=== PATIENT | male | born 1950 | race Caucasian/White ===

== ENCOUNTER 2016-04-24 09:08 | Inpatient (IN) | payer OTHER, MEDICARE ==
[~2016-04-24] VITALS: Ht 185.4 cm; Wt 133.0 kg
[2016-04-24] VITALS (11 sets, daily range): BP systolic 143–215; BP diastolic 67–111; PULSE 63–79; RESP 18–24; TEMP 97.2–98.2; O2SAT 92–96
[~2016-04-24 09:08] MED LIST: CARV12.5 PO; HYDR25TA5 PO; HYDR50TA15 PO; LISI-515 PO; MULTTAB67 PO; NOVO7030P2 SQ
[2016-04-24] MEDS ORDERED: SODIUM CHLORIDE 0.9% FLUSH 5 ML FLUSH IVF PRN (09:30)
[2016-04-24] MEDS ORDERED: methylPREDNISolone SOD SUCC 125 MG/2 ML VIAL IVP ONE (09:30)
--- NOTE | 2016-04-24 09:31 | PD ---
HPI Chief Complaint: Respiratory Distress Time Seen by Provider: 09:22 Travel History International Travel<30 days: No Contact w/Intl Traveler<30days: No Traveled to known affect area: No History of Present Illness HPI This is a 66-year-old male who is been told he has COPD in the past who presents to the emergency department with increasing shortness of breath that started fairly abruptly this morning when he went to use the bathroom. He describes the shortness of breath as difficulty catching his breath associated with some mild chest discomfort. He denies any fevers or chills. He has not been ill preceding this. He denies any sputum production. He had a normal stress test earlier this year. He does report that he's had some left calf pain over the past week. PFSH Past Medical History Arthritis: No Asthma: No Autoimmune Disease: No Blood Disorders: No Anxiety: No Depression: No Heart Rhythm Problems: No Cancer: No Cardiac Catheterization: No Cardiovascular Problems: Yes (chf ) High Cholesterol: Yes Chemotherapy: No Chest Pain: Yes Congestive Heart Failure: Yes COPD: Yes Cerebrovascular Accident: No Coronary Artery Disease: No Diabetes: Yes Patient Takes Glucophage: No Diminished Hearing: No Endocrine: No Gastrointestinal Disorders: Yes (PYLIDINOL CYST X2) GERD: No Glaucoma: No Genitourinary: No Headaches: Yes Hepatitis: No Heparin Induced Thrombocytopen: No Hypertension: Yes Immune Disorder: No Implanted Vascular Access Dvce: No Kidney Stones: No Musculoskeletal: No Neurologic: No Psychiatric: No Reproductive: No Respiratory: Yes Immunizations Current: Yes Migraines: No Myocardial Infarction: No Radiation Therapy: No Renal Failure: No Seizures: No Sickle Cell Disease: No Sleep Apnea: Yes (Not using CPAP, but is supposed to be) Thyroid Disease: No ?: Not Past Surgical History Abdominal Surgery: Yes (APPENDECTOMY) AICD: No Appendectomy: Yes Arteriovenous Shunt: No Cardiac Surgery: No Cholecystectomy: No Coronary Artery Bypass Graft: No Ear Surgery: No Endocrine Surgery: No Eye Surgery: No Genitourinary Surgery: No Gynecologic Surgery: No Insulin Pump: No Joint Replacement: No Neurologic Surgery: No Oral Surgery: No Pacemaker: No Thoracic Surgery: No Other Surgery: Yes (appendectomy) Family History Family Myocardial Infarction: No Social History Alcohol Use: Yes (SOCIAL) Tobacco Use: No (quit 30 years ago) Substance Use: No Allergies-Medications (Allergen,Severity, Reaction): Coded Allergies: *MDRO Multi-Drug Resistant Organism (Verified Adverse Reaction, Unknown, 02/22/16) MRSA (back wound/chest abscess) - 04/24/2015 MRSA PCR Screens NEGATIVE - 01/22/16 & 01/25/16 CLEARED PER INFECTION CONTROL Medrol (Verified Adverse Reaction, Unknown, 02/22/16) severe bowel pain Reported Meds & Prescriptions Reported Meds & Active Scripts Active Lisinopril 20 Mg Tab 40 Mg PO DAILY 30 Days Novolin 70-30 Inj (Insulin Human Isoph/Insulin Regular) 1,000 Unit/10 Ml Vial 25 Units SQ BID@,17 30 Days Hydralazine (Hydralazine HCl) 50 Mg Tab 100 Mg PO Q8H 30 Days Coreg (Carvedilol) 12.5 Mg Tab 50 Mg PO Q12HR 30 Days Reported Multiple Vitamin 1 Tab 1 Tab PO DAILY Hydrochlorothiazide 25 Mg Tab 25 Mg PO DAILY Review of Systems Except as stated in HPI: all other systems reviewed are Neg Physical Exam Narrative GENERAL:Well appearing, no acute distress SKIN: Warm and dry. HEAD: Atraumatic. Normocephalic. EYES: Pupils equal and round. No injection or drainage. ENT: Moist mucous membranes NECK: Trachea midline. CARDIOVASCULAR: Regular rate and rhythm. No murmur appreciated. RESPIRATORY poor air movement, mild expiratory wheeze, tachypnea GASTROINTESTINAL: Abdomen soft, non-tender, nondistended. MUSCULOSKELETAL: No obvious deformities. NEUROLOGICAL: Awake and alert. No obvious cranial nerve deficits. Moving all extremities. PSYCHIATRIC: Appropriate mood and affect; insight and judgment normal. Data Data Last Documented VS Vital Signs Date Time Temp Pulse Resp B/P Pulse Ox O2 Delivery O2 Flow Rate FiO2 04/24/16 11:20 63 18 166/77 95 Nasal Cannula 2 04/24/16 09:23 98.2 Orders Complete Blood Count With Diff (04/24/16 09:26) Comprehensive Metabolic Panel (04/24/16 09:26) B-Type Natriuretic Peptide (04/24/16 09:26) D-Dimer (04/24/16 09:26) Act Partial Throm Time (Ptt) (04/24/16 09:26) Prothrombin Time / Inr (Pt) (04/24/16 09:26) Troponin I (04/24/16 09:26) Iv Access Insert/Monitor (04/24/16 09:26) Ecg Monitoring (04/24/16 09:26) Oximetry (04/24/16 09:26) Oxygen Administration (04/24/16 09:26) Chest, Single Ap (04/24/16 09:26) Sodium Chloride 0.9% Flush (Ns Flush) (04/24/16 09:30) Methylprednisolone So Succ Inj (Solumedr (04/24/16 09:30) Albuterol-Ipratropium Neb (Duoneb Neb) (04/24/16 09:30) Nitroglycerin Sl (Nitrostat Sl) (04/24/16 10:45) Ct Pulmonary Angiogram (04/24/16 ) Azithromycin (Zithromax) (04/24/16 11:45) Labs Laboratory Tests Test 04/24/16 09:58 White Blood Count 10.8 TH/MM3 Red Blood Count 5.42 MIL/MM3 Hemoglobin 14.5 GM/DL Hematocrit 43.8 % Mean Corpuscular Volume 80.8 FL Mean Corpuscular Hemoglobin 26.8 PG Mean Corpuscular Hemoglobin 33.2 % Concent Red Cell Distribution Width 15.3 % Platelet Count 234 TH/MM3 Mean Platelet Volume 9.4 FL Neutrophils (%) (Auto) 63.2 % Lymphocytes (%) (Auto) 23.2 % Monocytes (%) (Auto) 7.3 % Eosinophils (%) (Auto) 5.1 % Basophils (%) (Auto) 1.2 % Neutrophils # (Auto) 6.8 TH/MM3 Lymphocytes # (Auto) 2.5 TH/MM3 Monocytes # (Auto) 0.8 TH/MM3 Eosinophils # (Auto) 0.6 TH/MM3 Basophils # (Auto) 0.1 TH/MM3 CBC Comment DIFF FINAL Differential Comment Prothrombin Time 10.9 SEC Prothromb Time International 1.0 RATIO Ratio Activated Partial 23.3 SEC Thromboplast Time D-Dimer Quantitative (PE/DVT) 1.03 MG/L FEU Sodium Level 137 MEQ/L Potassium Level 4.2 MEQ/L Chloride Level 102 MEQ/L Carbon Dioxide Level 24.8 MEQ/L Anion Gap 10 MEQ/L Blood Urea Nitrogen 15 MG/DL Creatinine 1.23 MG/DL Estimat Glomerular Filtration 59 ML/MIN Rate Random Glucose 200 MG/DL Calcium Level 8.4 MG/DL Total Bilirubin 0.4 MG/DL Aspartate Amino Transf 32 U/L (AST/SGOT) Alanine Aminotransferase 42 U/L (ALT/SGPT) Alkaline Phosphatase 78 U/L Troponin I LESS THAN 0.02 NG/ML B-Type Natriuretic Peptide 280 PG/ML Total Protein 7.1 GM/DL Albumin 3.3 GM/DL MDM Medical Decision Making Medical Screen Exam Complete: Yes Emergency Medical Condition: Yes Interpretation(s) Hypoxic to 88% on room air, marked hypertension No leukocytosis Hyperglycemia BNP is indeterminate Troponin is less than 0.02 Last 24 hours Impressions Chest X-Ray 04/24/16 0961 Signed Impressions: Service Date/Time: Sunday, April 24, 2016 09:44 - CONCLUSION: Interstitial opacities bilaterally are subtle but appear new since the prior study. This could represent interstitial pulmonary edema in the appropriate clinical setting. Neeraj Alcantara MD Differential Diagnosis Pneumonia, COPD exacerbation, pulmonary embolism, congestive heart failure Narrative Course This is a 66-year-old male who presents to the emergency department with increasing shortness of breath that started fairly abruptly this morning. He is hypoxic on room air. He was placed on a monitor and an IV was established. He has some coarse lung sounds in the bases but very little wheezing. Nonetheless given he has a history of COPD a trial of bronchodilators and steroids was performed but patient's lung sounds did not change my touch. Labs are obtained which were unremarkable with indeterminate BMP. Chest x-ray demonstrates interstitial opacities, possible pulmonary edema. I think the patient requires CT imaging of the lungs to exclude pulmonary embolism and to further evaluate the lung parenchyma. Patient requires admission for continued pulmonary care as his oxygen still falls to 88% on room air. He may have undiagnosed interstitial lung disease. He was covered for possible pneumonia with ceftriaxone and azithromycin, although I think this is unlikely given he is afebrile and has no leukocytosis. Diagnosis Primary Impression: Hypoxia Admitting Information Admitting Physician Requests: Admit Corrie Randolph MD Apr 24, 2016 09:31
[2016-04-24] MEDS: RESP: ALBUTEROL 2.5 MG/IPRATROPIUM 0.5 MG NEB (SCH) INH ×3 (09:51→21:50)
--- NOTE | 2016-04-24 10:04 | RADRPT ---
EXAM DATE/TIME: 04/24/2016 09:44 [facility] COMPARISON: CHEST SINGLE AP, February 22, 2016, 23:11. INDICATIONS : Shortness of breath and chest pain. MEDICAL HISTORY : Diabetes mellitus type II. Hypertension. SURGICAL HISTORY : None. ENCOUNTER: Initial ACUITY: 1 day PAIN SCORE: 1/10 LOCATION: Bilateral chest FINDINGS: Portable AP view of the chest demonstrates a normal-sized cardiac silhouette. There are subtle inters titial opacities bilaterally that appear new since the prior examination. No effusion, consolidation, or pneumothorax is seen. Bones demonstrate no acute finding. CONCLUSION: Interstitial opacities bilaterally are subtle but appear new since the prior study. This could repres ent interstitial pulmonary edema in the appropriate clinical setting. Neeraj Alcantara MD on April 24, 2016 at 10:01 Board Certified Radiologist. This report was verified electronically.
[2016-04-24 10:24] LABS: AUTOMATED NEUTROPHIL # 6.8 TH/MM3 (1.8-7.7); BASOPHIL # 0.1 TH/MM3 (0-0.2); BASOPHIL % 1.2 % (0.0-2.0); EOSINOPHIL # 0.6 TH/MM3 (0-0.4); EOSINOPHIL % 5.1 % (0.0-4.0); HEMATOCRIT 43.8 % (39.0-51.0); HEMO FLAGS DIFF FINAL; LYMPH % 23.2 % (9.0-44.0); LYMPHOCYTE # 2.5 TH/MM3 (1.0-4.8); MEAN CELL VOLUME 80.8 FL (80.0-100.0); MEAN CORPUSCULAR HEMOGLOBIN 26.8 PG (27.0-34.0); MEAN CORPUSCULAR HGB CONC 33.2 % (32.0-36.0); MONO % 7.3 % (0.0-8.0); NEUT % 63.2 % (16.0-70.0); PLATELET COUNT 234 TH/MM3 (150-450); RED BLOOD COUNT 5.42 MIL/MM3 (4.50-5.90); RED CELL DISTRIBUTION WIDTH 15.3 % (11.6-17.2); WHITE BLOOD COUNT 10.8 TH/MM3 (4.0-11.0)
[2016-04-24 10:38] LABS: APTT (PATIENT) 23.3 SEC (24.3-30.1); PROTHROMBIN TIME - PATIENT 10.9 SEC (9.8-11.6)
[2016-04-24] MEDS ORDERED: NITROGLYCERIN 0.4 MG SL 25 TABS/BTL SL PRN (10:45)
[2016-04-24 10:50] LABS: ALT (GPT) 42 U/L (12-78); ANION GAP 10 MEQ/L (5-15); AST (GOT) 32 U/L (15-37); BICARBONATE 24.8 MEQ/L (21.0-32.0); BLOOD UREA NITROGEN 15 MG/DL (7-18); CHLORIDE 102 MEQ/L (98-107); GLOMERULAR FILTRATION RATE 59 ML/MIN (>89); SODIUM (NA) 137 MEQ/L (136-145)
[2016-04-24 10:51] LABS: POTASSIUM 4.2 MEQ/L (3.5-5.1)
[2016-04-24 11:00] LABS: ALKALINE PHOSPHATASE 78 U/L (45-117); TOTAL BILIRUBIN ADULT 0.4 MG/DL (0.2-1.0)
[2016-04-24] MEDS ORDERED: AZITHROMYCIN 250 MG TAB PO ONE (11:45)
[2016-04-24] MEDS ORDERED: cefTRIAXone INJ 1,000 MG in SODIUM CHLORIDE 0.9% INJ 100 ML IV ONE (12:00)
[2016-04-24] MEDS ORDERED: FUROSEMIDE 40 MG/4 ML VIAL IV PUSH ONE (12:30)
[2016-04-24] MEDS ORDERED: CLON0.2T PO (13:28)
[2016-04-24] MEDS ORDERED: METO25TA3 PO (13:28)
[2016-04-24] MEDS ORDERED: ASPI325T PO (13:28)
[2016-04-24] MEDS ORDERED: cloNIDine HCL 0.1 MG TAB PO PRN (14:45)
[2016-04-24] MEDS ORDERED: ENALAPRILAT 1.25 MG/ML VIAL IV PRN (14:45)
[2016-04-24] MEDS ORDERED: CALCIUM CARBONATE 500 MG CHEWABLE TAB CHEW PRN (14:45)
[2016-04-24] MEDS ORDERED: hydrALAZINE HCL 20 MG/ML VIAL IV PRN (14:45)
[2016-04-24] MEDS ORDERED: GLUCAGON 1 MG/ML VIAL OTHER PRN (14:45)
[2016-04-24] MEDS ORDERED: RESP: ALBUTEROL 2.5 MG/3 ML NEB (PRN) INH (14:45)
[2016-04-24] MEDS ORDERED: DEXTROSE 50% IN WATER 50 ML VIAL(D50) IV PUSH PRN (14:45)
[2016-04-24] MEDS ORDERED: DOCUSATE SODIUM 50 MG/SENNA 8.6 MG TAB PO PRN (14:45)
[2016-04-24] MEDS ORDERED: MAGNESIUM HYDROXIDE SUSP 30 ML CUP PO PRN (14:45)
[2016-04-24] MEDS ORDERED: DOCUSATE SODIUM 100 MG CAP PO PRN (14:45)
[2016-04-24] MEDS: LISINOPRIL 10 MG TAB PO SCH (14:45)
[2016-04-24] MEDS ORDERED: ALUMINUM/MAGNESIUM/SIMETH 30 ML CUP PO PRN (14:45)
[2016-04-24] MEDS ORDERED: ONDANSETRON HCL 4 MG/2 ML VIAL IV PRN (14:45)
--- NOTE | 2016-04-24 14:46 | HHI.HP ---
Dr. Engle [facility] Physician Supa Engle MD Admission Diagnosis hypoxia Diagnoses: Chief Complaint: Shortness of breath Travel History International Travel<30 Days: No Contact w/Intl Traveler <30 Da: No Traveled to Known Affected Are: No History of Present Illness 66-year-old male with a past history of HTN, DM, COPD, CHF, CHARITY, HLD who presented with acute onset of shortness of breath this morning. The patient states he woke up today and was feeling quite short of breath. He states it was worse when he tried to ambulate to the restroom. He states he felt he was wheezing. He states he tried to lie down and rest, but he is having some discomfort in his chest when he lie flat. He describes the chest discomfort as dull, lasting at most 5 minutes. He states the chest discomfort was relieved whenever he sat up. He has not tried lying flat since then. He is not on any diuretics at home. He denies any recent weight gain, has been trying to exercise. He does feel like his lower extremities have been swelling recently, worse when he stands on his feet too long. He denies any fevers or chills. He has an occasional dry cough, chronic. He states he tries to monitor his salt intake. Review of Systems Other 10 point review of systems performed and was negative except as stated in the history of present illness Past Family Social History Past Medical History Hypertension Diabetes mellitus COPD, not on home oxygen Systolic CHF Hyperlipidemia Sleep apnea, not on CPAP Past Surgical History Appendectomy Pilonidal cyst Reported Medications Novolin 70-30 Inj (Insulin Human Isoph/Insulin Regular) 1,000 Unit/10 Ml Vial 25 Units SQ BID@08,17 30 Days Aspirin 325 Mg Tab 325 Mg PO DAILY Clonidine (Clonidine HCl) 0.2 Mg Tab 0.2 Mg PO QID Metoprolol Tartrate 25 Mg Tab 25 Mg PO BID Multiple Vitamin 1 Tab 1 Tab PO DAILY Allergies: Coded Allergies: *MDRO Multi-Drug Resistant Organism (Verified Adverse Reaction, Unknown, 02/22/16) MRSA (back wound/chest abscess) - 04/24/2015 MRSA PCR Screens NEGATIVE - 01/22/16 & 01/25/16 CLEARED PER INFECTION CONTROL Medrol (Verified Adverse Reaction, Unknown, 02/22/16) severe bowel pain Active Ordered Medications Current Medications Medications (Trade) Dose Ordered Sig/Ly Route Start Time Stop Time Status Last Admin (NS Flush) 2 ml UNSCH PRN IVF 04/24/16 09:30 (Nitrostat Sl) 0.4 mg Q5M PRN SL 04/24/16 10:45 Family History Sr. of breast cancer Father of lung cancer and leukemia Social History Former tobacco use, quit in 1989 Denies any alcohol use Physical Exam Vital Signs Vital Signs Date Time Temp Pulse Resp B/P Pulse Ox O2 Delivery O2 Flow Rate FiO2 04/24/16 12:47 66 18 180/88 93 Nasal Cannula 3 04/24/16 11:20 63 18 166/77 95 Nasal Cannula 2 04/24/16 09:50 92 Nasal Cannula 2.00 04/24/16 09:43 94 Nasal Cannula 3 04/24/16 09:43 18 95 3 04/24/16 09:23 98.2 65 18 215/111 93 Nasal Cannula 3 04/24/16 09:23 65 24 92 Nasal Cannula 3 04/24/16 09:16 98.2 68 24 215/111 93 Physical Exam GENERAL: Well-developed well-nourished. In no acute distress. SKIN: Warm and dry. No lesions noted. HEENT: Normocephalic. Pupils equal and round. Mucous membranes pink and moist. JVD appreciated. CARDIOVASCULAR: Regular rate and rhythm. No murmur appreciated. RESPIRATORY: No accessory muscle use. Clear to auscultation. Decreased breath sounds in the bases. GASTROINTESTINAL: Abdomen soft, non-tender, nondistended. Bowel sounds x4. MUSCULOSKELETAL: No obvious deformities. No clubbing or cyanosis. 1+ bilateral lower extremity pitting edema. NEUROLOGICAL: Awake and alert. No focal neurological deficits. Moves upper and lower extremities spontaneously. Normal speech. PSYCHIATRIC: Appropriate mood and affect; insight and judgment normal. Laboratory Laboratory Tests Test 04/24/16 09:58 White Blood Count 10.8 Red Blood Count 5.42 Hemoglobin 14.5 Hematocrit 43.8 Mean Corpuscular Volume 80.8 Mean Corpuscular Hemoglobin 26.8 Mean Corpuscular Hemoglobin 33.2 Concent Red Cell Distribution Width 15.3 Platelet Count 234 Mean Platelet Volume 9.4 Neutrophils (%) (Auto) 63.2 Lymphocytes (%) (Auto) 23.2 Monocytes (%) (Auto) 7.3 Eosinophils (%) (Auto) 5.1 Basophils (%) (Auto) 1.2 Neutrophils # (Auto) 6.8 Lymphocytes # (Auto) 2.5 Monocytes # (Auto) 0.8 Eosinophils # (Auto) 0.6 Basophils # (Auto) 0.1 CBC Comment DIFF FINAL Differential Comment Prothrombin Time 10.9 Prothromb Time International 1.0 Ratio Activated Partial 23.3 Thromboplast Time D-Dimer Quantitative (PE/DVT) 1.03 Sodium Level 137 Potassium Level 4.2 Chloride Level 102 Carbon Dioxide Level 24.8 Anion Gap 10 Blood Urea Nitrogen 15 Creatinine 1.23 Estimat Glomerular Filtration 59 Rate Random Glucose 200 Calcium Level 8.4 Total Bilirubin 0.4 Aspartate Amino Transf 32 (AST/SGOT) Alanine Aminotransferase 42 (ALT/SGPT) Alkaline Phosphatase 78 Troponin I LESS THAN 0.02 B-Type Natriuretic Peptide 280 Total Protein 7.1 Albumin 3.3 Result Diagram: 04/24/1658 04/24/16957 Imaging Last Impressions Chest X-Ray 04/24/16925 Signed Impressions: Service Date/Time: Sunday, April 24, 2016 09:44 - CONCLUSION: Interstitial opacities bilaterally are subtle but appear new since the prior study. This could represent interstitial pulmonary edema in the appropriate clinical setting. Neeraj Alcantara MD Assessment and Plan Problem List: (1) Systolic CHF, acute on chronic ICD Code: I50.23 Status: Acute (2) DM (diabetes mellitus) ICD Code: E11.9 Status: Chronic (3) HTN (hypertension) ICD Code: I10 Status: Acute (4) COPD (chronic obstructive pulmonary disease) ICD Code: J44.9 Status: Chronic Assessment and Plan 66-year-old male with a past history of HTN, DM, COPD, CHF, CHARITY, HLD who presented with acute onset of shortness of breath Acute respiratory failure: O2 saturation decreased to 88% in the ED. Suspect secondary to CHF exacerbation as below, see treatment. He received IV Solu- Medrol in the ED, no further wheezing. Scheduled as needed nebs. O2 as needed. Acute exacerbation of chronic systolic CHF: Echocardiogram 02/05/16 showed a moderate reduction in systolic function with EF 3540 %, mild LVH and moderate left HM dilation. Chest x-ray with interstitial pulmonary edema. BNP elevated at 280. Continue IV diuresis. Fluid and salt restrictions. Monitor intake and output. Continue metoprolol. Add lisinopril. COPD: No signs of exacerbation currently, although the patient received steroids in the ED. Treatment as above. Could resume steroids if patient starts wheezing. Diabetes mellitus: Continue home Novolin 70/30. Additional coverage with SSI with Accu-Cheks. Hypertension: Accelerated. Continue metoprolol and clonidine. Add lisinopril. Continue IV diuresis. Clonidine, IV enalapril, and IV hydralazine as needed. Atypical chest pain: Related to positional changes, suspect secondary to CHF as above. Patient had nonischemic stress test 01/16. Troponin within normal limits. EKG personally reviewed, first-degree AV block, no significant changes from previous. Continue aspirin. DVT prophylaxis: SCDs Written by Reginaldo Castaneda, acting as scribe for Dr. Willis on 04/24/16 at 14:45. The documentation accurately reflects the work performed [id number] by me on at 1445 Discussed Condition With Patient, ED RN Problem Qualifiers (1) DM (diabetes mellitus): (2) HTN (hypertension): Qualified Code: I10 - Essential hypertension (3) COPD (chronic obstructive pulmonary disease): Qualified Code: J44.9 - Chronic obstructive pulmonary disease, unspecified COPD type Reginaldo Castaneda Apr 24, 2016 14:46 Catarino Willis MD Apr 24, 2016 15:43
[2016-04-24] MEDS: HEPARIN SODIUM - SQ 10,000 UNITS/ML VIAL SQ SCH (16:00)
[2016-04-24] MEDS: INSULIN ASPART SUPPLEMENTAL SCALE SQ SCH ×2 (16:00→21:00)
[2016-04-24] MEDS: INSULIN HUMAN NPH/R 70/30 1,000 UNITS/10 ML VIAL SQ SCH (17:00)
[2016-04-24] MEDS: cloNIDine HCL 0.2 MG TAB PO SCH ×2 (17:30→21:01)
[2016-04-24] MEDS: FUROSEMIDE 40 MG/4 ML VIAL IV PUSH SCH (17:31)
[2016-04-24] MEDS: POTASSIUM CHLORIDE 10 MEQ CAP PO SCH (21:01)
[2016-04-24] MEDS: METOPROLOL TARTRATE 25 MG TAB PO SCH (21:01)
--- NOTE | 2016-04-24 23:09 | EKG ---
Date Performed: 04/24/2016 Time Performed: 09:38:04 PTAGE: 66 years EKG: Sinus rhythm WITH FIRST DEGREE AV BLOCK BORDERLINE LEFT AXIS DEVIATION MODERATE INTRAVENTRICULAR CONDUCTION DELAY ABNORMAL ECG PREVIOUS TRACING : 02/22/2016 21.22 Compared to prior tracing no significant change DOCTOR: Dennis Soria Interpretating Date/Time 04/24/2016 23:08:35
[2016-04-25] VITALS (9 sets, daily range): BP systolic 131–168; BP diastolic 59–85; PULSE 62–78; RESP 18–19; TEMP 97.2–97.9; O2SAT 92–98
[2016-04-25] MEDS: ACETAMINOPHEN 325 MG TAB PO PRN (00:21)
[2016-04-25] MEDS: HEPARIN SODIUM - SQ 10,000 UNITS/ML VIAL SQ SCH ×2 (04:40→16:25)
[2016-04-25] MEDS: RESP: ALBUTEROL 2.5 MG/IPRATROPIUM 0.5 MG NEB (SCH) INH ×3 (05:04→22:16)
[2016-04-25] MEDS: INSULIN ASPART SUPPLEMENTAL SCALE SQ SCH ×4 (06:02→21:31)
[2016-04-25] MEDS ORDERED: INFLUENZA VIRUS VACCINE (QUADRIVALENT) 0.5 ML SYR IM ONE (10:00)
[2016-04-25] MEDS: POTASSIUM CHLORIDE 10 MEQ CAP PO SCH ×2 (10:11→21:30)
[2016-04-25] MEDS: cloNIDine HCL 0.2 MG TAB PO SCH ×4 (10:11→21:30)
[2016-04-25] MEDS: METOPROLOL TARTRATE 25 MG TAB PO SCH ×2 (10:11→21:30)
[2016-04-25] MEDS: INSULIN HUMAN NPH/R 70/30 1,000 UNITS/10 ML VIAL SQ SCH (10:12)
[2016-04-25] MEDS: ASPIRIN 325 MG TAB PO SCH (10:12)
[2016-04-25] MEDS: FUROSEMIDE 40 MG/4 ML VIAL IV PUSH SCH (10:12)
[2016-04-25] MEDS: LISINOPRIL 10 MG TAB PO SCH (10:13)
[2016-04-25] MEDS: MULTIVITAMIN TAB PO SCH (10:13)
[2016-04-25 11:19] LABS: POTASSIUM 4.3 MEQ/L (3.5-5.1)
--- NOTE | 2016-04-25 13:30 | HHI.PR ---
Subjective Remarks Follow-up heart failure. Slightly better but still dyspneic even with slight exertion. No voiding issues. Seen with sister. Discussed with RN. Patient states glucose less than 200 home. He missed his morning dose of 70/30 yesterday morning. Objective Vitals Vital Signs Date Time Temp Pulse Resp B/P Pulse Ox O2 Delivery O2 Flow Rate FiO2 04/25/16 11:15 96 Nasal Cannula 2.00 04/25/16 05:07 94 Nasal Cannula 2.00 04/25/16 04:00 97.4 77 19 131/59 92 04/24/16 23:37 98.0 76 19 154/72 96 04/24/16 23:15 79 04/24/16 20:30 68 04/24/16 20:00 97.7 70 19 143/67 94 04/24/16 16:00 97.2 77 20 206/102 96 I/O 04/24/16 04/24/16 04/24/16 04/25/16 04/25/16 04/25/16 07:00 15:00 23:00 07:00 15:00 23:00 Intake Total 320 ml 120 ml Balance 320 ml 120 ml Intake Oral 320 ml 120 ml # Voids 3 2 # Bowel Movements 1 Result Diagram: 04/24/1658 04/25/16 0949 Imaging Last Impressions Chest X-Ray 04/24/16 09 Signed Impressions: Service Date/Time: Sunday, April 24, 2016 09:44 - CONCLUSION: Interstitial opacities bilaterally are subtle but appear new since the prior study. This could represent interstitial pulmonary edema in the appropriate clinical setting. Neeraj Alcantara MD Objective Remarks GENERAL: Well-developed well-nourished. In no acute distress. SKIN: Warm and dry. No lesions noted. HEENT: Normocephalic. Pupils equal and round. Mucous membranes pink and moist. JVD appreciated. CARDIOVASCULAR: Regular rate and rhythm. No murmur appreciated. RESPIRATORY: No accessory muscle use. Clear to auscultation. Decreased breath sounds in the bases. GASTROINTESTINAL: Abdomen soft, non-tender, nondistended. Bowel sounds x4. MUSCULOSKELETAL: No obvious deformities. No clubbing or cyanosis. 1+ bilateral lower extremity pitting edema. NEUROLOGICAL: Awake and alert. No focal neurological deficits. Moves upper and lower extremities spontaneously. Normal speech. PSYCHIATRIC: Appropriate mood and affect; insight and judgment normal. Procedures none A/P Problem List: (1) Systolic CHF, acute on chronic ICD Code: I50.23 Status: Acute (2) DM (diabetes mellitus) ICD Code: E11.9 Status: Chronic (3) HTN (hypertension) ICD Code: I10 Status: Acute (4) COPD (chronic obstructive pulmonary disease) ICD Code: J44.9 Status: Chronic Assessment and Plan 66-year-old male with a past history of HTN, DM, COPD, CHF, CHARITY, HLD who presented with acute onset of shortness of breath Acute respiratory failure: O2 saturation decreased to 88% in the ED. Suspect secondary to CHF exacerbation as below, see treatment. He received IV Solu- Medrol in the ED, no further wheezing. Scheduled as needed nebs. O2 as needed. Acute exacerbation of chronic systolic CHF: Echocardiogram 02/05/16 showed a moderate reduction in systolic function with EF 3540 %, mild LVH and moderate left HM dilation. Chest x-ray with interstitial pulmonary edema. BNP elevated at 280. Continue IV diuresis. Fluid and salt restrictions. Monitor intake and output. Continue metoprolol. Improving COPD: No signs of exacerbation currently, although the patient received steroids in the ED. Treatment as above. Could resume steroids if patient starts wheezing. Diabetes mellitus: Uncontrolled secondary to patient missing dose. Patient states his glucose less than 200 at home. Continue home Novolin 70/30 for now A1c 11.6 in February 2016. Additional coverage with SSI with Accu-Cheks. Hypertension: Accelerated. Improving Continue metoprolol and clonidine. Continue IV diuresis. Clonidine, IV enalapril, and IV hydralazine as needed. Continue to monitor Atypical chest pain: Related to positional changes, suspect secondary to CHF as above. Patient had nonischemic stress test 01/16. Troponin within normal limits. EKG personally reviewed, first-degree AV block, no significant changes from previous. Continue aspirin. Acute on chronic kidney disease stage III. Nonoliguric. We'll decrease IV Lasix and discontinue lisinopril. Avoid nephrotoxins. Repeat BMP in the morning DVT prophylaxis: SCDs and subcutaneous heparin Problem Qualifiers (1) DM (diabetes mellitus): (2) HTN (hypertension): Qualified Code: I10 - Essential hypertension (3) COPD (chronic obstructive pulmonary disease): Qualified Code: J44.9 - Chronic obstructive pulmonary disease, unspecified COPD type Catarino Willis MD Apr 25, 2016 13:30
[2016-04-25] MEDS ORDERED: INSULIN HUMAN NPH/R 70/30 1,000 UNITS/10 ML VIAL SQ SCH ×2 (16:00)
[2016-04-26] VITALS (11 sets, daily range): BP systolic 136–178; BP diastolic 63–91; PULSE 59–74; RESP 16–20; TEMP 97.3–98.2; O2SAT 92–96
[2016-04-26] MEDS: HEPARIN SODIUM - SQ 10,000 UNITS/ML VIAL SQ SCH ×2 (03:16→16:38)
[2016-04-26] MEDS: RESP: ALBUTEROL 2.5 MG/IPRATROPIUM 0.5 MG NEB (SCH) INH ×4 (03:51→20:16)
[2016-04-26] MEDS: INSULIN ASPART SUPPLEMENTAL SCALE SQ SCH ×4 (06:04→21:00)
[2016-04-26] MEDS ORDERED: INSULIN HUMAN NPH/R 70/30 1,000 UNITS/10 ML VIAL SQ SCH ×2 (07:00→17:00)
[2016-04-26 08:04] LABS: BICARBONATE 28.4 MEQ/L (21.0-32.0); POTASSIUM 3.9 MEQ/L (3.5-5.1)
[2016-04-26] MEDS: METOPROLOL TARTRATE 25 MG TAB PO SCH ×2 (08:54→21:51)
[2016-04-26] MEDS: POTASSIUM CHLORIDE 10 MEQ CAP PO SCH ×2 (08:54→21:50)
[2016-04-26] MEDS: MULTIVITAMIN TAB PO SCH (08:54)
[2016-04-26] MEDS: cloNIDine HCL 0.2 MG TAB PO SCH ×4 (08:54→21:52)
[2016-04-26] MEDS: ASPIRIN 325 MG TAB PO SCH (08:54)
[2016-04-26] MEDS ORDERED: FUROSEMIDE 40 MG/4 ML VIAL IV PUSH SCH (09:00)
[2016-04-26] MEDS: ACETAMINOPHEN 325 MG TAB PO PRN ×3 (09:54→22:22)
[2016-04-26 10:11] LABS: BLOOD, URINE NEG (NEG); COMMENT (UR) CULT NOT INDICATED; CULTURE IF INDICATED CULT NOT INDICATED; GLUCOSE,URINE NEG (NEG); KETONE, URINE NEG (NEG); NITRITE,URINE NEG (NEG); PH, URINE 5.5 (5.0-8.5); URINE COLOR LIGHT-YELLOW (YELLW/STRAW)
--- NOTE | 2016-04-26 10:32 | HHI.PR ---
Subjective Remarks Follow-up heart failure. Improving shortness of breath and exercise tolerance. He is voiding. Discussed with RN Objective Vitals Vital Signs Date Time Temp Pulse Resp B/P Pulse Ox O2 Delivery O2 Flow Rate FiO2 04/26/16 10:13 65 04/26/16 09:04 96 21 04/26/16 08:00 97.7 65 16 178/91 93 04/26/16 04:00 97.8 59 18 160/85 92 04/26/16 00:00 97.3 59 18 139/76 92 04/25/16 22:16 98 Nasal Cannula 04/25/16 22:03 64 04/25/16 20:25 2.00 04/25/16 20:00 97.9 62 18 162/72 96 04/25/16 16:00 97.7 78 18 157/85 95 04/25/16 12:00 97.2 64 18 168/80 94 04/25/16 11:15 96 Nasal Cannula 2.00 I/O 04/25/16 04/25/16 04/25/16 04/26/16 04/26/16 04/26/16 07:00 15:00 23:00 07:00 15:00 23:00 Intake Total 120 ml 0 ml 362 ml 480 ml Balance 120 ml 0 ml 362 ml 480 ml Intake Oral 120 ml 360 ml 480 ml IV Total 0 ml 2 ml # Voids 2 1 1 Result Diagram: 04/24/16 0958 04/26/16 0658 Objective Remarks GENERAL: Well-developed well-nourished. In no acute distress. SKIN: Warm and dry. No lesions noted. HEENT: Normocephalic. Pupils equal and round. Mucous membranes pink and moist. JVD appreciated. CARDIOVASCULAR: Regular rate and rhythm. No murmur appreciated. RESPIRATORY: No accessory muscle use. Crackles left base. Decreased breath sounds in the bases. GASTROINTESTINAL: Abdomen soft, non-tender, nondistended. Bowel sounds x4. MUSCULOSKELETAL: No obvious deformities. No clubbing or cyanosis. 1+ bilateral lower extremity pitting edema. NEUROLOGICAL: Awake and alert. No focal neurological deficits. Moves upper and lower extremities spontaneously. Normal speech. PSYCHIATRIC: Appropriate mood and affect; insight and judgment normal. Procedures none A/P Problem List: (1) Systolic CHF, acute on chronic ICD Code: I50.23 Status: Acute (2) DM (diabetes mellitus) ICD Code: E11.9 Status: Chronic (3) HTN (hypertension) ICD Code: I10 Status: Acute (4) COPD (chronic obstructive pulmonary disease) ICD Code: J44.9 Status: Chronic Assessment and Plan 66-year-old male with a past history of HTN, DM, COPD, CHF, CHARITY, HLD who presented with acute onset of shortness of breath Acute respiratory failure: O2 saturation decreased to 88% in the ED. Suspect secondary to CHF exacerbation as below, see treatment. He received IV Solu- Medrol in the ED, no further wheezing. Scheduled as needed nebs. O2 as needed. Acute exacerbation of chronic systolic CHF: Echocardiogram 02/05/16 showed a moderate reduction in systolic function with EF 3540 %, mild LVH and moderate left HM dilation. Chest x-ray with interstitial pulmonary edema. BNP elevated at 280. Improving but still with dyspnea and crackles ct diuresis . Fluid and salt restrictions. Monitor intake and output. Continue metoprolol. COPD: No signs of exacerbation currently, although the patient received steroids in the ED. Treatment as above. Could resume steroids if patient starts wheezing. Diabetes mellitus: Uncontrolled secondary to patient missing dose. Patient states his glucose less than 200 at home. Increase Novolin 70/30 to 28 units am A1c 11.6 in February 2016. Additional coverage with SSI with [employer]. Hypertension: Accelerated. Improving Continue metoprolol and clonidine. Clonidine, IV enalapril, and IV hydralazine as needed. Continue to monitor Atypical chest pain: Related to positional changes, suspect secondary to CHF as above. Patient had nonischemic stress test 01/16. Troponin within normal limits. EKG personally reviewed, first-degree AV block, no significant changes from previous. Continue aspirin. Acute on chronic kidney disease stage III. Nonoliguric. Improving switch to po Lasix and discontinue lisinopril. Avoid nephrotoxins. Repeat BMP in the morning DVT prophylaxis: SCDs and subcutaneous heparin Discharge Planning Possible dc in am not ready today Problem Qualifiers (1) DM (diabetes mellitus): (2) HTN (hypertension): Qualified Code: I10 - Essential hypertension (3) COPD (chronic obstructive pulmonary disease): Qualified Code: J44.9 - Chronic obstructive pulmonary disease, unspecified COPD type Catarino Willis MD Apr 26, 2016 10:32
[2016-04-27 04:24] VITALS: BP 131/77; PULSE 76; RESP 16; TEMP 97.9; O2SAT 91
[2016-04-27] MEDS: RESP: ALBUTEROL 2.5 MG/IPRATROPIUM 0.5 MG NEB (SCH) INH ×2 (04:24→10:01)
[2016-04-27 04:27] VITALS: O2SAT 97
[2016-04-27] MEDS: INSULIN ASPART SUPPLEMENTAL SCALE SQ SCH ×2 (05:39→11:58)
[2016-04-27] MEDS: HEPARIN SODIUM - SQ 10,000 UNITS/ML VIAL SQ SCH (05:39)
[2016-04-27 08:00] VITALS: BP 185/110; PULSE 72; PULSE 76; RESP 20; TEMP 97.3; O2SAT 98
[2016-04-27] MEDS ORDERED: INSULIN HUMAN NPH/R 70/30 1,000 UNITS/10 ML VIAL SQ SCH ×2 (08:00)
[2016-04-27] MEDS: METOPROLOL TARTRATE 25 MG TAB PO SCH (08:41)
[2016-04-27] MEDS: POTASSIUM CHLORIDE 10 MEQ CAP PO SCH (08:41)
[2016-04-27] MEDS: ASPIRIN 325 MG TAB PO SCH (08:42)
[2016-04-27] MEDS: MULTIVITAMIN TAB PO SCH (08:42)
[2016-04-27] MEDS: cloNIDine HCL 0.2 MG TAB PO SCH ×2 (08:43→11:50)
[2016-04-27] MEDS: ACETAMINOPHEN 325 MG TAB PO PRN (08:43)
[2016-04-27] MEDS ORDERED: FUROSEMIDE 40 MG TAB PO SCH (09:00)
[2016-04-27] MEDS ORDERED: NOVO7030P2 SQ ×2 (10:59)
[2016-04-27] MEDS ORDERED: FURO1TAB60 PO ×2 (10:59→15:26)
[2016-04-27] MEDS ORDERED: POTA10CA PO (10:59)
--- NOTE | 2016-04-27 11:00 | HHI.DCPOC ---
Discharge Care Plan Diagnosis: (1) Systolic CHF, acute on chronic Your Health Problems Are: Difficulty with ADL Exercise Tolerance Shortness of Breath Goals to Promote Your Health * To prevent worsening of your condition and complications * To maintain your health at the optimal level Directions to Meet Your Goals Take your medications as prescribed Follow your dietary instruction Follow activity as directed Keep your appointments as scheduled Take your immunizations and boosters as scheduled If your symptoms worsen call your PCP, if no PCP go to Urgent Care Center or Emergency Room Smoking is Dangerous to Your Health. Avoid second hand smoke Call the 24-hour hour crisis hotline for domestic abuse at Catarino Willis MD Apr 27, 2016 11:00
--- NOTE | 2016-04-27 11:01 | HHI.DS ---
Discharge Summary Admission Date Apr 24, 2016 at 12:13 Discharge Date: Apr 27, 2016 Admitting Diagnosis hypoxia (1) Systolic CHF, acute on chronic ICD Code: I50.23 Diagnosis: Principal (2) DM (diabetes mellitus) ICD Code: E11.9 Diagnosis: Principal (3) HTN (hypertension) ICD Code: I10 Diagnosis: Secondary (4) COPD (chronic obstructive pulmonary disease) ICD Code: J44.9 Diagnosis: Principal Procedures none Brief History - From Admission 66-year-old male with a past history of HTN, DM, COPD, CHF, CHARITY, HLD who presented with acute onset of shortness of breath this morning. The patient states he woke up today and was feeling quite short of breath. He states it was worse when he tried to ambulate to the restroom. He states he felt he was wheezing. He states he tried to lie down and rest, but he is having some discomfort in his chest when he lie flat. He describes the chest discomfort as dull, lasting at most 5 minutes. He states the chest discomfort was relieved whenever he sat up. He has not tried lying flat since then. He is not on any diuretics at home. He denies any recent weight gain, has been trying to exercise. He does feel like his lower extremities have been swelling recently, worse when he stands on his feet too long. He denies any fevers or chills. He has an occasional dry cough, chronic. He states he tries to monitor his salt intake. CBC/BMP: 04/24/16 0958 04/26/16 0658 Significant Findings Laboratory Tests Test 04/25/16 04/26/16 09:49 06:58 Sodium Level 132 MEQ/L 135 MEQ/L (136-145) (136-145) Chloride Level 96 MEQ/L (98-107) Blood Urea Nitrogen 26 MG/DL (7-18) 29 MG/DL (7-18) Creatinine 1.85 MG/DL 1.35 MG/DL (0.60-1.30) (0.60-1.30) Estimat Glomerular Filtration 37 ML/MIN (>89) 53 ML/MIN (>89) Rate Random Glucose 312 MG/DL 186 MG/DL (74-106) (74-106) Imaging Last Impressions Chest X-Ray 04/24/16 0979 Signed Impressions: Service Date/Time: Sunday, April 24, 2016 09:44 - CONCLUSION: Interstitial opacities bilaterally are subtle but appear new since the prior study. This could represent interstitial pulmonary edema in the appropriate clinical setting. Neeraj Alcantara MD PE at Discharge GENERAL: Well-developed well-nourished. In no acute distress. SKIN: Warm and dry. No lesions noted. HEENT: Normocephalic. Pupils equal and round. Mucous membranes pink and moist. JVD appreciated. CARDIOVASCULAR: Regular rate and rhythm. No murmur appreciated. RESPIRATORY: No accessory muscle use. Crackles left base. Decreased breath sounds in the bases. GASTROINTESTINAL: Abdomen soft, non-tender, nondistended. Bowel sounds x4. MUSCULOSKELETAL: No obvious deformities. No clubbing or cyanosis. 1+ bilateral lower extremity pitting edema. NEUROLOGICAL: Awake and alert. No focal neurological deficits. Moves upper and lower extremities spontaneously. Normal speech. PSYCHIATRIC: Appropriate mood and affect; insight and judgment normal. Hospital Course 66-year-old male with a past history of HTN, DM, COPD, CHF, CHARITY, HLD who presented with acute onset of shortness of breath Acute respiratory failure: O2 saturation decreased to 88% in the ED. Suspect secondary to CHF exacerbation as below, see treatment. He received IV Solu- Medrol in the ED, no further wheezing. Scheduled as needed nebs. O2 as needed. Acute exacerbation of chronic systolic CHF: Echocardiogram 02/05/16 showed a moderate reduction in systolic function with EF 3540 %, mild LVH and moderate left HM dilation. Chest x-ray with interstitial pulmonary edema. BNP elevated at 280. Improved . Fluid and salt restrictions. Monitor intake and output. Continue metoprolol. COPD: No signs of exacerbation currently, although the patient received steroids in the ED. Treatment as above. Could resume steroids if patient starts wheezing. Diabetes mellitus: Uncontrolled secondary to patient missing dose. Patient states his glucose less than 200 at home. Increase Novolin 70/30 to 28 units am and 35 units pm. A1c 11.6 in February 2016. Additional coverage with SSI with [employer]. Improving Hypertension: Accelerated. Improving Continue metoprolol and clonidine. Clonidine, IV enalapril, and IV hydralazine as needed. Continue to monitor Atypical chest pain: Related to positional changes, suspect secondary to CHF as above. Patient had nonischemic stress test 01/16. Troponin within normal limits. EKG personally reviewed, first-degree AV block, no significant changes from previous. Continue aspirin. Acute on chronic kidney disease stage III. Nonoliguric. Improving switch to po Lasix and discontinue lisinopril. Avoid nephrotoxins. Repeat BMP today pending. Outpatient follow-up DVT prophylaxis: SCDs and subcutaneous heparin Stable for discharge Pt Condition on Discharge: Stable Discharge Disposition: Discharge Home Discharge Time: <= 30 minutes Discharge Instructions DIET: Follow Instructions for: Heart Healthy Diet, Diabetic Diet Activities you can perform: Regular-No Restrictions Activities to Avoid: Driving Follow up Referrals: PCP Follow-up - 2-3 Days New Orders: BASIC METABOLIC PROF - 05/02/16 New Medications: Furosemide (Lasix) 40 Mg Tab 40 MG PO DAILY Prevent Heart Failure #30 TAB Insulin Human Isophane-Regular 70-30 Inj (Novolin 70-30 Inj) 1,000 Unit/10 Ml Vial 28 UNITS SQ DAILY@17 Blood Sugar Management #30 INJECTION Insulin Human Isophane-Regular 70-30 Inj (Novolin 70-30 Inj) 1,000 Unit/10 Ml Vial 35 UNITS SQ DAILYAC Blood Sugar Management #30 INJECTION Potassium Chloride ER (Potassium Chloride ER) 10 Meq Cap 10 MEQ PO BID Electrolyte Replacement #60 CAP Continued Medications: Aspirin (Aspirin) 325 Mg Tab 325 MG PO DAILY #30 Ref 0 TAB Clonidine (Clonidine) 0.2 Mg Tab 0.2 MG PO QID Blood Pressure Management #60 Ref 0 TAB Metoprolol Tartrate (Metoprolol Tartrate) 25 Mg Tab 25 MG PO BID #60 Ref 0 TAB Multiple Vitamin (Multiple Vitamin) 1 Tab 1 TAB PO DAILY Nutritional Supplement Ref 0 TAB Catarino Willis MD Apr 27, 2016 11:01
[2016-04-27 12:00] VITALS: BP 165/102; PULSE 72; RESP 12; TEMP 97.2; O2SAT 95
[2016-04-27 12:20] LABS: BICARBONATE 26.4 MEQ/L (21.0-32.0)
== END 2016-04-27 14:04 | disposition home or self-care (01) | DRG 291 ==
LOC: NEPE 09:08 → NEDA 12:13 → N04B 15:23
PROVIDERS: ADMIT Internal Medicine; ATTEND Internal Medicine
DX: I50.23 Acute on chronic systolic (congestive) heart failure (principal); J96.01 Acute respiratory failure with hypoxia; I13.0 Hypertensive heart and chronic kidney disease with heart failure and stage 1 through stage 4 chronic kidney disease, or unspecified chronic kidney disease; J44.9 Chronic obstructive pulmonary disease, unspecified; G47.33 Obstructive sleep apnea (adult) (pediatric); E78.5 Hyperlipidemia, unspecified; E11.65 Type 2 diabetes mellitus with hyperglycemia; R07.89 Other chest pain; E11.22 Type 2 diabetes mellitus with diabetic chronic kidney disease; N18.3 Chronic kidney disease, stage 3 (moderate); N28.9 Disorder of kidney and ureter, unspecified; Z87.891 Personal history of nicotine dependence; Z79.4 Long term (current) use of insulin
CPT/HCPCS: 71010; 80048; 80053; 81001; 82948; 83735; 83880; 84484; 85025; 85379; 85610; 85730; 93005; 94150; 94620; 94640; 94664; 96374; J0696; J1644; J1815; J1940; J2930

== ENCOUNTER 2016-05-17 00:11 | Emergency (ER) | payer OTHER ==
[~2016-05-17] VITALS: Ht 185.4 cm; Wt 132.0 kg
[~2016-05-17 00:11] MED LIST changes: +ASPI325T PO; -CARV12.5 PO; +CLON0.2T PO; +FURO1TAB60 PO; -HYDR25TA5 PO; -HYDR50TA15 PO; -LISI-515 PO; +METO25TA3 PO; +POTA10CA PO
[2016-05-17 00:13] VITALS: BP 214/107; PULSE 69; RESP 16; TEMP 98.1
[2016-05-17 02:40] VITALS: RESP 18; O2SAT 98
--- NOTE | 2016-05-17 02:50 | PD ---
HPI Chief Complaint: Hypertension Time Seen by Provider: 02:43 Travel History International Travel<30 days: No Contact w/Intl Traveler<30days: No Traveled to known affect area: No History of Present Illness HPI The patient is a 66 year old male who presents to the [facility] emergency department with a history of prior to going to bed checking his blood pressure which is a nightly occurrence for him and at that point noting that his blood pressure was elevated. The patient reports that he then began to have shortness of breath and was also experiencing a cough. The patient then decided to come to the emergency department for evaluation and treatment. His only recent medication change was being started on Lasix and potassium during his hospitalization in April 2016. Upon arrival back to the room, the patient had an episode where he seemed to be confused that lasted for a few minutes and then he asked where he was and had a return back to his baseline of mentation. The patient's reports that he never had anything like that happen in the past. This was witnessed by me. He had no tongue biting, no loss of bowel or bladder control, no shaking associated with this. He has no prior history of seizures. The patient had no postictal state. The patient denies any recent fevers, congestion, neck pain, chest pain, abdominal pain, vomiting, diarrhea, urinary symptoms, or neurologic symptoms. [facility] Past Medical History Narrative Medical The patient's past medical history is significant for hypertension, diabetes mellitus, COPD, congestive heart failure, obstructive sleep apnea, hyperlipidemia. Arthritis: No Asthma: No Autoimmune Disease: No Blood Disorders: No Anxiety: No Depression: No Heart Rhythm Problems: No Cancer: No Cardiac Catheterization: No Cardiovascular Problems: Yes (chf ) High Cholesterol: Yes Chemotherapy: No Chest Pain: Yes Congestive Heart Failure: Yes COPD: Yes Cerebrovascular Accident: No Coronary Artery Disease: No Diabetes: Yes Patient Takes Glucophage: Yes Diminished Hearing: No Endocrine: No Gastrointestinal Disorders: Yes (PYLIDINOL CYST X2) GERD: No Glaucoma: No Genitourinary: No Headaches: Yes Hepatitis: No Heparin Induced Thrombocytopen: No Hypertension: Yes Immune Disorder: No Implanted Vascular Access Dvce: No Kidney Stones: No Musculoskeletal: No Neurologic: No Psychiatric: No Reproductive: No Respiratory: Yes Immunizations Current: Yes Migraines: No Myocardial Infarction: No Radiation Therapy: No Renal Failure: No Seizures: No Sickle Cell Disease: No Sleep Apnea: Yes (Not using CPAP, but is supposed to be) Thyroid Disease: No Tetanus Vaccination: < 5 Years Influenza Vaccination: Yes Past Surgical History Narrative Surgical The patient's past surgical history is significant for an appendectomy, pilonidal cyst resection. Abdominal Surgery: Yes (APPENDECTOMY) AICD: No Appendectomy: Yes Arteriovenous Shunt: No Cardiac Surgery: No Cholecystectomy: No Coronary Artery Bypass Graft: No Ear Surgery: No Endocrine Surgery: No Eye Surgery: No Genitourinary Surgery: No Gynecologic Surgery: No Insulin Pump: No Joint Replacement: No Neurologic Surgery: No Oral Surgery: No Pacemaker: No Thoracic Surgery: No Other Surgery: Yes (appendectomy) Social History Alcohol Use: Yes (SOCIAL) Tobacco Use: No (quit 30 years ago) Substance Use: No Allergies-Medications (Allergen,Severity, Reaction): Coded Allergies: *MDRO Multi-Drug Resistant Organism (Verified Adverse Reaction, Unknown, 02/22/16) MRSA (back wound/chest abscess) - 04/24/2015 MRSA PCR Screens NEGATIVE - 01/22/16 & 01/25/16 CLEARED PER INFECTION CONTROL Medrol (Verified Adverse Reaction, Unknown, 02/22/16) severe bowel pain Reported Meds & Prescriptions Reported Meds & Active Scripts Active Metoprolol Tartrate 25 Mg Tab 2 Tab PO BID Lasix (Furosemide) 40 Mg Tab 20 Mg PO DAILY Potassium Chloride ER (Potassium Chloride) 10 Meq Cap 10 Meq PO BID Novolin 70-30 Inj (Insulin Human Isoph/Insulin Regular) 1,000 Unit/10 Ml Vial 35 Units SQ DAILYAC Novolin 70-30 Inj (Insulin Human Isoph/Insulin Regular) 1,000 Unit/10 Ml Vial 28 Units SQ DAILY@17 Novolin 70-30 Inj (Insulin Human Isoph/Insulin Regular) 1,000 Unit/10 Ml Vial 25 Units SQ BID@08,17 30 Days Reported Aspirin 325 Mg Tab 325 Mg PO DAILY Clonidine (Clonidine HCl) 0.2 Mg Tab 0.2 Mg PO QID Multiple Vitamin 1 Tab 1 Tab PO DAILY Review of Systems Except as stated in HPI: all other systems reviewed are Neg General / Constitutional: No: Fever Eyes: No: Visual changes HENT: No: Headaches Cardiovascular: Positive: Dyspnea on exertion, No: Chest Pain or Discomfort Respiratory: Positive: Cough, Shortness of Breath Gastrointestinal: No: Nausea, Vomiting, Abdominal Pain Genitourinary: No: Dysuria Musculoskeletal: No: Pain Skin: No Rash Neurologic: Positive: Change in Mentation (for a few minutes that spontaneously resolved), No: Weakness, Focal Abnormalities, Slurred Speech, Sensory Disturbance Psychiatric: No: Depression Endocrine: No: Polydipsia Hematologic/Lymphatic: No: Easy Bruising Physical Exam Narrative General: The patient is a well-developed well-nourished male in no acute distress. Head and Neck exam: Head is normocephalic atraumatic. Eyes: The patient has sunglasses on. He reports a lifelong history of light sensitivity. With the lights dimmed, the patient was able to have his eyes examined. EOMI, pupils are equal round and reactive to light. Nose: Midline septum with pink mucous membranes Mouth: Dentition unremarkable. Moist mucus membranes. Posterior oropharynx is not erythematous. No tonsillar hypertrophy. Uvula midline. Airway patent. Neck: No palpable lymphadenopathy. No nuchal rigidity. No thyromegaly. Cardiovascular: Regular rate and rhythm without murmurs, gallops, or rubs. No pulse deficit to the extremities. Lungs: Clear to auscultation bilaterally. No wheezes, rhonchi, or rales. Abdomen: Soft, without tenderness to palpation in all 4 quadrants of the abdomen. No guarding, rebound, or rigidity. Normal bowel sounds are audible. Extremities: No clubbing, cyanosis, or edema. 2+ pulses in all 4 extremities. No calf tenderness on palpation. Back: No spinous process tenderness to palpation. No costovertebral angle tenderness to palpation. Neurologic Exam: Cranial nerves 2-12 were intact on exam. Strength is 5/5 in all 4 extremities. No sensory deficits noted. Skin Exam: No rash noted. Intact skin that is warm and dry. Data Data Last Documented VS Vital Signs Date Time Temp Pulse Resp B/P Pulse Ox O2 Delivery O2 Flow Rate FiO2 05/17/16 02:40 18 98 Room Air 05/17/16 00:13 98.1 69 214/107 Orders Electrocardiogram (05/17/16 02:48) Complete Blood Count With Diff (05/17/16 02:48) Basic Metabolic Panel (Bmp) (05/17/16 02:48) Creatine Kinase (Cpk) (05/17/16 02:48) Ckmb (Isoenzyme) Profile (05/17/16 02:48) Troponin I (05/17/16 02:48) B-Type Natriuretic Peptide (05/17/16 02:48) Urinalysis - C+S If Indicated (05/17/16 02:48) Magnesium (Mg) (05/17/16 02:48) Chest, Single Ap (05/17/16 02:48) Ct Brain W/O Iv Contrast(Rout) (05/17/16 02:48) Iv Access Insert/Monitor (05/17/16 02:48) Ecg Monitoring (05/17/16 02:48) Oximetry (05/17/16 02:48) CKMB (05/17/16 03:00) CKMB% (05/17/16 03:00) Labs Laboratory Tests Test 05/17/16 05/17/16 03:00 04:30 White Blood Count 10.4 TH/MM3 Red Blood Count 5.54 MIL/MM3 Hemoglobin 15.2 GM/DL Hematocrit 44.3 % Mean Corpuscular Volume 79.9 FL Mean Corpuscular Hemoglobin 27.5 PG Mean Corpuscular Hemoglobin 34.4 % Concent Red Cell Distribution Width 14.7 % Platelet Count 237 TH/MM3 Mean Platelet Volume 9.4 FL Neutrophils (%) (Auto) 61.5 % Lymphocytes (%) (Auto) 26.0 % Monocytes (%) (Auto) 6.9 % Eosinophils (%) (Auto) 4.5 % Basophils (%) (Auto) 1.1 % Neutrophils # (Auto) 6.4 TH/MM3 Lymphocytes # (Auto) 2.7 TH/MM3 Monocytes # (Auto) 0.7 TH/MM3 Eosinophils # (Auto) 0.5 TH/MM3 Basophils # (Auto) 0.1 TH/MM3 CBC Comment DIFF FINAL Differential Comment Sodium Level 133 MEQ/L Potassium Level 4.5 MEQ/L Chloride Level 100 MEQ/L Carbon Dioxide Level 24.5 MEQ/L Anion Gap 9 MEQ/L Blood Urea Nitrogen 21 MG/DL Creatinine 1.35 MG/DL Estimat Glomerular Filtration 53 ML/MIN Rate Random Glucose 240 MG/DL Calcium Level 8.7 MG/DL Magnesium Level 1.9 MG/DL Total Creatine Kinase 192 U/L Creatine Kinase MB 3.9 NG/ML Troponin I LESS THAN 0.02 NG/ML B-Type Natriuretic Peptide 163 PG/ML Urine Color YELLOW Urine Turbidity CLEAR Urine pH 6.0 Urine Specific M[place]ool 1.014 Urine Protein NEG mg/dL Urine Glucose (UA) NEG mg/dL Urine Ketones NEG mg/dL Urine Occult Blood NEG Urine Nitrite NEG Urine Bilirubin NEG Urine Urobilinogen LESS THAN 2.0 MG/DL Urine Leukocyte Esterase NEG Urine Hyaline Casts 1 /lpf Microscopic Urinalysis Comment CULT NOT INDICATED MDM Medical Decision Making Medical Screen Exam Complete: Yes Emergency Medical Condition: Yes Medical Record Reviewed: Yes Interpretation(s) Laboratory Tests Test 05/17/16 03:00 Mean Corpuscular Volume 79.9 FL (80.0-100.0) Eosinophils (%) (Auto) 4.5 % (0.0-4.0) Eosinophils # (Auto) 0.5 TH/MM3 (0-0.4) Sodium Level 133 MEQ/L (136-145) Blood Urea Nitrogen 21 MG/DL (7-18) Creatinine 1.35 MG/DL (0.60-1.30) Estimat Glomerular Filtration 53 ML/MIN (>89) Rate Random Glucose 240 MG/DL (74-106) Creatine Kinase MB 3.9 NG/ML (0.5-3.6) Troponin I LESS THAN 0.02 NG/ML (0.02-0.05) B-Type Natriuretic Peptide 163 PG/ML (0-100) Last Impressions Head CT 05/17/16247 Signed Impressions: Service Date/Time: Tuesday, May 17, 2016 02:58 - CONCLUSION: 1. No evidence of acute intracranial pathology. No masses are identified. 2. Stable right middle cranial fossa arachnoid cyst Nick Jansen MD Chest X-Ray 05/17/16247 Signed Impressions: Service Date/Time: Tuesday, May 17, 2016 03:05 - CONCLUSION: Cardiomegaly. No acute cardiopulmonary disease. Nick Jansen MD Differential Diagnosis Congestive heart failure exacerbation, versus COPD exacerbation, versus hypertensive urgency, versus hypertensive emergency, versus hypertensive encephalopathy, versus intracranial abnormality, versus seizure activity, versus syncope Narrative Course During the course of the patients emergency department visit, the patients history, examination, and differential diagnosis were reviewed with the patient. The patient had IV access obtained and blood work sent for analysis. The patient was placed on a log cutter with oximetry and blood pressure monitoring. An EKG was done on arrival. The patient's EKG shows a sinus rhythm with first-degree AV block, marked left axis deviation, moderate intraventricular conduction delay with a QRS duration of [address] segment elevation is noted. T waves are inverted in aVL. The patient's blood pressure on arrival is 215/115. The patient on arrival was noted to have a blood pressure 215/115. The patient will rest in the bed over the next 10-15 minutes and have his blood pressure rechecked. A chest x-ray, CT scan of the brain was ordered. The patient's blood pressure improved on repeat evaluation down to 170/90. The patients laboratory studies were reviewed and remarkable for a white count of 10.4, hemoglobin 15.2, platelets 237 with an eosinophil predominance at 4.5, CMP is remarkable for sodium of 133, BUN 21, creatinine 1.35, glucose 240, CPK 192, troponin I less than 0.02, BNP is 163, urinalysis is unremarkable. Radiology studies were reviewed and remarkable for a chest x-ray that shows cardiomegaly without any evidence of acute cardiopulmonary disease, CT scan of the brain shows no acute intracranial pathology, no masses are identified, stable right middle cranial fossa arachnoid cyst noted. On final evaluation, the patient's blood pressure was down to 150/90. I suspect that the patient's symptoms of shortness of breath were related to his poorly controlled blood pressure as he has not had any recurrence of symptoms since his blood pressure has started to improve on its own. The patient reports that his blood pressure has been above 140/90 consistently in the mornings in the evenings. The patient and I discussed increasing his metoprolol to 2 tablets in the morning, 2 tablets in the evening. We discussed starting this as 2 tablets in the morning and one tablet in the evening for 1 week and then if tolerating well 2 tablets twice a day. The patient is resting comfortably and feels better, is alert and in no distress. The patients results and examination findings were discussed with the patient. The repeat examination is unremarkable and benign. The history, exam, diagnostic testing, and current condition do not suggest any significant pathology to warrant further testing, continued ED treatment, admission, or surgical evaluation at this point. The vital signs have been stable. The patient does not have uncontrollable pain, intractable vomiting, or other significant symptoms. The patient's condition is stable and appropriate for discharge. The patient will pursue further outpatient evaluation with a primary care physician or other designated or consulting physician as indicated in the discharge instructions. The patient expressed understanding and was agreeable with this plan. Diagnosis Primary Impression: Poorly-controlled hypertension Referrals: Primary Care Physician Patient Instructions: General Instructions, Hypertension (DC) Med/Other Pt SpecificInfo: Prescription(s) given Scripts Metoprolol Tartrate 25 Mg Tab2 Tab PO BID #60 TAB Ref 0 Prov:Rosy Nunez MD 05/17/16 Disposition: 01 DISCHARGE HOME Condition: Stable Rosy Nunez MD May 17, 2016 02:50
[2016-05-17 03:13] LABS: AUTOMATED NEUTROPHIL # 6.4 TH/MM3 (1.8-7.7); BASOPHIL # 0.1 TH/MM3 (0-0.2); BASOPHIL % 1.1 % (0.0-2.0); EOSINOPHIL # 0.5 TH/MM3 (0-0.4); EOSINOPHIL % 4.5 % (0.0-4.0); HEMATOCRIT 44.3 % (39.0-51.0); HEMO FLAGS DIFF FINAL; LYMPHOCYTE # 2.7 TH/MM3 (1.0-4.8); MEAN CELL VOLUME 79.9 FL (80.0-100.0); MEAN CORPUSCULAR HEMOGLOBIN 27.5 PG (27.0-34.0); MEAN CORPUSCULAR HGB CONC 34.4 % (32.0-36.0); MONO % 6.9 % (0.0-8.0); NEUT % 61.5 % (16.0-70.0); PLATELET COUNT 237 TH/MM3 (150-450); RED BLOOD COUNT 5.54 MIL/MM3 (4.50-5.90); RED CELL DISTRIBUTION WIDTH 14.7 % (11.6-17.2); WHITE BLOOD COUNT 10.4 TH/MM3 (4.0-11.0)
--- NOTE | 2016-05-17 03:17 | RADRPT ---
EXAM DATE/TIME: 05/17/2016 02:58 [facility] COMPARISON: CT BRAIN W/O CONTRAST, May 17, 2015, 21:15. INDICATIONS : Elevated blood pressure, near syncopal episode. RADIATION DOSE: 44.51 CTDIvol (mGy) MEDICAL HISTORY : Hypertension. Congestive heart failure. Diabetes mellitus type 2. SURGICAL HISTORY : None. ENCOUNTER: Initial ACUITY: 1 day PAIN SCALE: 4/10 LOCATION: Bilateral cranial TECHNIQUE: Multiple contiguous axial images were obtained of the head. Using automated exposure control and adj ustment of the mA and/or kV according to patient size, radiation dose was kept as low as reasonably a chievable to obtain optimal diagnostic quality images. FINDINGS: There is no evidence of acute cortical infarction, acute hemorrhage, mass effect or midline shift. Th ere is a stable arachnoid cyst in the middle cranial fossa measuring 3 CM by [address] ructures are unremarkable. Bone windows are unremarkable. CONCLUSION: 1. No evidence of acute intracranial pathology. No masses are identified. 2. Stable right middle cranial fossa arachnoid cyst Nick Jansen MD on May 17, 2016 at 3:14 Board Certified Radiologist. This report was verified electronically.
--- NOTE | 2016-05-17 03:20 | RADRPT ---
EXAM DATE/TIME: 05/17/2016 03:05 [facility] COMPARISON: CHEST SINGLE AP, April 24, 2016, 9:44. INDICATIONS : Short of breath. MEDICAL HISTORY : Hypertension. Chronic obstructive pulmonary disease. SURGICAL HISTORY : None. ENCOUNTER: Initial ACUITY: 3 days PAIN SCORE: 0/10 LOCATION: Bilateral chest FINDINGS: The cardiac silhouette is enlarged in transverse diameter. The lungs are free of acute parenchymal op acity. No effusions are identified. Osseous structures are intact. CONCLUSION: Cardiomegaly. No acute cardiopulmonary disease. Nick Jansen MD on May 17, 2016 at 3:18 Board Certified Radiologist. This report was verified electronically.
[2016-05-17 03:31] LABS: ANION GAP 9 MEQ/L (5-15); BICARBONATE 24.5 MEQ/L (21.0-32.0); BLOOD UREA NITROGEN 21 MG/DL (7-18); CHLORIDE 100 MEQ/L (98-107); GLOMERULAR FILTRATION RATE 53 ML/MIN (>89); MAGNESIUM 1.9 MG/DL (1.5-2.5); POTASSIUM 4.5 MEQ/L (3.5-5.1); SODIUM (NA) 133 MEQ/L (136-145)
[2016-05-17 03:33] LABS: CREATINE KINASE 192 U/L (39-308)
[2016-05-17 03:45] LABS: CKMB 3.9 NG/ML (0.5-3.6)
[2016-05-17] MEDS ORDERED: METO25TA3 PO (04:22)
[2016-05-17 05:00] VITALS: BP 165/88; PULSE 65; RESP 16
[2016-05-17 05:03] LABS: BLOOD, URINE NEG (NEG); GLUCOSE,URINE NEG (NEG); HYALINE CAST, URINE 1 /lpf (RARE); KETONE, URINE NEG (NEG); NITRITE,URINE NEG (NEG); URINE COLOR YELLOW (YELLW/STRAW)
[2016-05-17 05:04] LABS: COMMENT (UR) CULT NOT INDICATED; CULTURE IF INDICATED CULT NOT INDICATED
--- NOTE | 2016-05-17 09:25 | EKG ---
Date Performed: 05/17/2016 Time Performed: 02:38:55 PTAGE: 66 years EKG: Sinus rhythm WITH FIRST DEGREE AV BLOCK MARKED LEFT AXIS DEVIATION MODERATE INTRAVENTRICULAR CONDUCTION DELAY ABN ORMAL ECG INTERPRETATION BASED ON A DEFAULT AGE OF 40 YEARS PREVIOUS TRACING : 04/24/2016 09.38 Compared to prior tracing no significant change DOCTOR: Jason Nunez Interpretating Date/Time 05/17/2016 09:23:46
== END 2016-05-17 06:14 | disposition home or self-care (01) ==
LOC: NEPC 00:11
DX: I10 Essential (primary) hypertension (principal); I50.9 Heart failure, unspecified; J44.9 Chronic obstructive pulmonary disease, unspecified; E11.9 Type 2 diabetes mellitus without complications; R94.31 Abnormal electrocardiogram [ECG] [EKG]; Z79.4 Long term (current) use of insulin; Z87.891 Personal history of nicotine dependence
CPT/HCPCS: 70450; 71010; 80048; 81001; 82550; 82552; 83735; 83880; 84484; 85025; 93005

== ENCOUNTER 2016-06-15 10:52 | Emergency (ER) | payer OTHER ==
[~2016-06-15] VITALS: Ht 185.4 cm; Wt 140.0 kg
[2016-06-15 10:54] VITALS: BP 199/106; PULSE 80; RESP 16; TEMP 98; O2SAT 95
[2016-06-15] MEDS ORDERED: FUROSEMIDE 40 MG/4 ML VIAL IV PUSH ONE (12:15)
[2016-06-15] MEDS ORDERED: CEPHALEXIN MONOHYDRATE 500 MG CAP PO ONE (12:15)
[2016-06-15 12:45] LABS: BICARBONATE 22.4 MEQ/L (21.0-32.0)
[2016-06-15] MEDS ORDERED: POTA10CA PO (12:50)
[2016-06-15] MEDS ORDERED: CEPH-460 PO (12:50)
[2016-06-15] MEDS ORDERED: FURO1TAB60 PO (12:50)
--- NOTE | 2016-06-15 12:50 | PD ---
HPI Chief Complaint: Respiratory Symptoms Time Seen by Provider: 11:50 Travel History International Travel<30 days: No Contact w/Intl Traveler<30days: No Traveled to known affect area: No History of Present Illness HPI Is a 66-year-old man who presents to the emergency department with shortness of breath and a left leg wound. Says his legs a bit more swollen since he ran out of his Lasix couple days ago. He is a history of CHF. He's had more trouble breathing or not time as well. He is a wound that been her for several days but is been worse for the past couple days. He otherwise had been feeling generally well. No other complaints. History Past Medical History Narrative Medical Hyperlipidemia CHARITY Hypertension diabetes CHF COPD Influenza Vaccination: Yes Social History Alcohol Use: Yes (SOCIAL) Tobacco Use: No (quit 30 years ago) Allergies-Medications (Allergen,Severity, Reaction): Coded Allergies: *MDRO Multi-Drug Resistant Organism (Verified Adverse Reaction, Unknown, ) MRSA (back wound/chest abscess) - 04/24/2015 MRSA PCR Screens NEGATIVE - 01/22/16 & 01/25/16 CLEARED PER INFECTION CONTROL Medrol (Verified Adverse Reaction, Unknown, 06/15/16) severe bowel pain Reported Meds & Prescriptions Reported Meds & Active Scripts Active Keflex (Cephalexin) 500 Mg Cap 500 Mg PO Q8H 7 Days Lasix (Furosemide) 40 Mg Tab 20 Mg PO DAILY Potassium Chloride ER (Potassium Chloride) 10 Meq Cap 10 Meq PO BID Metoprolol Tartrate 25 Mg Tab 2 Tab PO BID Novolin 70-30 Inj (Insulin Human Isoph/Insulin Regular) 1,000 Unit/10 Ml Vial 35 Units SQ DAILYAC Novolin 70-30 Inj (Insulin Human Isoph/Insulin Regular) 1,000 Unit/10 Ml Vial 28 Units SQ DAILY@17 Novolin 70-30 Inj (Insulin Human Isoph/Insulin Regular) 1,000 Unit/10 Ml Vial 25 Units SQ BID@ 30 Days Reported Aspirin 325 Mg Tab 325 Mg PO DAILY Clonidine (Clonidine HCl) 0.2 Mg Tab 0.2 Mg PO QID Multiple Vitamin 1 Tab 1 Tab PO DAILY Review of Systems Except as stated in HPI: all other systems reviewed are Neg Physical Exam Narrative GENERAL: Well-appearing 66-year-old man, no acute distress. SKIN: Warm and dry. HEAD: Atraumatic. Normocephalic. EYES: Pupils equal and round. No scleral icterus. No injection or drainage. ENT: No nasal bleeding or discharge. Mucous membranes pink and moist. NECK: Trachea midline. No JVD. CARDIOVASCULAR: Regular rate and rhythm. No murmur appreciated. RESPIRATORY: No respiratory distress. Rales in both bases. GASTROINTESTINAL: Abdomen soft, non-tender, nondistended. Hepatic and splenic margins not palpable. MUSCULOSKELETAL: No obvious deformities. Pitting edema both legs. There is a small scrape on the left leg chronically healing with some tenderness around it. Good pulses both legs. NEUROLOGICAL: Awake and alert. No obvious cranial nerve deficits. Motor grossly within normal limits. Normal speech. PSYCHIATRIC: Appropriate mood and affect; insight and judgment normal. Data Data Last Documented VS Vital Signs Date Time Temp Pulse Resp B/P Pulse Ox O2 Delivery O2 Flow Rate FiO2 06/15/16 10:54 98.0 80 16 199/106 95 Room Air Orders Furosemide Inj (Lasix Inj) (06/15/16 12:15) Cephalexin (Keflex) (06/15/16 12:15) Basic Metabolic Panel (Bmp) (06/15/16 12:09) Labs Laboratory Tests Test 06/15/16 12:12 Sodium Level 134 MEQ/L Potassium Level 4.7 MEQ/L Chloride Level 101 MEQ/L Carbon Dioxide Level 22.4 MEQ/L Anion Gap 11 MEQ/L Blood Urea Nitrogen 19 MG/DL Creatinine 1.32 MG/DL Estimat Glomerular Filtration 54 ML/MIN Rate Random Glucose 250 MG/DL Calcium Level 8.8 MG/DL [facility] Medical Decision Making Medical Screen Exam Complete: Yes Emergency Medical Condition: Yes Interpretation(s) CMP and remarkable for mildly elevated BUN and creatinine, glucose 250 Differential Diagnosis Volume overload, heart failure, other Narrative Course Medical decision making INITIAL: This 66-year-old who presents to the emergency department with leg swelling leg pain shortness of breath after running out of his Lasix. He has some Ralesof similar symptoms edema. This seems clearly to be related to increased volume. His a wound on his leg that is a little bit tender but not otherwise overtly infected. We'll cover with antibiotics, reinitiate diuretic, we'll check his potassium. Diagnosis Primary Impression: Acute diastolic (congestive) heart failure Med/Other Pt SpecificInfo: Prescription(s) given Scripts Cephalexin (Keflex)500 Mg [id number] Mg PO Q8H 7 Days Ref 0 Prov:Shakeel Marie MD 06/15/16 Furosemide (Lasix)40 Mg Tab20 Mg PO DAILY #30 TAB Prov:Shakeel Marie MD 06/15/16 Potassium Chloride ER 10 Meq Cap10 Meq PO BID #60 CAP Prov:Shakeel Marie MD 06/15/16 Disposition: 01 DISCHARGE HOME Condition: Stable Shakeel Marie MD Jun 15, 2016 12:50
[2016-06-15 12:52] LABS: POTASSIUM 4.7 MEQ/L (3.5-5.1)
== END 2016-06-15 13:52 | disposition home or self-care (01) ==
LOC: NEPB 10:52
DX: I50.31 Acute diastolic (congestive) heart failure (principal); E78.5 Hyperlipidemia, unspecified; G47.33 Obstructive sleep apnea (adult) (pediatric); I10 Essential (primary) hypertension; E11.9 Type 2 diabetes mellitus without complications; J44.9 Chronic obstructive pulmonary disease, unspecified; Z79.4 Long term (current) use of insulin
CPT/HCPCS: 80048; 99284; J1940

== ENCOUNTER 2016-06-18 01:21 | Emergency (ER) | payer OTHER ==
[~2016-06-18] VITALS: Ht 188 cm; Wt 135.0 kg
[~2016-06-18 01:21] MED LIST changes: +CEPH-460 PO
[2016-06-18 01:23] VITALS: BP 236/127; PULSE 85; RESP 18; TEMP 97.6; O2SAT 97
--- NOTE | 2016-06-18 01:51 | PD ---
HPI Chief Complaint: Respiratory Symptoms Time Seen by Provider: 01:50 Travel History International Travel<30 days: No Contact w/Intl Traveler<30days: No Traveled to known affect area: No History of Present Illness HPI 66-year-old male came to the emergency room with history of hypertension and shortness of breath. He says that at home his blood pressure was more than 200. He was getting short of breath and could hear gurgling in his chest. He has had these symptoms in the past. In fact he was here about a week ago for the same complaint. Patient has been in the hospital multiple times in the past one year with history of hypertension. He has been admitted couple times for malignant hypertension. He does have a primary care physician and he says he does not think he addressed this issue with his primary care. Patient has been on his antihypertensive medications for many years without any change in the dose. Denies any chest pain history. Currently he feels comfortable laying there and talking without any obvious respiratory distress. His blood pressure when I was in the room was 220/118. PFSH Past Medical History Narrative Medical List of his past medical, surgical, social and family history was reviewed from the nursing note. Arthritis: No Asthma: No Autoimmune Disease: No Blood Disorders: No Anxiety: No Depression: No Heart Rhythm Problems: No Cancer: No Cardiac Catheterization: No Cardiovascular Problems: Yes (CHF/HTN) High Cholesterol: Yes Chemotherapy: No Chest Pain: Yes Congestive Heart Failure: Yes COPD: Yes Cerebrovascular Accident: No Coronary Artery Disease: No Diabetes: Yes (INSULIN DEPEDNENT) Patient Takes Glucophage: No Diminished Hearing: No Endocrine: No Gastrointestinal Disorders: Yes (PYLIDINOL CYST X2) GERD: No Glaucoma: No Genitourinary: No Headaches: Yes Hepatitis: No Heparin Induced Thrombocytopen: No Hypertension: Yes Immune Disorder: No Implanted Vascular Access Dvce: No Kidney Stones: No Musculoskeletal: No Neurologic: No Psychiatric: No Reproductive: No Respiratory: Yes Immunizations Current: Yes Migraines: No Myocardial Infarction: No Radiation Therapy: No Renal Failure: No Seizures: No Sickle Cell Disease: No Sleep Apnea: Yes (Not using CPAP, but is supposed to be) Thyroid Disease: No Tetanus Vaccination: < 5 Years Influenza Vaccination: Yes Past Surgical History Abdominal Surgery: Yes (APPENDECTOMY) AICD: No Appendectomy: Yes Arteriovenous Shunt: No Cardiac Surgery: No Cholecystectomy: No Coronary Artery Bypass Graft: No Ear Surgery: No Endocrine Surgery: No Eye Surgery: No Genitourinary Surgery: No Gynecologic Surgery: No Insulin Pump: No Joint Replacement: No Neurologic Surgery: No Oral Surgery: No Pacemaker: No Thoracic Surgery: No Other Surgery: Yes (appendectomy) Social History Alcohol Use: Yes (SOCIAL) Tobacco Use: No (quit 30 years ago) Substance Use: No Allergies-Medications (Allergen,Severity, Reaction): Coded Allergies: *MDRO Multi-Drug Resistant Organism (Verified Adverse Reaction, Unknown, ) MRSA (back wound/chest abscess) - 04/24/2015 MRSA PCR Screens NEGATIVE - 01/22/16 & 01/25/16 CLEARED PER INFECTION CONTROL Medrol (Verified Adverse Reaction, Unknown, 06/22/16) severe bowel pain Comments List of his allergies reviewed from the nursing note. Reported Meds & Prescriptions Reported Meds & Active Scripts Active Amlodipine (Amlodipine Besylate) 10 Mg Tab 10 Mg PO DAILY Hydrochlorothiazide 12.5 Mg Cap 12.5 Mg PO DAILY Lisinopril 20 Mg Tab 20 Mg PO DAILY Lisinopril 10 Mg Tab 10 Mg PO DAILY Keflex (Cephalexin) 500 Mg Cap 500 Mg PO Q8H 7 Days Potassium Chloride ER (Potassium Chloride) 10 Meq Cap 10 Meq PO BID Novolin 70-30 Inj (Insulin Human Isoph/Insulin Regular) 1,000 Unit/10 Ml Vial 25 Units SQ BID@08,17 30 Days Reported Metoprolol Tartrate 100 Mg Tab 100 Mg PO BID Aspirin 325 Mg Tab 325 Mg PO DAILY Clonidine (Clonidine HCl) 0.2 Mg Tab 0.2 Mg PO QID Multiple Vitamin 1 Tab 1 Tab PO DAILY Narrative Medication List of his of his home medications reviewed from the nursing note. Review of Systems Except as stated in HPI: all other systems reviewed are Neg Physical Exam Narrative GENERAL: Awake, alert, obese, no obvious distress SKIN: Warm and dry. HEAD: Atraumatic. Normocephalic. EYES: Pupils equal and round. No scleral icterus. No injection or drainage. ENT: No nasal bleeding or discharge. Mucous membranes pink and moist. NECK: Trachea midline. No JVD. CARDIOVASCULAR: Regular rate and rhythm. No murmur appreciated. RESPIRATORY: No accessory muscle use. Clear to auscultation. Breath sounds equal bilaterally. GASTROINTESTINAL: Abdomen soft, non-tender, nondistended. Hepatic and splenic margins not palpable. MUSCULOSKELETAL: No obvious deformities. No clubbing. No cyanosis. 1+ pedal edema. NEUROLOGICAL: Awake and alert. No obvious cranial nerve deficits. Motor grossly within normal limits. Normal speech. PSYCHIATRIC: Appropriate mood and affect; insight and judgment normal. Data Data Last Documented VS Orders Electrocardiogram (06/18/16 01:58) Basic Metabolic Panel (Bmp) (06/18/16 01:58) B-Type Natriuretic Peptide (06/18/16 01:58) Ckmb (Isoenzyme) Profile (06/18/16 01:58) Complete Blood Count With Diff (06/18/16 01:58) Magnesium (Mg) (06/18/16 01:58) Prothrombin Time / Inr (Pt) (06/18/16 01:58) Act Partial Throm Time (Ptt) (06/18/16 01:58) Troponin I (06/18/16 01:58) Chest, Single Ap (06/18/16 01:58) Ecg Monitoring (06/18/16 01:58) Bilateral Bp Monitoring (06/18/16 01:58) Iv Access Insert/Monitor (06/18/16 01:58) Oximetry (06/18/16 01:58) Oxygen Administration (06/18/16 01:58) Sodium Chloride 0.9% Flush (Ns Flush) (06/18/16 02:00) Metoprolol Tartrate (Lopressor) (06/18/16 02:15) Lisinopril (Prinivil) (06/18/16 02:15) CKMB (06/18/16 02:15) CKMB% (06/18/16 02:15) Labs Laboratory Tests Test 06/18/16 02:15 White Blood Count 12.4 TH/MM3 Red Blood Count 5.77 MIL/MM3 Hemoglobin 15.3 GM/DL Hematocrit 46.5 % Mean Corpuscular Volume 80.6 FL Mean Corpuscular Hemoglobin 26.5 PG Mean Corpuscular Hemoglobin 32.9 % Concent Red Cell Distribution Width 14.8 % Platelet Count 233 TH/MM3 Mean Platelet Volume 9.7 FL Neutrophils (%) (Auto) 66.0 % Lymphocytes (%) (Auto) 22.0 % Monocytes (%) (Auto) 5.5 % Eosinophils (%) (Auto) 5.5 % Basophils (%) (Auto) 1.0 % Neutrophils # (Auto) 8.2 TH/MM3 Lymphocytes # (Auto) 2.7 TH/MM3 Monocytes # (Auto) 0.7 TH/MM3 Eosinophils # (Auto) 0.7 TH/MM3 Basophils # (Auto) 0.1 TH/MM3 CBC Comment DIFF FINAL Differential Comment Prothrombin Time 10.7 SEC Prothromb Time International 1.0 RATIO Ratio Activated Partial 24.3 SEC Thromboplast Time Sodium Level 136 MEQ/L Potassium Level 4.1 MEQ/L Chloride Level 101 MEQ/L Carbon Dioxide Level 23.6 MEQ/L Anion Gap 11 MEQ/L Blood Urea Nitrogen 16 MG/DL Creatinine 1.22 MG/DL Estimat Glomerular Filtration 60 ML/MIN Rate Random Glucose 250 MG/DL Calcium Level 8.7 MG/DL Magnesium Level 1.8 MG/DL Total Creatine Kinase 292 U/L Creatine Kinase MB 7.8 NG/ML Troponin I 0.03 NG/ML B-Type Natriuretic Peptide 208 PG/ML MDM Medical Decision Making Medical Screen Exam Complete: Yes Emergency Medical Condition: Yes Medical Record Reviewed: Yes Interpretation(s) Twelve-lead EKG was reviewed by me. Normal sinus rhythm, left axis deviation, old anterior and inferior MS, poor R-wave progression, nonspecific ST-T wave changes. Rate of 94 bpm. Differential Diagnosis CHF, malignant hypertension, uncontrolled essential hypertension Narrative Course 5:03 AM patient was given 50 mg of Lopressor and 10 mg of lisinopril orally. I was told his current blood pressure was 186 systolic. Blood test results of back and they are relatively within normal limits. I am comfortable discharging this patient. I'll start him on high dose of Lopressor and also lisinopril. Patient needs to be managed better by his primary care for his hypertension. I will reiterate this to the patient. I will discharge him home. 5:30 AM I was told by the nurse that patient takes 100 mg of Lopressor twice a day. The med reconciliation earlier done was erroneous. Hence I have removed the Lopressor prescription that had given him. He'll be going home on lisinopril only. Procedures EKG Prior to Arrival: No Diagnosis Primary Impression: Respiratory distress Additional Impression: Uncontrolled hypertension Referrals: Primary Care Physician 3 days Additional Instructions: Please take the medications as per the prescription direction. Please follow- up with your primary care so that a better management of her hypertension can be done. Return to the ER if the condition worsens or any other new concerns. You can stop taking the Lasix at this point. Med/Other Pt SpecificInfo: Prescription(s) given, Existing Med Changed ( stop taking the Lasix, stop taking the oral dose of metoprolol since it has been replaced by the new prescription) Scripts Lisinopril 10 Mg Tab10 Mg PO DAILY #30 TAB Ref 0 Prov:Vonnie John MD 06/18/16 Disposition: 01 DISCHARGE HOME Condition: Stable Vonnie John MD Jun 18, 2016 01:50 been replaced by the new prescription) Scripts Metoprolol Tartrate (Lopressor)50 Mg Tab50 Mg PO BID #60 TAB Ref 0 Prov:Vonnie John MD 06/18/16 Lisinopril 10 Mg Tab10 Mg PO DAILY #30 TAB Ref 0 Prov:Vonnie John MD 06/18/16 Disposition: 01 DISCHARGE HOME Condition: Vonnie James MD Jun 18, 2016 01:50
[2016-06-18] MEDS ORDERED: SODIUM CHLORIDE 0.9% FLUSH 5 ML FLUSH IVF PRN (02:00)
[2016-06-18] MEDS ORDERED: LISINOPRIL 10 MG TAB PO ONE (02:15)
[2016-06-18] MEDS ORDERED: METOPROLOL TARTRATE 50 MG TAB PO ONE (02:15)
[2016-06-18 02:27] VITALS: BP_SYST 191; BP_SYST 223; BP_DIAS 116; BP_DIAS 91; PULSE 80; RESP 18; O2SAT 96
[2016-06-18 02:35] LABS: AUTOMATED NEUTROPHIL # 8.2 TH/MM3 (1.8-7.7); BASOPHIL # 0.1 TH/MM3 (0-0.2); EOSINOPHIL # 0.7 TH/MM3 (0-0.4); EOSINOPHIL % 5.5 % (0.0-4.0); HEMATOCRIT 46.5 % (39.0-51.0); HEMO FLAGS DIFF FINAL; LYMPHOCYTE # 2.7 TH/MM3 (1.0-4.8); MEAN CELL VOLUME 80.6 FL (80.0-100.0); MEAN CORPUSCULAR HEMOGLOBIN 26.5 PG (27.0-34.0); MEAN CORPUSCULAR HGB CONC 32.9 % (32.0-36.0); MONO % 5.5 % (0.0-8.0); PLATELET COUNT 233 TH/MM3 (150-450); RED BLOOD COUNT 5.77 MIL/MM3 (4.50-5.90); RED CELL DISTRIBUTION WIDTH 14.8 % (11.6-17.2); WHITE BLOOD COUNT 12.4 TH/MM3 (4.0-11.0)
[2016-06-18 02:47] LABS: APTT (PATIENT) 24.3 SEC (24.3-30.1); PROTHROMBIN TIME - PATIENT 10.7 SEC (9.8-11.6)
[2016-06-18 03:01] LABS: ANION GAP 11 MEQ/L (5-15); BICARBONATE 23.6 MEQ/L (21.0-32.0); BLOOD UREA NITROGEN 16 MG/DL (7-18); CHLORIDE 101 MEQ/L (98-107); GLOMERULAR FILTRATION RATE 60 ML/MIN (>89); MAGNESIUM 1.8 MG/DL (1.5-2.5); POTASSIUM 4.1 MEQ/L (3.5-5.1); SODIUM (NA) 136 MEQ/L (136-145)
[2016-06-18 03:04] LABS: CREATINE KINASE 292 U/L (39-308)
[2016-06-18 03:16] LABS: CKMB 7.8 NG/ML (0.5-3.6)
--- NOTE | 2016-06-18 03:16 | RADRPT ---
EXAM DATE/TIME: 06/18/2016 02:26 [facility] COMPARISON: CHEST SINGLE AP, May 17, 2016, 3:05. INDICATIONS : Shortness of breath. MEDICAL HISTORY : Hypertension. Congestive heart failure. Diabetes mellitus type II. SURGICAL HISTORY : None. ENCOUNTER: Initial ACUITY: 1 day PAIN SCORE: 0/10 LOCATION: Bilateral chest FINDINGS: Mild cardiomegaly. Minimal basilar density probably atelectasis. No significant effusion. No pneumoth orax. CONCLUSION: 1. Minimal basilar atelectasis. No effusion or pneumothorax. Gilberto Coles MD on June 18, 2016 at 3:12 Board Certified Radiologist. This report was verified electronically.
[2016-06-18 04:00] VITALS: BP 181/85; PULSE 70; RESP 18; O2SAT 96
[2016-06-18 05:10] VITALS: BP 179/102; PULSE 82; RESP 18; O2SAT 96
[2016-06-18] MEDS ORDERED: LISI10TA3 PO (05:13)
[2016-06-18] MEDS ORDERED: METO-309 PO (05:13)
--- NOTE | 2016-06-18 09:26 | EKG ---
Date Performed: 06/18/2016 Time Performed: 01:51:49 PTAGE: 66 years EKG: Baseline artifact is present. Probable Sinus rhythm with borderline first-degree AV block. BORDERLINE LEFT AXIS DEVIATION MODERATE INTRAVENTRICULAR COND UCTION DELAY ST ELEVATION, PROBABLY EARLY REPOLARIZATION ABNORMAL RHYTHM ECG Within the constraints o f artifact, No significant change from prior electrocardiogram.. PREVIOUS TRACING : 05/17/2016 02.38 DOCTOR: Ulysses Alonzo Interpretating Date/Time 06/18/2016 09:25:43
== END 2016-06-18 05:52 | disposition home or self-care (01) ==
LOC: NEPE 01:21
DX: R06.02 Shortness of breath (principal); I10 Essential (primary) hypertension; I44.0 Atrioventricular block, first degree; E78.00 Pure hypercholesterolemia, unspecified; I50.9 Heart failure, unspecified; J44.9 Chronic obstructive pulmonary disease, unspecified; E11.9 Type 2 diabetes mellitus without complications; G47.30 Sleep apnea, unspecified; Z87.891 Personal history of nicotine dependence
CPT/HCPCS: 71010; 80048; 82550; 82552; 83735; 83880; 84484; 85025; 85610; 85730; 93005

== ENCOUNTER 2016-06-20 05:00 | Emergency (ER) | payer OTHER ==
[~2016-06-20] VITALS: Ht 185.4 cm; Wt 130.0 kg
[~2016-06-20 05:00] MED LIST changes: +LISI10TA3 PO; +METO-309 PO
[2016-06-20 05:03] VITALS: BP 201/99; PULSE 86; RESP 16; TEMP 98.4; O2SAT 94
[2016-06-20 05:12] VITALS: BP 197/105; PULSE 82; RESP 12; O2SAT 94
[2016-06-20] MEDS ORDERED: cloNIDine HCL 0.2 MG TAB PO ONE (05:15)
[2016-06-20] MEDS ORDERED: SODIUM CHLORIDE 0.9% FLUSH 5 ML FLUSH IVF PRN (05:15)
[2016-06-20 05:36] LABS: AUTOMATED NEUTROPHIL # 7.7 TH/MM3 (1.8-7.7); BASOPHIL % 0.3 % (0.0-2.0); EOSINOPHIL # 0.7 TH/MM3 (0-0.4); EOSINOPHIL % 5.4 % (0.0-4.0); HEMATOCRIT 46.3 % (39.0-51.0); HEMO FLAGS DIFF FINAL; LYMPH % 25.9 % (9.0-44.0); LYMPHOCYTE # 3.2 TH/MM3 (1.0-4.8); MEAN CELL VOLUME 79.8 FL (80.0-100.0); MEAN CORPUSCULAR HEMOGLOBIN 26.9 PG (27.0-34.0); MEAN CORPUSCULAR HGB CONC 33.6 % (32.0-36.0); MONO % 6.5 % (0.0-8.0); NEUT % 61.9 % (16.0-70.0); PLATELET COUNT 254 TH/MM3 (150-450); RED CELL DISTRIBUTION WIDTH 14.9 % (11.6-17.2); WHITE BLOOD COUNT 12.4 TH/MM3 (4.0-11.0)
--- NOTE | 2016-06-20 05:47 | RADRPT ---
EXAM DATE/TIME: 06/20/2016 05:21 [facility] COMPARISON: CHEST SINGLE AP, June 18, 2016, 2:26. INDICATIONS : Shortness of breath. MEDICAL HISTORY : Hypertension. SURGICAL HISTORY : None. ENCOUNTER: Initial ACUITY: 1 day PAIN SCORE: 0/10 LOCATION: Bilateral chest FINDINGS: Osseous structures are intact. Cardiomegaly. Clear lungs. CONCLUSION: No acute disease. Mio Busch MD on June 20, 2016 at 5:45 Board Certified Radiologist. This report was verified electronically.
--- NOTE | 2016-06-20 05:51 | PD ---
HPI Chief Complaint: Respiratory Symptoms Time Seen by Provider: 05:13 Travel History International Travel<30 days: No Contact w/Intl Traveler<30days: No Traveled to known affect area: No History of Present Illness HPI 56-year-old male presents to the emergency department by EMS transportation for complaint of shortness of breath. Patient has history of hypertension that is difficult to control as well as episodes of CHF. Patient also has history of renal insufficiency. Patient has recently had his Lasix discontinued because he was told by his primary that his renal function was worsening and he needed to be on his lisinopril. Patient states he was up out of bed for this morning to have breakfast and noted some shortness of breath after eating breakfast continued to feel short of breath so did not take his morning pressure medications but decided to contact EMS for transport to the emergency department. Patient states that he feels well at this time. Patient was placed on supplemental oxygen. Patient does not routinely use supplemental oxygen. Patient denies any chest pain. Patient is unable to identify other exacerbating or alleviating factors. Patient denies any recent febrile illness GI complaints or joint pain swelling or cutaneous complaints. Patient denies any injury or fall. Patient rates pain 0/10 in intensity. PFSH Past Medical History Narrative Medical Chest pain, dyslipidemia, CHF, COPD, hypertension, diabetes appendectomy no tobacco use nursing notes reviewed Hx Anticoagulant Therapy: Yes (ASA) Arthritis: No Asthma: No Autoimmune Disease: No Blood Disorders: No Anxiety: No Depression: No Heart Rhythm Problems: No Cancer: No Cardiac Catheterization: No Cardiovascular Problems: Yes (HTN) High Cholesterol: Yes Chemotherapy: No Chest Pain: Yes Congestive Heart Failure: Yes COPD: Yes Cerebrovascular Accident: No Coronary Artery Disease: No Diabetes: Yes Patient Takes Glucophage: No Diminished Hearing: No Endocrine: No Gastrointestinal Disorders: Yes (PYLIDINOL CYST X2) GERD: No Glaucoma: No Genitourinary: No Headaches: Yes Hepatitis: No Heparin Induced Thrombocytopen: No Hypertension: Yes Immune Disorder: No Implanted Vascular Access Dvce: No Kidney Stones: No Musculoskeletal: No Neurologic: No Psychiatric: No Reproductive: No Respiratory: Yes (COPD) Immunizations Current: Yes Migraines: No Myocardial Infarction: No Radiation Therapy: No Renal Failure: No Seizures: No Sickle Cell Disease: No Sleep Apnea: Yes (Not using CPAP, but is supposed to be) Thyroid Disease: No Past Surgical History Abdominal Surgery: Yes (APPENDECTOMY) AICD: No Appendectomy: Yes Arteriovenous Shunt: No Cardiac Surgery: No Cholecystectomy: No Coronary Artery Bypass Graft: No Ear Surgery: No Endocrine Surgery: No Eye Surgery: No Genitourinary Surgery: No Gynecologic Surgery: No Insulin Pump: No Joint Replacement: No Neurologic Surgery: No Oral Surgery: No Pacemaker: No Thoracic Surgery: No Other Surgery: Yes (appendectomy) Social History Alcohol Use: Yes (RARE) Tobacco Use: No (quit 30 years ago) Substance Use: No Allergies-Medications (Allergen,Severity, Reaction): Coded Allergies: *MDRO Multi-Drug Resistant Organism (Verified Adverse Reaction, Unknown, ) MRSA (back wound/chest abscess) - 04/24/2015 MRSA PCR Screens NEGATIVE - 01/22/16 & 01/25/16 CLEARED PER INFECTION CONTROL Medrol (Verified Adverse Reaction, Unknown, 06/20/16) severe bowel pain Reported Meds & Prescriptions Reported Meds & Active Scripts Active Lisinopril 10 Mg Tab 10 Mg PO DAILY Keflex (Cephalexin) 500 Mg Cap 500 Mg PO Q8H 7 Days Lasix (Furosemide) 40 Mg Tab 20 Mg PO DAILY Potassium Chloride ER (Potassium Chloride) 10 Meq Cap 10 Meq PO BID Metoprolol Tartrate 25 Mg Tab 2 Tab PO BID Novolin 70-30 Inj (Insulin Human Isoph/Insulin Regular) 1,000 Unit/10 Ml Vial 25 Units SQ BID@08,17 30 Days Reported Aspirin 325 Mg Tab 325 Mg PO DAILY Clonidine (Clonidine HCl) 0.2 Mg Tab 0.2 Mg PO QID Multiple Vitamin 1 Tab 1 Tab PO DAILY Review of Systems Except as stated in HPI: all other systems reviewed are Neg Physical Exam Narrative GENERAL: Well-developed well-nourished male in no acute distress no respiratory distress. SKIN: Warm and dry. HEAD: Normocephalic. EYES: No scleral icterus. No injection or drainage. NECK: Supple, trachea midline. No JVD or lymphadenopathy. CARDIOVASCULAR: Regular rate and rhythm without murmurs, gallops, or rubs. RESPIRATORY: Breath sounds equal bilaterally. No accessory muscle use. GASTROINTESTINAL: Abdomen soft, non-tender, nondistended. MUSCULOSKELETAL: No cyanosis, or edema. BACK: Nontender without obvious deformity. No CVA tenderness. Data Data Last Documented VS Vital Signs Date Time Temp Pulse Resp B/P Pulse Ox O2 Delivery O2 Flow Rate FiO2 06/20/16 05:18 94 1 06/20/16 05:12 82 12 197/105 Nasal Cannula 06/20/16 05:03 98.4 Orders Complete Blood Count With Diff (06/20/16 05:13) Basic Metabolic Panel (Bmp) (06/20/16 05:13) B-Type Natriuretic Peptide (06/20/16 05:13) Magnesium (Mg) (06/20/16 05:13) Troponin I (06/20/16 05:13) Iv Access Insert/Monitor (06/20/16 05:13) Electrocardiogram (06/20/16 05:13) Ecg Monitoring (06/20/16 05:13) Oximetry (06/20/16 05:13) Oxygen Administration (06/20/16 05:13) Chest, Single Ap (06/20/16 05:13) Sodium Chloride 0.9% Flush (Ns Flush) (06/20/16 05:15) Clonidine (Catapres) (06/20/16 05:15) Furosemide (Lasix) (06/20/16 06:30) Labs Laboratory Tests Test 06/20/16 05:28 White Blood Count 12.4 TH/MM3 Red Blood Count 5.80 MIL/MM3 Hemoglobin 15.6 GM/DL Hematocrit 46.3 % Mean Corpuscular Volume 79.8 FL Mean Corpuscular Hemoglobin 26.9 PG Mean Corpuscular Hemoglobin 33.6 % Concent Red Cell Distribution Width 14.9 % Platelet Count 254 TH/MM3 Mean Platelet Volume 9.5 FL Neutrophils (%) (Auto) 61.9 % Lymphocytes (%) (Auto) 25.9 % Monocytes (%) (Auto) 6.5 % Eosinophils (%) (Auto) 5.4 % Basophils (%) (Auto) 0.3 % Neutrophils # (Auto) 7.7 TH/MM3 Lymphocytes # (Auto) 3.2 TH/MM3 Monocytes # (Auto) 0.8 TH/MM3 Eosinophils # (Auto) 0.7 TH/MM3 Basophils # (Auto) 0.0 TH/MM3 CBC Comment DIFF FINAL Differential Comment Sodium Level 139 MEQ/L Potassium Level 4.4 MEQ/L Chloride Level 104 MEQ/L Carbon Dioxide Level 23.8 MEQ/L Anion Gap 11 MEQ/L Blood Urea Nitrogen 21 MG/DL Creatinine 1.35 MG/DL Estimat Glomerular Filtration 53 ML/MIN Rate Random Glucose 183 MG/DL Calcium Level 8.9 MG/DL Magnesium Level 2.1 MG/DL Troponin I 0.03 NG/ML B-Type Natriuretic Peptide 246 PG/ML MDM Medical Decision Making Medical Screen Exam Complete: Yes Emergency Medical Condition: Yes Medical Record Reviewed: Yes Interpretation(s) EKG: Normal sinus rhythm rate 80 intermittent ventricular conduction delay nonspecific T-wave abnormality no acute ST elevation or injury pattern change noted Differential Diagnosis Dyspnea, uncontrolled hypertension, ACS, CHF, renal insufficiency, electronic disturbance Narrative Course Patient noted to be hypertensive lung sounds clear to auscultation O2 saturation 94-96% on 2 L patient denying any shortness of breath at this time we 'll administer his morning clonidine dose of 0.2 mg of clonidine and then anticipate will need to administer either additional blood pressure medication or at least diuretic Lab values found to be is within normal range except for renal insufficiency which is slightly increased from last visit and continues to have mild elevated BNP blood pressure improved after clonidine patient administered oral dose of Lasix discussed with patient adjusting medication such that he does not miss any of his blood pressure medications at this time patient is stable for outpatient management and close follow up with his primary care physician. Diagnosis Primary Impression: HTN (hypertension) Qualified Code: I10 - Essential hypertension Additional Impression: Renal insufficiency Referrals: Primary Care Physician call for appointment Patient Instructions: General Instructions Additional Instructions: Take your blood pressure medications as prescribed Follow-up with your primary care physician call office in a.m. Return to the emergency department for any concerns or change in condition Disposition: 01 DISCHARGE HOME Condition: Stable Ariadna Martinez MD Jun 20, 2016 05:51
[2016-06-20 06:21] LABS: BICARBONATE 23.8 MEQ/L (21.0-32.0); MAGNESIUM 2.1 MG/DL (1.5-2.5); POTASSIUM 4.4 MEQ/L (3.5-5.1)
[2016-06-20] MEDS ORDERED: FUROSEMIDE 20 MG TAB PO ONE (06:30)
[2016-06-20 07:09] VITALS: BP 188/92; PULSE 72; RESP 12; O2SAT 96
--- NOTE | 2016-06-20 14:25 | EKG ---
Date Performed: 06/20/2016 Time Performed: 05:43:45 PTAGE: 66 years EKG: Sinus rhythm MODERATE INTRAVENTRICULAR CONDUCTION DELAY NONSPECIFIC T-WAVE ABNORMALITY BORDERLINE ECG PREVIOUS TRACING : 06/18/2016 01.51 Compared to prior tracing no significant change DOCTOR: Donavan Portillo Interpretating Date/Time 06/20/2016 14:24:56
== END 2016-06-20 07:20 | disposition home or self-care (01) ==
LOC: NEPC 05:00
DX: I10 Essential (primary) hypertension (principal); N28.9 Disorder of kidney and ureter, unspecified; E11.9 Type 2 diabetes mellitus without complications; J44.9 Chronic obstructive pulmonary disease, unspecified; E78.00 Pure hypercholesterolemia, unspecified; I50.9 Heart failure, unspecified; Z79.01 Long term (current) use of anticoagulants; R94.31 Abnormal electrocardiogram [ECG] [EKG]
CPT/HCPCS: 71010; 71275; 80048; 80053; 82550; 82552; 83735; 83880; 84484; 85025; 85610; 85730; 93005; 96374; 96375; J2270; J2405; Q9967

== ENCOUNTER 2016-06-20 23:08 | Emergency (ER) | payer OTHER ==
[~2016-06-20] VITALS: Ht 185.4 cm; Wt 134.0 kg
[2016-06-20 23:12] VITALS: BP_SYST 199; BP_SYST 202; BP_DIAS 102; BP_DIAS 108; PULSE 74; RESP 18; TEMP 98.2; O2SAT 98
[2016-06-21 01:51] VITALS: BP 178/93; PULSE 66; RESP 18; O2SAT 96
[2016-06-21 02:46] VITALS: BP 187/121; PULSE 71; RESP 18; O2SAT 96
[2016-06-21 03:09] VITALS: PULSE 68; RESP 18; O2SAT 98
[2016-06-21] MEDS ORDERED: SODIUM CHLORIDE 0.9% FLUSH 5 ML FLUSH IVF PRN (03:15)
--- NOTE | 2016-06-21 03:36 | RADRPT ---
EXAM DATE/TIME: 06/21/2016 03:19 [facility] COMPARISON: CHEST SINGLE AP, June 20, 2016, 5:21. INDICATIONS : Shortness of breath. MEDICAL HISTORY : Hypertension. Congestive heart failure. Diabetes mellitus type II. SURGICAL HISTORY : None. ENCOUNTER: Initial ACUITY: 1 day PAIN SCORE: 0/10 LOCATION: Bilateral chest FINDINGS: Cardiomegaly. Clear lungs. Osseous structures are intact. CONCLUSION: No acute disease. Mio Busch MD on June 21, 2016 at 3:35 Board Certified Radiologist. This report was verified electronically.
[2016-06-21 03:57] LABS: APTT (PATIENT) 24.2 SEC (24.3-30.1); PROTHROMBIN TIME - PATIENT 11.2 SEC (9.8-11.6)
[2016-06-21 04:02] LABS: ALT (GPT) 43 U/L (12-78); ANION GAP 7 MEQ/L (5-15); AST (GOT) 25 U/L (15-37); BICARBONATE 26.9 MEQ/L (21.0-32.0); BLOOD UREA NITROGEN 20 MG/DL (7-18); CHLORIDE 104 MEQ/L (98-107); GLOMERULAR FILTRATION RATE 60 ML/MIN (>89); MAGNESIUM 2.1 MG/DL (1.5-2.5); POTASSIUM 4.3 MEQ/L (3.5-5.1); SODIUM (NA) 138 MEQ/L (136-145)
[2016-06-21 04:06] LABS: ALKALINE PHOSPHATASE 81 U/L (45-117); CREATINE KINASE 164 U/L (39-308); TOTAL BILIRUBIN ADULT 0.6 MG/DL (0.2-1.0)
[2016-06-21] MEDS ORDERED: LABETALOL HCL 100 MG/20 ML VIAL IV PUSH ONE (04:15)
[2016-06-21] MEDS ORDERED: MORPHINE SULFATE 4 MG/ML INJ IV PUSH ONE (04:15)
[2016-06-21] MEDS ORDERED: ONDANSETRON HCL 4 MG/2 ML VIAL IV PUSH ONE (04:15)
[2016-06-21 04:19] LABS: CKMB 4.3 NG/ML (0.5-3.6)
[2016-06-21 04:22] LABS: AUTOMATED NEUTROPHIL # 7.4 TH/MM3 (1.8-7.7); BASOPHIL # 0.1 TH/MM3 (0-0.2); BASOPHIL % 1.1 % (0.0-2.0); EOSINOPHIL # 0.5 TH/MM3 (0-0.4); EOSINOPHIL % 4.5 % (0.0-4.0); HEMATOCRIT 43.2 % (39.0-51.0); HEMO FLAGS DIFF FINAL; LYMPH % 23.1 % (9.0-44.0); LYMPHOCYTE # 2.6 TH/MM3 (1.0-4.8); MEAN CORPUSCULAR HEMOGLOBIN 27.4 PG (27.0-34.0); MEAN CORPUSCULAR HGB CONC 34.2 % (32.0-36.0); MONO % 6.7 % (0.0-8.0); NEUT % 64.6 % (16.0-70.0); PLATELET COUNT 261 TH/MM3 (150-450); RED CELL DISTRIBUTION WIDTH 14.8 % (11.6-17.2); WHITE BLOOD COUNT 11.5 TH/MM3 (4.0-11.0)
[2016-06-21 04:54] VITALS: BP 174/99; PULSE 68; RESP 18; O2SAT 98
--- NOTE | 2016-06-21 05:04 | PD ---
HPI Chief Complaint: Hypertension Time Seen by Provider: 02:43 Travel History International Travel<30 days: No Contact w/Intl Traveler<30days: No Traveled to known affect area: No History of Present Illness HPI The patient is a 66 year old male who presents to the [facility] emergency department with a history of earlier in the evening after taking his blood pressure noting that his blood pressure was elevated. He reports that he also had shortness of breath with dyspnea on exertion. The patient was seen for this on June 20 in the emergency department- yesterday. The patient reports that his evaluation was unremarkable. He reports that he was told to follow-up with his primary care physician. He reports that he has an appointment with his primary care physician for today. The patient reports that today he is having a headache associated with this elevated blood pressure. He reports having associated chest pressure. He denies having any cough or congestion. He reports that he has lower extremity edema, however it is been no worse than usual. He reports that he was on a diuretic, however this was discontinued. The patient denies recent fevers, cough, congestion, neck pain, abdominal pain, vomiting, diarrhea, urinary symptoms, or neurologic symptoms. [facility] Past Medical History Narrative Medical The patient's past medical history is significant for hypertension, diabetes mellitus, COPD, congestive heart failure, obstructive sleep apnea, hyperlipidemia, history of a pilonidal cyst. Hx Anticoagulant Therapy: Yes (ASA) Arthritis: No Asthma: No Autoimmune Disease: No Blood Disorders: No Anxiety: No Depression: No Heart Rhythm Problems: No Cancer: No Cardiac Catheterization: No Cardiovascular Problems: Yes High Cholesterol: Yes Chemotherapy: No Chest Pain: Yes Congestive Heart Failure: Yes COPD: Yes Cerebrovascular Accident: No Coronary Artery Disease: No Diabetes: Yes Patient Takes Glucophage: No Diminished Hearing: No Endocrine: No Gastrointestinal Disorders: Yes (PYLIDINOL CYST X2) GERD: No Glaucoma: No Genitourinary: No Headaches: Yes Hepatitis: No Heparin Induced Thrombocytopen: No Hypertension: Yes Immune Disorder: No Implanted Vascular Access Dvce: No Kidney Stones: No Musculoskeletal: No Neurologic: No Psychiatric: No Reproductive: No Respiratory: Yes Immunizations Current: Yes Migraines: No Myocardial Infarction: No Radiation Therapy: No Renal Failure: No Seizures: No Sickle Cell Disease: No Sleep Apnea: Yes Thyroid Disease: No Past Surgical History Narrative Surgical The patient's past surgical history is significant for an appendectomy, pilonidal cyst resection. Abdominal Surgery: Yes (APPENDECTOMY) AICD: No Appendectomy: Yes Arteriovenous Shunt: No Cardiac Surgery: No Cholecystectomy: No Coronary Artery Bypass Graft: No Ear Surgery: No Endocrine Surgery: No Eye Surgery: No Genitourinary Surgery: No Gynecologic Surgery: No Insulin Pump: No Joint Replacement: No Neurologic Surgery: No Oral Surgery: No Pacemaker: No Thoracic Surgery: No Other Surgery: Yes (appendectomy) Social History Alcohol Use: Yes (RARE) Tobacco Use: No (quit 30 years ago) Substance Use: No Allergies-Medications (Allergen,Severity, Reaction): Coded Allergies: *MDRO Multi-Drug Resistant Organism (Verified Adverse Reaction, Unknown, ) MRSA (back wound/chest abscess) - 04/24/2015 MRSA PCR Screens NEGATIVE - 01/22/16 & 01/25/16 CLEARED PER INFECTION CONTROL Medrol (Verified Adverse Reaction, Unknown, 06/20/16) severe bowel pain Reported Meds & Prescriptions Reported Meds & Active Scripts Active Lisinopril 10 Mg Tab 10 Mg PO DAILY Keflex (Cephalexin) 500 Mg Cap 500 Mg PO Q8H 7 Days Potassium Chloride ER (Potassium Chloride) 10 Meq Cap 10 Meq PO BID Metoprolol Tartrate 25 Mg Tab 2 Tab PO BID Novolin 70-30 Inj (Insulin Human Isoph/Insulin Regular) 1,000 Unit/10 Ml Vial 25 Units SQ BID@08,17 30 Days Reported Aspirin 325 Mg Tab 325 Mg PO DAILY Clonidine (Clonidine HCl) 0.2 Mg Tab 0.2 Mg PO QID Multiple Vitamin 1 Tab 1 Tab PO DAILY Review of Systems General / Constitutional: No: Fever Eyes: No: Visual changes HENT: No: Headaches Cardiovascular: Positive: Chest Pain or Discomfort (chest tightness/pressure), Dyspnea on exertion Respiratory: Positive: Shortness of Breath Gastrointestinal: No: Nausea, Vomiting, Diarrhea, Abdominal Pain Genitourinary: No: Dysuria Musculoskeletal: No: Pain Skin: No Rash Neurologic: Positive: Headache, No: Weakness, Focal Abnormalities, Coordination Problem, Change in Mentation, Slurred Speech, Sensory Disturbance Psychiatric: No: Depression Endocrine: No: Polydipsia Hematologic/Lymphatic: No: Easy Bruising Physical Exam Narrative General: The patient is a well-developed well-nourished male in no acute distress.. Head and Neck exam: Head is normocephalic atraumatic. Eyes: The patient has sunglasses on. He reports having chronic sensitivity to light always wears his sunglasses. EOMI, pupils are equal round and reactive to light. Nose: Midline septum with pink mucous membranes Mouth: Dentition unremarkable. Moist mucus membranes. Posterior oropharynx is not erythematous. No tonsillar hypertrophy. Uvula midline. Airway patent. Neck: No palpable lymphadenopathy. No nuchal rigidity. No thyromegaly. Cardiovascular: Regular rate and rhythm without murmurs, gallops, or rubs. Lungs: Clear to auscultation bilaterally. No wheezes, rhonchi, or rales. Abdomen: Soft, without tenderness to palpation in all 4 quadrants of the abdomen. No guarding, rebound, or rigidity. Normal bowel sounds are audible. Extremities: No clubbing, cyanosis, or edema. 2+ pulses in all 4 extremities. No calf tenderness on palpation. Back: No spinous process tenderness to palpation. No costovertebral angle tenderness to palpation. Neurologic Exam: Cranial nerves 2-12 were intact on exam. Strength is 5/5 in all 4 extremities. No sensory deficits noted. Skin Exam: No rash noted. Intact skin that is warm and dry. Data Data Last Documented VS Vital Signs Date Time Temp Pulse Resp B/P Pulse Ox O2 Delivery O2 Flow Rate FiO2 06/21/16 06:53 74 18 149/87 98 06/20/16 23:12 98.2 Orders Complete Blood Count With Diff (06/21/16 03:03) Comprehensive Metabolic Panel (06/21/16 03:03) B-Type Natriuretic Peptide (06/21/16 03:03) Act Partial Throm Time (Ptt) (06/21/16 03:03) Prothrombin Time / Inr (Pt) (06/21/16 03:03) Magnesium (Mg) (06/21/16 03:03) Ckmb (Isoenzyme) Profile (06/21/16 03:03) Troponin I (06/21/16 03:03) Iv Access Insert/Monitor (06/21/16 03:03) Electrocardiogram (06/21/16 03:03) Ecg Monitoring (06/21/16 03:03) Oximetry (06/21/16 03:03) Oxygen Administration (06/21/16 03:03) Chest, Single Ap (06/21/16 03:03) Sodium Chloride 0.9% Flush (Ns Flush) (06/21/16 03:15) CKMB (06/21/16 03:20) CKMB% (06/21/16 03:20) Labetalol Inj (Trandate Inj) (06/21/16 04:15) Morphine Inj (Morphine Inj) (06/21/16 04:15) Ondansetron Inj (Zofran Inj) (06/21/16 04:15) Ct Pulmonary Angiogram (06/21/16 05:05) Creatine Kinase (Cpk) (06/21/16 06:16) Ckmb (Isoenzyme) Profile (06/21/16 06:16) Troponin I (06/21/16 06:16) Iohexol 350 Inj (Omnipaque 350 Inj) (06/21/16 06:37) CKMB (06/21/16 06:45) CKMB% (06/21/16 06:45) Labs Laboratory Tests Test 06/21/16 06/21/16 06/21/16 03:20 03:25 06:45 Prothrombin Time 11.2 SEC Prothromb Time International 1.0 RATIO Ratio Activated Partial 24.2 SEC Thromboplast Time Sodium Level 138 MEQ/L Potassium Level 4.3 MEQ/L Chloride Level 104 MEQ/L Carbon Dioxide Level 26.9 MEQ/L Anion Gap 7 MEQ/L Blood Urea Nitrogen 20 MG/DL Creatinine 1.22 MG/DL Estimat Glomerular Filtration 60 ML/MIN Rate Random Glucose 180 MG/DL Calcium Level 9.1 MG/DL Magnesium Level 2.1 MG/DL Total Bilirubin 0.6 MG/DL Aspartate Amino Transf 25 U/L (AST/SGOT) Alanine Aminotransferase 43 U/L (ALT/SGPT) Alkaline Phosphatase 81 U/L Total Creatine Kinase 164 U/L 146 U/L Creatine Kinase MB 4.3 NG/ML 3.8 NG/ML Troponin I 0.03 NG/ML 0.02 NG/ML B-Type Natriuretic Peptide 150 PG/ML Total Protein 7.6 GM/DL Albumin 3.6 GM/DL White Blood Count 11.5 TH/MM3 Red Blood Count 5.40 MIL/MM3 Hemoglobin 14.8 GM/DL Hematocrit 43.2 % Mean Corpuscular Volume 80.0 FL Mean Corpuscular Hemoglobin 27.4 PG Mean Corpuscular Hemoglobin 34.2 % Concent Red Cell Distribution Width 14.8 % Platelet Count 261 TH/MM3 Mean Platelet Volume 10.0 FL Neutrophils (%) (Auto) 64.6 % Lymphocytes (%) (Auto) 23.1 % Monocytes (%) (Auto) 6.7 % Eosinophils (%) (Auto) 4.5 % Basophils (%) (Auto) 1.1 % Neutrophils # (Auto) 7.4 TH/MM3 Lymphocytes # (Auto) 2.6 TH/MM3 Monocytes # (Auto) 0.8 TH/MM3 Eosinophils # (Auto) 0.5 TH/MM3 Basophils # (Auto) 0.1 TH/MM3 CBC Comment DIFF FINAL Differential Comment MDM Medical Decision Making Medical Screen Exam Complete: Yes Emergency Medical Condition: Yes Medical Record Reviewed: Yes Interpretation(s) Last Impressions Chest X-Ray 06/21/16 0303 Signed Impressions: Service Date/Time: Tuesday, June 21, 2016 03:19 - CONCLUSION: No acute disease. Mio Busch MD Differential Diagnosis Poorly controlled hypertension, versus congestive heart failure exacerbation, versus pneumonia, versus acute coronary syndrome Narrative Course During the course of the patients emergency department visit, the patients history, examination, and differential diagnosis were reviewed with the patient. The patient had IV access obtained and blood work sent for analysis. The patient was placed on a cafeteria monitor with oximetry and blood pressure monitoring. An EKG was done on arrival. The patient's EKG shows a sinus rhythm with a first-degree AV block, heart rate of 68, QRS duration is 116 ms. The patient has marked left axis deviation, no acute ST segment elevation. The patient's EKG is similar in appearance to his last EKG. The patient reports that he has taken his adult aspirin today. The patient was provided labetalol 10 mg IV times one. The patient was given morphine for pain, Zofran for nausea. The patients laboratory studies were reviewed and remarkable for a white count of 11.5, hemoglobin 14.8, platelets 261 with 4.5 eosinophils, CMP is remarkable for a BUN of 20, glucose 180, CPK 164, troponin I 0.03, BNP is 150 which is improved compared to previously. PT is 11.2, PTT 24.2. The patient's last stress test was done at this facility on January 17, 2016 and showed no area of ischemia, global hypokinesis with a diminished ejection fraction was noted. Radiology studies were reviewed and remarkable for a chest x-ray that shows no acute abnormality. CTA to rule out PE was negative for pulmonary embolism. No other acute abnormality noted on CT. Repeat set of cardiac enzymes are negative. The patient's blood pressure improved down to a systolic in the 140s. The patient will be discharged home to follow-up with his primary care physician for further management of his blood pressure. He has an appointment later today. The patient is resting comfortably and feels better, is alert and in no distress. The patients results and examination findings were discussed with the patient. The repeat examination is unremarkable and benign. The history, exam, diagnostic testing, and current condition do not suggest any significant pathology to warrant further testing, continued ED treatment, admission, or surgical evaluation at this point. The vital signs have been stable. The patient does not have uncontrollable pain, intractable vomiting, or other significant symptoms. The patient's condition is stable and appropriate for discharge. The patient will pursue further outpatient evaluation with a primary care physician or other designated or consulting physician as indicated in the discharge instructions. The patient expressed understanding and was agreeable with this plan. Diagnosis Primary Impression: Poorly-controlled hypertension Referrals: Primary Care Physician 1 day Follow-up today as previously scheduled. Patient Instructions: Chronic Hypertension (ED), General Instructions Med/Other Pt SpecificInfo: Prescription(s) given Disposition: 01 DISCHARGE HOME Condition: Stable Rosy Nunez MD Jun 21, 2016 05:04
[2016-06-21] MEDS ORDERED: IOHEXOL 350 MG/ML 10 ML VIAL (for RAD DIAG) IV ONE (06:37)
--- NOTE | 2016-06-21 06:43 | RADRPT ---
EXAM DATE/TIME: 06/21/2016 06:29 [facility] COMPARISON: CHEST SINGLE AP, June 21, 2016, 3:19. INDICATIONS : Shortness of breath and leg edema. IV CONTRAST: 74 cc Omnipaque 350 (iohexol) IV RADIATION DOSE: 23.49 CTDIvol (mGy) MEDICAL HISTORY : Chronic obstructive pulmonary disease. Congestive heart failure. Hypertension.Diabetes SURGICAL HISTORY : Appendectomy. ENCOUNTER: Initial ACUITY: 1 day PAIN SCALE: 1/10 LOCATION: Bilateral chest TECHNIQUE: Volumetric scanning of the chest was performed using a pulmonary embolism protocol MIP images were re constructed. Using automated exposure control and adjustment of the mA and/or kV according to patien t size, radiation dose was kept as low as reasonably achievable to obtain optimal diagnostic quality images. FINDINGS: PULMONARY ARTERIES: No filling defects are seen in the pulmonary arteries through the segmental level. LUNGS: There is no consolidation or pneumothorax . No concerning pulmonary nodule is visualized. PLEURAE: There is no pleural thickening or pleural effusion. MEDIASTINUM: There is good visualization of the great vessels of the middle mediastinum. No evidence of mediastin al or hilar adenopathy/mass. Atherosclerotic calcifications of the aorta are noted. Subcentimeter gaby rt axis bilateral hilar lymph nodes are seen. MUSCULOSKELETAL: Within normal limits for patient age. MISCELLANEOUS: Hepatic steatosis is noted. CONCLUSION: 1. No evidence for pulmonary embolism or pneumonia. 2. Fatty liver. 3. Atherosclerosis. Mio Busch MD on June 21, 2016 at 6:40 Board Certified Radiologist. This report was verified electronically.
[2016-06-21 06:53] VITALS: BP 149/87; PULSE 74; RESP 18; O2SAT 98
[2016-06-21 07:24] LABS: CREATINE KINASE 146 U/L (39-308)
[2016-06-21 07:37] LABS: CKMB 3.8 NG/ML (0.5-3.6)
--- NOTE | 2016-06-21 10:03 | EKG ---
Date Performed: 06/21/2016 Time Performed: 02:37:59 PTAGE: 66 years EKG: Sinus rhythm WITH FIRST DEGREE AV BLOCK MARKED LEFT AXIS DEVIATION MODERATE INTRAVENTRICULAR CONDUCTION DELAY MIN IMAL VOLTAGE CRITERIA FOR LVH, CONSIDER NORMAL VARIANT NONSPECIFIC T-WAVE ABNORMALITY ABNORMAL ECG PREVIOUS TRACING : 06/21/2016 02.36 DOCTOR: Cliff Gipson Interpretating Date/Time 06/21/2016 10:00:34
[2016-06-22] MEDS ORDERED: METO100T PO (07:47)
[2016-06-22] MEDS ORDERED: LISI-515 PO (09:00)
[2016-06-22] MEDS ORDERED: HYDR12.57 PO (09:00)
[2016-06-22] MEDS ORDERED: AMLO10TA2 PO (09:00)
== END 2016-06-21 09:22 | disposition home or self-care (01) ==
LOC: NEPC 23:08
DX: I10 Essential (primary) hypertension (principal); E11.9 Type 2 diabetes mellitus without complications; I50.9 Heart failure, unspecified; R60.0 Localized edema; J44.9 Chronic obstructive pulmonary disease, unspecified; R94.31 Abnormal electrocardiogram [ECG] [EKG]; Z79.01 Long term (current) use of anticoagulants
CPT/HCPCS: 71010; 71275; 80053; 82550; 82552; 83735; 83880; 84484; 85025; 85610; 85730; 93005; 96374; 96375; 99285; J2270; J2405; Q9967

== ENCOUNTER 2016-06-22 07:35 | Emergency (ER) | payer OTHER ==
[~2016-06-22] VITALS: Ht 185.4 cm; Wt 145.0 kg
[2016-06-22 07:37] VITALS: BP 199/117; PULSE 78; RESP 22; TEMP 97.9; O2SAT 95
[2016-06-22 07:42] VITALS: BP 185/98; PULSE 74; RESP 18
[2016-06-22] MEDS ORDERED: METO100T PO (07:47)
--- NOTE | 2016-06-22 07:47 | PD ---
HPI Chief Complaint: Hypertension Time Seen by Provider: 07:46 Travel History International Travel<30 days: No Contact w/Intl Traveler<30days: No Traveled to known affect area: No History of Present Illness HPI 66-year-old male came to the emergency room with history of hypertension and shortness of breath. Patient has been here in this emergency room with this exact same complain multiple times recently. In fact I saw him myself during one of those visits in less than one week ago. Patient is on antihypertensive including Lopressor 100 mg twice a day. I had started him on lisinopril 10 mg daily in addition. Patient says this morning he was getting shortness of breath and checked his blood pressure. It was 265 systolic. He took his blood pressure medications about an hour prior to coming to the emergency room. Soon after taking the medication he rechecked and it was still high when he decided to come in. When I went to see him in the room his blood pressure was 185/95. Oxygen saturation was 95% on room air. Patient did not seem to be in any respiratory distress. I reminded him about our conversation and instructions I had given him last time to follow up with his primary care. Patient says that he did 2 days ago and he was asked to follow up with his race steward Dr. Nunez. He has not made the phone call or appointment yet. Denies any chest pain, headache or blurred vision. PFSH Past Medical History Narrative Medical List of his past medical, surgical, social and family history is reviewed from the nursing note. Hx Anticoagulant Therapy: Yes (ASA) Arthritis: No Asthma: No Autoimmune Disease: No Blood Disorders: No Anxiety: No Depression: No Heart Rhythm Problems: No Cancer: No Cardiac Catheterization: No Cardiovascular Problems: Yes (htn) High Cholesterol: Yes Chemotherapy: No Chest Pain: Yes Congestive Heart Failure: Yes COPD: Yes Cerebrovascular Accident: No Coronary Artery Disease: No Diabetes: Yes Diminished Hearing: No Endocrine: No Gastrointestinal Disorders: Yes (PYLIDINOL CYST X2) GERD: No Glaucoma: No Genitourinary: No Headaches: Yes Hepatitis: No Heparin Induced Thrombocytopen: No Hypertension: Yes Immune Disorder: No Implanted Vascular Access Dvce: No Kidney Stones: No Musculoskeletal: No Neurologic: No Psychiatric: No Reproductive: No Respiratory: Yes Immunizations Current: Yes Migraines: No Myocardial Infarction: No Radiation Therapy: No Renal Failure: No Seizures: No Sickle Cell Disease: No Sleep Apnea: Yes Thyroid Disease: No Past Surgical History Abdominal Surgery: Yes (APPENDECTOMY) AICD: No Appendectomy: Yes Arteriovenous Shunt: No Cardiac Surgery: No Cholecystectomy: No Coronary Artery Bypass Graft: No Ear Surgery: No Endocrine Surgery: No Eye Surgery: No Genitourinary Surgery: No Gynecologic Surgery: No Insulin Pump: No Joint Replacement: No Neurologic Surgery: No Oral Surgery: No Pacemaker: No Thoracic Surgery: No Other Surgery: Yes (appendectomy) Social History Alcohol Use: Yes (RARE) Tobacco Use: No (quit 30 years ago) Substance Use: No Allergies-Medications (Allergen,Severity, Reaction): Coded Allergies: *MDRO Multi-Drug Resistant Organism (Verified Adverse Reaction, Unknown, ) MRSA (back wound/chest abscess) - 04/24/2015 MRSA PCR Screens NEGATIVE - 01/22/16 & 01/25/16 CLEARED PER INFECTION CONTROL Medrol (Verified Adverse Reaction, Unknown, 06/22/16) severe bowel pain Comments List of his allergies reviewed from the nursing note. Reported Meds & Prescriptions Reported Meds & Active Scripts Active Amlodipine (Amlodipine Besylate) 10 Mg Tab 10 Mg PO DAILY Hydrochlorothiazide 12.5 Mg Cap 12.5 Mg PO DAILY Lisinopril 20 Mg Tab 20 Mg PO DAILY Lisinopril 10 Mg Tab 10 Mg PO DAILY Keflex (Cephalexin) 500 Mg Cap 500 Mg PO Q8H 7 Days Potassium Chloride ER (Potassium Chloride) 10 Meq Cap 10 Meq PO BID Novolin 70-30 Inj (Insulin Human Isoph/Insulin Regular) 1,000 Unit/10 Ml Vial 25 Units SQ BID@ 30 Days Reported Metoprolol Tartrate 100 Mg Tab 100 Mg PO BID Aspirin 325 Mg Tab 325 Mg PO DAILY Clonidine (Clonidine HCl) 0.2 Mg Tab 0.2 Mg PO QID Multiple Vitamin 1 Tab 1 Tab PO DAILY Narrative Medication List of his home medications reviewed from the nursing note. Review of Systems Except as stated in HPI: all other systems reviewed are Neg Physical Exam Narrative GENERAL: Awake, alert, obese, no obvious distress SKIN: Warm and dry. HEAD: Atraumatic. Normocephalic. EYES: Pupils equal and round. No scleral icterus. No injection or drainage. ENT: No nasal bleeding or discharge. Mucous membranes pink and moist. NECK: Trachea midline. No JVD. CARDIOVASCULAR: Regular rate and rhythm. No murmur appreciated. RESPIRATORY: No accessory muscle use. Clear to auscultation. Breath sounds equal bilaterally. GASTROINTESTINAL: Abdomen soft, non-tender, nondistended. Hepatic and splenic margins not palpable. MUSCULOSKELETAL: No obvious deformities. No clubbing. No cyanosis. No edema. NEUROLOGICAL: Awake and alert. No obvious cranial nerve deficits. Motor grossly within normal limits. Normal speech. PSYCHIATRIC: Appropriate mood and affect; insight and judgment normal. Data Data Last Documented VS Orders Electrocardiogram (06/22/16 ) Chest, Single Ap (06/22/16 ) Amlodipine (Norvasc) (06/22/16 09:00) Lisinopril (Prinivil) (06/22/16 09:00) Hydrochlorothiazide (Microzide) (06/22/16 09:00) MDM Medical Decision Making Medical Screen Exam Complete: Yes Emergency Medical Condition: Yes Medical Record Reviewed: Yes Interpretation(s) Twelve-lead EKG was reviewed by me. Normal sinus rhythm, left axis deviation, questionable old anterior ID, poor R-wave progression, first-degree AV block, nonspecific ST-T wave changes. Heart rate of 74 bpm. Differential Diagnosis Essential hypertension Narrative Course 8:12 AM I have put a call out for Dr. Nunez and I was told that Dr. Coles is going to call back. I haven't heard back from either of them. I've asked the clinical unit educator to call their office and see if we can make an appointment for him with one of them. 8:56 AM I just spoke with Dr. Nunez. He was surprised that patient was not put on OLIVIER inhibitor and calcium channel carter up until I started him on one 4 -5 days ago. He has asked me to increase his lisinopril to 20 mg daily and add amlodipine 10 mg daily and hydrochlorothiazide 12.5 mg daily. I've given him a dose of each of those here in the emergency room. Patient was complaining of chest pain and shortness of breath while in the emergency room. I have done an EKG which looks no different than his previous EKG. Awaiting for the chest x- ray to be read. 9:45 AM chest x-rays is read as cardiomegaly and minimal congestion. Patient has received some hydrochlorothiazide. I am comfortable discharging him home at this point. Repeat blood pressure is 174/74. Procedures EKG Prior to Arrival: No Physician Communication Physician Communication Dr. Nunez Diagnosis Primary Impression: Essential hypertension Additional Impression: Uncontrolled hypertension Referrals: Jason Nunez MD 1 week Additional Instructions: Please call Dr. Nunez's office to make an appointment within one week. At the office know that he was seen in the emergency room and the ER physician spoke with him. He is expecting to see you within a week. Follow-up with your primary care as well. Take the medications that you have been prescribed in addition to your previous medications. Your lisinopril has been increased to 20 mg once a day. Take the new dose. Med/Other Pt SpecificInfo: Prescription(s) given, Existing Med Changed ( lisinopril increased to 20 mg once a day.) Scripts Amlodipine 10 Mg Tab10 Mg PO DAILY #30 TAB Ref 0 Prov:Vonnie John MD 06/22/16 Hydrochlorothiazide 12.5 Mg Cap12.5 Mg PO DAILY #30 CAP Ref 0 Prov:Vonnie Jonh MD 06/22/16 Lisinopril 20 Mg Tab20 Mg PO DAILY #30 TAB Ref 0 Prov:Vonnie John MD 06/22/16 Disposition: 01 DISCHARGE HOME Condition: Stable Vonnie John MD Jun 22, 2016 07:47 Prov:Vonnie John MD 06/22/16 Hydrochlorothiazide 12.5 Mg Cap12.5 Mg PO DAILY #30 CAP Ref 0 Prov:Vonnie John MD 06/22/16 Lisinopril 20 Mg Tab20 Mg PO DAILY #30 TAB Ref 0 Prov:Vonnie John MD 06/22/16 Disposition: 01 DISCHARGE HOME Condition: Stable Vonnie John MD Jun 22, 2016 07:47
[2016-06-22 08:05] VITALS: BP 180/94; PULSE 80; RESP 18; O2SAT 96
[2016-06-22 09:00] VITALS: BP 174/74; PULSE 63; RESP 19; O2SAT 95
[2016-06-22] MEDS ORDERED: LISI-515 PO (09:00)
[2016-06-22] MEDS ORDERED: HYDROCHLOROTHIAZIDE 12.5 MG CAP PO ONE (09:00)
[2016-06-22] MEDS ORDERED: HYDR12.57 PO (09:00)
[2016-06-22] MEDS ORDERED: AMLO10TA2 PO (09:00)
[2016-06-22] MEDS ORDERED: LISINOPRIL 10 MG TAB PO ONE (09:00)
--- NOTE | 2016-06-22 09:40 | RADRPT ---
EXAM DATE/TIME: 06/22/2016 08:42 [facility] COMPARISON: CT PULMONARY ANGIOGRAM, June 21, 2016, 6:29. CHEST SINGLE AP, June 21, 2016, 3:19. INDICATIONS: Patient states he has left chest pain and left leg pain that started this morning. MEDICAL HISTORY: Chronic obstructive pulmonary disease. Congestive heart failure. SURGICAL HISTORY: Appendectomy. ENCOUNTER: Initial ACUITY: 1 day PAIN SCORE: 1/10 LOCATION: Left chest FINDINGS: Cardiomegaly is noted. Minimal pulmonary vascular congestion is likely. There is no acute focal gayatri eolar consolidation. CONCLUSION: 1. Cardiomegaly. 2. Minimal pulmonary vascular congestion. Sina Perla MD on June 22, 2016 at 9:29 Board Certified Radiologist. This report was verified electronically.
[2016-06-22 11:12] VITALS: BP 157/74; PULSE 65; RESP 17; O2SAT 95
--- NOTE | 2016-06-22 11:25 | EKG ---
Date Performed: 06/22/2016 Time Performed: 08:32:34 PTAGE: 66 years EKG: Sinus rhythm WITH FIRST DEGREE AV BLOCK BORDERLINE LEFT AXIS DEVIATION MODERATE INTRAVENTRICULAR CONDUCTION DELAY ABNORMAL ECG PREVIOUS TRACING : 06/21/2016 02.37 DOCTOR: Shakeel Jaime Interpretating Date/Time 06/22/2016 11:22:54
== END 2016-06-22 11:14 | disposition home or self-care (01) ==
LOC: NEPE 07:35
DX: I10 Essential (primary) hypertension (principal); R06.02 Shortness of breath; I50.9 Heart failure, unspecified; R94.31 Abnormal electrocardiogram [ECG] [EKG]; Z79.01 Long term (current) use of anticoagulants
CPT/HCPCS: 71010; 93005

== ENCOUNTER 2016-07-15 00:51 | Observation (INO) | payer OTHER ==
[~2016-07-15] VITALS: Ht 185.4 cm; Wt 130.0 kg
[2016-07-15] VITALS (9 sets, daily range): BP systolic 170–189; BP diastolic 86–99; PULSE 71–92; RESP 16–18; TEMP 97.4–98.6; O2SAT 93–97
[~2016-07-15 00:51] MED LIST changes: +AMLO10TA2 PO; -FURO1TAB60 PO; +HYDR12.57 PO; +LISI-515 PO; -METO-309 PO; +METO100T PO; -METO25TA3 PO
[2016-07-15] MEDS ORDERED: SODIUM CHLORIDE 0.9% FLUSH 10 ML FLUSH IVF PRN (02:15)
[2016-07-15] MEDS ORDERED: ASPIRIN 81 MG CHEW TAB PO ONE (02:15)
[2016-07-15] MEDS: NITROGLYCERIN 0.4 MG SL 25 TABS/BTL SL SCH ×3 (02:20→02:42)
--- NOTE | 2016-07-15 02:27 | PD ---
HPI Chief Complaint: Chest Pain Time Seen by Provider: 02:01 Travel History International Travel<30 days: No Contact w/Intl Traveler<30days: No Traveled to known affect area: No History of Present Illness HPI 66-year-old male with history of COPD, hypertension, here for evaluation of elevated blood pressure, left-sided headache, and chest pain. Patient reports that the symptoms started at around 12:15 AM today while in the shower. Headache currently is 2 out of 10 and was gradual in onset, associated with photophobia. He tells me that he usually gets headaches when his blood pressure is elevated. He checked his blood pressure at home and it was 180 systolic. Patient is also complaining of a chest tightness which is centralized , nonradiating, no modifying factors. He denies history of cardiac disease. Chart review shows that the patient has been here several times in the past for elevated blood pressure as well as chest pain. He is having mild dyspnea. No paresthesias or motor deficits. PFSH Past Medical History Hx Anticoagulant Therapy: Yes (ASA) Arthritis: No Asthma: No Autoimmune Disease: No Blood Disorders: No Anxiety: No Depression: No Heart Rhythm Problems: No Cancer: No Cardiac Catheterization: No Cardiovascular Problems: Yes (HTN, CHF) High Cholesterol: Yes Chemotherapy: No Chest Pain: Yes Congestive Heart Failure: Yes COPD: Yes Cerebrovascular Accident: No Coronary Artery Disease: No Diabetes: Yes Patient Takes Glucophage: No Diminished Hearing: No Endocrine: No Gastrointestinal Disorders: Yes (PYLIDINOL CYST X2) GERD: No Glaucoma: No Genitourinary: No Headaches: Yes Hepatitis: No Heparin Induced Thrombocytopen: No Hypertension: Yes Immune Disorder: No Implanted Vascular Access Dvce: No Kidney Stones: No Musculoskeletal: No Neurologic: No Psychiatric: No Reproductive: No Respiratory: Yes (COPD, PNA) Immunizations Current: Yes Migraines: No Myocardial Infarction: No Radiation Therapy: No Renal Failure: No Seizures: No Sickle Cell Disease: No Sleep Apnea: Yes (DOES NOT WEAR A CPAP) Thyroid Disease: No Tetanus Vaccination: < 5 Years Influenza Vaccination: Yes Past Surgical History Abdominal Surgery: Yes (APPENDECTOMY) AICD: No Appendectomy: Yes Arteriovenous Shunt: No Cardiac Surgery: No Cholecystectomy: No Coronary Artery Bypass Graft: No Ear Surgery: No Endocrine Surgery: No Eye Surgery: No Genitourinary Surgery: No Gynecologic Surgery: No Insulin Pump: No Joint Replacement: No Neurologic Surgery: No Oral Surgery: No Pacemaker: No Thoracic Surgery: No Other Surgery: Yes (appendectomy) Family History Family Myocardial Infarction: No Social History Alcohol Use: Yes (RARE) Tobacco Use: No (quit 30 years ago) Substance Use: No Allergies-Medications (Allergen,Severity, Reaction): Coded Allergies: *MDRO Multi-Drug Resistant Organism (Verified Adverse Reaction, Unknown, ) MRSA (back wound/chest abscess) - 04/24/2015 MRSA PCR Screens NEGATIVE - 01/22/16 & 01/25/16 CLEARED PER INFECTION CONTROL Medrol (Verified Adverse Reaction, Unknown, 07/15/16) severe bowel pain Reported Meds & Prescriptions Reported Meds & Active Scripts Active Amlodipine (Amlodipine Besylate) 10 Mg Tab 10 Mg PO DAILY Hydrochlorothiazide 12.5 Mg Cap 12.5 Mg PO DAILY Lisinopril 20 Mg Tab 20 Mg PO DAILY Lisinopril 10 Mg Tab 10 Mg PO DAILY Keflex (Cephalexin) 500 Mg Cap 500 Mg PO Q8H 7 Days Potassium Chloride ER (Potassium Chloride) 10 Meq Cap 10 Meq PO BID Novolin 70-30 Inj (Insulin Human Isoph/Insulin Regular) 1,000 Unit/10 Ml Vial 25 Units SQ BID@,17 30 Days Reported Metoprolol Tartrate 100 Mg Tab 100 Mg PO BID Aspirin 325 Mg Tab 325 Mg PO DAILY Clonidine (Clonidine HCl) 0.2 Mg Tab 0.2 Mg PO QID Multiple Vitamin 1 Tab 1 Tab PO DAILY Review of Systems Except as stated in HPI: all other systems reviewed are Neg Physical Exam Narrative GENERAL: Well-developed, well-nourished, overweight, comfortable, no acute distress. SKIN: Focused skin assessment warm/dry. HEAD: Atraumatic. Normocephalic. EYES: Pupils equal, round, 3 mm, reactive to light. No scleral icterus. No injection or drainage. ENT: Mucous membranes pink and moist. NECK: Trachea midline. No JVD. CARDIOVASCULAR: Regular rate and rhythm. Distal pulses brisk and equal bilaterally. RESPIRATORY: No accessory muscle use. Clear to auscultation. Breath sounds equal bilaterally. GASTROINTESTINAL: Abdomen soft, non-tender, nondistended. MUSCULOSKELETAL: No obvious deformities. No clubbing. No cyanosis. No edema. NEUROLOGICAL: Awake and alert. No obvious cranial nerve deficits. Motor grossly within normal limits. Normal speech. PSYCHIATRIC: Appropriate mood and affect; insight and judgment normal. Data Data Last Documented VS Vital Signs Date Time Temp Pulse Resp B/P Pulse Ox O2 Delivery O2 Flow Rate FiO2 07/15/16 01:22 85 18 94 Room Air 2 07/15/16 01:22 172/97 07/15/16 00:54 98.6 Orders Basic Metabolic Panel (Bmp) (07/15/16 02:11) Ckmb (Isoenzyme) Profile (07/15/16 02:11) Complete Blood Count With Diff (07/15/16 02:11) Magnesium (Mg) (07/15/16 02:11) Prothrombin Time / Inr (Pt) (07/15/16 02:11) Act Partial Throm Time (Ptt) (07/15/16 02:11) Troponin I (07/15/16 02:11) Chest, Single Ap (07/15/16 02:11) Ecg Monitoring (07/15/16 02:11) Iv Access Insert/Monitor (07/15/16 02:11) Oximetry (07/15/16 02:11) Aspirin Chew (Aspirin Chew) (07/15/16 02:15) Sodium Chloride 0.9% Flush (Ns Flush) (07/15/16 02:15) Nitroglycerin Sl (Nitrostat Sl) (07/15/16 02:15) Lipase (07/15/16 02:19) Morphine Inj (Morphine Inj) (07/15/16 02:30) CKMB (07/15/16 01:30) CKMB% (07/15/16 01:30) Labs Laboratory Tests Test 07/15/16 01:30 White Blood Count 12.3 TH/MM3 Red Blood Count 5.73 MIL/MM3 Hemoglobin 15.7 GM/DL Hematocrit 45.1 % Mean Corpuscular Volume 78.7 FL Mean Corpuscular Hemoglobin 27.3 PG Mean Corpuscular Hemoglobin 34.7 % Concent Red Cell Distribution Width 14.4 % Platelet Count 261 TH/MM3 Mean Platelet Volume 9.6 FL Neutrophils (%) (Auto) 63.3 % Lymphocytes (%) (Auto) 24.1 % Monocytes (%) (Auto) 6.6 % Eosinophils (%) (Auto) 4.8 % Basophils (%) (Auto) 1.2 % Neutrophils # (Auto) 7.8 TH/MM3 Lymphocytes # (Auto) 3.0 TH/MM3 Monocytes # (Auto) 0.8 TH/MM3 Eosinophils # (Auto) 0.6 TH/MM3 Basophils # (Auto) 0.1 TH/MM3 CBC Comment DIFF FINAL Differential Comment Prothrombin Time 10.3 SEC Prothromb Time International 0.9 RATIO Ratio Activated Partial 25.5 SEC Thromboplast Time Sodium Level 136 MEQ/L Potassium Level 4.0 MEQ/L Chloride Level 102 MEQ/L Carbon Dioxide Level 23.4 MEQ/L Anion Gap 11 MEQ/L Blood Urea Nitrogen 20 MG/DL Creatinine 1.19 MG/DL Estimat Glomerular Filtration 61 ML/MIN Rate Random Glucose 191 MG/DL Calcium Level 8.8 MG/DL Magnesium Level 2.0 MG/DL Total Creatine Kinase 190 U/L Creatine Kinase MB 4.5 NG/ML Troponin I 0.03 NG/ML Lipase 412 U/L [facility] Medical Decision Making Medical Screen Exam Complete: Yes Emergency Medical Condition: Yes Differential Diagnosis Hypertensive crisis, ACS, pneumothorax, pericarditis, PE, pneumonia, intracranial abnormality, SAH unlikely, meningitis unlikely Narrative Course The patient had a myocardial perfusion scan in January 2016 which showed no areas of ischemia, global hypokinesis and significantly reduced ejection fraction, intermediate 1-3% manual mortality rate risk. Initial vital signs showed a blood pressure 172/96 which improved to 148/82 after sublingual nitroglycerin and pain control with morphine. CBC is essentially unremarkable. CMP is remarkable for random glucose 191, otherwise unremarkable. Lipase is 412. Troponin is 0.03. Chest x-ray: No acute disease. Patient was made aware of all findings. He is resting comfortably. He is feeling much better after his blood pressure has come down and he received morphine for his pain. He no longer has chest tightness or headache. Patient has significant risk factors for cardiac disease including hypertension, diabetes, obesity, and age. Because of this he will be admitted to the chest pain center for overnight observation for further cardiac evaluation. He is amenable to this plan. Diagnosis Primary Impression: Chest pain Qualified Code: R07.9 - Chest pain, unspecified type Additional Impression: Essential hypertension Admitting Information Admitting Physician Requests: Observation Ace Sanford MD Jul 15, 2016 02:27
[2016-07-15] MEDS ORDERED: MORPHINE SULFATE 4 MG/ML INJ IV PUSH ONE (02:30)
--- NOTE | 2016-07-15 02:41 | RADRPT ---
EXAM DATE/TIME: 07/15/2016 02:13 [facility] COMPARISON: CHEST SINGLE AP, June 22, 2016, 8:42. INDICATIONS : Chest pain. MEDICAL HISTORY : Hypertension. Chronic obstructive pulmonary disease. Congestive heart failure. SURGICAL HISTORY : None. ENCOUNTER: Initial ACUITY: 1 day PAIN SCORE: 0/10 LOCATION: Bilateral chest FINDINGS: A single view of the chest demonstrates the lungs to be symmetrically aerated without evidence of mas s, infiltrate or effusion. The heart size is large but stable. The bony structures are stable. CONCLUSION: No acute disease. David Hutton MD on July 15, 2016 at 2:39 Board Certified Radiologist. This report was verified electronically.
[2016-07-15 02:49] LABS: AUTOMATED NEUTROPHIL # 7.8 TH/MM3 (1.8-7.7); BASOPHIL # 0.1 TH/MM3 (0-0.2); BASOPHIL % 1.2 % (0.0-2.0); EOSINOPHIL # 0.6 TH/MM3 (0-0.4); EOSINOPHIL % 4.8 % (0.0-4.0); HEMATOCRIT 45.1 % (39.0-51.0); HEMO FLAGS DIFF FINAL; LYMPH % 24.1 % (9.0-44.0); MEAN CELL VOLUME 78.7 FL (80.0-100.0); MEAN CORPUSCULAR HEMOGLOBIN 27.3 PG (27.0-34.0); MEAN CORPUSCULAR HGB CONC 34.7 % (32.0-36.0); MONO % 6.6 % (0.0-8.0); NEUT % 63.3 % (16.0-70.0); PLATELET COUNT 261 TH/MM3 (150-450); RED BLOOD COUNT 5.73 MIL/MM3 (4.50-5.90); RED CELL DISTRIBUTION WIDTH 14.4 % (11.6-17.2); WHITE BLOOD COUNT 12.3 TH/MM3 (4.0-11.0)
[2016-07-15 02:56] LABS: ANION GAP 11 MEQ/L (5-15); BICARBONATE 23.4 MEQ/L (21.0-32.0); BLOOD UREA NITROGEN 20 MG/DL (7-18); CHLORIDE 102 MEQ/L (98-107); CREATINE KINASE 190 U/L (39-308); GLOMERULAR FILTRATION RATE 61 ML/MIN (>89); SODIUM (NA) 136 MEQ/L (136-145)
[2016-07-15 02:58] LABS: APTT (PATIENT) 25.5 SEC (24.3-30.1); INTERNATIONAL NORMALIZED RATIO 0.9 RATIO; PROTHROMBIN TIME - PATIENT 10.3 SEC (9.8-11.6)
[2016-07-15 03:09] LABS: CKMB 4.5 NG/ML (0.5-3.6)
[2016-07-15 05:42] LABS: CREATINE KINASE 166 U/L (39-308)
[2016-07-15 05:54] LABS: CKMB 3.7 NG/ML (0.5-3.6)
[2016-07-15] MEDS ORDERED: ONDANSETRON HCL 4 MG/2 ML VIAL IV PRN (07:30)
[2016-07-15] MEDS ORDERED: NITROGLYCERIN 0.4 MG SL 25 TABS/BTL SL PRN (07:30)
[2016-07-15] MEDS ORDERED: ACETAMINOPHEN 500 MG CPLT PO PRN (07:30)
[2016-07-15] MEDS ORDERED: GLUCAGON 1 MG/ML VIAL OTHER PRN (07:45)
[2016-07-15] MEDS ORDERED: DEXTROSE 50% IN WATER 50 ML VIAL(D50) IV PUSH PRN (07:45)
--- NOTE | 2016-07-15 08:50 | HHI.HP ---
HPI Primary Care Physician Supa Engle MD Chief Complaint Headache, elevated blood pressure, chest tightness History of Present Illness 66-year-old patient with poorly controlled hypertension presents to emergency room for further evaluation of chest tightness, headache, and elevated blood pressure. Endorses running out of his clonidine nearly a week ago. Last night while in the shower he developed a severe headache and substernal chest tightness. States whenever he feels like this he notes his blood pressure is elevated to the emergency room. Location substernal, characterized "tightness" , duration seconds, associated symptoms included headache, denies any nausea, vomiting, or diaphoresis. Precipitating factors he related to elevated blood pressure. No known relieving factors. Headache is resolved. Review of Systems General: No fatigue,weakness, fever, chills, or recent illness HEENT: Headache has improved. No vision changes, no nasal congestion or drainage, no dysphasia CV: As stated above. No current CP or pressure. No palpitations, intermittent leg pain, dizziness RESP: No SOB, cough, wheeze. Endorses COPD. GI: No nausea, vomiting, diarrhea, pain. No change in appetite, no unintentional weight gain or weight loss : No dysuria, urgency, frequency MS: No discomfort or change in ROM NEURO: No change in memory, dizziness, difficulty with balance, LOC, motor/ sensory deficits PSYCH: No anxiety, depression, suicidal ideation SKIN: No rashes, no concerning lesions Past Family Social History Allergies: Coded Allergies: *MDRO Multi-Drug Resistant Organism (Verified Adverse Reaction, Unknown, ) MRSA (back wound/chest abscess) - 04/24/2015 MRSA PCR Screens NEGATIVE - 01/22/16 & 01/25/16 CLEARED PER INFECTION CONTROL Medrol (Verified Adverse Reaction, Unknown, 07/15/16) severe bowel pain Past Medical History Hypertension, type 2 diabetes, hyperlipidemia, COPD, and cardiomyopathy Past Surgical History Appendectomy Reported Medications Reported Meds & Active Scripts Active Amlodipine (Amlodipine Besylate) 10 Mg Tab 10 Mg PO DAILY Hydrochlorothiazide 12.5 Mg Cap 12.5 Mg PO DAILY Lisinopril 20 Mg Tab 20 Mg PO DAILY Potassium Chloride ER (Potassium Chloride) 10 Meq Cap 10 Meq PO BID Novolin 70-30 Inj (Insulin Human Isoph/Insulin Regular) 1,000 Unit/10 Ml Vial 25 Units SQ BID@ 30 Days Metoprolol Tartrate 100 Mg Tab 100 Mg PO BID Aspirin 325 Mg Tab 325 Mg PO DAILY Multiple Vitamin 1 Tab 1 Tab PO DAILY Clonidine 0.2 mg 1 tablet by mouth 4 times a dayran out of medicine 1 week ago Active Ordered Medications Current Medications Medications (Trade) Dose Ordered Sig/Ly Route Start Time Stop Time Status Last Admin (Tylenol) 500 mg Q4H PRN PO 07/15/16 07:30 (Zofran Inj) 4 mg Q6H PRN IV 07/15/16 07:30 (Nitrostat Sl) 0.4 mg Q5M PRN SL 07/15/16 07:30 (Aspirin) 325 mg DAILY PO 07/15/16 09:00 07/15/16 07:57 (Norvasc) 10 mg DAILY PO 07/15/16 09:00 07/15/16 07:57 (Prinivil) 20 mg DAILY PO 07/15/16 09:00 07/15/16 07:58 (Theragran) 1 tab DAILY PO 07/15/16 09:00 07/15/16 07:58 (D50w (Vial) Inj) 25 ml UNSCH PRN IV PUSH 07/15/16 07:45 (Glucagon Inj) 1 mg UNSCH PRN OTHER 07/15/16 07:45 Family History Non-contributory for early onset cardiovascular disease. Social History Known hypertension, diabetes, and hyperlipidemia. Former smoker quit 26 years ago. Denies any alcohol or illegal drug use. Past cardiac testing 01/17/16 Lexiscan negative for ischemia, global hypokinesis, ejection fraction 25% Seen and evaluated by Dr. Jason Nunez February 05, 2016. Patient has not had follow-up appointment since initial consultation January 2016. Physical Exam Vital Signs Vital Signs Date Time Temp Pulse Resp B/P Pulse Ox O2 Delivery O2 Flow Rate FiO2 07/15/16 07:51 97.4 73 18 189/99 95 07/15/16 05:35 85 07/15/16 05:35 85 07/15/16 05:26 97.9 92 18 179/99 97 07/15/16 04:59 98.1 80 18 170/86 96 Nasal Cannula 2 07/15/16 04:49 18 95 Nasal Cannula 2 07/15/16 01:22 85 18 94 Room Air 2 07/15/16 01:22 79 18 172/97 93 Nasal Cannula 2 07/15/16 00:54 98.6 85 16 172/96 96 Room Air Physical Exam GENERAL: Alert WN, WD, NAD, pleasant, male HEAD: NC, AT EYES: Sclera clear, conjunctiva without injection, pupils equal and round NECK: Supple, no masses, trachea midline CV: RRR, without murmur, rub, gallop, no JVD, S1-S2 no S3-S4. RESP: Clear lungs throughout bilateral, no crackles, wheeze, rhonchi, symmetrical chest rise, nonlabored, able to speak in full sentences ABD: Soft, obese, NT, ND, no masses, positive bowel tones EXT: Pulses +24, no dependent edema MS: Normal tone 4 extremities, nontender, no obvious deformities, full range of motion NEURO: CN II through CN XII grossly intact, motor strength 5/5, gait WNL PSYCH: A+O 3, pleasant affect, appropriate speech, appropriate mood and affect , insight and judgment SKIN: Normal turgor, normal texture, no lesions, no rashes, brisk cap refill, even hair distribution Laboratory Laboratory Tests Test 07/15/16 07/15/16 01:30 05:00 White Blood Count 12.3 Red Blood Count 5.73 Hemoglobin 15.7 Hematocrit 45.1 Mean Corpuscular Volume 78.7 Mean Corpuscular Hemoglobin 27.3 Mean Corpuscular Hemoglobin 34.7 Concent Red Cell Distribution Width 14.4 Platelet Count 261 Mean Platelet Volume 9.6 Neutrophils (%) (Auto) 63.3 Lymphocytes (%) (Auto) 24.1 Monocytes (%) (Auto) 6.6 Eosinophils (%) (Auto) 4.8 Basophils (%) (Auto) 1.2 Neutrophils # (Auto) 7.8 Lymphocytes # (Auto) 3.0 Monocytes # (Auto) 0.8 Eosinophils # (Auto) 0.6 Basophils # (Auto) 0.1 CBC Comment DIFF FINAL Differential Comment Prothrombin Time 10.3 Prothromb Time International 0.9 Ratio Activated Partial 25.5 Thromboplast Time Sodium Level 136 Potassium Level 4.0 Chloride Level 102 Carbon Dioxide Level 23.4 Anion Gap 11 Blood Urea Nitrogen 20 Creatinine 1.19 Estimat Glomerular Filtration 61 Rate Random Glucose 191 Calcium Level 8.8 Magnesium Level 2.0 Total Creatine Kinase 190 166 Creatine Kinase MB 4.5 3.7 Troponin I 0.03 0.03 Lipase 412 Result Diagram: 07/15/16 0130 07/15/16 0130 Imaging Last Impressions Chest X-Ray 07/15/16 0211 Signed Impressions: Service Date/Time: Friday, July 15, 2016 02:13 - CONCLUSION: No acute disease. David Hutton MD Course EKGs 3 EKGs show normal sinus rhythm, left axis deviation, with no ST or T-segment changes Assessment and Plan Assessment and Plan #1 Chest pain-admitted to chest pain center. Ruled out with 3 sets of EKGs, cardiac enzymes, and monitored overnight. Was seen and evaluated by Dr. Stella Lewis. Chest discomfort likely related to poorly controlled hypertension and not acute coronary syndrome. Recent Lexiscan negative for ischemia January 2016. No further cardiac testing at this time. Follow with Dr. Nunez. Discharge later this morning. #2 Cardiomyopathy-instructed and educated patient on his risk of sudden and possible need for defibrillator in the future. Stressed the importance of follow-up with splunk architect and tight blood pressure control. Fluid restriction 2L daily. #3 Hypertensionincrease lisinopril 20 mg twice a day, increase hydrochlorothiazide to 25 mg daily, and add hydralazine 10 mg every 6 hours. Patient has been off clonidine for nearly a week. Instructed to replace Clonidine with hydralazine and not to obtain refill for clonidine. Keep a blood pressure log. Follow with PCP. Reshma Aparicio Jul 15, 2016 08:50
[2016-07-15 08:53] LABS: CREATINE KINASE 198 U/L (39-308)
[2016-07-15] MEDS ORDERED: HYDR10TA23 PO (08:53)
[2016-07-15] MEDS ORDERED: LISI-515 PO (08:53)
[2016-07-15] MEDS ORDERED: POTA10CA PO (08:53)
[2016-07-15] MEDS ORDERED: HYDR25TA5 PO (08:53)
--- NOTE | 2016-07-15 08:55 | HHI.DCPOC ---
Discharge Care Plan Diagnosis: (1) Atypical chest pain (2) Poorly-controlled hypertension (3) Cardiomyopathy Goals to Promote Your Health * To prevent worsening of your condition and complications * To maintain your health at the optimal level Directions to Meet Your Goals Take your medications as prescribed Follow your dietary instruction Follow activity as directed Keep your appointments as scheduled Take your immunizations and boosters as scheduled If your symptoms worsen call your PCP, if no PCP go to Urgent Care Center or Emergency Room Smoking is Dangerous to Your Health. Avoid second hand smoke Call the 24-hour hour crisis hotline for domestic abuse at Reshma Aparicio Jul 15, 2016 08:55
[2016-07-15] MEDS ORDERED: METOPROLOL TARTRATE 100 MG TAB PO SCH (09:00)
[2016-07-15] MEDS ORDERED: SODIUM CHLORIDE 0.9% FLUSH 10 ML FLUSH IV FLUSH SCH (09:00)
[2016-07-15] MEDS ORDERED: LISINOPRIL 20 MG TAB PO SCH (09:00)
[2016-07-15] MEDS ORDERED: MULTIVITAMIN TAB PO SCH (09:00)
[2016-07-15] MEDS ORDERED: HYDROCHLOROTHIAZIDE 25 MG TAB PO ONE (09:00)
[2016-07-15] MEDS ORDERED: ASPIRIN 325 MG TAB PO SCH (09:00)
[2016-07-15 09:04] LABS: CKMB 3.8 NG/ML (0.5-3.6)
[2016-07-15] MEDS ORDERED: INSULIN ASPART SUPPLEMENTAL SCALE SQ SCH (11:00)
--- NOTE | 2016-07-15 11:34 | EKG ---
Date Performed: 07/15/2016 Time Performed: 04:58:09 PTAGE: 66 years EKG: Sinus rhythm MARKED LEFT AXIS DEVIATION MODERATE INTRAVENTRICULAR CONDUCTION DELAY ABNORMAL ECG Since PREVIOUS TRACING , no significant change noted PREVIOUS TRACIN07/15/2016 01.27 DOCTOR: Stella Lewis Interpretating Date/Time 07/15/2016 11:33:25
--- NOTE | 2016-07-15 11:34 | EKG ---
Date Performed: 07/15/2016 Time Performed: 01:27:11 PTAGE: 66 years EKG: Sinus rhythm WITH FIRST DEGREE AV BLOCK MARKED LEFT AXIS DEVIATION MODERATE INTRAVENTRICULAR CONDUCTION DELAY MIN IMAL VOLTAGE CRITERIA FOR LVH, CONSIDER NORMAL VARIANT ABNORMAL ECG Since PREVIOUS TRACING , no significant change noted PREVIOUS TRACIN06/22/2016 08.32 DOCTOR: Stella Lewis Interpretating Date/Time 07/15/2016 11:33:42
--- NOTE | 2016-07-16 14:58 | EKG ---
Date Performed: 07/15/2016 Time Performed: 08:00:02 PTAGE: 66 years EKG: Sinus rhythm WITH FIRST DEGREE AV BLOCK MARKED LEFT AXIS DEVIATION MODERATE INTRAVENTRICULAR CONDUCTION DELAY ABN ORMAL ECG PREVIOUS TRACING : 07/15/2016 04.58 Since previous tracing, no significant change noted DOCTOR: Albert Contreras Interpretating Date/Time 07/16/2016 14:56:49
== END 2016-07-15 11:22 | disposition home or self-care (01) ==
LOC: NEPE 00:51 → NEDA 03:29 → NEPGCP 05:12
PROVIDERS: ADMIT Internal Medicine Interventional Cardiology; ATTEND Internal Medicine Interventional Cardiology
DX: R07.89 Other chest pain (principal); I42.9 Cardiomyopathy, unspecified; I11.0 Hypertensive heart disease with heart failure; I50.9 Heart failure, unspecified; E11.9 Type 2 diabetes mellitus without complications; E78.5 Hyperlipidemia, unspecified; J44.9 Chronic obstructive pulmonary disease, unspecified; Z88.8 Allergy status to other drugs, medicaments and biological substances; Z79.4 Long term (current) use of insulin; Z79.82 Long term (current) use of aspirin; Z87.891 Personal history of nicotine dependence
CPT/HCPCS: 71010; 80048; 82550; 82552; 83690; 83735; 84484; 85025; 85610; 85730; 93005; 96374; 99285; G0378; J2270

== ENCOUNTER 2016-07-19 14:30 | Emergency (ER) | payer OTHER ==
[~2016-07-19] VITALS: Ht 185.4 cm; Wt 130.0 kg
[~2016-07-19 14:30] MED LIST changes: -CEPH-460 PO; -CLON0.2T PO; +HYDR10TA23 PO; -HYDR12.57 PO; +HYDR25TA5 PO; -LISI10TA3 PO
[2016-07-19 14:41] VITALS: BP 157/84; PULSE 72; RESP 20; TEMP 98.4; O2SAT 96
--- NOTE | 2016-07-19 15:03 | PD ---
Physical Exam Time Seen by Provider: 15:00 Narrative 66 year old male presents to ED for evaluation of chest pain and elevated BP. Pt has been seen several times in the ED for chest pain and hypertension. He has not followed up. Pain is 2/10 and is consistent with previous exacerbations. No other symptoms to report. Data Data Last Documented VS Vital Signs Date Time Temp Pulse Resp B/P Pulse Ox O2 Delivery O2 Flow Rate FiO2 07/19/16 14:41 98.4 72 20 157/84 96 MDM Medical Record Reviewed: Yes Supervised Visit with ALAINA: No Narrative Course 66 year old presents to ED for evaluation of chest pain. Appears without distress. VSS Condition: Stable Marika Silva Jul 19, 2016 15:03
[2016-07-19 16:35] VITALS: O2SAT 100
--- NOTE | 2016-07-19 16:35 | RADRPT ---
EXAM DATE/TIME: 07/19/2016 16:22 [facility] COMPARISON: CHEST SINGLE AP, July 15, 2016, 2:13. INDICATIONS : Chest pain that started today. MEDICAL HISTORY : Hypertension. Chronic obstructive pulmonary disease. Diabetes mellitus type II. SURGICAL HISTORY : Appendectomy. ENCOUNTER: Initial ACUITY: 1 day PAIN SCORE: 10/10 LOCATION: Bilateral chest FINDINGS: A single view of the chest demonstrates the lungs to be symmetrically aerated without evidence of mas s, infiltrate or effusion. The cardiomediastinal contours are stable with cardiomegaly. Osseous str uctures are intact. CONCLUSION: No acute findings. Cardiomegaly without radiographic evidence of congestive failure. Ari Henry MD on July 19, 2016 at 16:33 Board Certified Radiologist. This report was verified electronically.
--- NOTE | 2016-07-19 16:53 | PD ---
HPI Chief Complaint: Chest Pain Time Seen by Provider: 16:52 Travel History International Travel<30 days: No Contact w/Intl Traveler<30days: No Traveled to known affect area: No History of Present Illness HPI 66-year-old male with a history of hypertension, hyperlipidemia, diabetes presents to the emergency department for evaluation of chest pain. The patient states that about 4 hours ago while he was at home he had midsternal sharp chest pain that was nonradiating. States that he took his blood pressure and noted that his blood pressure was systolic 190s. States that he then took his afternoon blood pressure medications and rechecked his blood pressure 30 minutes later and it come down to systolic 170s. States that the chest pain persisted for about 30 minutes and he had some mild shortness of breath. He denies any lightheadedness, dizziness, nausea, vomiting, diaphoresis, cough or cold symptoms. States that he is no longer having the chest pain at this time. He did take an aspirin 325 mg today. No other complaints. PFSH Past Medical History Hx Anticoagulant Therapy: Yes (ASA) Arthritis: No Asthma: No Autoimmune Disease: No Blood Disorders: No Anxiety: No Depression: No Heart Rhythm Problems: No Cancer: No Cardiac Catheterization: No Cardiovascular Problems: Yes (HTN) High Cholesterol: Yes Chemotherapy: No Chest Pain: Yes Congestive Heart Failure: Yes COPD: Yes Cerebrovascular Accident: No Coronary Artery Disease: No Diabetes: Yes Patient Takes Glucophage: No Diminished Hearing: No Endocrine: No Gastrointestinal Disorders: Yes (PYLIDINOL CYST X2) GERD: No Glaucoma: No Genitourinary: No Headaches: Yes Hepatitis: No Heparin Induced Thrombocytopen: No Hypertension: Yes Immune Disorder: No Implanted Vascular Access Dvce: No Kidney Stones: No Musculoskeletal: No Neurologic: No Psychiatric: No Reproductive: No Respiratory: Yes (COPD, PNA) Immunizations Current: Yes Migraines: No Myocardial Infarction: No Radiation Therapy: No Renal Failure: No Seizures: No Sickle Cell Disease: No Sleep Apnea: Yes (DOES NOT WEAR A CPAP) Thyroid Disease: No Past Surgical History Abdominal Surgery: Yes (APPENDECTOMY) AICD: No Appendectomy: Yes Arteriovenous Shunt: No Cardiac Surgery: No Cholecystectomy: No Coronary Artery Bypass Graft: No Ear Surgery: No Endocrine Surgery: No Eye Surgery: No Genitourinary Surgery: No Gynecologic Surgery: No Insulin Pump: No Joint Replacement: No Neurologic Surgery: No Oral Surgery: No Pacemaker: No Thoracic Surgery: No Other Surgery: Yes ( CYST REMOVAL) Social History Alcohol Use: Yes (RARE) Tobacco Use: No (quit 30 years ago) Substance Use: No Allergies-Medications (Allergen,Severity, Reaction): Coded Allergies: *MDRO Multi-Drug Resistant Organism (Verified Adverse Reaction, Unknown, ) MRSA (back wound/chest abscess) - 04/24/2015 MRSA PCR Screens NEGATIVE - 01/22/16 & 01/25/16 CLEARED PER INFECTION CONTROL Medrol (Verified Adverse Reaction, Unknown, 07/19/16) severe bowel pain Reported Meds & Prescriptions Reported Meds & Active Scripts Active Hydralazine (Hydralazine HCl) 10 Mg Tab 10 Mg PO QID 30 Days Take with a meal Hydrochlorothiazide 25 Mg Tab 25 Mg PO DAILY Lisinopril 20 Mg Tab 20 Mg PO BID Potassium Chloride ER (Potassium Chloride) 10 Meq Cap 10 Meq PO BID Amlodipine (Amlodipine Besylate) 10 Mg Tab 10 Mg PO DAILY Novolin 70-30 Inj (Insulin Human Isoph/Insulin Regular) 1,000 Unit/10 Ml Vial 25 Units SQ BID@ 30 Days Reported Metoprolol Tartrate 100 Mg Tab 100 Mg PO BID Aspirin 325 Mg Tab 325 Mg PO DAILY Multiple Vitamin 1 Tab 1 Tab PO DAILY Review of Systems Except as stated in HPI: all other systems reviewed are Neg Physical Exam Narrative GENERAL: Well-nourished and well-developed pleasant male patient in no acute distress who is nontoxic appearing. SKIN: Warm and dry. HEAD: Normocephalic and atraumatic. EYES: No injection, drainage, or hyphema noted. PERRLA. EOMI. ENT: No nasal drainage noted. Oropharynx is clear. NECK: Supple and the trachea is midline. CARDIOVASCULAR: Regular rate and rhythm. RESPIRATORY: Breath sounds are equal bilaterally with no accessory muscle use, wheezing, rhonchi, or crackles. GASTROINTESTINAL: Abdomen is soft, non-tender, and nondistended. MUSCULOSKELETAL: No obvious deformities, swelling, cyanosis, or ecchymosis is present throughout the upper and lower extremities. Patient has full range of motion without any signs of neurovascular compromise. NEUROLOGICAL: Awake, alert, and oriented. Normal speech and gait. Cranial nerves are grossly intact. Data Data Last Documented VS Vital Signs Date Time Temp Pulse Resp B/P Pulse Ox O2 Delivery O2 Flow Rate FiO2 07/19/16 18:34 80 18 180/86 96 07/19/16 16:35 Room Air 07/19/16 14:41 98.4 Orders Electrocardiogram (07/19/16 16:08) Complete Blood Count With Diff (07/19/16 16:08) Basic Metabolic Panel (Bmp) (07/19/16 16:08) Ckmb (Isoenzyme) Profile (07/19/16 16:08) Troponin I (07/19/16 16:08) Chest, Single Ap (07/19/16 16:08) Iv Access Insert/Monitor (07/19/16 16:08) Ecg Monitoring (07/19/16 16:08) Oxygen Administration (07/19/16 16:08) Oximetry (07/19/16 16:08) B-Type Natriuretic Peptide (07/19/16 16:44) CKMB (07/19/16 16:39) CKMB% (07/19/16 16:39) Labs Laboratory Tests Test 07/19/16 16:39 White Blood Count 12.5 TH/MM3 Red Blood Count 5.93 MIL/MM3 Hemoglobin 15.7 GM/DL Hematocrit 47.0 % Mean Corpuscular Volume 79.3 FL Mean Corpuscular Hemoglobin 26.4 PG Mean Corpuscular Hemoglobin 33.3 % Concent Red Cell Distribution Width 14.9 % Platelet Count 290 TH/MM3 Mean Platelet Volume 9.0 FL Neutrophils (%) (Auto) 68.2 % Lymphocytes (%) (Auto) 19.3 % Monocytes (%) (Auto) 5.9 % Eosinophils (%) (Auto) 5.4 % Basophils (%) (Auto) 1.2 % Neutrophils # (Auto) 8.5 TH/MM3 Lymphocytes # (Auto) 2.4 TH/MM3 Monocytes # (Auto) 0.7 TH/MM3 Eosinophils # (Auto) 0.7 TH/MM3 Basophils # (Auto) 0.2 TH/MM3 CBC Comment DIFF FINAL Differential Comment Sodium Level 134 MEQ/L Potassium Level 4.8 MEQ/L Chloride Level 98 MEQ/L Carbon Dioxide Level 24.9 MEQ/L Anion Gap 11 MEQ/L Blood Urea Nitrogen 18 MG/DL Creatinine 1.31 MG/DL Estimat Glomerular Filtration 55 ML/MIN Rate Random Glucose 282 MG/DL Calcium Level 9.3 MG/DL Total Creatine Kinase 172 U/L Creatine Kinase MB 3.8 NG/ML Troponin I 0.02 NG/ML B-Type Natriuretic Peptide 23 PG/ML MDM Medical Decision Making Medical Screen Exam Complete: Yes Emergency Medical Condition: Yes Differential Diagnosis Pleuritic chest pain versus ACS versus anxiety versus hypertension Narrative Course 66-year-old male presents to the emergency department for evaluation of chest pain. Patient is afebrile, vital signs are stable. Physical examination is unremarkable. EKG shows sinus rhythm with first-degree AV block, no acute ST elevations or depressions. No changes from prior EKG. IV access is obtained, labs were drawn and sent. Patient is placed on cardiac telemetry and pulse oximetry monitoring. I reviewed the EMR which shows that the patient was admitted to our hospital 4 days ago for same complaint and had been placed in the chest pain center with trended troponins. The patient had a nuclear medicine stress test in January 2016 which showed no ischemia but global hypokinesis and reduced ejection fraction of 25%. CBC shows a slightly elevated white blood cell count 12.5, otherwise unremarkable. BMP shows mild renal insufficiency with a creatinine of 1.31, GFR 55, consistent with previous lab values. Hyperglycemic with a blood sugar of 282. Troponin is 0.02. Coags are unremarkable. BNP is unremarkable. Chest x-ray is read by radiologist as showing cardiomegaly without radiographic evidence of congestive failure. Patient has remained stable and without complaint here in the emergency department. He is no longer experiencing any pain. He was just recently admitted and discharged from chest pain center 4 days ago. I don't think it would benefit the patient to have another set of cardiac enzymes trended. This is not consistent with ACS. I discussed all findings with the patient and will discharge him home to follow-up as an outpatient with his management consulting and PCP. Patient verbalizes understanding and agreement with treatment plan. I discussed the case with my attending physician Dr. Randolph who is aware of the patients history, physical examination findings, and treatment plan. Diagnosis Primary Impression: Chest pain Qualified Code: R07.9 - Chest pain, unspecified type Referrals: Primary Care Physician Patient Instructions: General Instructions Additional Instructions: Follow-up with your Primary Care Physician. Return to the ED for any acute worsening of symptoms. Med/Other Pt SpecificInfo: No Change to Meds Disposition: 01 DISCHARGE HOME Condition: Stable Gayle Greer Jul 19, 2016 16:53
[2016-07-19 16:57] LABS: AUTOMATED NEUTROPHIL # 8.5 TH/MM3 (1.8-7.7); BASOPHIL # 0.2 TH/MM3 (0-0.2); BASOPHIL % 1.2 % (0.0-2.0); EOSINOPHIL # 0.7 TH/MM3 (0-0.4); EOSINOPHIL % 5.4 % (0.0-4.0); HEMO FLAGS DIFF FINAL; LYMPH % 19.3 % (9.0-44.0); LYMPHOCYTE # 2.4 TH/MM3 (1.0-4.8); MEAN CELL VOLUME 79.3 FL (80.0-100.0); MEAN CORPUSCULAR HEMOGLOBIN 26.4 PG (27.0-34.0); MEAN CORPUSCULAR HGB CONC 33.3 % (32.0-36.0); MONO % 5.9 % (0.0-8.0); NEUT % 68.2 % (16.0-70.0); PLATELET COUNT 290 TH/MM3 (150-450); RED BLOOD COUNT 5.93 MIL/MM3 (4.50-5.90); RED CELL DISTRIBUTION WIDTH 14.9 % (11.6-17.2); WHITE BLOOD COUNT 12.5 TH/MM3 (4.0-11.0)
[2016-07-19 17:26] LABS: ANION GAP 11 MEQ/L (5-15); BICARBONATE 24.9 MEQ/L (21.0-32.0); BLOOD UREA NITROGEN 18 MG/DL (7-18); CHLORIDE 98 MEQ/L (98-107); CREATINE KINASE 172 U/L (39-308); GLOMERULAR FILTRATION RATE 55 ML/MIN (>89); POTASSIUM 4.8 MEQ/L (3.5-5.1); SODIUM (NA) 134 MEQ/L (136-145)
[2016-07-19 17:39] LABS: CKMB 3.8 NG/ML (0.5-3.6)
[2016-07-19 18:34] VITALS: BP 180/86; PULSE 80; RESP 18; O2SAT 96
--- NOTE | 2016-07-19 23:17 | EKG ---
Date Performed: 07/19/2016 Time Performed: 16:16:00 PTAGE: 66 years EKG: Sinus rhythm WITH FIRST DEGREE AV BLOCK MARKED LEFT AXIS DEVIATION MODERATE INTRAVENTRICULAR CONDUCTION DELAY ABN ORMAL ECG Compared to prior tracing no significant change DOCTOR: Dennis Soria Interpretating Date/Time 07/19/2016 23:15:56
== END 2016-07-19 20:27 | disposition home or self-care (01) ==
LOC: NEPD 14:30
DX: R07.9 Chest pain, unspecified (principal); R06.02 Shortness of breath; R94.31 Abnormal electrocardiogram [ECG] [EKG]; I10 Essential (primary) hypertension; E78.5 Hyperlipidemia, unspecified; E11.9 Type 2 diabetes mellitus without complications; G47.30 Sleep apnea, unspecified; Z79.82 Long term (current) use of aspirin; Z79.4 Long term (current) use of insulin; Z86.79 Personal history of other diseases of the circulatory system; Z87.09 Personal history of other diseases of the respiratory system; Z87.19 Personal history of other diseases of the digestive system
CPT/HCPCS: 71010; 80048; 82550; 82552; 83880; 84484; 85025; 93005

== ENCOUNTER 2016-09-07 23:56 | Inpatient (IN) | payer OTHER, MEDICARE ==
[~2016-09-07] VITALS: Ht 185.4 cm; Wt 131.4 kg
[2016-09-07 23:58] VITALS: BP 208/100; PULSE 72; RESP 18; TEMP 98.7; O2SAT 98
[2016-09-08] VITALS (12 sets, daily range): BP systolic 155–185; BP diastolic 74–102; PULSE 63–74; RESP 16–19; TEMP 98.1–99.3; O2SAT 93–99
[2016-09-08] MEDS ORDERED: SODIUM CHLORIDE 0.9% FLUSH 10 ML FLUSH IVF PRN (00:30)
[2016-09-08] MEDS ORDERED: hydrALAZINE HCL 20 MG/ML VIAL IV PUSH ONE (00:30)
[2016-09-08 00:43] LABS: AUTOMATED NEUTROPHIL # 6.8 TH/MM3 (1.8-7.7); BASOPHIL # 0.2 TH/MM3 (0-0.2); BASOPHIL % 1.4 % (0.0-2.0); EOSINOPHIL # 0.7 TH/MM3 (0-0.4); EOSINOPHIL % 6.2 % (0.0-4.0); HEMATOCRIT 44.5 % (39.0-51.0); HEMO FLAGS DIFF FINAL; LYMPH % 26.1 % (9.0-44.0); LYMPHOCYTE # 3.1 TH/MM3 (1.0-4.8); MEAN CELL VOLUME 79.5 FL (80.0-100.0); MEAN CORPUSCULAR HEMOGLOBIN 26.7 PG (27.0-34.0); MEAN CORPUSCULAR HGB CONC 33.6 % (32.0-36.0); NEUT % 57.3 % (16.0-70.0); PLATELET COUNT 238 TH/MM3 (150-450); RED BLOOD COUNT 5.59 MIL/MM3 (4.50-5.90); RED CELL DISTRIBUTION WIDTH 15.2 % (11.6-17.2); WHITE BLOOD COUNT 11.8 TH/MM3 (4.0-11.0)
--- NOTE | 2016-09-08 00:46 | RADRPT ---
EXAM DATE/TIME: 09/08/2016 00:31 [facility] COMPARISON: CHEST SINGLE AP, July 19, 2016, 16:22. INDICATIONS : Chest pain. MEDICAL HISTORY : Hypertension. Chronic obstructive pulmonary disease. Diabetes mellitus type II. SURGICAL HISTORY : Appendectomy. ENCOUNTER: Initial ACUITY: 1 day PAIN SCORE: 3/10 LOCATION: Bilateral chest FINDINGS: A single view of the chest demonstrates the lungs to be symmetrically aerated without evidence of mas s, infiltrate or effusion. The cardiomediastinal contours are unremarkable. Osseous structures are intact. CONCLUSION: Normal examination. Shakeel Cardoza MD on September 08, 2016 at 0:44 Board Certified Radiologist. This report was verified electronically.
--- NOTE | 2016-09-08 00:49 | PD ---
HPI Chief Complaint: Hypertension Time Seen by Provider: 00:11 Travel History International Travel<30 days: No Contact w/Intl Traveler<30days: No Traveled to known affect area: No History of Present Illness HPI This is a 66-year-old gentleman with a history of hypertension, who presents today with complaints of elevated blood pressure, headache, shortness of breath and cough. Patient also reports chest pressure. He reports his chest pressure has gotten better however when it started it was across his chest on both sides. He reports it as a 6-7 out of 10. The patient states he's been taking all of his blood pressure medication as prescribed. He states they recently took him off his clonidine and metoprolol. He denies any stiff neck. He states the headache is "all over". There is no nausea or diaphoresis. PFSH Past Medical History Hx Anticoagulant Therapy: Yes (ASA) Arthritis: No Asthma: No Autoimmune Disease: No Blood Disorders: No Anxiety: No Depression: No Heart Rhythm Problems: No Cancer: No Cardiac Catheterization: No Cardiovascular Problems: Yes (HTN) High Cholesterol: Yes Chemotherapy: No Chest Pain: Yes Congestive Heart Failure: Yes COPD: Yes Cerebrovascular Accident: No Coronary Artery Disease: No Diabetes: Yes Patient Takes Glucophage: No Diminished Hearing: No Endocrine: No Gastrointestinal Disorders: Yes (PYLIDINOL CYST X2) GERD: No Glaucoma: No Genitourinary: No Headaches: Yes Hepatitis: No Heparin Induced Thrombocytopen: No Hypertension: Yes Immune Disorder: No Implanted Vascular Access Dvce: No Kidney Stones: No Musculoskeletal: No Neurologic: No Psychiatric: No Reproductive: No Respiratory: Yes (COPD, PNA) Immunizations Current: Yes Migraines: No Myocardial Infarction: No Radiation Therapy: No Renal Failure: No Seizures: No Sickle Cell Disease: No Sleep Apnea: Yes (DOES NOT WEAR A CPAP) Thyroid Disease: No Past Surgical History Abdominal Surgery: Yes (APPENDECTOMY) AICD: No Appendectomy: Yes Arteriovenous Shunt: No Cardiac Surgery: No Cholecystectomy: No Coronary Artery Bypass Graft: No Ear Surgery: No Endocrine Surgery: No Eye Surgery: No Genitourinary Surgery: No Gynecologic Surgery: No Insulin Pump: No Joint Replacement: No Neurologic Surgery: No Oral Surgery: No Pacemaker: No Thoracic Surgery: No Other Surgery: Yes ( CYST REMOVAL) Social History Alcohol Use: Yes (RARE) Tobacco Use: No (quit 30 years ago) Substance Use: No Allergies-Medications (Allergen,Severity, Reaction): Coded Allergies: *MDRO Multi-Drug Resistant Organism (Verified Adverse Reaction, Unknown, ) MRSA (back wound/chest abscess) - 04/24/2015 MRSA PCR Screens NEGATIVE - 01/22/16 & 01/25/16 CLEARED PER INFECTION CONTROL Medrol (Verified Adverse Reaction, Unknown, 09/08/16) severe bowel pain Reported Meds & Prescriptions Reported Meds & Active Scripts Active Hydralazine (Hydralazine HCl) 10 Mg Tab 10 Mg PO QID 30 Days Take with a meal Hydrochlorothiazide 25 Mg Tab 25 Mg PO DAILY Lisinopril 20 Mg Tab 20 Mg PO BID Potassium Chloride ER (Potassium Chloride) 10 Meq Cap 10 Meq PO BID Amlodipine (Amlodipine Besylate) 10 Mg Tab 10 Mg PO DAILY Novolin 70-30 Inj (Insulin Human Isoph/Insulin Regular) 1,000 Unit/10 Ml Vial 25 Units SQ BID@ 30 Days Reported Metoprolol Tartrate 100 Mg Tab 100 Mg PO BID Aspirin 325 Mg Tab 325 Mg PO DAILY Multiple Vitamin 1 Tab 1 Tab PO DAILY Review of Systems Except as stated in HPI: all other systems reviewed are Neg General / Constitutional: No: Fever, Chills HENT: Positive: Headaches, No: Lightheadedness, Neck Pain Cardiovascular: Positive: Chest Pain or Discomfort, No: Palpitations, Irregular Rhythm Respiratory: Positive: Cough, Shortness of Breath Gastrointestinal: No: Nausea, Vomiting, Abdominal Pain Musculoskeletal: No: Weakness, Pain Neurologic: Positive: Headache, No: Weakness, Dizziness, Change in Mentation, Sensory Disturbance Physical Exam Narrative GENERAL: Well-developed well-nourished male in no acute respiratory distress. SKIN: Focused skin assessment warm/dry. HEAD: Atraumatic. Normocephalic. EYES: Extraocular muscles were intact No scleral icterus. No injection or drainage. ENT: No nasal bleeding or discharge. Mucous membranes pink and moist. NECK: Trachea midline. No JVD. Supple CARDIOVASCULAR: Regular rate and rhythm with frequent PVCs. No murmur appreciated. RESPIRATORY: No accessory muscle use. Clear to auscultation. Breath sounds equal bilaterally. GASTROINTESTINAL: Abdomen soft, non-tender, nondistended. MUSCULOSKELETAL: No obvious deformities. No clubbing. No cyanosis. No edema. NEUROLOGICAL: Awake and alert. No obvious cranial nerve deficits. Motor grossly within normal limits. Normal speech. PSYCHIATRIC: Appropriate mood and affect; insight and judgment normal. Data Data Last Documented VS Vital Signs Date Time Temp Pulse Resp B/P Pulse Ox O2 Delivery O2 Flow Rate FiO2 09/08/16 00:33 72 16 170/90 97 Room Air 09/08/16 00:23 2 09/07/16 23:58 98.7 Orders Electrocardiogram (09/08/16 00:17) Basic Metabolic Panel (Bmp) (09/08/16 00:17) B-Type Natriuretic Peptide (09/08/16 00:17) Ckmb (Isoenzyme) Profile (09/08/16:) Complete Blood Count With Diff (09/08/16:) Magnesium (Mg) (09/08/16:) Prothrombin Time / Inr (Pt) (09/08/16:) Act Partial Throm Time (Ptt) (09/08/16:) Troponin I (09/08/16:) Chest, Single Ap (09/08/16 00:17) Ecg Monitoring (09/08/16 00:17) Bilateral Bp Monitoring (09/08/16 00:) Iv Access Insert/Monitor (09/08/16:) Oximetry (09/08/16:) Oxygen Administration (09/08/16 00:17) Sodium Chloride 0.9% Flush (Ns Flush) (09/08/16 00:30) Hydralazine Inj (Apresoline Inj) (09/08/16 00:30) Ct Brain W/O Iv Contrast(Rout) (09/08/16 00:28) CKMB (09/08/16 00:31) CKMB% (09/08/16 00:31) Admit Order (Ed Use Only) (09/08/16 01:45) Labs Laboratory Tests Test 09/08/16 00:31 White Blood Count 11.8 TH/MM3 Red Blood Count 5.59 MIL/MM3 Hemoglobin 14.9 GM/DL Hematocrit 44.5 % Mean Corpuscular Volume 79.5 FL Mean Corpuscular Hemoglobin 26.7 PG Mean Corpuscular Hemoglobin 33.6 % Concent Red Cell Distribution Width 15.2 % Platelet Count 238 TH/MM3 Mean Platelet Volume 9.3 FL Neutrophils (%) (Auto) 57.3 % Lymphocytes (%) (Auto) 26.1 % Monocytes (%) (Auto) 9.0 % Eosinophils (%) (Auto) 6.2 % Basophils (%) (Auto) 1.4 % Neutrophils # (Auto) 6.8 TH/MM3 Lymphocytes # (Auto) 3.1 TH/MM3 Monocytes # (Auto) 1.1 TH/MM3 Eosinophils # (Auto) 0.7 TH/MM3 Basophils # (Auto) 0.2 TH/MM3 CBC Comment DIFF FINAL Differential Comment Prothrombin Time 10.4 SEC Prothromb Time International 0.9 RATIO Ratio Activated Partial 25.4 SEC Thromboplast Time Sodium Level 137 MEQ/L Potassium Level 4.1 MEQ/L Chloride Level 102 MEQ/L Carbon Dioxide Level 25.2 MEQ/L Anion Gap 10 MEQ/L Blood Urea Nitrogen 16 MG/DL Creatinine 1.29 MG/DL Estimat Glomerular Filtration 56 ML/MIN Rate Random Glucose 195 MG/DL Calcium Level 8.5 MG/DL Magnesium Level 2.0 MG/DL Total Creatine Kinase 214 U/L Creatine Kinase MB 4.6 NG/ML Troponin I LESS THAN 0.02 NG/ML B-Type Natriuretic Peptide 140 PG/ML MDM Medical Decision Making Medical Screen Exam Complete: Yes Emergency Medical Condition: Yes Differential Diagnosis Hypertensive urgency versus emergency versus ACS Narrative Course 66-year-old male with a history of hypertension, dyslipidemia, cardiomyopathy, panic kidney disease, who presents today with complaints of headache, elevated blood pressure, chest pain, and cough. The patient was noted to have a blood pressure of 200/120. The patient was also noted to have frequent PVCs on his rhythm strip. The patient was given hydralazine 10 mg I V times one. His blood pressure now has come down to 170/76. The patient was placed on oxygen which decreases frequency of his PVC however he is still having them. Head CT is negative for acute intracranial injury. The patient will be admitted for hypertensive urgency, chest pain, ventricular ectopy. Case was discussed with Dr. Silva, [facility] hospitalist, who agrees with the admission. Diagnosis Primary Impression: Chest pain Additional Impressions: Ventricular ectopy Hypertensive urgency Cardiomyopathy Cory Pond MD Sep 08, 2016 00:49
--- NOTE | 2016-09-08 00:52 | RADRPT ---
EXAM DATE/TIME: 09/08/2016 00:45 [facility] COMPARISON: CT BRAIN W/O CONTRAST, May 17, 2016, 2:58. INDICATIONS : Cephalgia. RADIATION DOSE: 51.12 CTDIvol (mGy) MEDICAL HISTORY : Hypertension. Congestive heart failure. Diabetes. SURGICAL HISTORY : None. ENCOUNTER: Initial ACUITY: 1 day PAIN SCALE: 7/10 LOCATION: cranial TECHNIQUE: Multiple contiguous axial images were obtained of the head. Using automated exposure control and adj ustment of the mA and/or kV according to patient size, radiation dose was kept as low as reasonably a chievable to obtain optimal diagnostic quality images. FINDINGS: CEREBRUM: The ventricles are normal for age. No evidence of midline shift, mass lesion, hemorrhage or acute in farction. No extra-axial fluid collections are seen. POSTERIOR FOSSA: The cerebellum and brainstem are intact. The 4th ventricle is midline. The cerebellopontine angle i s unremarkable. EXTRACRANIAL: The visualized portion of the orbits is intact. SKULL: The calvaria is intact. No evidence of skull fracture. CONCLUSION: Normal examination. Stable presumed arachnoid cyst right temporal lobe. Shakeel Cardoza MD on September 08, 2016 at 0:50 Board Certified Radiologist. This report was verified electronically.
[2016-09-08 00:59] LABS: APTT (PATIENT) 25.4 SEC (24.3-30.1); INTERNATIONAL NORMALIZED RATIO 0.9 RATIO; PROTHROMBIN TIME - PATIENT 10.4 SEC (9.8-11.6)
[2016-09-08 01:03] LABS: ANION GAP 10 MEQ/L (5-15); BICARBONATE 25.2 MEQ/L (21.0-32.0); BLOOD UREA NITROGEN 16 MG/DL (7-18); CHLORIDE 102 MEQ/L (98-107); GLOMERULAR FILTRATION RATE 56 ML/MIN (>89); POTASSIUM 4.1 MEQ/L (3.5-5.1); SODIUM (NA) 137 MEQ/L (136-145)
[2016-09-08 01:06] LABS: CREATINE KINASE 214 U/L (39-308)
[2016-09-08 01:18] LABS: CKMB 4.6 NG/ML (0.5-3.6)
[2016-09-08] MEDS ORDERED: ONDANSETRON HCL 4 MG/2 ML VIAL IVP PRN (03:00)
[2016-09-08] MEDS ORDERED: NALOXONE HCL 0.4 MG/ML AMP IV PRN (03:00)
[2016-09-08] MEDS ORDERED: SODIUM CHLORIDE 0.9% FLUSH 10 ML FLUSH IV FLUSH PRN (03:00)
[2016-09-08] MEDS ORDERED: DEXTROSE 50% IN WATER 50 ML VIAL(D50) IV PRN (03:00)
[2016-09-08] MEDS ORDERED: ACETAMINOPHEN 325 MG TAB PO PRN (03:00)
[2016-09-08] MEDS ORDERED: GLUCAGON 1 MG/ML VIAL OTHER PRN (03:00)
[2016-09-08] MEDS ORDERED: MAGNESIUM HYDROXIDE SUSP 30 ML CUP PO PRN (03:00)
[2016-09-08] MEDS ORDERED: BISACODYL 10 MG SUPP RECTAL PRN (03:00)
[2016-09-08] MEDS: hydrALAZINE HCL 20 MG/ML VIAL IV PUSH PRN ×2 (05:28→15:09)
[2016-09-08] MEDS: INSULIN ASPART SUPPLEMENTAL SCALE SQ SCH ×4 (06:14→21:12)
[2016-09-08] MEDS: INSULIN ASPAR PROT 70/30 1,000 UNITS/10 ML VIAL SQ SCH ×2 (08:45→16:51)
[2016-09-08] MEDS: ASPIRIN 325 MG TAB PO SCH (09:17)
[2016-09-08] MEDS: HYDROCHLOROTHIAZIDE 25 MG TAB PO SCH (09:17)
[2016-09-08] MEDS: POTASSIUM CHLORIDE 10 MEQ CAP PO SCH ×2 (09:17→21:06)
[2016-09-08] MEDS: SODIUM CHLORIDE 0.9% FLUSH 10 ML FLUSH IV FLUSH SCH ×2 (09:18→21:06)
[2016-09-08] MEDS: LISINOPRIL 20 MG TAB PO SCH ×2 (09:18→21:07)
[2016-09-08] MEDS: METOPROLOL TARTRATE 100 MG TAB PO SCH ×2 (09:18→21:06)
[2016-09-08] MEDS: hydrALAZINE HCL 10 MG TAB PO SCH ×4 (09:19→21:06)
--- NOTE | 2016-09-08 10:13 | HHI.HP ---
[facility] Primary Care Physician Catherine Mcgill MD Admission Diagnosis chest pain, hypertensive urgency, ventricular ectopy Diagnoses: (1) Hypertensive urgency, malignant (2) DM (diabetes mellitus) (3) COPD (chronic obstructive pulmonary disease) (4) Hyperlipidemia (5) Morbid obesity (6) Cardiomyopathy Chief Complaint: Headache with elevated blood BP Travel History International Travel<30 Days: No Contact w/Intl Traveler <30 Da: No Traveled to Known Affected Are: No History of Present Illness 66-year-old male with a history of chronic hypertension with multiple ED visits secondary to poorly controlled BP presented yesterday for evaluation of headaches and elevated blood pressure after patient had episode of dry cough around 10:30 PM. This led to worsening shortness of breath, elevated BP and severe headaches as well as chest pain. Patient denies any dizziness admission however was found to have blood pressure of 220/120 treated with hydralazine 10 mg IV 1. Head CT was unremarkable. Patient states he has an appointment with his park interpretive specialist today; he also reports that he was advised by his park interpretive specialist not to participate in physical activity. Otherwise patient denies any GI bleed or febrile episode. Past Family Social History Past Medical History Hypertension type 2 diabetes hyperlipidemia COPD cardiomyopathy Past Surgical History Appendectomy Reported Medications Hydralazine (Hydralazine HCl) 10 Mg Tab 10 Mg PO QID 30 Days Take with a meal Hydrochlorothiazide 25 Mg Tab 25 Mg PO DAILY Lisinopril 20 Mg Tab 20 Mg PO BID Potassium Chloride ER (Potassium Chloride) 10 Meq Cap 10 Meq PO BID Amlodipine (Amlodipine Besylate) 10 Mg Tab 10 Mg PO DAILY Novolin 70-30 Inj (Insulin Human Isoph/Insulin Regular) 1,000 Unit/10 Ml Vial 25 Units SQ BID@ 30 Days Metoprolol Tartrate 100 Mg Tab 100 Mg PO BID Aspirin 325 Mg Tab 325 Mg PO DAILY Multiple Vitamin 1 Tab 1 Tab PO DAILY Allergies: Coded Allergies: *MDRO Multi-Drug Resistant Organism (Verified Adverse Reaction, Unknown, ) MRSA (back wound/chest abscess) - 04/24/2015 MRSA PCR Screens NEGATIVE - 01/22/16 & 01/25/16 CLEARED PER INFECTION CONTROL Medrol (Verified Adverse Reaction, Unknown, 09/08/16) severe bowel pain Family History Mother with h/o hypertension, diabetes, and hyperlipidemia. Father from complication of leukemia, lung cancer Social History Former smoker quit 26 years ago. Denies any alcohol or illegal drug use. Physical Exam Vital Signs Vital Signs Date Time Temp Pulse Resp B/P Pulse Ox O2 Delivery O2 Flow Rate FiO2 09/08/16 06:11 72 160/80 09/08/16 04:36 64 09/08/16 04:00 Nasal Cannula 2.00 09/08/16 04:00 98.5 63 18 178/88 97 09/08/16 03:47 98.1 63 18 185/93 98 Room Air 09/08/16 00:33 72 16 170/90 97 Room Air 09/08/16 00:23 99 Nasal Cannula 2 09/08/16 00:23 99 Nasal Cannula 2 09/08/16 00:23 74 18 172/102 99 Nasal Cannula 2 09/07/16 23:58 98.7 72 18 208/100 98 Room Air Physical Exam GENERAL: This is a well-nourished, well-developed patient, in no apparent distress. SKIN: No rashes, ecchymoses or lesions. Cool and dry. HEAD: Atraumatic. Normocephalic. No temporal or scalp tenderness. EYES: Pupils equal round and reactive. Extraocular motions intact. No scleral icterus. No injection or drainage. ENT: Nose without bleeding, purulent drainage or septal hematoma. Throat without erythema, tonsillar hypertrophy or exudate. Uvula midline. Airway patent. NECK: Trachea midline. No JVD or lymphadenopathy. Supple, nontender, no meningeal signs. CARDIOVASCULAR: Regular rate and rhythm without murmurs, gallops, or rubs. RESPIRATORY: Clear to auscultation. Breath sounds equal bilaterally. No wheezes , rales, or rhonchi. GASTROINTESTINAL: Abdomen soft, non-tender, nondistended. No hepato-splenomegaly , or palpable masses. No guarding. MUSCULOSKELETAL: Extremities without clubbing, cyanosis, or edema. No joint tenderness, effusion, or edema noted. No calf tenderness. Negative Homans sign bilaterally. NEUROLOGICAL: Awake and alert. Cranial nerves II through XII intact. Motor and sensory grossly within normal limits. Five out of 5 muscle strength in all muscle groups. Normal speech. Laboratory Laboratory Tests Test 09/08/16 09/08/16 00:31 07:19 White Blood Count 11.8 Red Blood Count 5.59 Hemoglobin 14.9 Hematocrit 44.5 Mean Corpuscular Volume 79.5 Mean Corpuscular Hemoglobin 26.7 Mean Corpuscular Hemoglobin 33.6 Concent Red Cell Distribution Width 15.2 Platelet Count 238 Mean Platelet Volume 9.3 Neutrophils (%) (Auto) 57.3 Lymphocytes (%) (Auto) 26.1 Monocytes (%) (Auto) 9.0 Eosinophils (%) (Auto) 6.2 Basophils (%) (Auto) 1.4 Neutrophils # (Auto) 6.8 Lymphocytes # (Auto) 3.1 Monocytes # (Auto) 1.1 Eosinophils # (Auto) 0.7 Basophils # (Auto) 0.2 CBC Comment DIFF FINAL Differential Comment Prothrombin Time 10.4 Prothromb Time International 0.9 Ratio Activated Partial 25.4 Thromboplast Time Sodium Level 137 Potassium Level 4.1 Chloride Level 102 Carbon Dioxide Level 25.2 Anion Gap 10 Blood Urea Nitrogen 16 Creatinine 1.29 Estimat Glomerular Filtration 56 Rate Random Glucose 195 Calcium Level 8.5 Magnesium Level 2.0 Total Creatine Kinase 214 Creatine Kinase MB 4.6 Troponin I LESS THAN 0.02 LESS THAN 0.02 B-Type Natriuretic Peptide 140 Result Diagram: 09/08/16 0031 09/08/16 0031 Imaging Last Impressions Head CT 09/08/16 0028 Signed Impressions: Service Date/Time: September 00:45 - CONCLUSION: Normal examination. Stable presumed arachnoid cyst right temporal lobe. Shakeel Cardoza MD Chest X-Ray 09/08/16 0017 Signed Impressions: Service Date/Time: September 00:31 - CONCLUSION: Normal examination. Shakeel Cardoza MD Assessment and Plan Problem List: (1) Hypertensive urgency, malignant ICD Code: I16.0 Status: Acute (2) DM (diabetes mellitus) ICD Code: E11.9 Status: Acute (3) COPD (chronic obstructive pulmonary disease) ICD Code: J44.9 Status: Chronic (4) Hyperlipidemia ICD Code: E78.5 Status: Acute (5) Morbid obesity ICD Code: E66.01 Status: Acute (6) Headache ICD Code: R51 Status: Acute Assessment and Plan 66-year-old man with Hypertensive urgency malignant Questionable noncompliance with medical care. Initial blood pressure on admission 200/120 improved to 170/76 status post treatment with hydralazine 10 mg IV x1. Resume outpatient medications including Norvasc 10 mg daily, hydralazine 10 mg 4 times a day, Prinivil 20 mg twice a day, Lopressor 100 mg twice a day, Hydrodiuril [address] noted and review by me without any intracranial abnormality. ACS ruled out per protocol with serial cardiac enzyme and EKGs. Check 2-D echo Headache Likely secondary to hypertensive urgency Head CT noted and review by me without any intracranial abnormality Diabetes type 2 Resume NovoloG units twice a day and continue local insulin sliding scale with fingerstick blood glucose monitoring DVT prophylaxis Code Status Full code Discussed Condition With Patient Physician Certification 2 Midnight Certification Type: Admission for Inpatient Services Order for Inpatient Services The services are ordered in accordance with Medicare regulations or non- Medicare payer requirements, as applicable. In the case of services not specified as inpatient-only, they are appropriately provided as inpatient services in accordance with the 2-midnight benchmark. Estimated LOS (days): 2 days is the estimated time the patient will need to remain in the hospital, assuming treatment plan goals are met and no additional complications. Post-Hospital Plan: Not yet determined Jaspreet Rogers MD Sep 08, 2016 10:13
[2016-09-08] MEDS: DOCUSATE SODIUM 50 MG/SENNA 8.6 MG TAB PO SCH ×2 (10:52→21:06)
--- NOTE | 2016-09-08 14:39 | EKG ---
Date Performed: 09/08/2016 Time Performed: 00:16:32 PTAGE: 66 years EKG: Sinus rhythm WITH FIRST DEGREE AV BLOCK WITH FREQUENT VENTRICULAR PREMATURE COMPLEXES MARKED LEFT AXIS DEVIATION MODERATE INTRAVENTRICULAR CONDUCTION DELAY ABNORMAL ECG Compared to PREVIOUS TRACING , PVCs are new. PREVIOUS TRACIN07/19/2016 16.16 DOCTOR: Harpreet Burks Interpretating Date/Time 09/08/2016 14:37:43
--- NOTE | 2016-09-08 14:39 | EKG ---
Date Performed: 09/08/2016 Time Performed: 08:07:55 PTAGE: 66 years EKG: Sinus rhythm WITH FIRST DEGREE AV BLOCK WITH OCCASIONAL VENTRICULAR PREMATURE COMPLEXES BORDERLINE LEFT AXIS ROGELIO ATION MODERATE INTRAVENTRICULAR CONDUCTION DELAY ABNORMAL ECG Compared to prior tracing no significan t change PREVIOUS TRACING : 09/08/2016 00.16 DOCTOR: Harpreet Burks Interpretating Date/Time 09/08/2016 14:37:52
--- NOTE | 2016-09-08 16:44 | ECHRPT ---
Indication: Hypertensive Heart Disease CONCLUSIONS Normal left ventricular size. Wall thickness is measured at the upper limits of normal. The left joe tricular systolic function is [id number] reduced with an estimated ejection fraction in the range of 35-40%. Mild thickening of the mitral valve leaflets. Mild mitral valve regurgitation. Mitral annular calcif ication is present. BP: 160 / 80 HR: 72 Rhythm: Sinus MEASUREMENTS (Male / Female) Normal Values Technical Quality:Fair 2D ECHO LV Diastolic Diameter PLAX 5.2 cm 4.2 - 5.9 / 3.9 - 5.3 cm LV Systolic Diameter PLAX 4.3 cm IVS Diastolic Thickness 1.4 cm 0.6 - 1.0 / 0.6 - 0.9 cm LVPW Diastolic Thickness 1.2 cm 0.6 - 1.0 / 0.6 - 0.9 cm LV Relative Wall Thickness 0.5 RV Internal Dim ED PLAX 2.1 cm LA Systolic Diameter LX 3.4 cm 3.0 - 4.0 / 2.7 - 3.8 cm M-MODE Aortic Root Diameter MM 3.5 cm AV Cusp Separation MM 2.0 cm DOPPLER Mitral E Point Velocity 69.6 cm/s Mitral A Point Velocity 60.7 cm/s Mitral E to A Ratio 1.1 LV E' Lateral Velocity 9.5 cm/s Mitral E to LV E' Lateral Ratio 7.4 LV E' Septal Velocity 4.1 cm/s Mitral E to LV E' Septal Ratio 17.0 TR Peak Velocity 148.0 cm/s TR Peak Gradient 8.8 mmHg FINDINGS Left Ventricle Normal left ventricular size. Wall thickness is measured at the upper limits of normal. The left joe tricular systolic function is [id number] reduced with an estimated ejection fraction in the range of 35-40%. Mitral Valve Mild thickening of the mitral valve leaflets. Mild mitral valve regurgitation. Mitral annular calcif ication is present. Shakeel Jaime MD, FACC (Electronically Signed) Final Date:08 September 2016 16:44
[2016-09-08] MEDS: ACETAMIN 325 MG/BUTALBITAL 50 MG/CAFFEINE 40 MG TAB PO PRN (17:57)
[2016-09-09] VITALS: BP 168/89; PULSE 67; RESP 22; TEMP 98.4; O2SAT 94
[2016-09-09] MEDS: ACETAMIN 325 MG/BUTALBITAL 50 MG/CAFFEINE 40 MG TAB PO PRN ×2 (01:45→09:24)
[2016-09-09 04:00] VITALS: BP 156/83; PULSE 62; RESP 22; TEMP 98; O2SAT 96
[2016-09-09] MEDS: INSULIN ASPART SUPPLEMENTAL SCALE SQ SCH (06:17)
[2016-09-09 08:00] VITALS: BP 148/104; PULSE 64; RESP 20; TEMP 98; O2SAT 92
[2016-09-09] MEDS: hydrALAZINE HCL 10 MG TAB PO SCH (08:23)
[2016-09-09] MEDS: LISINOPRIL 20 MG TAB PO SCH (08:24)
[2016-09-09] MEDS: HYDROCHLOROTHIAZIDE 25 MG TAB PO SCH (08:24)
[2016-09-09] MEDS: METOPROLOL TARTRATE 100 MG TAB PO SCH (08:24)
[2016-09-09] MEDS: POTASSIUM CHLORIDE 10 MEQ CAP PO SCH (08:24)
[2016-09-09] MEDS: DOCUSATE SODIUM 50 MG/SENNA 8.6 MG TAB PO SCH (08:24)
[2016-09-09] MEDS: SODIUM CHLORIDE 0.9% FLUSH 10 ML FLUSH IV FLUSH SCH (08:25)
[2016-09-09] MEDS: ASPIRIN 325 MG TAB PO SCH (08:25)
[2016-09-09 08:29] LABS: BASOPHIL # 0.1 TH/MM3 (0-0.2); BASOPHIL % 1.2 % (0.0-2.0); EOSINOPHIL # 0.6 TH/MM3 (0-0.4); EOSINOPHIL % 5.2 % (0.0-4.0); HEMATOCRIT 45.6 % (39.0-51.0); HEMO FLAGS DIFF FINAL; LYMPHOCYTE # 3.2 TH/MM3 (1.0-4.8); MEAN CORPUSCULAR HEMOGLOBIN 26.5 PG (27.0-34.0); MEAN CORPUSCULAR HGB CONC 33.1 % (32.0-36.0); MONO % 8.4 % (0.0-8.0); NEUT % 58.2 % (16.0-70.0); PLATELET COUNT 231 TH/MM3 (150-450); RED BLOOD COUNT 5.71 MIL/MM3 (4.50-5.90); RED CELL DISTRIBUTION WIDTH 15.3 % (11.6-17.2)
[2016-09-09] MEDS: INSULIN ASPAR PROT 70/30 1,000 UNITS/10 ML VIAL SQ SCH (08:29)
--- NOTE | 2016-09-09 08:51 | HHI.PR ---
Subjective Remarks Follow-up hypertensive urgency/headaches 09/09/16-patient seen and examined, denies any headache this morning and blood pressure systolic 148. no acute event overnight Objective Vitals Vital Signs Date Time Temp Pulse Resp B/P Pulse Ox O2 Delivery O2 Flow Rate FiO2 09/09/16 04:00 98.0 62 22 156/83 96 09/09/16 00:00 98.4 67 22 168/89 94 09/08/16 20:15 70 09/08/16 20:15 Nasal Cannula 2.00 09/08/16 20:10 98.1 67 19 162/81 98 09/08/16 16:00 98.4 70 18 161/74 93 09/08/16 12:15 99.3 70 19 155/75 95 09/08/16 11:33 97 Nasal Cannula 2.00 I/O 09/08/16 09/08/16 09/08/16 09/09/16 09/09/16 09/09/16 07:00 15:00 23:00 07:00 15:00 23:00 Intake Total 242 ml 482 ml 420 ml 320 ml Output Total 700 ml 800 ml 800 ml Balance 242 ml -218 ml -380 ml -480 ml Intake Oral 240 ml 480 ml 420 ml 320 ml IV Total 2 ml 2 ml Output Urine Total 700 ml 800 ml 800 ml # Voids 1 # Bowel Movements 0 1 0 1 Result Diagram: 09/09/16 0803 09/08/16 0031 Imaging Last Impressions Head CT 09/08/16 0028 Signed Impressions: Service Date/Time: September 00:45 - CONCLUSION: Normal examination. Stable presumed arachnoid cyst right temporal lobe. Shakeel Cardoza MD Chest X-Ray 09/08/16 0017 Signed Impressions: Service Date/Time: September 00:31 - CONCLUSION: Normal examination. Shakeel Cardoza MD Objective Remarks GENERAL: NAD SKIN: Warm and dry. HEAD: Normocephalic. EYES: No scleral icterus. No injection or drainage. NECK: Supple, trachea midline. No JVD or lymphadenopathy. CARDIOVASCULAR: Regular rate and rhythm without murmurs, gallops, or rubs. RESPIRATORY: Breath sounds equal bilaterally. No accessory muscle use. GASTROINTESTINAL: Abdomen soft, non-tender, nondistended. MUSCULOSKELETAL: No cyanosis, or edema. BACK: Nontender without obvious deformity. No CVA tenderness. Procedures None A/P Problem List: (1) Hypertensive urgency, malignant ICD Code: I16.0 Status: Resolved (2) DM (diabetes mellitus) ICD Code: E11.9 Status: Chronic (3) COPD (chronic obstructive pulmonary disease) ICD Code: J44.9 Status: Chronic (4) Hyperlipidemia ICD Code: E78.5 Status: Chronic (5) Morbid obesity ICD Code: E66.01 Status: Chronic (6) Cardiomyopathy ICD Code: I42.9 Status: Chronic Assessment and Plan 66-year-old man with Hypertensive urgency malignant-resolved Continue home medications including Norvasc 10 mg daily, hydralazine 10 mg 4 times a day, Prinivil 20 mg twice a day, Lopressor 100 mg twice a day, Hydrodiuril [address] without any intracranial abnormality. ACS ruled out per protocol with serial cardiac enzyme and EKGs. 2-D echo with EF 35-40% Headache-resolved Likely secondary to hypertensive urgency Head CT without any intracranial abnormality Continue Fioricet when necessary Diabetes type 2 Continue NovoloG units twice a day and continue local insulin sliding scale with fingerstick blood glucose monitoring DVT prophylaxis: Bilateral SCDs Jaspreet Rogers MD Sep 09, 2016 08:51
[2016-09-09 08:52] LABS: BICARBONATE 22.2 MEQ/L (21.0-32.0)
--- NOTE | 2016-09-09 08:54 | HHI.DS ---
Discharge Summary Admission Date Sep 08, 2016 at 01:46 Discharge Date: Sep 09, 2016 Admitting Diagnosis chest pain, hypertensive urgency, ventricular ectopy (1) Hypertensive urgency, malignant ICD Code: I16.0 (2) DM (diabetes mellitus) ICD Code: E11.9 (3) COPD (chronic obstructive pulmonary disease) ICD Code: J44.9 (4) Hyperlipidemia ICD Code: E78.5 (5) Morbid obesity ICD Code: E66.01 (6) Cardiomyopathy ICD Code: I42.9 Procedures None Brief History - From Admission 66-year-old male with a history of chronic hypertension with multiple ED visits secondary to poorly controlled BP presented yesterday for evaluation of headaches and elevated blood pressure after patient had episode of dry cough around 10:30 PM. This led to worsening shortness of breath, elevated BP and severe headaches as well as chest pain. Patient denies any dizziness admission however was found to have blood pressure of 220/120 treated with hydralazine 10 mg IV 1. Head CT was unremarkable. Patient states he has an appointment with his gas appliance installer today; he also reports that he was advised by his gas appliance installer not to participate in physical activity. Otherwise patient denies any GI bleed or febrile episode. CBC/BMP: 09/09/16 0803 09/08/16 0031 Significant Findings Laboratory Tests Test 09/08/16 09/08/16 09/08/16 09/09/16 00:31 07:19 12:40 08:03 White Blood Count 11.8 TH/MM3 12.0 TH/MM3 (4.0-11.0) (4.0-11.0) Mean Corpuscular Volume 79.5 FL (80.0-100.0) Mean Corpuscular Hemoglobin 26.7 PG 26.5 PG (27.0-34.0) (27.0-34.0) Monocytes (%) (Auto) 9.0 % (0.0-8.0) 8.4 % (0.0-8.0) Eosinophils (%) (Auto) 6.2 % (0.0-4.0) 5.2 % (0.0-4.0) Monocytes # (Auto) 1.1 TH/MM3 1.0 TH/MM3 (0-0.9) (0-0.9) Eosinophils # (Auto) 0.7 TH/MM3 0.6 TH/MM3 (0-0.4) (0-0.4) Estimat Glomerular Filtration 56 ML/MIN (>89) Rate Random Glucose 195 MG/DL (74-106) Creatine Kinase MB 4.6 NG/ML (0.5-3.6) Troponin I LESS THAN 0.02 LESS THAN 0.02 LESS THAN 0.02 NG/ML NG/ML NG/ML (0.02-0.05) (0.02-0.05) (0.02-0.05) B-Type Natriuretic Peptide 140 PG/ML (0-100) Imaging Last Impressions Head CT 09/08/16 0028 Signed Impressions: Service Date/Time: September 00:45 - CONCLUSION: Normal examination. Stable presumed arachnoid cyst right temporal lobe. Shakeel Cardoza MD Chest X-Ray 09/08/16 0017 Signed Impressions: Service Date/Time: September 00:31 - CONCLUSION: Normal examination. Shakeel Cardoza MD PE at Discharge GENERAL: NAD SKIN: Warm and dry. HEAD: Normocephalic. EYES: No scleral icterus. No injection or drainage. NECK: Supple, trachea midline. No JVD or lymphadenopathy. CARDIOVASCULAR: Regular rate and rhythm without murmurs, gallops, or rubs. RESPIRATORY: Breath sounds equal bilaterally. No accessory muscle use. GASTROINTESTINAL: Abdomen soft, non-tender, nondistended. MUSCULOSKELETAL: No cyanosis, or edema. BACK: Nontender without obvious deformity. No CVA tenderness. Hospital Course Patient admitted secondary to hypertensive urgency which initially responded to IV hydralazine 10 mg 1 in ED. Patient was restarted on his home medications with improvement of blood pressure. A 2-D echo was obtained and ACS ruled out per protocol with serial cardiac enzyme and EKGs. Symptoms of headaches improved with Fioricet when necessary. He was continued on his treatment for diabetes and sliding-scale insulin was initiated. Vital remained stable prior to discharge and patient's condition improved. Pt Condition on Discharge: Stable Discharge Disposition: Discharge Home Discharge Time: <= 30 minutes Discharge Instructions DIET: Follow Instructions for: Diabetic Diet Activities you can perform: Regular-No Restrictions Follow up Referrals: PCP Follow-up - 1 Week New Medications: Iwtosqigdh-Wkbrelxxkklfw-Ynxlobzp (Pcnsjxsydb-Vjawdbfcpfdyj-Snxdmnxb) 50-325-40 Mg Tab 1 TAB PO Q6HR PRN HEADACHE #20 TAB Continued Medications: Amlodipine (Amlodipine) 10 Mg Tab 10 MG PO DAILY Blood Pressure Management #30 Ref 0 TAB Aspirin (Aspirin) 325 Mg Tab 325 MG PO DAILY #30 Ref 0 TAB Hydralazine (Hydralazine) 10 Mg Tab 10 MG PO QID Take with a meal Blood Pressure Management Days 30 Ref 1 TAB Hydrochlorothiazide (Hydrochlorothiazide) 25 Mg Tab 25 MG PO DAILY Blood Pressure Management #30 Ref 1 TAB Insulin Human Isophane-Regular 70-30 Inj (Novolin 70-30 Inj) 1,000 Unit/10 Ml Vial 25 UNITS SQ BID@08,17 Blood Sugar Management Days 30 INJECTION Lisinopril (Lisinopril) 20 Mg Tab 20 MG PO BID #30 Ref 1 TAB Metoprolol Tartrate (Metoprolol Tartrate) 100 Mg Tab 100 MG PO BID #60 Ref 0 TAB Multiple Vitamin (Multiple Vitamin) 1 Tab 1 TAB PO DAILY Nutritional Supplement Ref 0 TAB Potassium Chloride ER (Potassium Chloride ER) 10 Meq Cap 10 MEQ PO BID Electrolyte Replacement #60 Jaspreet Davis MD Sep 09, 2016 08:53
[2016-09-09] MEDS ORDERED: BUTATAB6 PO (08:57)
--- NOTE | 2016-09-09 17:57 | EKG ---
Date Performed: 09/08/2016 Time Performed: 11:42:11 PTAGE: 66 years EKG: Sinus rhythm WITH FIRST DEGREE AV BLOCK WITH OCCASIONAL VENTRICULAR PREMATURE COMPLEXES ABNORMAL ECG PREVIOUS TRACING : 09/08/2016 08.07 Compared to prior tracing no significant change DOCTOR: Anabell Skinner Interpretating Date/Time 09/09/2016 17:57:09
== END 2016-09-09 10:15 | disposition home or self-care (01) | DRG 305 ==
LOC: NEPE 23:56 → NEDA 09-08 01:46 → N04B 09-08 04:00
PROVIDERS: ADMIT Hospitalist; ATTEND Hospitalist
DX: I16.0 Hypertensive urgency (principal); I42.9 Cardiomyopathy, unspecified; I50.9 Heart failure, unspecified; J44.9 Chronic obstructive pulmonary disease, unspecified; E66.01 Morbid (severe) obesity due to excess calories; E11.9 Type 2 diabetes mellitus without complications; E78.5 Hyperlipidemia, unspecified; Z68.38 Body mass index [BMI] 38.0-38.9, adult; I11.0 Hypertensive heart disease with heart failure; G47.30 Sleep apnea, unspecified; I49.3 Ventricular premature depolarization; Z79.899 Other long term (current) drug therapy; Z87.891 Personal history of nicotine dependence
CPT/HCPCS: 70450; 71010; 80048; 82550; 82552; 82948; 83735; 83880; 84484; 85025; 85610; 85730; 93005; 93306; 96374; J0360; J1815

== ENCOUNTER 2016-10-11 12:31 | Inpatient (IN) | payer OTHER, MEDICARE ==
[2016-10-11] VITALS (17 sets, daily range): BP systolic 114–260; BP diastolic 68–137; PULSE 87–133; RESP 24–45; TEMP 99.2–99.5; O2SAT 88–100
[~2016-10-11] VITALS: Ht 185.4 cm; Wt 126.2 kg
[~2016-10-11 12:31] MED LIST changes: +BUTATAB6 PO
[2016-10-11] MEDS ORDERED: LORazepam 2 MG/ML VIAL IV PUSH ONE (13:30)
--- NOTE | 2016-10-11 13:35 | PD ---
HPI Chief Complaint: hypertensive urgency Time Seen by Provider: 13:29 Travel History International Travel<30 days: No Contact w/Intl Traveler<30days: No Traveled to known affect area: No History of Present Illness HPI 66-year-old male with history of hypertension which is poorly controlled, presents to the ER today because he states that he has fairly elevated blood pressure, has been having headaches, and shakiness. He denies any chest pains or shortness of breath currently. He states that he is not on a new medication and usually does not drink alcohol. He states he has had 3 days history of using ciprofloxacin be because he had a recent prostate exam. He denies any fevers or any other issues. Modifying Factors: None Associated Signs & Symptoms: Hypertension, shakiness, headaches Risk Factors: Poorly controlled hypertension PFSH Past Medical History Hx Anticoagulant Therapy: Yes (ASA) Arthritis: No Asthma: No Autoimmune Disease: No Blood Disorders: No Anxiety: No Depression: No Heart Rhythm Problems: No Cancer: No Cardiac Catheterization: No Cardiovascular Problems: Yes (HTN) High Cholesterol: Yes Chemotherapy: No Chest Pain: Yes Congestive Heart Failure: Yes COPD: Yes Cerebrovascular Accident: No Coronary Artery Disease: No Diabetes: Yes Diminished Hearing: No Endocrine: No Gastrointestinal Disorders: Yes (PYLIDINOL CYST X2) GERD: No Glaucoma: No Genitourinary: No Headaches: Yes Hepatitis: No Heparin Induced Thrombocytopen: No Hypertension: Yes Immune Disorder: No Implanted Vascular Access Dvce: No Kidney Stones: No Musculoskeletal: No Neurologic: No Psychiatric: No Reproductive: No Respiratory: Yes (COPD, PNA) Immunizations Current: Yes Migraines: No Myocardial Infarction: No Radiation Therapy: No Renal Failure: No Seizures: No Sickle Cell Disease: No Sleep Apnea: Yes (DOES NOT WEAR A CPAP) Thyroid Disease: No Past Surgical History Abdominal Surgery: Yes (APPENDECTOMY) AICD: No Appendectomy: Yes Arteriovenous Shunt: No Cardiac Surgery: No Cholecystectomy: No Coronary Artery Bypass Graft: No Ear Surgery: No Endocrine Surgery: No Eye Surgery: No Genitourinary Surgery: No Gynecologic Surgery: No Insulin Pump: No Joint Replacement: No Neurologic Surgery: No Oral Surgery: No Pacemaker: No Thoracic Surgery: No Other Surgery: Yes ( CYST REMOVAL) Social History Alcohol Use: Yes (RARE) Tobacco Use: No (quit 30 years ago) Substance Use: No Allergies-Medications (Allergen,Severity, Reaction): Coded Allergies: *MDRO Multi-Drug Resistant Organism (Verified Adverse Reaction, Unknown, ) MRSA (back wound/chest abscess) - 04/24/2015 MRSA PCR Screens NEGATIVE - 01/22/16 & 01/25/16 CLEARED PER INFECTION CONTROL Medrol (Verified Adverse Reaction, Unknown, 10/11/16) severe bowel pain Reported Meds & Prescriptions Reported Meds & Active Scripts Active Ideqsqzdqs-Llryidizmwmpa-Koocdbjh 50-325-40 Mg Tab 1 Tab PO Q6HR PRN Hydrochlorothiazide 25 Mg Tab 25 Mg PO DAILY Potassium Chloride ER (Potassium Chloride) 10 Meq Cap 10 Meq PO BID Amlodipine (Amlodipine Besylate) 10 Mg Tab 10 Mg PO DAILY Novolin 70-30 Inj (Insulin Human Isoph/Insulin Regular) 1,000 Unit/10 Ml Vial 25 Units SQ BID@ 30 Days Reported Cipro (Ciprofloxacin HCl) 500 Mg Tab 500 Mg PO BID Carvedilol 25 Mg Tab 25 Mg PO BID Clonidine (Clonidine HCl) 0.1 Mg Tab 0.1 Mg PO DAILY Lisinopril 40 Mg Tab 40 Mg PO DAILY Hydralazine HCl 10 Mg Tablet 10 Mg PO QID TAKE WITH A MEAL Metoprolol Tartrate 100 Mg Tab 100 Mg PO BID Aspirin 325 Mg Tab 325 Mg PO DAILY Multiple Vitamin 1 Tab 1 Tab PO DAILY Review of Systems Except as stated in HPI: all other systems reviewed are Neg Physical Exam Narrative GENERAL: Well-developed elderly white male patient who appears anxious, shaky, and in moderate distress. Awake and oriented 3. SKIN: Focused skin assessment warm/dry. HEAD: Atraumatic. Normocephalic. EYES: Pupils equal and round. No scleral icterus. No injection or drainage. ENT: No nasal bleeding or discharge. Mucous membranes pink and moist. NECK: Trachea midline. No JVD. CARDIOVASCULAR: Regular rate and rhythm. No murmur appreciated. RESPIRATORY: No accessory muscle use. Clear to auscultation. Breath sounds equal bilaterally. GASTROINTESTINAL: Abdomen soft, non-tender, nondistended. Hepatic and splenic margins not palpable. MUSCULOSKELETAL: No obvious deformities. No clubbing. No cyanosis. No edema. NEUROLOGICAL: Awake and alert. No obvious cranial nerve deficits. Tremulous. Normal speech. PSYCHIATRIC: Appropriate mood and affect; insight and judgment normal. Data Data Last Documented VS Vital Signs Date Time Temp Pulse Resp B/P Pulse Ox O2 Delivery O2 Flow Rate FiO2 10/11/16 14:38 106 36 142/77 94 Non-Rebreather 10/11/16 14:21 12 Orders Electrocardiogram (10/11/16 13:29) Complete Blood Count With Diff (10/11/16 13:29) Comprehensive Metabolic Panel (10/11/16 13:29) Magnesium (Mg) (10/11/16 13:29) Ct Brain W/O Iv Contrast(Rout) (10/11/16 13:29) Iv Access Insert/Monitor (10/11/16 13:29) Drug Screen, Random Urine (10/11/16 13:29) Lorazepam Inj (Ativan Inj) (10/11/16 13:30) Labetalol Inj (Trandate Inj) (10/11/16 14:15) Arterial Blood Gas (Abg) (10/11/16 ) Chest, Single Ap (10/11/16 14:48) Admit Order (Ed Use Only) (10/11/16 14:56) Labs Laboratory Tests Test 10/11/16 10/11/16 14:00 14:30 Urine Opiates Screen NEG Urine Barbiturates Screen NEG Urine Amphetamines Screen NEG Urine Benzodiazepines Screen NEG Urine Cocaine Screen NEG Urine Cannabinoids Screen NEG White Blood Count 12.6 TH/MM3 Red Blood Count 5.37 MIL/MM3 Hemoglobin 14.5 GM/DL Hematocrit 43.3 % Mean Corpuscular Volume 80.5 FL Mean Corpuscular Hemoglobin 26.9 PG Mean Corpuscular Hemoglobin 33.4 % Concent Red Cell Distribution Width 14.7 % Platelet Count 242 TH/MM3 Mean Platelet Volume 9.0 FL Neutrophils (%) (Auto) 89.6 % Lymphocytes (%) (Auto) 7.6 % Monocytes (%) (Auto) 0.5 % Eosinophils (%) (Auto) 2.0 % Basophils (%) (Auto) 0.3 % Neutrophils # (Auto) 11.3 TH/MM3 Lymphocytes # (Auto) 1.0 TH/MM3 Monocytes # (Auto) 0.1 TH/MM3 Eosinophils # (Auto) 0.3 TH/MM3 Basophils # (Auto) 0.0 TH/MM3 CBC Comment AUTO DIFF Blood Gas Puncture Site RT RADIAL Blood Gas Patient Temperature 98.6 Blood Gas HCO3 17 mmol/L Blood Gas Base Excess -6.8 mmol/L Blood Gas Oxygen Saturation 90 % Arterial Blood pH 7.43 Arterial Blood Partial 26 mmHg Pressure CO2 Arterial Blood Partial 56 mmHG Pressure O2 Arterial Blood Oxygen Content 19.1 Vol % Arterial Blood 1.2 % Carboxyhemoglobin Arterial Blood Methemoglobin 0.3 % Blood Gas Hemoglobin 15.1 G/DL Oxygen Delivery Device Non-Rebreathing Mask Blood Gas Liter Flow 15 L/M Sodium Level 132 MEQ/L Potassium Level 4.5 MEQ/L Chloride Level 99 MEQ/L Carbon Dioxide Level 19.6 MEQ/L Anion Gap 13 MEQ/L Blood Urea Nitrogen 20 MG/DL Creatinine 1.48 MG/DL Estimat Glomerular Filtration 48 ML/MIN Rate Random Glucose 207 MG/DL Calcium Level 8.8 MG/DL Magnesium Level 1.4 MG/DL Total Bilirubin 1.0 MG/DL Aspartate Amino Transf 17 U/L (AST/SGOT) Alanine Aminotransferase 24 U/L (ALT/SGPT) Alkaline Phosphatase 100 U/L Total Protein 7.5 GM/DL Albumin 3.3 GM/DL MDM Medical Decision Making Medical Screen Exam Complete: Yes Emergency Medical Condition: Yes Medical Record Reviewed: Yes Interpretation(s) EKG shows sinus tachycardia at a rate of 127 bpm with no signs of acute ST-T elevations or depressions. Laboratory Tests Test 10/11/16 14:30 White Blood Count 12.6 TH/MM3 (4.0-11.0) Mean Corpuscular Hemoglobin 26.9 PG (27.0-34.0) Neutrophils (%) (Auto) 89.6 % (16.0-70.0) Lymphocytes (%) (Auto) 7.6 % (9.0-44.0) Neutrophils # (Auto) 11.3 TH/MM3 (1.8-7.7) Blood Gas HCO3 17 mmol/L (22-26) Blood Gas Base Excess -6.8 mmol/L (-2-2) Arterial Blood pH 7.43 (7.380-7.420) Arterial Blood Partial 26 mmHg (38-42) Pressure CO2 Arterial Blood Partial 56 mmHG Pressure O2 (61-120) Sodium Level 132 MEQ/L (136-145) Carbon Dioxide Level 19.6 MEQ/L (21.0-32.0) Blood Urea Nitrogen 20 MG/DL (7-18) Creatinine 1.48 MG/DL (0.60-1.30) Estimat Glomerular Filtration 48 ML/MIN (>89) Rate Random Glucose 207 MG/DL (74-106) Magnesium Level 1.4 MG/DL (1.5-2.5) Albumin 3.3 GM/DL (3.4-5.0) Differential Diagnosis Elevated blood pressure, tremuloushypertensive urgency versus anxiety attack versus electrolyte abnormalities Narrative Course Patient appears initially fairly anxious in his blood pressure was very elevated. He was given Ativan and labetalol with improvement in blood pressure , tachycardia, and appears less anxious. However, he continues to be hypoxic. Pulmonary exam is fairly unremarkable. Chest x-ray was ordered for further evaluation. Considering that it appears that the patient is having malignant hypertension, case was discussed with gis specialist Dr. Rivera for admission. He was seen in the ER by Dr. Armstrong who assumes care. Aggregate critical care time was 30 minutes. Time to perform other separately billable procedures was not included in the critical care time. My time did not include minutes spent treating any other patients simultaneously or on activities that did not directly contribute to the patient's treatment. The services I provided to this patient were to treat and/or prevent clinically significant deterioration that could result in: Malignant hypertension, hypertensive emergency, CVA, respiratory distress, I provided critical care services requiring my management, as noted below: Chart data review, documentation time, medication orders and management, vital sign assessments/reviewing monitor data, ordering and reviewing lab tests, ordering and interpreting/reviewing x-rays and diagnostic studies, care of the patient and discussion of the patient with the admitting physicians. Diagnosis Primary Impression: Hypertensive crisis Additional Impressions: Hypoxia Respiratory distress Admitting Information Admitting Physician Requests: it Randi Gray MD Oct 11, 2016 13:35
[2016-10-11] MEDS ORDERED: LABETALOL HCL 100 MG/20 ML VIAL IV PUSH ONE (14:15)
[2016-10-11 14:49] LABS: BLOOD GAS BASE EXCESS -6.8 mmol/L (-2-2); BLOOD GAS CARBOXYHEMOGLOBIN 1.2 % (0-4); BLOOD GAS HCO3 17 mmol/L (22-26); BLOOD GAS METHEMOGLOBIN 0.3 % (0-2); BLOOD GAS O2 HGB SATURATION 90 % (90-100); BLOOD GAS OXYGEN CONTENT 19.1 Vol % (12.0-20.0); BLOOD GAS PCO2 26 mmHg (38-42); BLOOD GAS PO2 56 mmHG (61-120); BLOOD GAS TOTAL HGB 15.1 G/DL (12.0-16.0); TEMP CORR TO 98.6
[2016-10-11 14:50] LABS: AUTOMATED NEUTROPHIL # 11.3 TH/MM3 (1.8-7.7); BASOPHIL % 0.3 % (0.0-2.0); CRITICAL VALUE YES; DRAW SITE RT RADIAL; EOSINOPHIL # 0.3 TH/MM3 (0-0.4); HEMATOCRIT 43.3 % (39.0-51.0); LITER FLOW 15 L/M; LYMPH % 7.6 % (9.0-44.0); MEAN CELL VOLUME 80.5 FL (80.0-100.0); MEAN CORPUSCULAR HEMOGLOBIN 26.9 PG (27.0-34.0); MEAN CORPUSCULAR HGB CONC 33.4 % (32.0-36.0); MONO % 0.5 % (0.0-8.0); NEUT % 89.6 % (16.0-70.0); NUMBER OF ARTERIAL PUNCTURES 1; PLATELET COUNT 242 TH/MM3 (150-450); RED BLOOD COUNT 5.37 MIL/MM3 (4.50-5.90); RED CELL DISTRIBUTION WIDTH 14.7 % (11.6-17.2); STAT YES; ULNAR PULSE PRESENT; WHITE BLOOD COUNT 12.6 TH/MM3 (4.0-11.0)
[2016-10-11 14:56] LABS: AMPHETAMINE, URINE NEG (NEG); BARBITURATES, URINE NEG (NEG); COCAINE, URINE NEG (NEG)
[2016-10-11 14:59] LABS: HEMO FLAGS AUTO DIFF
[2016-10-11 15:11] LABS: ALT (GPT) 24 U/L (12-78); ANION GAP 13 MEQ/L (5-15); AST (GOT) 17 U/L (15-37); BICARBONATE 19.6 MEQ/L (21.0-32.0); BLOOD UREA NITROGEN 20 MG/DL (7-18); CHLORIDE 99 MEQ/L (98-107); MAGNESIUM 1.4 MG/DL (1.5-2.5); POTASSIUM 4.5 MEQ/L (3.5-5.1); SODIUM (NA) 132 MEQ/L (136-145)
[2016-10-11 15:12] LABS: GLOMERULAR FILTRATION RATE 48 ML/MIN (>89)
[2016-10-11 15:13] LABS: ALKALINE PHOSPHATASE 100 U/L (45-117)
[2016-10-11] MEDS ORDERED: HYDR-3798 PO (15:13)
[2016-10-11] MEDS ORDERED: LISI40TA PO (15:15)
[2016-10-11] MEDS ORDERED: CIPR-9 PO (15:18)
[2016-10-11] MEDS ORDERED: CLON0.1T PO (15:18)
[2016-10-11] MEDS ORDERED: CARV25TA PO (15:18)
--- NOTE | 2016-10-11 15:23 | RADRPT ---
EXAM DATE/TIME: 10/11/2016 15:05 [facility] COMPARISON: CT BRAIN W/O CONTRAST, September 08, 2016, 0:45. INDICATIONS : Headache RADIATION DOSE: 42.42 CTDIvol (mGy) MEDICAL HISTORY : Cardiovascular disease. Hypertension. Chronic obstructive pulmonary disease. SURGICAL HISTORY : None. ENCOUNTER: Initial ACUITY: 1 day PAIN SCALE: 5/10 LOCATION: cranial TECHNIQUE: Multiple contiguous axial images were obtained of the head. Using automated exposure control and adj ustment of the mA and/or kV according to patient size, radiation dose was kept as low as reasonably a chievable to obtain optimal diagnostic quality images. DICOM format image data is available electro nically for review and comparison. FINDINGS: There is no evidence for intracranial hemorrhage, mass effect, mass lesions, edema, or extra-axial he morrhagic fluid collections. The visualized bony structures appear intact. The ventricles are cahi l size for the patient's age. There are no signs of acute infarction for technique. There is approxi mate 2.9 cm arachnoid cyst in the right middle cranial fossa and not changed. The sinuses are clear. CONCLUSION: Stable arachnoid cyst on the right without acute process. Jina Oden MD on October 11, 2016 at 15:19 Board Certified Radiologist. This report was verified electronically.
[2016-10-11] MEDS ORDERED: CHLORHEXIDINE GLUCONATE 2 % 1 PACK (2 CLOTHS) TOP PRN (15:30)
[2016-10-11] MEDS ORDERED: MISCELLANEOUS NURSING INFORMATION XX SCH (15:30)
[2016-10-11] MEDS ORDERED: SENNOSIDES 8.6 MG TAB PO PRN (15:30)
[2016-10-11] MEDS ORDERED: BISACODYL 10 MG SUPP RECTAL PRN (15:30)
[2016-10-11] MEDS ORDERED: MAGNESIUM HYDROXIDE SUSP 30 ML CUP PO PRN (15:30)
[2016-10-11] MEDS ORDERED: LACTULOSE SYRUP 20 GM/30 ML CUP PO PRN (15:30)
[2016-10-11] MEDS ORDERED: RESP: ALBUTEROL 2.5 MG/IPRATROPIUM 0.5 MG NEB (PRN) INH (15:30)
[2016-10-11] MEDS: INSULIN NovoLIN REGULAR SUPPLEMENTAL SCALE SQ SCH ×3 (15:45→23:45)
[2016-10-11] MEDS ORDERED: GLUCAGON 1 MG/ML VIAL OTHER PRN (15:45)
[2016-10-11] MEDS ORDERED: MAGNESIUM SULFATE 1 GM PREMIX 100 ML IV ONE (15:45)
[2016-10-11] MEDS ORDERED: DEXTROSE 50% IN WATER 50 ML VIAL(D50) IV PRN (15:45)
[2016-10-11 15:51] LABS: BANDS 20 % (0-6); EOSINOPHILS 1 % (0-4); NEUTROPHIL # MANUAL DIFF 10.2 TH/MM3 (1.8-7.7); POLYS (SEG NEUTROPHILS) 61 % (16-70); WBC DIFF SAMPLE 100
[2016-10-11 15:52] LABS: DOHLE BODIES PRESENT (NONE SEEN)
[2016-10-11 15:53] LABS: PLATELET ESTIMATE SMEAR NORMAL (NORMAL); PLATELET MORPHOLOGY NORMAL (NORMAL); SCAN/DIFF FINAL DIFF MANUAL
[2016-10-11] MEDS: PANTOPRAZOLE SODIUM 40 MG VIAL IV SCH (16:03)
[2016-10-11] MEDS ORDERED: BUMETANIDE INJ 1 MG/4 ML VIAL IV PUSH ONE (16:15)
[2016-10-11] MEDS: hydrALAZINE HCL 25 MG TAB PO SCH ×2 (16:15→21:09)
[2016-10-11] MEDS: ASPIRIN 325 MG TAB PO SCH (16:15)
[2016-10-11 16:18] LABS: BACTERIA, URINE OCC /hpf; BLOOD, URINE MOD (NEG); GLUCOSE,URINE NEG (NEG); KETONE, URINE NEG (NEG); NITRITE,URINE NEG (NEG); URINE COLOR YELLOW (YELLW/STRAW)
[2016-10-11 16:19] LABS: COMMENT (UR) CATH-CULTURE IND; CULTURE IF INDICATED CATH CULTURE IND
[2016-10-11] MEDS: RESP: ALBUTEROL 2.5 MG/IPRATROPIUM 0.5 MG NEB (SCH) INH ×3 (16:30→23:37)
--- NOTE | 2016-10-11 16:54 | MH ---
cc: FE CHANEY DATE OF ADMISSION 10/11/2016 1951 HISTORY OF PRESENT ILLNESS The patient is a 66-year-old male with multiple comorbidities which include hypertension, diabetes mellitus, obesity, COPD, CHF, cardiomyopathy with EF of 35-40% from September 08 study. He presented to [facility] ED with elevated blood pressure associated with tremors and headaches. The patient denies any chest pain or shortness of breath. He has been on ciprofloxacin for three days for prostate issues. On arrival to the emergency room. he was tachycardiac with heart rate of 120s-130s, hypertensive with systolic blood pressure 250s and tachypneic with heart rate in the 30s. He was also found hypoxic with O2 saturation of 88%. The patient was placed on a non-rebreather mask which showed a pH of 7.43, CO2 26, pAO2 256, bicarb 17, saturation 90%. His laboratory data is significant for mild acute kidney injury with creatinine level of 1.48, potassium 4.5. Due to his confusion, a CT scan of the brain was obtained which showed stable arachnoid cyst on the right without any acute process. Chest x-ray showed diffuse bilateral pulmonary infiltrates, right greater than left. In the emergency room, he was given labetalol 20 mg IV push and Ativan 1 mg IV x1. Current blood pressure is 179/106 with a saturation of 91%. Most of the history was obtained from reviewing the medical records as patient is a poor historian. PAST MEDICAL HISTORY 1. Hypertension, 2. COPD, 3. Diabetes mellitus, 4. Morbid obesity. 5. Cardiomyopathy 6. Anemia 7. Chronic kidney disease. 8. Obstructive sleep apnea. PAST SURGICAL HISTORY 1. Previous appendectomy. 2. Previous cyst removal ALLERGIES Medrol MEDICATIONS Reported, 1. Cipro 2. Coreg. 3. Clonidine. 4. Lisinopril. 5. Hydralazine. 6. Metoprolol. 7. Aspirin. 8. Multivitamins. FAMILY HISTORY Noncontributory. SOCIAL HISTORY Rare drinker, nonsmoker. REVIEW OF SYSTEMS As per HPI. The rest of the review of systems limited as patient is a poor historian. PHYSICAL EXAMINATION GENERAL: A 66-year-old male sitting up in bed in mild to moderate respiratory distress with intermittent confusion. VITAL SIGNS: Afebrile, pulse of 118, blood pressure currently 179/106, saturation 93% on non-rebreather. HEENT: Atraumatic, normocephalic. Pupils equal, round, react to light and accommodation. Extraocular muscles intact. Conjunctivae pink. Nonicteric sclerae. Oral mucosa within normal. NECK: Supple. No JVD, adenopathy or thyromegaly. Trachea in the midline. CARDIOVASCULAR: Tachycardiac, normal S1-S2. No murmurs, rubs or gallops noted. LUNGS: Bilateral equal entry with a few coarse breath sounds. ABDOMEN: Soft, obese, nontender, no distension. Positive bowel sounds. EXTREMITIES: No cyanosis, clubbing, trace edema. NEUROLOGIC: Confused at times. No focal sensory deficit. Able to move all four extremities. LABORATORY DATA Sodium 132, potassium 4.5, chloride 99, CO2 19.6, BUN 20, creatinine 1.48, glucose 207, magnesium 1.4, AST 17, ALT 24, total bilirubin one. WBC 12.6, hemoglobin 14.5, hematocrit 43, platelet count 242. Urine drug screen negative for opiates, benzodiazepines, cocaine, cannabinoids. IMAGING STUDIES CT brain - no acute intracranial process. Chest x-ray shows diffuse infiltrates. IMPRESSION 1. Acute hypoxemic respiratory failure. 2. Hypertensive emergency. 3. Acute kidney injury. 4. Hyponatremia. 5. Pulmonary edema. 6. Cardiomyopathy with EF of 35-40%. 7. Hyperglycemia with underlying history of diabetes mellitus. 8. Morbid obesity/obstructive sleep apnea. 9. COPD. 10. Anemia. RECOMMENDATIONS 1. Monitor neuro status closely and avoid any sedatives. CT scan of the brain negative for acute intracranial process. 2. Continue with oxygen and maintain sats above 92%. 3. Bronchodilators in the form of DuoNeb q. 4 plus q. two p.r.n. for shortness of breath. Noninvasive positive pressure ventilation p.r.n. nocturnally. We will repeat ABG. If there is any worsening in respiratory status or clinical condition, we will proceed with intubation and mechanical ventilation. 4. Monitor heart rate and blood pressure closely and maintain MAP greater 65 mmHg. Echocardiogram from September 08 showed EF of 35-40%. We will resume antihypertensive meds which include Coreg, clonidine and hydralazine. Continue with aspirin 325 mg p.o. daily. 5. Monitor renal function Is and Os and avoid nephrotoxins. Electrolyte replacement as needed. 6. Keep n.p.o. for now until respiratory status improves and place on Protonix 40 mg IV daily for GI prophylaxis. 7. Monitor for signs of infections which include fever and WBC. We will obtain urinalysis with culture if indicated. Check a sputum culture, strep pneumonia and Legionella urinary antigen. Place on empiric antibiotics in the form of Zosyn and monitor for signs of infections which include fever and WBC. 8. Place on sliding scale insulin with Accu-Chek for glycemic control. 9. GI prophylaxis with Protonix 40 mg daily and DVT prophylaxis with SCDs for now. Further recommendations will be based on hospital course. MD NELLIE Herrera/ /4:09 PM /4:45 PM
[2016-10-11] MEDS ORDERED: VANCOMYCIN INJ 1,000 MG in SODIUM CHLOR 0.9% 250 ML INJ 250 ML IV ONE (17:00)
--- NOTE | 2016-10-11 17:05 | RADRPT ---
EXAM DATE/TIME: 10/11/2016 15:16 [facility] COMPARISON: CHEST SINGLE AP, September 08, 2016, 0:31. INDICATIONS : Short of breath. MEDICAL HISTORY : Hypertension. Congestive heart failure. Diabetes SURGICAL HISTORY : None. ENCOUNTER: Initial ACUITY: 1 day PAIN SCORE: 0/10 LOCATION: Bilateral chest FINDINGS: The heart is mildly enlarged. There is diffuse interstitial prominence which could suggest some mild interstitial edema. The visualized bony structures are grossly intact. There is no pleural effusion. CONCLUSION: 1. Cardiomegaly and diffuse interstitial prominence suggesting possible interstitial edema or early C HF. This is new compared to prior dated 09/08/16. Tae Woody MD on October 11, 2016 at 16:51 Board Certified Radiologist. This report was verified electronically.
[2016-10-11] MEDS: PIPERACIL-TAZO 3.375 GM PREMIX 50 ML IV SCH (17:20)
[2016-10-11 18:45] LABS: BLOOD GAS BASE EXCESS -5.8 mmol/L (-2-2); BLOOD GAS CARBOXYHEMOGLOBIN 1.4 % (0-4); BLOOD GAS HCO3 17 mmol/L (22-26); BLOOD GAS METHEMOGLOBIN 1.1 % (0-2); BLOOD GAS O2 HGB SATURATION 94 % (90-100); BLOOD GAS OXYGEN CONTENT 18.8 Vol % (12.0-20.0); BLOOD GAS PCO2 23 mmHg (38-42); BLOOD GAS PO2 78 mmHg (61-120); BLOOD GAS TOTAL HGB 14.2 G/DL (12.0-16.0); CRITICAL VALUE YES; TEMP CORR TO 98.6
[2016-10-11 18:46] LABS: DRAW SITE RRA; FIO2 40 %; OXYGEN DEVICE BIPAP; STAT NO; ULNAR PULSE PRESENT; VENT SETTINGS PS10 PEEP5
[2016-10-11] MEDS: DOCUSATE SODIUM 50 MG/SENNA 8.6 MG TAB PO SCH (21:09)
[2016-10-11] MEDS: cloNIDine HCL 0.1 MG TAB PO SCH (21:09)
[2016-10-11] MEDS: CARVEDILOL 3.125 MG TAB PO SCH (21:09)
[2016-10-11] MEDS: ACETAMINOPHEN 325 MG TAB PO PRN (23:14)
[2016-10-12] VITALS (22 sets, daily range): BP systolic 116–169; BP diastolic 62–100; PULSE 85–109; RESP 24–29; TEMP 99–99.5; O2SAT 91–100
[2016-10-12] MEDS: INSULIN NovoLIN REGULAR SUPPLEMENTAL SCALE SQ SCH ×6 (03:14→23:17)
[2016-10-12] MEDS: hydrALAZINE HCL 20 MG/ML VIAL IV PUSH PRN ×2 (03:14→23:16)
[2016-10-12] MEDS: PIPERACIL-TAZO 3.375 GM PREMIX 50 ML IV SCH ×3 (03:14→17:27)
[2016-10-12] MEDS: RESP: ALBUTEROL 2.5 MG/IPRATROPIUM 0.5 MG NEB (SCH) INH ×7 (03:35→23:30)
[2016-10-12] MEDS: CHLORHEXIDINE GLUCONATE 2 % 1 PACK (2 CLOTHS) TOP SCH (04:00)
[2016-10-12 04:29] LABS: HEMATOCRIT 45.9 % (39.0-51.0); MEAN CELL VOLUME 81.2 FL (80.0-100.0); MEAN CORPUSCULAR HEMOGLOBIN 26.2 PG (27.0-34.0); MEAN CORPUSCULAR HGB CONC 32.3 % (32.0-36.0); PLATELET COUNT 185 TH/MM3 (150-450); RED BLOOD COUNT 5.65 MIL/MM3 (4.50-5.90); RED CELL DISTRIBUTION WIDTH 15.1 % (11.6-17.2); WHITE BLOOD COUNT 29.5 TH/MM3 (4.0-11.0)
[2016-10-12 04:48] LABS: HEMO FLAGS AUTO DIFF
[2016-10-12 04:58] LABS: BICARBONATE 19.7 MEQ/L (21.0-32.0); MAGNESIUM 1.5 MG/DL (1.5-2.5); POTASSIUM 4.5 MEQ/L (3.5-5.1)
[2016-10-12] MEDS: hydrALAZINE HCL 25 MG TAB PO SCH ×3 (06:13→20:18)
[2016-10-12 07:05] LABS: BANDS 15 % (0-6); NEUTROPHIL # MANUAL DIFF 27.7 TH/MM3 (1.8-7.7); POLYS (SEG NEUTROPHILS) 79 % (16-70); WBC DIFF SAMPLE 100
[2016-10-12 07:07] LABS: DOHLE BODIES PRESENT (NONE SEEN); PLATELET ESTIMATE SMEAR NORMAL (NORMAL)
[2016-10-12 07:08] LABS: PLATELET MORPHOLOGY NORMAL (NORMAL); SCAN/DIFF FINAL DIFF MANUAL
[2016-10-12] MEDS: DOCUSATE SODIUM 50 MG/SENNA 8.6 MG TAB PO SCH ×2 (09:00→20:18)
[2016-10-12] MEDS: cloNIDine HCL 0.1 MG TAB PO SCH ×2 (11:01→20:18)
[2016-10-12] MEDS: ASPIRIN 325 MG TAB PO SCH (11:01)
[2016-10-12] MEDS: CARVEDILOL 3.125 MG TAB PO SCH ×2 (11:01→20:18)
[2016-10-12] MEDS: PANTOPRAZOLE SODIUM 40 MG VIAL IV SCH (11:02)
--- NOTE | 2016-10-12 15:03 | HHI.CCPN ---
Subjective Remarks/Hospital Course The patient is a 66-year-old male with multiple comorbidities which include hypertension, diabetes mellitus, obesity, COPD, CHF, cardiomyopathy with EF of 35-40% from September 08 study. He presented to [facility] ED with elevated blood pressure associated with tremors and headaches. The patient denies any chest pain or shortness of breath. He has been on ciprofloxacin for three days for prostate issues. On arrival to the emergency room. he was tachycardiac with heart rate of 120s-130s, hypertensive with systolic blood pressure 250s and tachypneic with heart rate in the 30s. He was also found hypoxic with O2 saturation of 88%. The patient was placed on a non-rebreather mask which showed a pH of 7.43, CO2 26, pAO2 256, bicarb 17, saturation 90%. His laboratory data is significant for mild acute kidney injury with creatinine level of 1.48, potassium 4.5. Due to his confusion, a CT scan of the brain was obtained which showed stable arachnoid cyst on the right without any acute process. Chest x-ray showed diffuse bilateral pulmonary infiltrates, right greater than left. In the emergency room, he was given labetalol 20 mg IV push and Ativan 1 mg IV x1. Current blood pressure is 179/106 with a saturation of 91 %. Most of the history was obtained from reviewing the medical records as patient is a poor historian. Subjective 10/12: Remains on partial nonrebreather down to Venturi mask. Desaturates easily with movement. Denies abdominal pain nausea vomiting. Blood pressure better control. Noted has gram-negative giovani bacteremia/urinary tract infection Objective Vital Signs Date Time Temp Pulse Resp B/P Pulse Ox O2 Delivery O2 Flow Rate FiO2 10/12/16 11:09 94 Venturi Mask 10/12/16 10:01 40 10/12/16 06:00 101 10/12/16 06:00 29 169/79 10/12/16 05:00 99.0 10/11/16 15:58 15.00 Intake and Output 10/11/16 10/11/16 10/12/16 08:00 16:00 00:00 Intake Total 25 ml Output Total 500 ml Balance -475 ml Result Diagram: 10/12/16 0403 10/12/16 0403 Other Results Microbiology Date/Time Procedure Status Source Growth 10/11/16 17:06 Aerobic Blood Culture - Preliminary Resulted Blood Peripheral Gram Negative Giovani 10/11/16 17:06 Anaerobic Blood Culture - Preliminary Resulted Gram Negative Giovani 10/11/16 15:45 Urine Culture - Preliminary Resulted Urine Catheterized Urine Gram Negative Giovani 10/11/16 15:45 Legionella Antigen - Final Complete Urine Catheterized Urine PRESUMPTIVE NEGATIVE FOR LEGIONELLA P... 10/11/16 15:45 Streptococcus pneumoniae Antigen (M - Final Complete Urine Catheterized Urine PRESUMPTIVE NEGATIVE FOR STREPTOCOCCU... Imaging Last 72 hours Impressions Chest X-Ray 10/11/16 1448 Signed Impressions: Service Date/Time: Tuesday, October 11, 2016 15:16 - CONCLUSION: 1. Cardiomegaly and diffuse interstitial prominence suggesting possible interstitial edema or early CHF. This is new compared to prior dated 09/08/16. Tae Woody MD Head CT 10/11/16 1329 Signed Impressions: Service Date/Time: Tuesday, October 11, 2016 15:05 - CONCLUSION: Stable arachnoid cyst on the right without acute process. Jina Oden MD Objective Remarks GENERAL: 66-year-old male, resting in bed in mild respiratory distress SKIN: Warm and dry. No rash HEAD: Atraumatic. Normocephalic. EYES: Pupils equal and round about 2 mm bilaterally and reactive. No scleral icterus. No injection or drainage. ENT: No nasal bleeding or discharge. Mucous membranes pink and moist. NECK: Trachea midline. No JVD. CARDIOVASCULAR: Regular rate and rhythm. S1, S2. No S4. Without murmur RESPIRATORY: Few fine crackles patient bases bilaterally. No wheezing Breath sounds equal bilaterally. GASTROINTESTINAL: Abdomen soft obese, nontender. Hypoactive bowel sounds appreciated MUSCULOSKELETAL: Extremities with trace nonpitting lower extremity edema. No obvious deformities. NEUROLOGICAL: Awake and alert. No obvious cranial nerve deficits. Motor grossly within normal limits. Five out of 5 muscle strength in the arms and legs. Normal speech. PSYCHIATRIC: Appropriate mood and affect; insight and judgment normal. A/P Assessment and Plan Neuro/Psych: History of migraine headache Right 2.5 cm right middle cranial fossa arachnoid cyst/stable Holding Fioricet CV: Chronic systolic heart failure ejection fraction 35-40% Hypertension Dyslipidemia Echocardiogram 10/17 revealed EF 35-40%. Decreased LV SF. Mild MR. Home medications lisinopril 40 mg daily, Coreg 25 mg twice a day, metoprolol 100 mg twice a day, clonidine 0.1 mg daily Norvasc 10 mg daily and hydralazine 10 mg 4 times a day Currently on Coreg 3.125 mg twice a day, clonidine 0.1 mg twice a day and hydralazine 25 mg 3 times a day with adequate control.Currently 128. Resp: Acute hypoxemic respiratory failure Obstructive sleep apnea - no CPAP at night - sees Dr. Mcgill/pulmonology COPD Currently on Venturi mask at 40% to maintain saturations greater than equal to 90% Duo nebs every 4 hours as every 2 hours when necessary dyspnea As needed BiPAP Follow-up chest x-ray in a.m. GI: CT abdomen/pelvis with gram-negative giovani bacteremia Protonix for GI prophylaxis Agatha-Colace for bowel regimen Benign abdominal examination : Avelar catheter for accurate I's and O's in a critically ill patient Endo: Diabetes mellitus At home on Novulin 70/3 25 units subcutaneous twice a day Slight scale insulin to maintain euglycemia Renal: Acute kidney injury Check urine lites lites as eosinophils. Hold nephrotoxic medications including lisinopril and hydrochlorothiazide. Received Lasix 1 yesterday Heme: Leukocytosis ID: Gram-negative giovani bacteremia Gram-negative giovani UTI MSK: PT evaluate and treat FEN: Hypo-magnesium Hyponatremia 2 g mag sulfate IV 1 now. Recheck in a.m. Access - Utilize peripheral IV. Central line if indicated Prophylaxis - GI -Protonix - DVT - SCD/heparin subcutaneous Critical care time 35 minutes Jesse Antunez MD Oct 12, 2016 15:03
[2016-10-12] MEDS: MAGNESIUM SULFATE 1 GM PREMIX 100 ML IV SCH ×2 (15:54→17:00)
--- NOTE | 2016-10-12 16:59 | EKG ---
Date Performed: 10/11/2016 Time Performed: 14:14:00 PTAGE: 66 years EKG: SUSPECT ATRIAL FLUTTER/TACHYCARDIA WITH RAPID VENTRICULAR RESPONSE MARKED LEFT AXIS DEVIATI ON MODERATE INTRAVENTRICULAR CONDUCTION DELAY ABNORMAL ECG PREVIOUS TRACING : 09/08/2016 11.42 Compared to the previous tracing NSR no longer present DOCTOR: Anabell Skinner Interpretating Date/Time 10/12/2016 16:58:48
[2016-10-12] MEDS: ACETAMINOPHEN 325 MG TAB PO PRN (17:27)
[2016-10-12] MEDS ORDERED: DIATRIZOATE MEGLUM/DIATRIZOATE SOD 9 ML CUP PO ONE (20:15)
[2016-10-13] VITALS (18 sets, daily range): BP systolic 89–193; BP diastolic 53–104; PULSE 66–134; RESP 20–27; TEMP 98.5–99.8; O2SAT 93–98
--- NOTE | 2016-10-13 00:47 | RADRPT ---
EXAM DATE/TIME: 10/13/2016 00:01 [place] COMPARISON: No previous studies available for comparison. INDICATIONS : Malignant hypertension and bacteremia. ORAL CONTRAST: Prescribed oral contrast ingested. RADIATION DOSE: 17.04 CTDIvol (mGy) MEDICAL HISTORY : Cardiovascular disease. Chronic obstructive pulmonary disease. Diabetes mellitus type 2.Hypertension SURGICAL HISTORY : Appendectomy. ENCOUNTER: Subsequent ACUITY: 1 week PAIN SCALE: Non-responsive LOCATION: abdomen TECHNIQUE: Volumetric scanning of the abdomen and pelvis was performed. Using automated exposure control and ad justment of the mA and/or kV according to patient size, radiation dose was kept as low as reasonably achievable to obtain optimal diagnostic quality images. DICOM format image data is available electro nically for review and comparison. FINDINGS: LOWER LUNGS: Mild groundglass opacity in the lower lungs. LIVER: Diffuse hypodensity of the liver indicating hepatic steatosis. No calcified gallstones identified. No pericholecystic inflammatory changes. SPLEEN: Normal size without lesion. PANCREAS: Within normal limits. KIDNEYS: Normal in size and shape. There is no mass, stone, or hydronephrosis. ADRENAL GLANDS: Within normal limits. VASCULAR: There is no aortic aneurysm. BOWEL/MESENTERY: Mild nonspecific segmental wall thickening of the rectum may be due to incomplete distention. No evid ence of bowel dilatation. ABDOMINAL WALL: Within normal limits. RETROPERITONEUM: There is no lymphadenopathy. BLADDER: Bladder is collapsed with Avelar catheter in place. Nonspecific diffuse urinary bladder wall thickenin g. REPRODUCTIVE: Marked prostate enlargement with the prostate measuring 6.5 cm in medial to lateral dimension. INGUINAL: There is no lymphadenopathy or hernia. MUSCULOSKELETAL: Moderate severity arthritic findings and bone bridging at the left sacroiliac joint. CONCLUSION: 1. Enlarged prostate and diffuse nonspecific urinary bladder wall thickening. Avelar catheter in place . 2. Nonspecific mild circumferential rectal wall thickening, may be due to incomplete distention. 3. Hepatic steatosis. 4. Left-sided sacroiliac arthrosis. Jayson Alfonso MD on October 13, 2016 at 0:40 Board Certified Radiologist. This report was verified electronically.
[2016-10-13] MEDS: INSULIN NovoLIN REGULAR SUPPLEMENTAL SCALE SQ SCH ×4 (03:45→20:04)
[2016-10-13] MEDS: PIPERACIL-TAZO 3.375 GM PREMIX 50 ML IV SCH ×3 (03:53→17:13)
[2016-10-13] MEDS: ACETAMINOPHEN 325 MG TAB PO PRN (03:55)
[2016-10-13] MEDS: CHLORHEXIDINE GLUCONATE 2 % 1 PACK (2 CLOTHS) TOP SCH (04:00)
[2016-10-13] MEDS: RESP: ALBUTEROL 2.5 MG/IPRATROPIUM 0.5 MG NEB (SCH) INH ×5 (04:00→20:20)
[2016-10-13] MEDS ORDERED: LABETALOL HCL 100 MG/20 ML VIAL IV PUSH PRN (05:00)
[2016-10-13 06:37] LABS: AUTOMATED NEUTROPHIL # 13.9 TH/MM3 (1.8-7.7); BASOPHIL % 0.2 % (0.0-2.0); HEMATOCRIT 40.7 % (39.0-51.0); HEMO FLAGS DIFF FINAL; LYMPH % 2.8 % (9.0-44.0); LYMPHOCYTE # 0.4 TH/MM3 (1.0-4.8); MEAN CELL VOLUME 79.6 FL (80.0-100.0); MEAN CORPUSCULAR HGB CONC 33.9 % (32.0-36.0); MONO % 2.6 % (0.0-8.0); NEUT % 94.4 % (16.0-70.0); PLATELET COUNT 131 TH/MM3 (150-450); RED BLOOD COUNT 5.11 MIL/MM3 (4.50-5.90); WHITE BLOOD COUNT 14.8 TH/MM3 (4.0-11.0)
[2016-10-13 06:47] LABS: APTT (PATIENT) 32.8 SEC (24.3-30.1); INTERNATIONAL NORMALIZED RATIO 1.1 RATIO; PROTHROMBIN TIME - PATIENT 11.9 SEC (9.8-11.6)
[2016-10-13 07:03] LABS: ALKALINE PHOSPHATASE 103 U/L (45-117); ALT (GPT) 37 U/L (12-78); ANION GAP 11 MEQ/L (5-15); AST (GOT) 44 U/L (15-37); BICARBONATE 21.3 MEQ/L (21.0-32.0); BLOOD UREA NITROGEN 28 MG/DL (7-18); CHLORIDE 97 MEQ/L (98-107); GLOMERULAR FILTRATION RATE 36 ML/MIN (>89); MAGNESIUM 1.9 MG/DL (1.5-2.5); POTASSIUM 3.5 MEQ/L (3.5-5.1); SODIUM (NA) 129 MEQ/L (136-145)
[2016-10-13] MEDS: hydrALAZINE HCL 25 MG TAB PO SCH ×3 (07:14→22:59)
[2016-10-13] MEDS: PANTOPRAZOLE SODIUM 40 MG VIAL IV SCH (08:49)
[2016-10-13] MEDS: cloNIDine HCL 0.1 MG TAB PO SCH ×2 (08:49→20:00)
[2016-10-13] MEDS: ASPIRIN 325 MG TAB PO SCH (08:49)
[2016-10-13] MEDS: CARVEDILOL 3.125 MG TAB PO SCH ×2 (08:49→20:00)
[2016-10-13] MEDS: DOCUSATE SODIUM 50 MG/SENNA 8.6 MG TAB PO SCH ×2 (09:00→20:01)
--- NOTE | 2016-10-13 09:47 | HHI.CCPN ---
Subjective Remarks/Hospital Course The patient is a 66-year-old male with multiple comorbidities which include hypertension, diabetes mellitus, obesity, COPD, CHF, cardiomyopathy with EF of 35-40% from September 08 study. He presented to [facility] [place] ED with elevated blood pressure associated with tremors and headaches. The patient denies any chest pain or shortness of breath. He has been on ciprofloxacin for three days for prostate issues. On arrival to the emergency room. he was tachycardiac with heart rate of 120s-130s, hypertensive with systolic blood pressure 250s and tachypneic with heart rate in the 30s. He was also found hypoxic with O2 saturation of 88%. The patient was placed on a non-rebreather mask which showed a pH of 7.43, CO2 26, pAO2 256, bicarb 17, saturation 90%. His laboratory data is significant for mild acute kidney injury with creatinine level of 1.48, potassium 4.5. Due to his confusion, a CT scan of the brain was obtained which showed stable arachnoid cyst on the right without any acute process. Chest x-ray showed diffuse bilateral pulmonary infiltrates, right greater than left. In the emergency room, he was given labetalol 20 mg IV push and Ativan 1 mg IV x1. Current blood pressure is 179/106 with a saturation of 91 %. Most of the history was obtained from reviewing the medical records as patient is a poor historian. 10/12: Remains on partial nonrebreather down to Venturi mask. Desaturates easily with movement. Denies abdominal pain nausea vomiting. Blood pressure better control. Noted has gram-negative giovani bacteremia/urinary tract infection Subjective 10/13: Tmax 99.7. Denies chest pain or shortness of breath this a.m. Tolerating diet. CT abdomen/pelvis reviewed revealing inflammation urinary bladder and BPH. Hepatic steatosis and left sacroiliac arthrosis. Hemodynamically stable. Objective Vital Signs Date Time Temp Pulse Resp B/P Pulse Ox O2 Delivery O2 Flow Rate FiO2 10/13/16 07:31 98 40 10/13/16 06:00 107 10/13/16 04:00 99.7 24 193/104 10/12/16 20:04 Venturi Mask 6.00 Intake and Output 10/12/16 10/12/16 10/13/16 08:00 16:00 00:00 Intake Total 70 ml 300 ml 10 ml Output Total 550 ml 450 ml 1150 ml Balance -480 ml -150 ml -1140 ml Result Diagram: 10/13/16 0536 10/13/16 0536 Other Results Microbiology Date/Time Procedure Status Source Growth 10/11/16 17:06 Aerobic Blood Culture - Preliminary Resulted Blood Peripheral Gram Negative Giovani 10/11/16 17:06 Anaerobic Blood Culture - Preliminary Resulted Gram Negative Giovani 10/11/16 15:45 Urine Culture - Preliminary Resulted Urine Catheterized Urine Gram Negative Giovani 10/11/16 15:45 Legionella Antigen - Final Complete Urine Catheterized Urine PRESUMPTIVE NEGATIVE FOR LEGIONELLA P... 10/11/16 15:45 Streptococcus pneumoniae Antigen (M - Final Complete Urine Catheterized Urine PRESUMPTIVE NEGATIVE FOR STREPTOCOCCU... Imaging Last 72 hours Impressions Abdomen/Pelvis CT 10/12/16 0000 Signed Impressions: Service Date/Time: October 00:01 - CONCLUSION: 1. Enlarged prostate and diffuse nonspecific urinary bladder wall thickening. Avelar catheter in place. 2. Nonspecific mild circumferential rectal wall thickening, may be due to incomplete distention. 3. Hepatic steatosis. 4. Left-sided sacroiliac arthrosis. Jayson Alfonso MD Chest X-Ray 10/11/16 1448 Signed Impressions: Service Date/Time: Tuesday, October 11, 2016 15:16 - CONCLUSION: 1. Cardiomegaly and diffuse interstitial prominence suggesting possible interstitial edema or early CHF. This is new compared to prior dated 09/08/16. Tae Woody MD Head CT 10/11/16 1329 Signed Impressions: Service Date/Time: Tuesday, October 11, 2016 15:05 - CONCLUSION: Stable arachnoid cyst on the right without acute process. Jina Oden MD Objective Remarks GENERAL: 66-year-old male, resting in bed in no acute distress SKIN: Warm and dry. No rash HEAD: Atraumatic. Normocephalic. EYES: Pupils equal and round about 3 mm bilaterally and reactive. No scleral icterus. No injection or drainage. ENT: No nasal bleeding or discharge. Mucous membranes pink and moist. NECK: Trachea midline. No JVD. CARDIOVASCULAR: Regular rate and rhythm. S1, S2. No S4. Without murmur RESPIRATORY: Few fine crackles patient bases bilaterally. No wheezing. Breath sounds equal bilaterally. GASTROINTESTINAL: Abdomen soft obese, nontender. Hypoactive bowel sounds appreciated MUSCULOSKELETAL: Extremities with trace nonpitting lower extremity edema. No obvious deformities. NEUROLOGICAL: Awake and alert. No obvious cranial nerve deficits. Motor grossly within normal limits. Five out of 5 muscle strength in the arms and legs. Normal speech. PSYCHIATRIC: Appropriate mood and affect; insight and judgment normal. A/P Assessment and Plan Neuro/Psych: History of migraine headache Right 2.5 cm right middle cranial fossa arachnoid cyst/stable Holding Fioricet Acetaminophen for fever/pain CV: Chronic systolic heart failure ejection fraction 35-40% Hypertension Dyslipidemia Echocardiogram 10/17 revealed EF 35-40%. Decreased LV SF. Mild MR. Home medications lisinopril 40 mg daily, Coreg 25 mg twice a day, metoprolol 100 mg twice a day, clonidine 0.1 mg daily Norvasc 10 mg daily and hydralazine 10 mg 4 times a day Continue aspirin 325 mg by mouth daily Currently on Coreg 3.125 mg twice a day, clonidine 0.1 mg twice a day and hydralazine 25 mg 3 times a day with adequate control Resp: Acute hypoxemic respiratory failure Obstructive sleep apnea - no CPAP at night - sees Dr. Mcgill/pulmonology COPD Currently on nasal cannula at 4 L to maintain saturations greater than equal to 92% Duo nebs every 4 hours and albuterol nebulizers every 2 hours when necessary dyspnea As needed BiPAP Follow-up chest x-ray in a.m. 10/14 GI: Hepatic steatosis CT abdomen/pelvis revealed hepatic steatosis Protonix for GI prophylaxis Agatha-Colace for bowel regimen Benign abdominal examination : BPH with recent prostate biopsy Inflamed urinary bladder Avelar catheter if indicated for accurate I's and O's in a critically ill patient Endo: Diabetes mellitus At home on Novulin 70/3 25 units subcutaneous twice a day Currently on sliding scale insulin with Accu-Cheks before meals/at bedtime to maintain euglycemia Renal: Acute kidney injury Pending urine electrolytes and eosinophils. Hold nephrotoxic medications including lisinopril and hydrochlorothiazide. Received Lasix 1 10/11. Holding Lasix currently Heme: Leukocytosis Thrombocythemia White blood cell count trending downward. Follow CBC daily. Monitor trends ID: Gram-negative giovani bacteremia Gram-negative giovani UTI Zosyn day #3 Blood cultures 2/urine 10/01 revealed gram-negative bacteremia. CT and is also revealed large prostate and bladder wall inflammation likely source of infection. MSK: Left sacral iliac arthrosis PT evaluate and treat FEN: Hyponatremia Recheck in a.m. Access - Utilize peripheral IV. Central line if indicated Prophylaxis - GI -Protonix - DVT - SCD/heparin subcutaneous Level II Jesse Antunez MD Oct 13, 2016 09:46
[2016-10-13] MEDS ORDERED: RESP: ALBUTEROL 2.5 MG/3 ML NEB (PRN) NEB (10:00)
--- NOTE | 2016-10-13 13:25 | MB ---
cc: Karlos MURRIETA M.D. DATE OF CONSULTATION 10/13/2016 HISTORY Mr. Leyva is a 66-year-old white male who presented yesterday with extreme shortness of breath, severe hypertension and now what appears to be urosepsis with E-coli. I was asked to see him for the dyspnea and history of COPD. The patient is awake and alert, resting comfortably in bed currently on three liters of oxygen at 96%. He required BiPap on presentation as he appear to be in pulmonary edema probably due to severe hypertensive crisis. Systolic blood pressures were in the 250 range. That has now been controlled. Initial chest x-ray was consistent with pulmonary edema. The patient was a former smoker of 40-50 pack-years although he said he quit smoking 20 years ago. He was told he had COPD several years ago, but has not any specific therapy at home for this. Reviewing his medications prior to admission, does not reveal any bronchodilators. The patient states that he is normally not short of breath. He has no persisting cough or congestion. He has never had pneumonia or known exposure to tuberculosis. He has an extensive prior pulmonary history including hypertension, diabetes, morbid obesity, cardiomyopathy with an EF recently with Dr. Nunez in the 35-40% range, chronic kidney disease and obstructive sleep apnea although apparently does not use any type of apparatus at night to sleep. FAMILY HISTORY Positive for breast cancer in his sister and lung cancer in his father. SOCIAL HISTORY He no longer smokes. Denies significant alcohol use. ALLERGIES Listed as MEDROL. REVIEW OF SYSTEMS Other than other than that noted above, he has had no nausea, vomiting or increasing edema in his legs. He was having problems with dyspnea on exertion prior to presentation. PHYSICAL EXAMINATION The patient is awake, alert, slightly confused. VITAL SIGNS: 99 degrees, blood pressure is 160/70, respirations are 18, sat on 3 liters is 96%. He is afebrile. HEAD, EYES, EARS, NOSE, AND THROAT: Sclerae anicteric. Mucous membranes are moist. NECK: His neck veins are not distended and there is no palpable adenopathy in the neck or supraclavicular region. CHEST: Clear. No significant congestion. No wheezing. No rales. HEART: Regular rhythm of the heart without harsh murmur. ABDOMEN: Soft. EXTREMITIES: No significant edema at the ankles. No cyanosis. ASSESSMENT AND PLAN Mr. Leyva presents with hypertensive crisis, marked elevation in systolic blood pressure and changes of pulmonary edema on chest x-ray that seems to have responded just a blood pressure control. He is now growing E-coli in his blood as well so there is an element of septicemia here as well. He may have underlying COPD. That is not clear, but it is something that can be reevaluated as an outpatient. The patient is currently being managed by the critical care team. I have nothing further to add at present with regard to his shortness of breath that seems to be better. R. MD SELMA Seay/CHUCK /1:04 PM /1:14 PM
--- NOTE | 2016-10-13 15:44 | MB ---
cc: CLARENCE PATEL MD DATE OF CONSULTATION: 10/13/2016. REASON FOR CONSULTATION: Gram-negative juan bacteremia / urinary tract infection. Antibiotic coverage recommendations and duration of treatment. REQUESTING PHYSICIAN: Dr. Antunez. HISTORY OF PRESENT ILLNESS: This is a 66-year-old white male who presented to the emergency department on 10/11. The patient presented with hypertensive urgency and he was noted to have headaches and shakiness. The patient is currently very somnolent. I am unable to get him to stay awake for any length of time and therefore information is obtained from the medical record. I asked him a few questions, which he answered and then he drifted back to sleep. The patient reportedly was on ciprofloxacin prior to admission for prostate issues. When he presented he had a pulse of 106 and a white count of 12.6 and renal insufficiency with a creatinine of 1.48 and estimated GFR of 48, respiratory rate of 36. Blood cultures and urine culture were taken on the day of admission and the urine culture and blood culture have E. Coli. It is resistant to ciprofloxacin. The patient had been afebrile on 10/11 and then also on 10/12, although his temperature was above 99 degrees. Earlier today his temperature gregg to 99.8 degrees. His white count climbed to 29.[address] scan of the abdomen revealed enlarged prostate and diffuse nonspecific urinary bladder wall thickening. PAST MEDICAL HISTORY: 1. Diabetes mellitus. 2. Hypertension. 3. Cardiomyopathy. 4. Anemia. 5. Chronic kidney disease. 6. History of appendectomy. ALLERGIES: 1. MEDROL. MEDICATIONS: 1. Piperacillin / Tazobactam. 2. Coreg. 3. Catapres. 4. Aspirin. 5. Protonix. 6. Insulin. 7. DuoNeb. SOCIAL HISTORY: No tobacco use. Former smoker. Positive alcohol use. No illicit drugs. FAMILY HISTORY: Significant for lung cancer in the patient's father and breast cancer in the patient's sister. REVIEW OF SYSTEMS: Review of systems is unable to be obtained because of the patient's mental status. He is very somnolent and does not stay awake. PHYSICAL EXAMINATION: GENERAL: This is a morbidly obese male who is very somnolent. He does not appear to be in any acute distress. VITAL SIGNS: Temperature 98.5, blood pressure 118/75, heart rate 71, respirations 16, oxygen saturation 94% on nasal oxygen three liters. HEAD, EYES, EARS, NOSE, THROAT: Head is atraumatic. Extraocular movements appear grossly intact. No icterus. Oropharynx moist mucosa without lesions. NECK: Supple without adenopathy. LUNGS: Decreased breath sounds throughout. HEART: Regular sinus without audible murmurs, rubs or gallops. ABDOMEN: Obese, soft, no tenderness on palpation. RECTAL: Not performed. EXTREMITIES: No clubbing or cyanosis or edema. The patient has a few tiny excoriated lesions on the feet and the tibia and he has dried black debris between the toes. NEUROLOGIC: Unable to fully assess. LABORATORY DATA: WBC 14.8, platelets 131,000, 94% neutrophils, hemoglobin 13.8. Creatinine 1.91, BUN 28, sodium 129. IMPRESSION: 1. Gram-negative bacteremia due to E. coli secondary to urinary tract infection. 2. Urinary tract infection due to E. coli 3. Sepsis on admission. 4. Thrombocytopenia. 5. Acute kidney disease. RECOMMENDATIONS: 1. Continue piperacillin / Tazobactam. 2. Monitor white blood cell count. 3. Monitor clinical status. 4. Follow renal function. Thank you for this consultation. The patient's progress will need to be monitored closely. He does have somnolence, which may indicate altered mental status from sepsis. Clarence Patel MD FD/PENNY /2:50 PM /3:32 PM [facility]
[2016-10-14] VITALS (13 sets, daily range): BP systolic 117–164; BP diastolic 62–84; PULSE 73–86; RESP 16–23; TEMP 98.4–100.6; O2SAT 91–96
[2016-10-14] MEDS: INSULIN NovoLIN REGULAR SUPPLEMENTAL SCALE SQ SCH ×2 (00:19→03:45)
[2016-10-14] MEDS: PIPERACIL-TAZO 3.375 GM PREMIX 50 ML IV SCH ×3 (02:48→17:42)
[2016-10-14] MEDS: CHLORHEXIDINE GLUCONATE 2 % 1 PACK (2 CLOTHS) TOP SCH ×2 (04:00→22:04)
[2016-10-14 05:28] LABS: AUTOMATED NEUTROPHIL # 7.5 TH/MM3 (1.8-7.7); BASOPHIL % 0.4 % (0.0-2.0); EOSINOPHIL # 0.1 TH/MM3 (0-0.4); EOSINOPHIL % 0.8 % (0.0-4.0); HEMATOCRIT 39.7 % (39.0-51.0); HEMO FLAGS DIFF FINAL; LYMPH % 10.8 % (9.0-44.0); MEAN CELL VOLUME 80.7 FL (80.0-100.0); MEAN CORPUSCULAR HEMOGLOBIN 26.6 PG (27.0-34.0); MONO % 6.2 % (0.0-8.0); NEUT % 81.8 % (16.0-70.0); PLATELET COUNT 117 TH/MM3 (150-450); RED BLOOD COUNT 4.92 MIL/MM3 (4.50-5.90); RED CELL DISTRIBUTION WIDTH 14.9 % (11.6-17.2); WHITE BLOOD COUNT 9.2 TH/MM3 (4.0-11.0)
[2016-10-14 05:45] LABS: ANION GAP 13 MEQ/L (5-15); AST (GOT) 41 U/L (15-37); BICARBONATE 23.3 MEQ/L (21.0-32.0); BLOOD UREA NITROGEN 28 MG/DL (7-18); CHLORIDE 98 MEQ/L (98-107); GLOMERULAR FILTRATION RATE 38 ML/MIN (>89); MAGNESIUM 2.2 MG/DL (1.5-2.5); POTASSIUM 3.7 MEQ/L (3.5-5.1); SODIUM (NA) 134 MEQ/L (136-145)
[2016-10-14] MEDS: hydrALAZINE HCL 25 MG TAB PO SCH ×3 (05:45→22:03)
[2016-10-14 05:48] LABS: ALKALINE PHOSPHATASE 111 U/L (45-117); ALT (GPT) 41 U/L (12-78); TOTAL BILIRUBIN ADULT 0.7 MG/DL (0.2-1.0)
[2016-10-14] MEDS: RESP: ALBUTEROL 2.5 MG/IPRATROPIUM 0.5 MG NEB (SCH) INH ×4 (08:01→20:15)
--- NOTE | 2016-10-14 08:35 | HHI.PR ---
Subjective Remarks resting comfortably with no distress. awake,alert and oriented. no sob. afebrile. d/w the RN and no acute issues over night. Objective Vitals Vital Signs Date Time Temp Pulse Resp B/P Pulse Ox O2 Delivery O2 Flow Rate FiO2 10/14/16 08:01 92 Nasal Cannula 2.00 10/14/16 06:00 82 10/14/16 04:16 95 40 10/14/16 04:00 83 10/14/16 04:00 99.0 82 16 127/64 95 10/14/16 02:00 83 10/14/16 00:35 96 40 10/14/16 00:00 100.6 86 23 133/71 91 10/14/16 00:00 84 10/14/16 00:00 86 10/13/16 22:00 84 10/13/16 20:21 93 Nasal Cannula 3.00 10/13/16 20:00 80 10/13/16 20:00 98.9 80 27 129/63 94 10/13/16 18:00 66 10/13/16 16:00 70 10/13/16 16:00 99.0 75 20 104/60 96 10/13/16 14:00 66 10/13/16 12:00 98.5 77 20 89/53 94 10/13/16 12:00 66 10/13/16 11:32 96 Nasal Cannula 3.00 10/13/16 10:00 66 I/O 10/13/16 10/13/16 10/13/16 10/14/16 10/14/16 10/14/16 07:00 15:00 23:00 07:00 15:00 23:00 Intake Total 100 ml 682 ml 640 ml Output Total 425 ml 400 ml 450 ml Balance -325 ml 282 ml 190 ml Intake Oral 560 ml 480 ml IV Total 100 ml 122 ml 160 ml Output Urine Total 425 ml 400 ml 450 ml # Bowel Movements 4 4 1 Result Diagram: 10/14/16 0411 10/14/16 041 Imaging Last Impressions Abdomen/Pelvis CT 10/12/16 0000 Signed Impressions: Service Date/Time: October 00:01 - CONCLUSION: 1. Enlarged prostate and diffuse nonspecific urinary bladder wall thickening. Styles catheter in place. 2. Nonspecific mild circumferential rectal wall thickening, may be due to incomplete distention. 3. Hepatic steatosis. 4. Left-sided sacroiliac arthrosis. Jayson Alfonso MD Chest X-Ray 10/11/16 1448 Signed Impressions: Service Date/Time: Tuesday, October 11, 2016 15:16 - CONCLUSION: 1. Cardiomegaly and diffuse interstitial prominence suggesting possible interstitial edema or early CHF. This is new compared to prior dated 09/08/16. Tae Woody MD Head CT 10/11/16 1329 Signed Impressions: Service Date/Time: Tuesday, October 11, 2016 15:05 - CONCLUSION: Stable arachnoid cyst on the right without acute process. Jina Oden MD Objective Remarks GENERAL: This is a well-nourished, well-developed patient, in no apparent distress. CARDIOVASCULAR: Regular rate and regular rhythm without murmurs, gallops, or rubs. RESPIRATORY: Clear to auscultation. Breath sounds equal bilaterally. No wheezes , rales, or rhonchi. GASTROINTESTINAL: Abdomen soft, non-tender, nondistended. Normal, active bowel sounds MUSCULOSKELETAL: Extremities without clubbing, cyanosis, or edema. NEURO: Alert & Oriented x4 to person, place, time, situation. Moves all ext x4 Medications and IVs Current Medications Lorazepam (Ativan Inj) 1 mg ONCE ONCE IV PUSH Last administered on 10/11/16 14:10; Start 10/11/16 at 13:30; Stop 10/11/16 at 13:31; Status DC Labetalol HCl (Trandate Inj) 20 mg ONCE ONCE IV PUSH Last administered on 10/11 14:18; Start 10/11/16 at 14:15; Stop 10/11/16 at 14:16; Status DC Pantoprazole Sodium (Protonix Inj) 40 mg DAILY IV Last administered on 08:49; Start 10/11/16 at 15:30 Albuterol/ Ipratropium (Duoneb Neb) 1 ampule Q4HR NEB INH Last administered on 10/13/16 11:31; Start 10/11/16 at 16:00; Stop 10/13/16 at 13:02; Status DC Albuterol/ Ipratropium (Duoneb Neb) 1 ampule Q2HR NEB PRN INH WHEEZING; Start 10/11/16 at 15:30; Stop 10/13/16 at 09:48; Status DC Miscellaneous Information 1 [id number] Last administered on 10/11/16 16:03; Start 10/11/16 at 15:30 Chlorhexidine Gluconate (Chlorhexidine 2% Cloth) 3 pack Taper DAILY@04 TOP Last administered on 10/14/16 04:00; Start 10/12/16 at 04:00; Stop 10/08/17 at 03:59 Chlorhexidine Gluconate (Chlorhexidine 2% Cloth) 3 pack UNSCH PRN TOP HYGIENIC CARE; Start 10/11/16 at 15:30 Senna/Docusate Sodium (Agatha-Colace) 1 tab BID PO Last administered on 20:18; Start 10/11/16 at 21:00 Magnesium Hydroxide (Milk Of Magnesia Liq) 30 ml Q12H PRN PO MILD - MODERATE CONSTIPATION; Start 10/11/16 at 15:30 Sennosides (Senokot) 17.2 mg Q12H PRN PO MODERATE - SEVERE CONSTIPATION; Start 10/11/16 at 15:30 Bisacodyl (Dulcolax Supp) 10 mg DAILY PRN RECTAL SEVERE CONSITIPATION; Start at 15:30 Lactulose (Lactulose Liq) 30 ml DAILY PRN PO SEVERE CONSITIPATION; Start at 15:30 Dextrose (D50w (Vial) Inj) 50 ml UNSCH PRN IV HYPOGLYCEMIA-SEE COMMENTS; Start 10/11/16 at 15:45 Glucagon (Glucagon Inj) 1 mg UNSCH PRN OTHER HYPOGLYCEMIA-SEE COMMENTS; Start 10/11/16 at 15:45 Insulin Human Regular 1 1 Q4H SQ Last administered on 10/14/16 03:45; Start at 15:45 Magnesium Sulfate/ Dextrose 100 ml @ 100 mls/hr ONCE ONCE IV Last administered on 10/11/16 16:03; Start 10/11/16 at 15:45; Stop 10/11/16 at 16:44 ; Status DC Piperacillin Sod/ Tazobactam Sod (Zosyn 3.375 Gm Premix) 50 ml @ 100 mls/hr Q8H IV Last administered on 10/14/16 02:48; Start 10/11/16 at 18:00 Bumetanide (Bumex Inj) 1 mg ONCE ONCE IV PUSH Last administered on 10/11/16 16:15; Start 10/11/16 at 16:15; Stop 10/11/16 at 16:54; Status DC Hydralazine HCl (Apresoline) 25 mg Q8HR PO Last administered on 10/14/16 05:45 ; Start 10/11/16 at 16:15 Clonidine (Catapres) 0.1 mg Q12HR PO Last administered on 10/13/16 20:00; Start 10/11/16 at 21:00 Carvedilol (Coreg) 3.125 mg Q12HR PO Last administered on 10/13/16 20:00; Start 10/11/16 at 21:00 Hydralazine HCl (Apresoline Inj) 10 mg Q6H PRN IV PUSH SYS BP GREATER THAN 160 MMHG Last administered on 10/12/16 23:16; Start 10/11/16 at 16:15 Aspirin 325 mg 325 mg DAILY PO Last administered on 10/13/16 08:49; Start 02/17 at 16:15 Vancomycin HCl/ Sodium Chloride (Vancomycin Inj/ NS 250 ml Inj) 250 ml @ 250 mls/hr ONCE ONCE IV Last administered on 10/11/16 17:00; Start 10/11/16 at 17 :00; Stop 10/11/16 at 17:59; Status DC Acetaminophen 650 mg 650 mg Q6H PRN PO Fever Last administered on 10/13/16 03: 55; Start 10/11/16 at 16:45 Magnesium Sulfate/ Dextrose (Magnesium Sulfate 1 Gm Premix) 100 ml @ 100 mls/ hr Q1H IV Last administered on 10/12/16 17:00; Start 10/12/16 at 16:00; Stop 10/12/16 at 17:59; Status DC Diatrizoate Meglum/ Diatrizoate Sod ( Gastroview Liq) 18 ml ONCE ONCE PO Last administered on 10/12/16 20:18; Start 10/12/16 at 20:15; Stop 10/12/16 at 20:16; Status DC Labetalol HCl (Trandate Inj) 10 mg Q4H PRN IV PUSH SBP>160, DBP>90; Start 10/13 at 05:00; Stop 10/13/16 at 09:50; Status DC Albuterol Sulfate (Albuterol Neb) 2.5 mg Q2HR NEB PRN NEB DYSPNEA; Start at 10:00 Pantoprazole Sodium (Protonix) 40 mg DAILY PO ; Start 10/14/16 at 09:00; Status Cancel Albuterol/ Ipratropium (Duoneb Neb) 1 ampule QID NEB INH Last administered on 10/14/16t 08:01; Start 10/13/16 at 16:00 A/P Assessment and Plan A/P Acute hypoxemic respiratory failure-resolved Obstructive sleep apnea - no CPAP at night - sees Dr. Mcgill/pulmonology COPD continue neb treatment pulmonary consult appreciated. History of migraine headache Right 2.5 cm right middle cranial fossa arachnoid cyst/stable Holding Fioricet Acetaminophen for fever/pain CV: Chronic systolic heart failure ejection fraction 35-40% Hypertension Dyslipidemia Echocardiogram 10/17 revealed EF 35-40%. Decreased LV SF. Mild MR. Home medications lisinopril 40 mg daily, Coreg 25 mg twice a day, metoprolol 100 mg twice a day, clonidine 0.1 mg daily Norvasc 10 mg daily and hydralazine 10 mg 4 times a day Continue aspirin 325 mg by mouth daily Currently on Coreg 3.125 mg twice a day, clonidine 0.1 mg twice a day and hydralazine 25 mg 3 times a day with adequate control Hepatic steatosis CT abdomen/pelvis revealed hepatic steatosis Protonix for GI prophylaxis Benign abdominal examination BPH with recent prostate biopsy Inflamed urinary bladder dc styles cath Diabetes mellitus At home on Novulin 70/3 25 units subcutaneous twice a day Currently on sliding scale insulin with Accu-Cheks before meals/at bedtime to maintain euglycemia Acute kidney injury superimposed on chronic renal insufficiency Hold nephrotoxic medications including lisinopril and hydrochlorothiazide for now. Received Lasix 1 10/11. Holding Lasix currently Leukocytosis Thrombocythemia White blood cell count trending downward. Follow CBC daily. Monitor trends e-coli juan bacteremia e-coli UTI continue Zosyn CT and is also revealed large prostate and bladder wall inflammation likely source of infection. repeat the blood cultures today. ID consult appreciated. Left sacral iliac arthrosis PT evaluate and treat Hyponatremia-improved Prophylaxis - GI -Protonix - DVT - SCD/heparin subcutaneous transfer to floor. d/w the RN. Discharge Planning dc planning within the next 2-3 days if stable- pending the ID work-up and clearance. Viky Mike MD Oct 14, 2016 08:35
[2016-10-14] MEDS ORDERED: PANTOPRAZOLE SOD 40 MG DELAYED RELEASE TAB PO SCH (09:00)
[2016-10-14] MEDS: DOCUSATE SODIUM 50 MG/SENNA 8.6 MG TAB PO SCH ×2 (09:00→20:47)
[2016-10-14] MEDS ORDERED: GLUCAGON 1 MG/ML VIAL OTHER PRN (09:00)
[2016-10-14] MEDS ORDERED: DEXTROSE 50% IN WATER 50 ML VIAL(D50) IV PRN (09:00)
[2016-10-14] MEDS: cloNIDine HCL 0.1 MG TAB PO SCH ×2 (09:47→20:42)
[2016-10-14] MEDS: ASPIRIN 325 MG TAB PO SCH (09:47)
[2016-10-14] MEDS: PANTOPRAZOLE SODIUM 40 MG VIAL IV SCH (09:47)
[2016-10-14] MEDS: CARVEDILOL 3.125 MG TAB PO SCH ×2 (09:48→20:42)
[2016-10-14] MEDS: INSULIN ASPART SUPPLEMENTAL SCALE SQ SCH ×3 (11:43→20:43)
--- NOTE | 2016-10-14 14:40 | HHI.IDPN ---
Note Infectious Disease Note Vital Signs Date Time Temp Pulse Resp B/P Pulse Ox O2 Delivery O2 Flow Rate FiO2 10/14/16 12:00 98.4 86 22 119/82 95 10/14/16 12:00 84 10/14/16 10:00 84 10/14/16 08:01 92 Nasal Cannula 2.00 10/14/16 08:00 98.6 84 20 133/72 96 10/14/16 08:00 84 10/14/16 06:00 82 10/14/16 04:16 95 40 10/14/16 04:00 83 10/14/16 04:00 99.0 82 16 127/64 95 10/14/16 02:00 83 10/14/16 00:35 96 40 10/14/16 00:00 100.6 86 23 133/71 91 10/14/16 00:00 84 10/14/16 00:00 86 10/13/16 22:00 84 10/13/16 20:21 93 Nasal Cannula 3.00 10/13/16 20:00 80 10/13/16 20:00 98.9 80 27 129/63 94 10/13/16 18:00 66 10/13/16 16:00 70 10/13/16 16:00 99.0 75 20 104/60 96 Laboratory Tests Test 10/14/16 10/14/16 04:11 08:15 White Blood Count 9.2 TH/MM3 Red Blood Count 4.92 MIL/MM3 Hemoglobin 13.1 GM/DL Hematocrit 39.7 % Mean Corpuscular Volume 80.7 FL Mean Corpuscular Hemoglobin 26.6 PG Mean Corpuscular Hemoglobin 33.0 % Concent Red Cell Distribution Width 14.9 % Platelet Count 117 TH/MM3 Mean Platelet Volume 9.7 FL Neutrophils (%) (Auto) 81.8 % Lymphocytes (%) (Auto) 10.8 % Monocytes (%) (Auto) 6.2 % Eosinophils (%) (Auto) 0.8 % Basophils (%) (Auto) 0.4 % Neutrophils # (Auto) 7.5 TH/MM3 Lymphocytes # (Auto) 1.0 TH/MM3 Monocytes # (Auto) 0.6 TH/MM3 Eosinophils # (Auto) 0.1 TH/MM3 Basophils # (Auto) 0.0 TH/MM3 CBC Comment DIFF FINAL Differential Comment Sodium Level 134 MEQ/L Potassium Level 3.7 MEQ/L Chloride Level 98 MEQ/L Carbon Dioxide Level 23.3 MEQ/L Anion Gap 13 MEQ/L Blood Urea Nitrogen 28 MG/DL Creatinine 1.80 MG/DL Estimat Glomerular Filtration 38 ML/MIN Rate Random Glucose 160 MG/DL Calcium Level 8.4 MG/DL Phosphorus Level 2.5 MG/DL Magnesium Level 2.2 MG/DL Total Bilirubin 0.7 MG/DL Aspartate Amino Transf 41 U/L (AST/SGOT) Alanine Aminotransferase 41 U/L (ALT/SGPT) Alkaline Phosphatase 111 U/L Total Protein 7.2 GM/DL Albumin 2.7 GM/DL Urine Eosinophils NONE SEEN /HPF Urine Random Creatinine 177.2 MG/DL Urine Random Sodium 46 MEQ/L Patient is more alert. Feels better. No complaints. Afebrile. Patient tells me that he developed shaking chills after biopsy of the prostate. Presented to the emergency department on 10/11. The patient presented with hypertensive urgency and he was noted to have headaches and shakiness. The patient reportedly was on ciprofloxacin prior to admission for prostate issues. PAST MEDICAL HISTORY: 1. Diabetes mellitus. 2. Hypertension. 3. Cardiomyopathy. 4. Anemia. 5. Chronic kidney disease. 6. History of appendectomy. ALLERGIES: 1. MEDROL. ANTIBIOTICS Piperacillin / Tazobactam. OBJECTIVE: Vital Signs Date Time Temp Pulse Resp B/P Pulse Ox O2 Delivery O2 Flow Rate FiO2 10/14/16 12:00 98.4 86 22 119/82 95 10/14/16 12:00 84 10/14/16 10:00 84 10/14/16 08:01 92 Nasal Cannula 2.00 10/14/16 08:00 98.6 84 20 133/72 96 10/14/16 08:00 84 10/14/16 06:00 82 10/14/16 04:16 95 40 10/14/16 04:00 83 10/14/16 04:00 99.0 82 16 127/64 95 10/14/16 02:00 83 10/14/16 00:35 96 40 10/14/16 00:00 100.6 86 23 133/71 91 10/14/16 00:00 84 10/14/16 00:00 86 10/13/16 22:00 84 10/13/16 20:21 93 Nasal Cannula 3.00 10/13/16 20:00 80 10/13/16 20:00 98.9 80 27 129/63 94 10/13/16 18:00 66 10/13/16 16:00 70 10/13/16 16:00 99.0 75 20 104/60 96 10/13/16 10/13/16 10/14/16 14:59 22:59 06:59 Intake Total 682 ml 640 ml Output Total 400 ml 450 ml Balance 282 ml 190 ml Intake Oral 560 ml 480 ml IV Total 122 ml 160 ml Output Urine Total 400 ml 450 ml # Bowel Movements 4 1 Laboratory Tests Test 10/13/16 10/14/16 05:36 04:11 White Blood Count 14.8 TH/MM3 9.2 TH/MM3 Red Blood Count 5.11 MIL/MM3 4.92 MIL/MM3 Hemoglobin 13.8 GM/DL 13.1 GM/DL Hematocrit 40.7 % 39.7 % Mean Corpuscular Volume 79.6 FL 80.7 FL Mean Corpuscular Hemoglobin 27.0 PG 26.6 PG Mean Corpuscular Hemoglobin 33.9 % 33.0 % Concent Red Cell Distribution Width 15.0 % 14.9 % Platelet Count 131 TH/MM3 117 TH/MM3 Mean Platelet Volume 9.5 FL 9.7 FL Neutrophils (%) (Auto) 94.4 % 81.8 % Lymphocytes (%) (Auto) 2.8 % 10.8 % Monocytes (%) (Auto) 2.6 % 6.2 % Eosinophils (%) (Auto) 0.0 % 0.8 % Basophils (%) (Auto) 0.2 % 0.4 % Neutrophils # (Auto) 13.9 TH/MM3 7.5 TH/MM3 Lymphocytes # (Auto) 0.4 TH/MM3 1.0 TH/MM3 Monocytes # (Auto) 0.4 TH/MM3 0.6 TH/MM3 Eosinophils # (Auto) 0.0 TH/MM3 0.1 TH/MM3 Basophils # (Auto) 0.0 TH/MM3 0.0 TH/MM3 CBC Comment DIFF FINAL DIFF FINAL Differential Comment Laboratory Tests Test 10/13/16 10/14/16 05:36 04:11 Sodium Level 129 MEQ/L 134 MEQ/L Potassium Level 3.5 MEQ/L 3.7 MEQ/L Chloride Level 97 MEQ/L 98 MEQ/L Carbon Dioxide Level 21.3 MEQ/L 23.3 MEQ/L Anion Gap 11 MEQ/L 13 MEQ/L Blood Urea Nitrogen 28 MG/DL 28 MG/DL Creatinine 1.91 MG/DL 1.80 MG/DL Estimat Glomerular Filtration 36 ML/MIN 38 ML/MIN Rate Random Glucose 202 MG/DL 160 MG/DL Calcium Level 8.3 MG/DL 8.4 MG/DL Phosphorus Level 2.3 MG/DL 2.5 MG/DL Magnesium Level 1.9 MG/DL 2.2 MG/DL Total Bilirubin 1.0 MG/DL 0.7 MG/DL Aspartate Amino Transf 44 U/L 41 U/L (AST/SGOT) Alanine Aminotransferase 37 U/L 41 U/L (ALT/SGPT) Alkaline Phosphatase 103 U/L 111 U/L Total Protein 6.9 GM/DL 7.2 GM/DL Albumin 2.8 GM/DL 2.7 GM/DL Microbiology Date/Time Procedure Status Source Growth 10/11/16 15:45 Legionella Antigen - Final Complete Urine Catheterized Urine PRESUMPTIVE NEGATIVE FOR LEGIONELLA P... 10/11/16 15:45 Streptococcus pneumoniae Antigen (M - Final Complete Urine Catheterized Urine PRESUMPTIVE NEGATIVE FOR STREPTOCOCCU... 10/11/16 15:45 Urine Culture - Final Complete Urine Catheterized Urine Escherichia Coli 10/11/16 17:01 Aerobic Blood Culture - Final Complete Blood Peripheral Escherichia Coli 10/11/16 17:01 Anaerobic Blood Culture - Final Complete Escherichia Coli 10/11/16 17:06 Aerobic Blood Culture - Final Complete Blood Peripheral Escherichia Coli 10/11/16 17:06 Anaerobic Blood Culture - Final Complete Escherichia Coli 10/14/16 13:04 Aerobic Blood Culture Received Blood Peripheral Pending 10/14/16 13:04 Anaerobic Blood Culture Received Blood Peripheral Pending PHYSICAL EXAMINATION: GENERAL: No acute distress. HEAD, EYES, EARS, NOSE, THROAT: Extraocular movements appear grossly intact. No icterus. Oropharynx moist mucosa without lesions. NECK: Supple without adenopathy. LUNGS: Decreased breath sounds. HEART: Regular sinus without audible murmurs, rubs or gallops. ABDOMEN: Obese, soft, no tenderness on palpation. EXTREMITIES: No clubbing or cyanosis or edema. SKIN: No rash. NEUROLOGIC: Unable to fully assess. IMPRESSION: 1. Gram-negative bacteremia due to E. coli secondary to instrumentation( prostate biopsy)/urinary tract infection. Resistant to Levaquin. He was on Cipro. 2. Urinary tract infection due to E. coli 3. Sepsis on admission. 4. Thrombocytopenia. 5. Acute kidney disease. Improving. RECOMMENDATIONS: 1. Continue piperacillin / Tazobactam. 2. Monitor white blood cell count. 3. Monitor clinical status. 4. Follow renal function and antibiotic dose adjust if necessary. Plan on 14 days of antibiotics, IV antibiotics until 48 hours afebrile. Rommel Tyler MD Oct 14, 2016 14:40
[2016-10-15] VITALS (9 sets, daily range): BP systolic 129–152; BP diastolic 55–81; PULSE 62–86; RESP 18–22; TEMP 97.4–98.9; O2SAT 89–98
[2016-10-15] MEDS: PIPERACIL-TAZO 3.375 GM PREMIX 50 ML IV SCH ×3 (02:00→18:34)
[2016-10-15] MEDS: hydrALAZINE HCL 25 MG TAB PO SCH ×3 (05:29→22:35)
[2016-10-15] MEDS: INSULIN ASPART SUPPLEMENTAL SCALE SQ SCH ×4 (05:36→21:00)
--- NOTE | 2016-10-15 07:53 | HHI.PR ---
Subjective Remarks f/u; bacteremia resting comfortably with no distress. afebrile. denies pain or any new complaints. Objective Vitals Vital Signs Date Time Temp Pulse Resp B/P Pulse Ox O2 Delivery O2 Flow Rate FiO2 10/15/16 04:00 98.4 74 18 152/73 96 10/15/16 04:00 71 10/15/16 00:00 86 10/15/16 00:00 98.9 71 22 140/60 89 10/14/16 20:17 93 Nasal Cannula 2.00 10/14/16 20:00 98.6 82 23 164/84 93 10/14/16 20:00 82 10/14/16 16:00 98.5 73 20 117/62 96 10/14/16 16:00 84 10/14/16 12:00 98.4 86 22 119/82 95 10/14/16 12:00 84 10/14/16 10:00 84 10/14/16 08:01 92 Nasal Cannula 2.00 10/14/16 08:00 98.6 84 20 133/72 96 10/14/16 08:00 84 I/O 10/14/16 10/14/16 10/14/16 10/15/16 10/15/16 10/15/16 07:00 15:00 23:00 07:00 15:00 23:00 Intake Total 560 ml 300 ml 240 ml Output Total 400 ml 350 ml Balance 160 ml -50 ml 240 ml Intake Oral 560 ml 300 ml 240 ml Output Urine Total 400 ml 350 ml # Voids 1 # Bowel Movements 3 Result Diagram: 10/14/16 0411 10/14/16 0411 Imaging Last Impressions Abdomen/Pelvis CT 10/12/16 0000 Signed Impressions: Service Date/Time: October 00:01 - CONCLUSION: 1. Enlarged prostate and diffuse nonspecific urinary bladder wall thickening. Styles catheter in place. 2. Nonspecific mild circumferential rectal wall thickening, may be due to incomplete distention. 3. Hepatic steatosis. 4. Left-sided sacroiliac arthrosis. Jayson Alfonso MD Chest X-Ray 10/11/16 1448 Signed Impressions: Service Date/Time: Tuesday, October 11, 2016 15:16 - CONCLUSION: 1. Cardiomegaly and diffuse interstitial prominence suggesting possible interstitial edema or early CHF. This is new compared to prior dated 09/08/16. Tae Woody MD Head CT 10/11/16 1329 Signed Impressions: Service Date/Time: Tuesday, October 11, 2016 15:05 - CONCLUSION: Stable arachnoid cyst on the right without acute process. Jina Oden MD Objective Remarks GENERAL: This is a well-nourished, well-developed patient, in no apparent distress. CARDIOVASCULAR: Regular rate and regular rhythm without murmurs, gallops, or rubs. RESPIRATORY: Clear to auscultation. Breath sounds equal bilaterally. No wheezes , rales, or rhonchi. GASTROINTESTINAL: Abdomen soft, non-tender, nondistended. Normal, active bowel sounds MUSCULOSKELETAL: Extremities without clubbing, cyanosis, or edema. NEURO: Alert & Oriented x4 to person, place, time, situation. Moves all ext x4 Medications and IVs Current Medications Lorazepam (Ativan Inj) 1 mg ONCE ONCE IV PUSH Last administered on 10/11/16 14:10; Start 10/11/16 at 13:30; Stop 10/11/16 at 13:31; Status DC Labetalol HCl (Trandate Inj) 20 mg ONCE ONCE IV PUSH Last administered on 10/11 14:18; Start 10/11/16 at 14:15; Stop 10/11/16 at 14:16; Status DC Pantoprazole Sodium (Protonix Inj) 40 mg DAILY IV Last administered on 09:47; Start 10/11/16 at 15:30 Albuterol/ Ipratropium (Duoneb Neb) 1 ampule Q4HR NEB INH Last administered on 10/13/16 11:31; Start 10/11/16 at 16:00; Stop 10/13/16 at 13:02; Status DC Albuterol/ Ipratropium (Duoneb Neb) 1 ampule Q2HR NEB PRN INH WHEEZING; Start 10/11/16 at 15:30; Stop 10/13/16 at 09:48; Status DC Miscellaneous Information 1 [id number] Last administered on 10/11/16 16:03; Start 10/11/16 at 15:30 Chlorhexidine Gluconate (Chlorhexidine 2% Cloth) 3 pack Taper DAILY@04 TOP Last administered on 10/14/16 22:04; Start 10/12/16 at 04:00; Stop 10/08/17 at 03:59 Chlorhexidine Gluconate (Chlorhexidine 2% Cloth) 3 pack UNSCH PRN TOP HYGIENIC CARE; Start 10/11/16 at 15:30 Senna/Docusate Sodium (Gaatha-Colace) 1 tab BID PO Last administered on 20:18; Start 10/11/16 at 21:00 Magnesium Hydroxide (Milk Of Magnesia Liq) 30 ml Q12H PRN PO MILD - MODERATE CONSTIPATION; Start 10/11/16 at 15:30 Sennosides (Senokot) 17.2 mg Q12H PRN PO MODERATE - SEVERE CONSTIPATION; Start 10/11/16 at 15:30 Bisacodyl (Dulcolax Supp) 10 mg DAILY PRN RECTAL SEVERE CONSITIPATION; Start at 15:30 Lactulose (Lactulose Liq) 30 ml DAILY PRN PO SEVERE CONSITIPATION; Start at 15:30 Dextrose (D50w (Vial) Inj) 50 ml UNSCH PRN IV HYPOGLYCEMIA-SEE COMMENTS; Start 10/11/16 at 15:45; Stop 10/14/16 at 08:58; Status DC Glucagon (Glucagon Inj) 1 mg UNSCH PRN OTHER HYPOGLYCEMIA-SEE COMMENTS; Start 10/11/16 at 15:45; Stop 10/14/16 at 08:58; Status DC Insulin Human Regular 1 1 Q4H SQ Last administered on 10/14/16 03:45; Start at 15:45; Stop 10/14/16 at 09:00; Status DC Magnesium Sulfate/ Dextrose 100 ml @ 100 mls/hr ONCE ONCE IV Last administered on 10/11/16 16:03; Start 10/11/16 at 15:45; Stop 10/11/16 at 16:44 ; Status DC Piperacillin Sod/ Tazobactam Sod (Zosyn 3.375 Gm Premix) 50 ml @ 100 mls/hr Q8H IV Last administered on 10/15/16 02:00; Start 10/11/16 at 18:00 Bumetanide (Bumex Inj) 1 mg ONCE ONCE IV PUSH Last administered on 10/11/16 16:15; Start 10/11/16 at 16:15; Stop 10/11/16 at 16:54; Status DC Hydralazine HCl (Apresoline) 25 mg Q8HR PO Last administered on 10/15/16 05:29 ; Start 10/11/16 at 16:15 Clonidine (Catapres) 0.1 mg Q12HR PO Last administered on 10/14/16 20:42; Start 10/11/16 at 21:00 Carvedilol (Coreg) 3.125 mg Q12HR PO Last administered on 10/14/16 20:42; Start 10/11/16 at 21:00 Hydralazine HCl (Apresoline Inj) 10 mg Q6H PRN IV PUSH SYS BP GREATER THAN 160 MMHG Last administered on 10/12/16 23:16; Start 10/11/16 at 16:15 Aspirin 325 mg 325 mg DAILY PO Last administered on 10/14/16 09:47; Start 02/17 at 16:15 Vancomycin HCl/ Sodium Chloride (Vancomycin Inj/ NS 250 ml Inj) 250 ml @ 250 mls/hr ONCE ONCE IV Last administered on 10/11/16 17:00; Start 10/11/16 at 17 :00; Stop 10/11/16 at 17:59; Status DC Acetaminophen 650 mg 650 mg Q6H PRN PO Fever Last administered on 10/13/16 03: 55; Start 10/11/16 at 16:45 Magnesium Sulfate/ Dextrose (Magnesium Sulfate 1 Gm Premix) 100 ml @ 100 mls/ hr Q1H IV Last administered on 10/12/16 17:00; Start 10/12/16 at 16:00; Stop 10/12/16 at 17:59; Status DC Diatrizoate Meglum/ Diatrizoate Sod ( Gastroview Liq) 18 ml ONCE ONCE PO Last administered on 10/12/16 20:18; Start 10/12/16 at 20:15; Stop 10/12/16 at 20:16; Status DC Labetalol HCl (Trandate Inj) 10 mg Q4H PRN IV PUSH SBP>160, DBP>90; Start 10/13 at 05:00; Stop 10/13/16 at 09:50; Status DC Albuterol Sulfate (Albuterol Neb) 2.5 mg Q2HR NEB PRN NEB DYSPNEA; Start at 10:00 Pantoprazole Sodium (Protonix) 40 mg DAILY PO ; Start 10/14/16 at 09:00; Status Cancel Albuterol/ Ipratropium (Duoneb Neb) 1 ampule QID NEB INH Last administered on 10/14/16 11:02; Start 10/13/16 at 16:00; Stop 10/14/16 at 13:37; Status DC Dextrose (D50w (Vial) Inj) 50 ml UNSCH PRN IV HYPOGLYCEMIA-SEE COMMENTS; Start 10/14/16 at 09:00 Glucagon (Glucagon Inj) 1 mg UNSCH PRN OTHER HYPOGLYCEMIA-SEE COMMENTS; Start 10/14/16 at 09:00 Insulin Aspart (NovoLOG SUPPLEMENTAL SCALE) 1 ACHS SLIDING SCALE SQ Last administered on 10/15/16 05:36; Start 10/14/16 at 11:00 Albuterol/ Ipratropium (Duoneb Neb) 1 ampule TID NEB INH Last administered on 10/14/16 20:15; Start 10/14/16 at 14:00 A/P Assessment and Plan A/P Acute hypoxemic respiratory failure-resolved Obstructive sleep apnea - no CPAP at night - sees Dr. Mcgill/pulmonology COPD continue neb treatment keep on oxygen to keep O2 sat >90% pulmonary consult appreciated. History of migraine headache Right 2.5 cm right middle cranial fossa arachnoid cyst/stable Holding Fioricet Acetaminophen for fever/pain Chronic systolic heart failure ejection fraction 35-40% Hypertension Dyslipidemia Echocardiogram 10/17 revealed EF 35-40%. Decreased LV SF. Mild MR. Home medications lisinopril 40 mg daily, Coreg 25 mg twice a day, metoprolol 100 mg twice a day, clonidine 0.1 mg daily Norvasc 10 mg daily and hydralazine 10 mg 4 times a day Continue aspirin 325 mg by mouth daily Currently on Coreg 3.125 mg twice a day, clonidine 0.1 mg twice a day and hydralazine 25 mg 3 times a day with adequate control Hepatic steatosis CT abdomen/pelvis revealed hepatic steatosis Protonix for GI prophylaxis Benign abdominal examination BPH with recent prostate biopsy Inflamed urinary bladder dc'ed styles cath Diabetes mellitus At home on Novulin 70/3 25 units subcutaneous twice a day Currently on sliding scale insulin with Accu-Cheks before meals/at bedtime to maintain euglycemia Acute kidney injury superimposed on chronic renal insufficiency Hold nephrotoxic medications including lisinopril and hydrochlorothiazide for now. Received Lasix 1 10/11. Holding Lasix currently Leukocytosis-resolved Thrombocytopenia monitor CBC . e-coli juan bacteremia e-coli UTI continue Zosyn CT and is also revealed large prostate and bladder wall inflammation likely source of infection. follow the repeated blood cultures. ID following. Left sacral iliac arthrosis PT evaluate and treat Hyponatremia-improved Prophylaxis - GI -Protonix - DVT - SCD/heparin subcutaneous Discharge Planning dc planning within the next 2-3 days if stable- pending the ID work-up and clearance. will consult case management for rehab. Viky Mike MD Oct 15, 2016 07:53
[2016-10-15 08:00] LABS: POTASSIUM 3.7 MEQ/L (3.5-5.1)
[2016-10-15] MEDS: RESP: ALBUTEROL 2.5 MG/IPRATROPIUM 0.5 MG NEB (SCH) INH ×3 (08:49→19:35)
[2016-10-15] MEDS: CARVEDILOL 3.125 MG TAB PO SCH ×2 (10:36→22:35)
[2016-10-15] MEDS: ASPIRIN 325 MG TAB PO SCH (10:36)
[2016-10-15] MEDS: cloNIDine HCL 0.1 MG TAB PO SCH ×2 (10:36→22:35)
[2016-10-15] MEDS: PANTOPRAZOLE SODIUM 40 MG VIAL IV SCH (10:36)
[2016-10-15] MEDS: DOCUSATE SODIUM 50 MG/SENNA 8.6 MG TAB PO SCH ×2 (10:36→21:00)
[2016-10-16] VITALS (12 sets, daily range): BP systolic 109–141; BP diastolic 46–79; PULSE 60–70; RESP 15–22; TEMP 96.7–97.8; O2SAT 95–99
[2016-10-16] MEDS: PIPERACIL-TAZO 3.375 GM PREMIX 50 ML IV SCH ×3 (02:00→17:53)
[2016-10-16] MEDS: hydrALAZINE HCL 25 MG TAB PO SCH ×3 (06:00→23:21)
[2016-10-16] MEDS: INSULIN ASPART SUPPLEMENTAL SCALE SQ SCH ×4 (06:52→20:41)
[2016-10-16] MEDS: RESP: ALBUTEROL 2.5 MG/IPRATROPIUM 0.5 MG NEB (SCH) INH ×3 (07:52→20:42)
--- NOTE | 2016-10-16 08:24 | HHI.PR ---
Subjective Remarks No acute events overnight. Afebrile, vital signs stable. Patient with no complaints this morning. Lying in bed, resting comfortably. Denies fever/ chills. On 2 L nasal cannula. Objective Vitals Vital Signs Date Time Temp Pulse Resp B/P Pulse Ox O2 Delivery O2 Flow Rate FiO2 10/16/16 07:55 98 Nasal Cannula 2.00 10/16/16 04:00 97.8 70 22 141/67 97 10/16/16 00:00 97.7 70 22 119/72 96 10/15/16 20:00 97.4 72 20 146/81 96 10/15/16 16:00 98.2 85 18 131/77 98 10/15/16 15:46 94 Nasal Cannula 2.00 10/15/16 12:00 97.9 69 18 129/62 93 10/15/16 12:00 67 10/15/16 11:00 62 10/15/16 08:51 95 Nasal Cannula 2.00 I/O 10/15/16 10/15/16 10/15/16 10/16/16 10/16/16 10/16/16 06:59 14:59 22:59 06:59 14:59 22:59 Intake Total 240 ml 480 ml 220 ml Balance 240 ml 480 ml 220 ml Intake Oral 240 ml 480 ml 220 ml # Voids 8 2 # Bowel Movements 0 0 Result Diagram: 10/14/16 0411 10/15/16 0718 Objective Remarks GENERAL: This is a well-nourished, well-developed patient, in no apparent distress. CARDIOVASCULAR: Regular rate and regular rhythm without murmurs, gallops, or rubs. RESPIRATORY: Clear to auscultation. Breath sounds equal bilaterally. No wheezes , rales, or rhonchi. GASTROINTESTINAL: Abdomen soft, non-tender, nondistended. Normal, active bowel sounds MUSCULOSKELETAL: Extremities without clubbing, cyanosis, or edema. NEURO: Alert & Oriented x4 to person, place, time, situation. Moves all ext x4 A/P Assessment and Plan Acute hypoxemic respiratory failure-resolved Obstructive sleep apnea - no CPAP at night - sees Dr. Mcgill/pulmonology COPD continue neb treatment keep on oxygen to keep O2 sat >90% pulmonary consult appreciated. History of migraine headache Right 2.5 cm right middle cranial fossa arachnoid cyst/stable Holding Fioricet Acetaminophen for fever/pain Chronic systolic heart failure ejection fraction 35-40% Hypertension Dyslipidemia Echocardiogram 10/17 revealed EF 35-40%. Decreased LV SF. Mild MR. Home medications lisinopril 40 mg daily, Coreg 25 mg twice a day, metoprolol 100 mg twice a day, clonidine 0.1 mg daily Norvasc 10 mg daily and hydralazine 10 mg 4 times a day Continue aspirin 325 mg by mouth daily Currently on Coreg 3.125 mg twice a day, clonidine 0.1 mg twice a day and hydralazine 25 mg 3 times a day with adequate control Hepatic steatosis CT abdomen/pelvis revealed hepatic steatosis Protonix for GI prophylaxis Benign abdominal examination BPH with recent prostate biopsy Inflamed urinary bladder dc'ed styles cath Diabetes mellitus At home on Novulin 70/3 25 units subcutaneous twice a day Currently on sliding scale insulin with Accu-Cheks before meals/at bedtime to maintain euglycemia Acute kidney injury superimposed on chronic renal insufficiency Hold nephrotoxic medications including lisinopril and hydrochlorothiazide for now. Received Lasix 1 10/11. Holding Lasix currently Leukocytosis-resolved Thrombocytopenia monitor CBC . e-coli juan bacteremia e-coli UTI continue Zosyn CT and is also revealed large prostate and bladder wall inflammation likely source of infection. follow the repeated blood cultures. ID following. Left sacral iliac arthrosis PT evaluate and treat Hyponatremia-improved Prophylaxis - GI -Protonix - DVT - SCD/heparin subcutaneous Discharge Planning dc planning within the next 1-2 days if stable- pending the ID work-up and clearance. Consult case management for rehab. Mariana Moreau MD R3 Oct 16, 2016 08:24
[2016-10-16 08:41] LABS: BICARBONATE 23.9 MEQ/L (21.0-32.0); POTASSIUM 3.9 MEQ/L (3.5-5.1)
[2016-10-16] MEDS: cloNIDine HCL 0.1 MG TAB PO SCH ×2 (10:26→20:39)
[2016-10-16] MEDS: DOCUSATE SODIUM 50 MG/SENNA 8.6 MG TAB PO SCH ×2 (10:26→20:39)
[2016-10-16] MEDS: CARVEDILOL 3.125 MG TAB PO SCH ×2 (10:26→20:39)
[2016-10-16] MEDS: ASPIRIN 325 MG TAB PO SCH (10:26)
[2016-10-16] MEDS: PANTOPRAZOLE SODIUM 40 MG VIAL IV SCH (10:27)
[2016-10-17] VITALS (7 sets, daily range): BP systolic 135–146; BP diastolic 69–79; PULSE 57–86; RESP 15–18; TEMP 96.6–98.5; O2SAT 93–99
[2016-10-17] MEDS: CHLORHEXIDINE GLUCONATE 2 % 1 PACK (2 CLOTHS) TOP SCH (01:09)
[2016-10-17] MEDS: PIPERACIL-TAZO 3.375 GM PREMIX 50 ML IV SCH ×2 (03:02→10:08)
[2016-10-17] MEDS: hydrALAZINE HCL 25 MG TAB PO SCH ×2 (05:08→12:56)
[2016-10-17] MEDS: INSULIN ASPART SUPPLEMENTAL SCALE SQ SCH ×3 (06:15→16:00)
[2016-10-17] MEDS: RESP: ALBUTEROL 2.5 MG/IPRATROPIUM 0.5 MG NEB (SCH) INH ×2 (09:09→13:49)
[2016-10-17] MEDS: ASPIRIN 325 MG TAB PO SCH (10:07)
[2016-10-17] MEDS: CARVEDILOL 3.125 MG TAB PO SCH (10:08)
[2016-10-17] MEDS: PANTOPRAZOLE SODIUM 40 MG VIAL IV SCH (10:08)
[2016-10-17] MEDS: DOCUSATE SODIUM 50 MG/SENNA 8.6 MG TAB PO SCH (10:08)
[2016-10-17] MEDS: cloNIDine HCL 0.1 MG TAB PO SCH (10:08)
[2016-10-17 11:24] LABS: BICARBONATE 20.5 MEQ/L (21.0-32.0); POTASSIUM 4.1 MEQ/L (3.5-5.1)
--- NOTE | 2016-10-17 11:40 | HHI.IDPN ---
Note Infectious Disease Note Patient feels okay. No complaints. Afebrile. Developed shaking chills after biopsy of the prostate. Presented to the emergency department on 10/11. The patient presented with hypertensive urgency and he was noted to have headaches and shakiness. The patient reportedly was on ciprofloxacin prior to admission for prostate issues. PAST MEDICAL HISTORY: 1. Diabetes mellitus. 2. Hypertension. 3. Cardiomyopathy. 4. Anemia. 5. Chronic kidney disease. 6. History of appendectomy. ALLERGIES: 1. MEDROL. ANTIBIOTICS Piperacillin / Tazobactam. OBJECTIVE: Vital Signs Date Time Temp Pulse Resp B/P Pulse Ox O2 Delivery O2 Flow Rate FiO2 10/17/16 09:09 99 Nasal Cannula 2.00 10/17/16 08:00 96.6 66 18 146/71 97 10/17/16 04:00 75 10/17/16 03:00 98.5 86 15 135/69 96 10/17/16 00:00 57 10/16/16 23:21 97.3 64 15 135/73 96 10/16/16 21:01 67 10/16/16 20:42 99 Nasal Cannula 2.00 10/16/16 20:00 97.3 68 16 135/79 97 10/16/16 16:30 65 10/16/16 16:00 97.5 64 18 124/60 95 10/16/16 13:18 67 10/16/16 12:00 97.6 63 20 140/68 97 10/16/16 10/16/16 10/17/16 15:00 23:00 07:00 Intake Total 960 ml Balance 960 ml Intake Oral 960 ml # Voids 2 3 # Bowel Movements 1 1 Test 10/16/16 10/17/16 07:37 10:44 Sodium Level 137 MEQ/L 135 MEQ/L Potassium Level 3.9 MEQ/L 4.1 MEQ/L Chloride Level 104 MEQ/L 103 MEQ/L Carbon Dioxide Level 23.9 MEQ/L 20.5 MEQ/L Anion Gap 9 MEQ/L 12 MEQ/L Blood Urea Nitrogen 24 MG/DL 22 MG/DL Creatinine 1.32 MG/DL 1.37 MG/DL Estimat Glomerular Filtration 54 ML/MIN 52 ML/MIN Rate Random Glucose 181 MG/DL 246 MG/DL Calcium Level 8.9 MG/DL 8.6 MG/DL Microbiology Date/Time Procedure Status Source Growth 7/14/17 13:04 Aerobic Blood Culture - Preliminary Resulted Blood Peripheral NO GROWTH IN 3 DAYS 10/14/16 13:04 Anaerobic Blood Culture - Preliminary Resulted Blood Peripheral NO GROWTH IN 3 DAYS Microbiology Date/Time Procedure Status Source Growth 10/11/16 15:45 Legionella Antigen - Final Complete Urine Catheterized Urine PRESUMPTIVE NEGATIVE FOR LEGIONELLA P... 10/11/16 15:45 Streptococcus pneumoniae Antigen (M - Final Complete Urine Catheterized Urine PRESUMPTIVE NEGATIVE FOR STREPTOCOCCU... 10/11/16 15:45 Urine Culture - Final Complete Urine Catheterized Urine Escherichia Coli 10/11/16 17:01 Aerobic Blood Culture - Final Complete Blood Peripheral Escherichia Coli 10/11/16 17:01 Anaerobic Blood Culture - Final Complete Escherichia Coli 10/11/16 17:06 Aerobic Blood Culture - Final Complete Blood Peripheral Escherichia Coli 10/11/16 17:06 Anaerobic Blood Culture - Final Complete Escherichia Coli 10/14/16 13:04 Aerobic Blood Culture Received Blood Peripheral Pending 10/14/16 13:04 Anaerobic Blood Culture Received Blood Peripheral Pending PHYSICAL EXAMINATION: GENERAL: No acute distress. HEAD, EYES, EARS, NOSE, THROAT: Extraocular movements appear grossly intact. No icterus. Oropharynx moist mucosa without lesions. NECK: Supple without adenopathy. LUNGS: Decreased breath sounds. HEART: Regular S1S2, No murmurs, rubs or gallops. ABDOMEN: Obese, soft, no tenderness on palpation. EXTREMITIES: No clubbing or cyanosis or edema. SKIN: No rash. NEUROLOGIC: Non focal. IMPRESSION: 1. Gram-negative bacteremia due to E. coli secondary to instrumentation( prostate biopsy)/urinary tract infection. Resistant to Levaquin. He was on Cipro. 2. Urinary tract infection due to E. coli 3. Sepsis on admission. 4. Thrombocytopenia. 5. Acute kidney disease. RECOMMENDATIONS: 1. Stop piperacillin / Tazobactam. 2. Start Cefuroxime 500 mg PO and treat for 8 more days. 3. Monitor clinical status. Can be discharged from ID standpoint. Rommel Tyler MD Oct 17, 2016 11:40
[2016-10-17] MEDS ORDERED: CEFUROXIME AXETIL 500 MG TAB PO SCH (11:45)
--- NOTE | 2016-10-17 12:18 | HHI.PR ---
Subjective Remarks Follow-up gram-negative bacteremia/UTI 10/17/16-patient seen and examined, currently afebrile, no acute event overnight. Looking for discharge to rehabilitation Objective Vitals Vital Signs Date Time Temp Pulse Resp B/P Pulse Ox O2 Delivery O2 Flow Rate FiO2 10/17/16 09:09 99 Nasal Cannula 2.00 10/17/16 08:00 96.6 66 18 146/71 97 10/17/16 04:00 75 10/17/16 03:00 98.5 86 15 135/69 96 10/17/16 00:00 57 10/16/16 23:21 97.3 64 15 135/73 96 10/16/16 21:01 67 10/16/16 20:42 99 Nasal Cannula 2.00 10/16/16 20:00 97.3 68 16 135/79 97 10/16/16 16:30 65 10/16/16 16:00 97.5 64 18 124/60 95 10/16/16 13:18 67 I/O 10/16/16 10/16/16 10/16/16 10/17/16 10/17/16 10/17/16 07:00 15:00 23:00 07:00 15:00 23:00 Intake Total 960 ml 720 ml Balance 960 ml 720 ml Intake Oral 960 ml 720 ml # Voids 2 3 # Bowel Movements 1 1 Result Diagram: 10/14/16 0411 10/17/16 1044 Imaging Last Impressions Abdomen/Pelvis CT 10/12/16 0000 Signed Impressions: Service Date/Time: October 00:01 - CONCLUSION: 1. Enlarged prostate and diffuse nonspecific urinary bladder wall thickening. Avelar catheter in place. 2. Nonspecific mild circumferential rectal wall thickening, may be due to incomplete distention. 3. Hepatic steatosis. 4. Left-sided sacroiliac arthrosis. Jayson Alfonso MD Chest X-Ray 10/11/16 1448 Signed Impressions: Service Date/Time: Tuesday, October 11, 2016 15:16 - CONCLUSION: 1. Cardiomegaly and diffuse interstitial prominence suggesting possible interstitial edema or early CHF. This is new compared to prior dated 09/08/16. Tae Woody MD Head CT 10/11/16 1329 Signed Impressions: Service Date/Time: Tuesday, October 11, 2016 15:05 - CONCLUSION: Stable arachnoid cyst on the right without acute process. Jina Oden MD Objective Remarks GENERAL: NAD SKIN: Warm and dry. HEAD: Normocephalic. EYES: No scleral icterus. No injection or drainage. NECK: Supple, trachea midline. No JVD or lymphadenopathy. CARDIOVASCULAR: Regular rate and rhythm without murmurs, gallops, or rubs. RESPIRATORY: Breath sounds equal bilaterally. No accessory muscle use. GASTROINTESTINAL: Abdomen soft, non-tender, nondistended. MUSCULOSKELETAL: No cyanosis, or edema. BACK: Nontender without obvious deformity. No CVA tenderness. Procedures none A/P Problem List: (1) Sepsis ICD Code: A41.9 Status: Acute (2) Bacteremia due to Gram-negative bacteria ICD Code: R78.81 Status: Acute (3) UTI (urinary tract infection) ICD Code: N39.0 Status: Acute Assessment and Plan 66-year-old man with Gram-negative bacteremia due to instrumentation(prostate biopsy)/urinary tract UTI Escherichia coli Status post Zosyn Now on cefuroxime 500 mg Q12H 8 days per ID Acute hypoxemic respiratory failure-resolved Obstructive sleep apnea - no CPAP at night - sees Dr. Mcgill/pulmonology COPD continue neb treatment keep on oxygen to keep O2 sat >90% pulmonary consult appreciated. History of migraine headache-resolved Right 2.5 cm right middle cranial fossa arachnoid cyst/stable Acetaminophen for fever/pain Chronic systolic heart failure ejection fraction 35-40% Hypertension Dyslipidemia Echocardiogram 10/17 revealed EF 35-40%. Decreased LV SF. Mild MR. Home medications lisinopril 40 mg daily, Coreg 25 mg twice a day, metoprolol 100 mg twice a day, clonidine 0.1 mg daily Norvasc 10 mg daily and hydralazine 10 mg 4 times a day Continue aspirin 325 mg by mouth daily Currently on Coreg 3.125 mg twice a day, clonidine 0.1 mg twice a day and hydralazine 25 mg 3 times a day with adequate control Hepatic steatosis CT abdomen/pelvis revealed hepatic steatosis Protonix for GI prophylaxis BPH with recent prostate biopsy Inflamed urinary bladder Diabetes mellitus At home on Novulin 70/3 25 units subcutaneous twice a day Currently on sliding scale insulin with Accu-Cheks before meals/at bedtime to maintain euglycemia Acute kidney injury superimposed on chronic renal insufficiency Hold nephrotoxic medications including lisinopril and hydrochlorothiazide for now. Received Lasix 1 10/11. Holding Lasix currently Leukocytosis-resolved Thrombocytopenia monitor CBC . Left sacral iliac arthrosis PT evaluate and treat Hyponatremia-improved Prophylaxis - GI -Protonix - DVT - SCD/heparin subcutaneous Jaspreet Rogers MD Oct 17, 2016 12:17 Hyponatremia-improved Prophylaxis - GI -Protonix - DVT - SCD/heparin subcutaneous Jaspreet Rogers MD Oct 17, 2016 12:17
--- NOTE | 2016-10-17 12:20 | HHI.DS ---
Discharge Summary Admission Date Oct 11, 2016 at 14:58 Discharge Date: Oct 17, 2016 Admitting Diagnosis malignant hypertension/hypoxia (1) Sepsis ICD Code: A41.9 (2) Bacteremia due to Gram-negative bacteria ICD Code: R78.81 (3) UTI (urinary tract infection) ICD Code: N39.0 Procedures none CBC/BMP: 10/14/16 0411 10/17/16 1044 Significant Findings Laboratory Tests Test 10/15/16 10/16/16 10/17/16 07:18 07:37 10:44 Sodium Level 135 MEQ/L 135 MEQ/L (136-145) (136-145) Blood Urea Nitrogen 28 MG/DL (7-18) 24 MG/DL (7-18) 22 MG/DL (7-18) Creatinine 1.56 MG/DL 1.32 MG/DL 1.37 MG/DL (0.60-1.30) (0.60-1.30) (0.60-1.30) Estimat Glomerular Filtration 45 ML/MIN (>89) 54 ML/MIN (>89) 52 ML/MIN (>89) Rate Random Glucose 163 MG/DL 181 MG/DL 246 MG/DL (74-106) (74-106) (74-106) Calcium Level 8.4 MG/DL (8.5-10.1) Carbon Dioxide Level 20.5 MEQ/L (21.0-32.0) PE at Discharge GENERAL: NAD SKIN: Warm and dry. HEAD: Normocephalic. EYES: No scleral icterus. No injection or drainage. NECK: Supple, trachea midline. No JVD or lymphadenopathy. CARDIOVASCULAR: Regular rate and rhythm without murmurs, gallops, or rubs. RESPIRATORY: Breath sounds equal bilaterally. No accessory muscle use. GASTROINTESTINAL: Abdomen soft, non-tender, nondistended. MUSCULOSKELETAL: No cyanosis, or edema. BACK: Nontender without obvious deformity. No CVA tenderness. Hospital Course Gram-negative bacteremia due to instrumentation(prostate biopsy)/urinary tract UTI Escherichia coli Status post Zosyn Now on cefuroxime 500 mg q12h 8 days per ID Acute hypoxemic respiratory failure-resolved Obstructive sleep apnea - no CPAP at night - sees Dr. Mcgill/pulmonology COPD continue neb treatment keep on oxygen to keep O2 sat >90% pulmonary consult appreciated. History of migraine headache-resolved Right 2.5 cm right middle cranial fossa arachnoid cyst/stable Acetaminophen for fever/pain Chronic systolic heart failure ejection fraction 35-40% Hypertension Dyslipidemia Echocardiogram 10/17 revealed EF 35-40%. Decreased LV SF. Mild MR. Home medications lisinopril 40 mg daily, Coreg 25 mg twice a day, metoprolol 100 mg twice a day, clonidine 0.1 mg daily Norvasc 10 mg daily and hydralazine 10 mg 4 times a day Continue aspirin 325 mg by mouth daily Currently on Coreg 3.125 mg twice a day, clonidine 0.1 mg twice a day and hydralazine 25 mg 3 times a day with adequate control Hepatic steatosis CT abdomen/pelvis revealed hepatic steatosis Protonix for GI prophylaxis BPH with recent prostate biopsy Inflamed urinary bladder Diabetes mellitus At home on Novulin 70/3 25 units subcutaneous twice a day Currently on sliding scale insulin with Accu-Cheks before meals/at bedtime to maintain euglycemia Acute kidney injury superimposed on chronic renal insufficiency Hold nephrotoxic medications including lisinopril and hydrochlorothiazide for now. Received Lasix 1 10/11. Holding Lasix currently Leukocytosis-resolved Thrombocytopenia monitor CBC . Left sacral iliac arthrosis PT evaluate and treat Hyponatremia-improved Prophylaxis - GI -Protonix - DVT - SCD/heparin subcutaneous Pt Condition on Discharge: Stable Discharge Disposition: Discharge to SNF Discharge Time: > 30 minutes Discharge Instructions DIET: Follow Instructions for: Diabetic Diet Activities you can perform: Regular-No Restrictions Follow up Referrals: PCP Follow-up - 2-3 Days New Medications: Carvedilol (Coreg) 3.125 Mg Tab 3.125 MG PO Q12HR Blood Pressure Management #60 TAB Cefuroxime (Cefuroxime) 500 Mg Tab 500 MG PO Q12HR Infection #16 TAB Clonidine (Catapres) 0.1 Mg Tab 0.1 MG PO Q12HR Blood Pressure Management #60 TAB Hydralazine HCl (Hydralazine HCl) 25 Mg Tablet 25 MG PO Q8HR Blood Pressure Management #90 MG Continued Medications: Aspirin (Aspirin) 325 Mg Tab 325 MG PO DAILY #30 Ref 0 TAB Insulin Human Isophane-Regular 70-30 Inj (Novolin 70-30 Inj) 1,000 Unit/10 Ml Vial 25 UNITS SQ BID@08,17 Blood Sugar Management Days 30 INJECTION Multiple Vitamin (Multiple Vitamin) 1 Tab 1 TAB PO DAILY Nutritional Supplement Ref 0 TAB Discontinued Medications: Ndikvbcyni-Tvvaxxphbmhps-Uhrfqikf (Hcsqqkvoub-Mddjcemtulwmk-Dvaxbkbb) 50-325-40 Mg Tab 1 TAB PO Q6HR PRN HEADACHE #20 TAB Carvedilol (Carvedilol) 25 Mg Tab 25 MG PO BID #60 Ref 0 TAB Ciprofloxacin (Cipro) 500 Mg Tab 500 MG PO BID Infection Ref 0 TAB Clonidine (Clonidine) 0.1 Mg Tab 0.1 MG PO DAILY Blood Pressure Management #60 Ref 0 TAB Hydralazine HCl (Hydralazine HCl) 10 Mg Tablet 10 MG PO QID TAKE WITH A MEAL Blood Pressure Management Jaspreet Rogers MD Oct 17, 2016 12:20
[2016-10-17] MEDS ORDERED: CEFU1TAB20 PO (12:26)
[2016-10-17] MEDS ORDERED: CARV3.125 PO (12:26)
[2016-10-17] MEDS ORDERED: HYDR-3799 PO (12:26)
[2016-10-17] MEDS ORDERED: CLON.1 PO (12:30)
[2016-10-17 13:40] LABS: AUTOMATED NEUTROPHIL # 5.3 TH/MM3 (1.8-7.7); BASOPHIL # 0.1 TH/MM3 (0-0.2); BASOPHIL % 1.3 % (0.0-2.0); EOSINOPHIL # 0.6 TH/MM3 (0-0.4); EOSINOPHIL % 6.7 % (0.0-4.0); HEMATOCRIT 38.7 % (39.0-51.0); HEMO FLAGS DIFF FINAL; LYMPH % 23.3 % (9.0-44.0); LYMPHOCYTE # 2.1 TH/MM3 (1.0-4.8); MEAN CELL VOLUME 81.2 FL (80.0-100.0); MEAN CORPUSCULAR HEMOGLOBIN 27.8 PG (27.0-34.0); MEAN CORPUSCULAR HGB CONC 34.3 % (32.0-36.0); NEUT % 58.7 % (16.0-70.0); PLATELET COUNT 195 TH/MM3 (150-450); RED BLOOD COUNT 4.77 MIL/MM3 (4.50-5.90); RED CELL DISTRIBUTION WIDTH 15.2 % (11.6-17.2)
--- NOTE | 2016-10-19 13:09 | PQ ---
Physician Query Response Document PATIENT: RAMO MCCANN : 1950 ADMIT DATE: 10/11/2016 2:58 PM DISCH DATE: 10/17/2016 7:00 PM RESPONDING PROVIDER #: [email or web address] QUERY TEXT: Clarification of Clinical Diagnostic Findings Please clarify the appropriate diagnosis for this patient. [employer] documented the following information with no mention of this diagnosis in your documentati on. Please indicate in your next progress note and/or discharge summary your agreement with consulta nt or provide clarification that this diagnosis is not a current condition. Diagnosis: SEPSIS ON ADMISSION PER DR PATEL 1) SEPSIS ON ADMISSION 2) SEVERE SEPSIS ON ADMISSION 3) BACTEREMIA WITHOUT SEPSIS 4) OTHER PLEASE CALL [facility] @ [phone] FOR ASSISTANCE The patient's Clinical Indicators include: PER DR WRIGHT PROGRESS NOTE 10/14/16 IMPRESSION: 1. Gram-negative bacteremia due to E. coli secondary to instrumentation(prostate biopsy)/urinary trac t infection. Resistant to Levaquin. He was on Cipro. 2. Urinary tract infection due to E. coli 3. Sepsis on admission. Query created by: Yoana Dorman on 10/17/2016 10:11 AM RESPONSE TEXT: Sepsis on admission. QUERY TEXT: Cause and Effect Relationship Please clarify in documentation the relationship, if any, between GRAM NEGATIVE BACTEREMIA and R ECENT PROSTATE BIOPSY -- Conditions are due to or associated -- Unrelated to each other -- Other, please specify PLEASE CALL [facility] @ [phone] FOR ASSISTANCE The patient's Clinical Indicators include: PER DR PATEL PROGRESS NOTE 10/14/16: IMPRESSION: 1. Gram-negative bacteremia due to E. coli secondary to instrumentation(prostate biopsy)/urinary trac t infection. Resistant to Levaquin. He was on Cipro. 2. Urinary tract infection due to E. coli Query created by: Yoana Dorman on 10/17/2016 10:30 AM RESPONSE TEXT: Gram negative bacteremia possible due to instrumentation ( prostate biopsy) Electronically signed by: Viky Mike MD 10/19/2016 1:05 PM
== END 2016-10-17 19:00 | DRG 862 ==
LOC: NEPC 12:31 → NEDA 14:58 → HIME 16:20 → HOCB 10-15 03:41
PROVIDERS: ADMIT Hospitalist; ATTEND Hospitalist
PROC: 5A09457 Assistance with Respiratory Ventilation, 24-96 Consecutive Hours, Continuous Positive Airway Pressure (ICD-10-PCS; principal; 2016-10-11)
PROC: 0T9B70Z Drainage of Bladder with Drainage Device, Via Natural or Artificial Opening (ICD-10-PCS; 2016-10-11)
DX: T81.4XXA Infection following a procedure, initial encounter (principal); J96.01 Acute respiratory failure with hypoxia; N17.9 Acute kidney failure, unspecified; A41.9 Sepsis, unspecified organism; I42.9 Cardiomyopathy, unspecified; D69.6 Thrombocytopenia, unspecified; I50.22 Chronic systolic (congestive) heart failure; I13.0 Hypertensive heart and chronic kidney disease with heart failure and stage 1 through stage 4 chronic kidney disease, or unspecified chronic kidney disease; I16.1 Hypertensive emergency; E87.1 Hypo-osmolality and hyponatremia; I16.9 Hypertensive crisis, unspecified; N39.0 Urinary tract infection, site not specified; B96.89 Other specified bacterial agents as the cause of diseases classified elsewhere; E11.22 Type 2 diabetes mellitus with diabetic chronic kidney disease; E66.01 Morbid (severe) obesity due to excess calories; J44.9 Chronic obstructive pulmonary disease, unspecified; E78.00 Pure hypercholesterolemia, unspecified; G93.0 Cerebral cysts; N18.9 Chronic kidney disease, unspecified; G47.33 Obstructive sleep apnea (adult) (pediatric); D64.9 Anemia, unspecified; B96.20 Unspecified Escherichia coli [E. coli] as the cause of diseases classified elsewhere; Z87.891 Personal history of nicotine dependence; Z80.3 Family history of malignant neoplasm of breast; Z80.1 Family history of malignant neoplasm of trachea, bronchus and lung; Z79.82 Long term (current) use of aspirin; N40.0 Benign prostatic hyperplasia without lower urinary tract symptoms; G43.909 Migraine, unspecified, not intractable, without status migrainosus; E78.5 Hyperlipidemia, unspecified; E83.42 Hypomagnesemia; K76.0 Fatty (change of) liver, not elsewhere classified; M47.898 Other spondylosis, sacral and sacrococcygeal region; B99.9 Unspecified infectious disease; Y83.8 Other surgical procedures as the cause of abnormal reaction of the patient, or of later complication, without mention of misadventure at the time of the procedure; Y92.9 Unspecified place or not applicable
CPT/HCPCS: 36600; 70450; 71010; 74176; 76937; 80048; 80053; 80307; 81001; 82570; 82805; 82948; 83735; 83880; 84100; 84300; 85007; 85025; 85027; 85384; 85610; 85730; 87040; 87077; 87086; 87186; 87205; 87449; 87641; 93005; 94002; 94003; 94640; 94664; 96374; 96375; C9113; J0360; J1815; J2060; J2543; J3370; J3475; J7050; Q9963

== ENCOUNTER 2016-11-20 18:24 | Emergency (ER) | payer OTHER ==
[~2016-11-20] VITALS: Ht 185.4 cm; Wt 120.0 kg
[~2016-11-20 18:24] MED LIST changes: -BUTATAB6 PO; +CARV3.125 PO; +CEFU1TAB20 PO; +CLON.1 PO; +HYDR-3799 PO; -HYDR10TA23 PO; -LISI-515 PO; +LISI40TA PO
[2016-11-20 18:28] VITALS: BP 183/86; PULSE 92; RESP 17; TEMP 99.6; O2SAT 96
--- NOTE | 2016-11-20 20:57 | PD ---
HPI Chief Complaint: Flank/Kidney Pain Time Seen by Provider: 20:45 Travel History International Travel<30 days: No Contact w/Intl Traveler<30days: No Traveled to known affect area: No History of Present Illness HPI This is a 66-year-old male with history of prostate cancer, hypertension, diabetes, congestive heart failure, presents for evaluation of bilateral flank pain. Symptoms started 3 days ago. The pain is an aching pain that is constant. He has had subjective fevers at home today as well as dysuria. On examination he has some pain in the left lower abdomen. He denies testicular or scrotal pain, nausea or vomiting, diarrhea or constipation, chest pain or shortness of breath, cough or congestion. He was admitted in October and found to have gram-negative bacteremia secondary to Escherichia coli. With a urine source. No other complaints. PFSH Past Medical History Hx Anticoagulant Therapy: Yes (ASA) Arthritis: No Asthma: No Autoimmune Disease: No Blood Disorders: No Anxiety: No Depression: No Heart Rhythm Problems: No Cancer: Yes (prostate CA) Cardiac Catheterization: No Cardiovascular Problems: Yes (HTN) High Cholesterol: Yes Chemotherapy: No Chest Pain: Yes Congestive Heart Failure: Yes COPD: Yes Cerebrovascular Accident: No Coronary Artery Disease: No Diabetes: Yes (insulin ) Patient Takes Glucophage: No Diminished Hearing: No Endocrine: No Gastrointestinal Disorders: Yes (PYLIDINOL CYST X2) GERD: No Glaucoma: No Genitourinary: No Headaches: Yes Hepatitis: No Heparin Induced Thrombocytopen: No Hypertension: Yes Immune Disorder: No Implanted Vascular Access Dvce: No Kidney Stones: No Musculoskeletal: No Neurologic: No Psychiatric: No Reproductive: No Respiratory: Yes (COPD, PNA) Immunizations Current: Yes Migraines: No Myocardial Infarction: No Radiation Therapy: No Renal Failure: No Seizures: No Sickle Cell Disease: No Sleep Apnea: Yes (DOES NOT WEAR A CPAP) Thyroid Disease: No Tetanus Vaccination: < 5 Years Influenza Vaccination: Yes Past Surgical History Abdominal Surgery: Yes (APPENDECTOMY) AICD: No Appendectomy: Yes Arteriovenous Shunt: No Cardiac Surgery: No Cholecystectomy: No Coronary Artery Bypass Graft: No Ear Surgery: No Endocrine Surgery: No Eye Surgery: No Genitourinary Surgery: No Gynecologic Surgery: No Insulin Pump: No Joint Replacement: No Neurologic Surgery: No Oral Surgery: No Pacemaker: No Thoracic Surgery: No Other Surgery: Yes ( CYST REMOVAL) Social History Alcohol Use: Yes (RARE) Tobacco Use: No (quit 30 years ago) Substance Use: No Allergies-Medications (Allergen,Severity, Reaction): Coded Allergies: *MDRO Multi-Drug Resistant Organism (Verified Adverse Reaction, Unknown, ) MRSA (back wound/chest abscess) - 04/24/2015 MRSA PCR screen positive 10/12/16 methylprednisolone (Unverified Adverse Reaction, Unknown, 11/15/16) severe bowel pain Reported Meds & Prescriptions Reported Meds & Active Scripts Active Cefuroxime (Cefuroxime Axetil) 500 Mg Tab 500 Mg PO BID 10 Days Catapres (Clonidine) 0.1 Mg Tab 0.1 Mg PO Q12HR Coreg (Carvedilol) 3.125 Mg Tab 3.125 Mg PO Q12HR Hydralazine HCl 25 Mg Tablet 25 Mg PO Q8HR Cefuroxime (Cefuroxime Axetil) 500 Mg Tab 500 Mg PO Q12HR Hydrochlorothiazide 25 Mg Tab 25 Mg PO DAILY Potassium Chloride ER (Potassium Chloride) 10 Meq Cap 10 Meq PO BID Amlodipine (Amlodipine Besylate) 10 Mg Tab 10 Mg PO DAILY Novolin 70-30 Inj (Insulin Human Isoph/Insulin Regular) 1,000 Unit/10 Ml Vial 25 Units SQ BID@ 30 Days Reported Lisinopril 40 Mg Tab 40 Mg PO DAILY Metoprolol Tartrate 100 Mg Tab 100 Mg PO BID Aspirin 325 Mg Tab 325 Mg PO DAILY Multiple Vitamin 1 Tab 1 Tab PO DAILY Review of Systems Except as stated in HPI: all other systems reviewed are Neg Physical Exam Narrative GENERAL: Well-developed well-nourished male in no acute distress SKIN: Warm and dry. HEAD: Atraumatic. Normocephalic. EYES: Pupils equal and round. No scleral icterus. No injection or drainage. ENT: No nasal bleeding or discharge. Mucous membranes pink and moist. NECK: Trachea midline. No JVD. CARDIOVASCULAR: Regular rate and rhythm. No murmur appreciated. RESPIRATORY: No accessory muscle use. Clear to auscultation. Breath sounds equal bilaterally. GASTROINTESTINAL: Abdomen soft, mild bilateral CVA tenderness, left lower quadrant tenderness without guarding. MUSCULOSKELETAL: No obvious deformities. No edema. NEUROLOGICAL: Awake and alert. No obvious cranial nerve deficits. Motor grossly within normal limits. Normal speech. PSYCHIATRIC: Appropriate mood and affect; insight and judgment normal. Data Data Last Documented VS Vital Signs Date Time Temp Pulse Resp B/P (MAP) Pulse Ox O2 Delivery O2 Flow Rate FiO2 11/20/16 23:00 68 20 145/72 (96) 96 Room Air 11/20/16 18:28 99.6 Orders Orders Complete Blood Count With Diff (11/20/16 20:53) Comprehensive Metabolic Panel (11/20/16 20:53) Lactic Acid Sepsis Protocol (11/20/16 20:53) Urinalysis - C+S If Indicated (11/20/16 20:53) Blood Culture (11/20/16 20:53) Ct Abd/Pel W Iv Contrast(Rout) (11/20/16 20:53) Iv Access Insert/Monitor (11/20/16 20:53) Sodium Chlorid 0.9% 500 Ml Inj (Ns 500 M (11/20/16 21:00) Ketorolac Inj (Toradol Inj) (11/20/16 21:00) Ondansetron Inj (Zofran Inj) (11/20/16 21:00) Urine Culture (11/20/16 21:05) Iohexol 350 Inj (Omnipaque 350 Inj) (11/20/16 23:38) Ceftriaxone Inj (Rocephin Inj) (11/21/16 00:15) Labs Laboratory Tests Test 11/20/16 21:05 White Blood Count 15.9 TH/MM3 Red Blood Count 5.52 MIL/MM3 Hemoglobin 15.3 GM/DL Hematocrit 45.6 % Mean Corpuscular Volume 82.5 FL Mean Corpuscular Hemoglobin 27.8 PG Mean Corpuscular Hemoglobin Concent 33.7 % Red Cell Distribution Width 14.6 % Platelet Count 326 TH/MM3 Mean Platelet Volume 9.3 FL Neutrophils (%) (Auto) 68.4 % Lymphocytes (%) (Auto) 18.1 % Monocytes (%) (Auto) 6.8 % Eosinophils (%) (Auto) 5.5 % Basophils (%) (Auto) 1.2 % Neutrophils # (Auto) 10.9 TH/MM3 Lymphocytes # (Auto) 2.9 TH/MM3 Monocytes # (Auto) 1.1 TH/MM3 Eosinophils # (Auto) 0.9 TH/MM3 Basophils # (Auto) 0.2 TH/MM3 CBC Comment DIFF FINAL Differential Comment Urine Color LIGHT-YELLOW Urine Turbidity CLEAR Urine pH 6.0 Urine Specific Lyons 1.010 Urine Protein NEG mg/dL Urine Glucose (UA) NEG mg/dL Urine Ketones NEG mg/dL Urine Occult Blood NEG Urine Nitrite NEG Urine Bilirubin NEG Urine Urobilinogen LESS THAN 2.0 MG/DL Urine Leukocyte Esterase MOD Urine RBC 4 /hpf Urine WBC 14 /hpf Urine Amorphous Sediment RARE Urine Bacteria MOD /hpf Microscopic Urinalysis Comment CATH-CULTURE IND Blood Urea Nitrogen 17 MG/DL Creatinine 1.34 MG/DL Random Glucose 106 MG/DL Total Protein 9.4 GM/DL Albumin 4.4 GM/DL Calcium Level 9.8 MG/DL Alkaline Phosphatase 107 U/L Aspartate Amino Transf (AST/SGOT) 18 U/L Alanine Aminotransferase (ALT/SGPT) 26 U/L Total Bilirubin 0.5 MG/DL Sodium Level 137 MEQ/L Potassium Level 3.8 MEQ/L Chloride Level 100 MEQ/L Carbon Dioxide Level 26.5 MEQ/L Anion Gap 11 MEQ/L Estimat Glomerular Filtration Rate 53 ML/MIN Lactic Acid Level 0.9 mmol/L MDM Medical Decision Making Medical Screen Exam Complete: Yes Emergency Medical Condition: Yes Medical Record Reviewed: Yes Differential Diagnosis Pyelonephritis, muscle spasm, muscle strain, prostatitis, cystitis, diverticulitis Narrative Course 66-year-old male resents with bilateral flank pain for 3 days. He has had subjective fevers and dysuria today. On examination he has mild left lower quadrant tenderness and bilateral flank pain. His temperature in triage was 99.6 and his pulse was 92. Plan is for basic lab work, blood cultures, CT abdomen and pelvis with contrast. He will be given 500 mL normal saline bolus, Toradol and Zofran. Laboratory imaging studies have been reviewed. WBC count is 15.9. Urinalysis reveals 4 RBCs and 14 wbc's, moderate bacteria, culture pending. CT imaging is without acute abnormality. The patient will be given a 2 g dose of Rocephin and discharged with cefuroxime. Discussed signs and symptoms that would warrant returning to the emergency room. Diagnosis Primary Impression: UTI (urinary tract infection) Qualified Codes: N39.0 - Urinary tract infection, site not specified; R31.9 - Hematuria, unspecified Additional Instructions: Take the antibiotic as prescribed. Stay well hydrated. Return for any acutely new or worsening symptoms. Med/Other Pt SpecificInfo: Prescription(s) given Scripts Cefuroxime (Cefuroxime) 500 Mg Tab 500 MG PO BID for Infection for 10 Days, TAB 0 Refills Prov: Ai Verdin DO 11/21/16 Disposition: 01 DISCHARGE HOME Condition: Stable Nakul Garvey Nov 20, 2016 20:57
[2016-11-20] MEDS ORDERED: ONDANSETRON HCL 4 MG/2 ML VIAL IV PUSH ONE (21:00)
[2016-11-20] MEDS ORDERED: SODIUM CHLORID 0.9% 500 ML INJ 500 ML IV ONE (21:00)
[2016-11-20] MEDS ORDERED: KETOROLAC TROMETHAMINE 30 MG/ML (IVP) VIAL IV PUSH ONE (21:00)
[2016-11-20 21:05] VITALS: BP 158/74; PULSE 75; RESP 20; O2SAT 98
[2016-11-20 21:52] LABS: AUTOMATED NEUTROPHIL # 10.9 TH/MM3 (1.8-7.7); BASOPHIL # 0.2 TH/MM3 (0-0.2); BASOPHIL % 1.2 % (0.0-2.0); EOSINOPHIL # 0.9 TH/MM3 (0-0.4); EOSINOPHIL % 5.5 % (0.0-4.0); HEMATOCRIT 45.6 % (39.0-51.0); HEMO FLAGS DIFF FINAL; LYMPH % 18.1 % (9.0-44.0); LYMPHOCYTE # 2.9 TH/MM3 (1.0-4.8); MEAN CELL VOLUME 82.5 FL (80.0-100.0); MEAN CORPUSCULAR HEMOGLOBIN 27.8 PG (27.0-34.0); MEAN CORPUSCULAR HGB CONC 33.7 % (32.0-36.0); MONO % 6.8 % (0.0-8.0); NEUT % 68.4 % (16.0-70.0); PLATELET COUNT 326 TH/MM3 (150-450); RED BLOOD COUNT 5.52 MIL/MM3 (4.50-5.90); RED CELL DISTRIBUTION WIDTH 14.6 % (11.6-17.2); WHITE BLOOD COUNT 15.9 TH/MM3 (4.0-11.0)
[2016-11-20 21:55] LABS: BACTERIA, URINE MOD /hpf; BLOOD, URINE NEG (NEG); GLUCOSE,URINE NEG (NEG); KETONE, URINE NEG (NEG); NITRITE,URINE NEG (NEG); URINE COLOR LIGHT-YELLOW (YELLW/STRAW)
[2016-11-20 21:57] LABS: COMMENT (UR) CATH-CULTURE IND; CULTURE IF INDICATED CATH CULTURE IND
[2016-11-20 22:06] LABS: ALT (GPT) 26 U/L (12-78); ANION GAP 11 MEQ/L (5-15); AST (GOT) 18 U/L (15-37); BICARBONATE 26.5 MEQ/L (21.0-32.0); BLOOD UREA NITROGEN 17 MG/DL (7-18); CHLORIDE 100 MEQ/L (98-107); GLOMERULAR FILTRATION RATE 53 ML/MIN (>89); POTASSIUM 3.8 MEQ/L (3.5-5.1); SODIUM (NA) 137 MEQ/L (136-145)
[2016-11-20 22:09] LABS: ALKALINE PHOSPHATASE 107 U/L (45-117); TOTAL BILIRUBIN ADULT 0.5 MG/DL (0.2-1.0)
[2016-11-20 23:00] VITALS: BP 145/72; PULSE 68; RESP 20; O2SAT 96
--- NOTE | 2016-11-20 23:21 | PD ---
Physical Exam Narrative I, Dr. Verdin, have reviewed the advance practice practitioner's documentation and am in agreement, met with the patient face to face, made the diagnosis, and the medical decision making was done by me. *My assessment and Findings: Pyelonephritis vs. diverticulitis vs. colitis 66yo M with back pain and dysuria. Pt felt a little warm but no documented fever. Denies any chest pain, sob, n/v, hematuria. Pt with mild left upper abdominal pain on exam. Labs reviewed, leukocytosis at 15.9. Creatinine at 1.34 which is at baseline. Lactic acid 0.9. Pt given toradol, zofran and NS IVF 500cc. Pt reevaluated at bedside and pain has improved. Denies any nausea. Pt is well appearing. UA showed moderate leukocyte. Moderate bacteria. CT a/p showed no acute findings. Pt given ceftriaxone IV here and will be prescribed antibiotics. He is well appearing and has not nausea or vomiting so will try outpatient treatment first. Return precautions given. Data Data Last Documented VS Vital Signs Date Time Temp Pulse Resp B/P (MAP) Pulse Ox O2 Delivery O2 Flow Rate FiO2 11/20/16 23:00 68 20 145/72 (96) 96 Room Air 11/20/16 18:28 99.6 Orders Orders Complete Blood Count With Diff (11/20/16 20:53) Comprehensive Metabolic Panel (11/20/16 20:53) Lactic Acid Sepsis Protocol (11/20/16 20:53) Urinalysis - C+S If Indicated (11/20/16 20:53) Blood Culture (11/20/16 20:53) Ct Abd/Pel W Iv Contrast(Rout) (11/20/16 20:53) Iv Access Insert/Monitor (11/20/16 20:53) Sodium Chlorid 0.9% 500 Ml Inj (Ns 500 M (11/20/16 21:00) Ketorolac Inj (Toradol Inj) (11/20/16 21:00) Ondansetron Inj (Zofran Inj) (11/20/16 21:00) Urine Culture (11/20/16 21:05) Iohexol 350 Inj (Omnipaque 350 Inj) (11/20/16 23:38) Ceftriaxone Inj (Rocephin Inj) (11/21/16 00:15) Labs Laboratory Tests Test 11/20/16 21:05 White Blood Count 15.9 TH/MM3 Red Blood Count 5.52 MIL/MM3 Hemoglobin 15.3 GM/DL Hematocrit 45.6 % Mean Corpuscular Volume 82.5 FL Mean Corpuscular Hemoglobin 27.8 PG Mean Corpuscular Hemoglobin Concent 33.7 % Red Cell Distribution Width 14.6 % Platelet Count 326 TH/MM3 Mean Platelet Volume 9.3 FL Neutrophils (%) (Auto) 68.4 % Lymphocytes (%) (Auto) 18.1 % Monocytes (%) (Auto) 6.8 % Eosinophils (%) (Auto) 5.5 % Basophils (%) (Auto) 1.2 % Neutrophils # (Auto) 10.9 TH/MM3 Lymphocytes # (Auto) 2.9 TH/MM3 Monocytes # (Auto) 1.1 TH/MM3 Eosinophils # (Auto) 0.9 TH/MM3 Basophils # (Auto) 0.2 TH/MM3 CBC Comment DIFF FINAL Differential Comment Urine Color LIGHT-YELLOW Urine Turbidity CLEAR Urine pH 6.0 Urine Specific [place] 1.010 Urine Protein NEG mg/dL Urine Glucose (UA) NEG mg/dL Urine Ketones NEG mg/dL Urine Occult Blood NEG Urine Nitrite NEG Urine Bilirubin NEG Urine Urobilinogen LESS THAN 2.0 MG/DL Urine Leukocyte Esterase MOD Urine RBC 4 /hpf Urine WBC 14 /hpf Urine Amorphous Sediment RARE Urine Bacteria MOD /hpf Microscopic Urinalysis Comment CATH-CULTURE IND Blood Urea Nitrogen 17 MG/DL Creatinine 1.34 MG/DL Random Glucose 106 MG/DL Total Protein 9.4 GM/DL Albumin 4.4 GM/DL Calcium Level 9.8 MG/DL Alkaline Phosphatase 107 U/L Aspartate Amino Transf (AST/SGOT) 18 U/L Alanine Aminotransferase (ALT/SGPT) 26 U/L Total Bilirubin 0.5 MG/DL Sodium Level 137 MEQ/L Potassium Level 3.8 MEQ/L Chloride Level 100 MEQ/L Carbon Dioxide Level 26.5 MEQ/L Anion Gap 11 MEQ/L Estimat Glomerular Filtration Rate 53 ML/MIN Lactic Acid Level 0.9 mmol/L MDM Supervised Visit with ALAINA: Yes Diagnosis Primary Impression: UTI (urinary tract infection) Qualified Codes: N39.0 - Urinary tract infection, site not specified; R31.9 - Hematuria, unspecified Scripts Cefuroxime (Cefuroxime) 500 Mg Tab 500 MG PO BID for Infection for 10 Days, TAB 0 Refills Prov: Ai Verdin DO 11/21/16 Ai Verdin DO Nov 20, 2016 23:21
[2016-11-20] MEDS ORDERED: IOHEXOL 350 MG/ML 10 ML VIAL (for RAD DIAG) IVCONTRAST ONE (23:38)
--- NOTE | 2016-11-21 00:09 | RADRPT ---
EXAM DATE/TIME: 11/20/2016 23:37 [facility] COMPARISON: CT ABDOMEN & PELVIS W/O CONTRAST, October 13, 2016, 0:01. INDICATIONS : Bilateral flank pain. IV CONTRAST: 97 cc Omnipaque 350 (iohexol) IV ORAL CONTRAST: No oral contrast ingested. RADIATION DOSE: 20.37 CTDIvol (mGy) MEDICAL HISTORY : Diabetes mellitus type 1. Congestive heart failure. Carcinoma, prostate.Hypertension SURGICAL HISTORY : Appendectomy. ENCOUNTER: Initial ACUITY: 3 days PAIN SCALE: 6/10 LOCATION: Bilateral flank TECHNIQUE: Volumetric scanning of the abdomen and pelvis was performed. Using automated exposure control and ad justment of the mA and/or kV according to patient size, radiation dose was kept as low as reasonably achievable to obtain optimal diagnostic quality images. DICOM format image data is available electro nically for review and comparison. FINDINGS: Lung bases are clear. Fatty liver. Spleen, adrenals, kidneys and pancreas demonstrate no acute findin gs. No gallstones or biliary ductal dilatation. There is no bowel obstruction. No free air or free fluid. No adenopathy. No acute bony abnormality. CONCLUSION: 1. No acute findings. Specifically no obstructive uropathy or hydronephrosis. 2. Colonic diverticula without diverticulitis. 3. Prostatic enlargement, stable since October exam. Previous study catheter has been removed. Gilberto Coles MD on November 21, 2016 at 0:01 Board Certified Radiologist. This report was verified electronically.
[2016-11-21] MEDS ORDERED: CEFU1TAB20 PO (00:14)
[2016-11-21] MEDS ORDERED: cefTRIAXone INJ 2,000 MG in SODIUM CHLORIDE 0.9% INJ 100 ML IV ONE (00:15)
[2016-11-21 01:16] VITALS: BP 156/72; PULSE 64; RESP 18; O2SAT 94
[2016-11-21] MEDS ORDERED: ATOR20TA15 PO (01:29)
== END 2016-11-21 01:42 | disposition home or self-care (01) ==
LOC: NEPD 18:24
DX: N39.0 Urinary tract infection, site not specified (principal); B96.20 Unspecified Escherichia coli [E. coli] as the cause of diseases classified elsewhere; R31.9 Hematuria, unspecified; I10 Essential (primary) hypertension; E11.9 Type 2 diabetes mellitus without complications; I50.9 Heart failure, unspecified; G47.33 Obstructive sleep apnea (adult) (pediatric)
CPT/HCPCS: 74177; 80053; 81001; 83605; 85025; 87040; 87077; 87086; 87186; 96361; 96365; 96375; 99285; J0696; J1885; J2405; J7040; Q9967

== ENCOUNTER 2017-03-03 02:19 | Emergency (ER) | payer OTHER ==
[~2017-03-03 02:19] MED LIST changes: +ASPI-183 PO; -ASPI325T PO; +ATOR20TA15 PO; -METO100T PO
[2017-03-03 02:22] VITALS: BP 172/93; PULSE 98; RESP 16; TEMP 98.6; O2SAT 98
[2017-03-03] MEDS ORDERED: NOVO7030P2 SQ (02:39)
[2017-03-03] MEDS ORDERED: CLON0.1T PO (02:39)
[2017-03-03] MEDS ORDERED: diphenhydrAMINE HCL 50 MG/ML VIAL IVP ONE (02:45)
[2017-03-03] MEDS ORDERED: SODIUM CHLORIDE 0.9% FLUSH 10 ML FLUSH IVF PRN (02:45)
[2017-03-03] MEDS ORDERED: PROCHLORPERAZINE INJ 10 MG/2 ML VIAL IVP ONE (02:45)
--- NOTE | 2017-03-03 03:16 | PD ---
HPI Chief Complaint: Hypertension Time Seen by Provider: 02:43 Travel History International Travel<30 days: No Contact w/Intl Traveler<30days: No Traveled to known affect area: No History of Present Illness HPI 67 y/o male presents with frontal headache and elevated blood pressure. He states that this happened this evening. He took his blood pressure medicine like he should, some he takes first thing in the morning and some he takes twice a day. He denies any other concurrent complaints. Quality is pressure. Severity is moderate. He states his blood pressure at home was in the 200s. PFSH Past Medical History Hx Anticoagulant Therapy: Yes (ASA) Arthritis: No Asthma: No Autoimmune Disease: No Blood Disorders: No Anxiety: No Depression: No Heart Rhythm Problems: No Cancer: Yes (prostate CA) Cardiac Catheterization: No Cardiovascular Problems: Yes (HTN) High Cholesterol: Yes Chemotherapy: No Chest Pain: Yes Congestive Heart Failure: Yes COPD: Yes Cerebrovascular Accident: No Coronary Artery Disease: No Diabetes: Yes (insulin ) Patient Takes Glucophage: No Diminished Hearing: No Endocrine: No Gastrointestinal Disorders: Yes (PYLIDINOL CYST X2) GERD: No Glaucoma: No Genitourinary: No Headaches: Yes Hepatitis: No Heparin Induced Thrombocytopen: No Hypertension: Yes Immune Disorder: No Implanted Vascular Access Dvce: No Kidney Stones: No Musculoskeletal: No Neurologic: No Psychiatric: No Reproductive: No Respiratory: Yes (COPD, PNA) Immunizations Current: Yes Migraines: No Myocardial Infarction: No Radiation Therapy: No Renal Failure: No Seizures: No Sickle Cell Disease: No Sleep Apnea: Yes (DOES NOT WEAR A CPAP) Thyroid Disease: No ?: Not Past Surgical History Abdominal Surgery: Yes (APPENDECTOMY) AICD: No Appendectomy: Yes Arteriovenous Shunt: No Cardiac Surgery: No Cholecystectomy: No Coronary Artery Bypass Graft: No Ear Surgery: No Endocrine Surgery: No Eye Surgery: No Genitourinary Surgery: No Gynecologic Surgery: No Insulin Pump: No Joint Replacement: No Neurologic Surgery: No Oral Surgery: No Pacemaker: No Thoracic Surgery: No Other Surgery: Yes ( CYST REMOVAL) Social History Alcohol Use: Yes (RARE) Tobacco Use: No (quit 30 years ago) Substance Use: No Allergies-Medications (Allergen,Severity, Reaction): Coded Allergies: *MDRO Multi-Drug Resistant Organism (Verified Adverse Reaction, Unknown, ) MRSA (back wound/chest abscess) - 04/24/2015 MRSA PCR screen positive 10/12/16 methylprednisolone (Unverified Adverse Reaction, Unknown, 11/15/16) severe bowel pain Reported Meds & Prescriptions Reported Meds & Active Scripts Active Coreg (Carvedilol) 3.125 Mg Tab 3.125 Mg PO Q12HR Hydralazine HCl 25 Mg Tablet 25 Mg PO Q8HR Hydrochlorothiazide 25 Mg Tab 25 Mg PO DAILY Potassium Chloride ER (Potassium Chloride) 10 Meq Cap 10 Meq PO BID Amlodipine (Amlodipine Besylate) 10 Mg Tab 10 Mg PO DAILY Reported Clonidine (Clonidine HCl) 0.1 Mg Tab 0.1 Mg PO DAILY Novolin 70-30 Inj (Insulin Human Isoph/Insulin Regular) 1,000 Unit/10 Ml Vial 37 Units SQ BID Atorvastatin (Atorvastatin Calcium) 20 Mg Tab 20 Mg PO HS Lisinopril 40 Mg Tab 40 Mg PO DAILY Aspirin 325 Mg Tab 325 Mg PO DAILY Multiple Vitamin 1 Tab 1 Tab PO DAILY Review of Systems Except as stated in HPI: all other systems reviewed are Neg Physical Exam Narrative GENERAL: Well-nourished, well-developed patient. Well-appearing SKIN: Warm and dry. HEAD: Normocephalic and atraumatic. EYES: No injection or drainage. Pupils equal ENT: No nasal drainage noted. NECK: Supple, trachea midline. No meningeal signs CARDIOVASCULAR: Regular rate and rhythm RESPIRATORY: No increased effort. No accessory muscle use. GASTROINTESTINAL: Abdomen soft, non-tender, nondistended. NEUROLOGICAL: Awake and alert. Motor and sensory grossly within normal limits. Normal speech. 5 out of 5 in all 4 extremities, equal grasp bilaterally Data Data Last Documented VS Vital Signs Date Time Temp Pulse Resp B/P (MAP) Pulse Ox O2 Delivery O2 Flow Rate FiO2 03/03/17 02:22 98.6 98 16 172/93 (119) 98 Room Air Orders Orders Complete Blood Count With Diff (03/03/17 02:45) Basic Metabolic Panel (Bmp) (03/03/17 02:45) Ct Brain W/O Iv Contrast(Rout) (03/03/17 02:45) Ecg Monitoring (03/03/17 02:45) Iv Access Insert/Monitor (03/03/17 02:45) Oximetry (03/03/17 02:45) Sodium Chloride 0.9% Flush (Ns Flush) (03/03/17 02:45) Prochlorperazine Inj (Compazine Inj) (03/03/17 02:45) Diphenhydramine Inj (Benadryl Inj) (03/03/17 02:45) Ed Discharge Order (03/03/17 04:07) Labs Laboratory Tests Test 03/03/17 03:10 White Blood Count 9.4 TH/MM3 Red Blood Count 4.82 MIL/MM3 Hemoglobin 13.4 GM/DL Hematocrit 39.2 % Mean Corpuscular Volume 81.3 FL Mean Corpuscular Hemoglobin 27.8 PG Mean Corpuscular Hemoglobin Concent 34.2 % Red Cell Distribution Width 14.7 % Platelet Count 225 TH/MM3 Mean Platelet Volume 8.2 FL Neutrophils (%) (Auto) 68.5 % Lymphocytes (%) (Auto) 16.5 % Monocytes (%) (Auto) 7.9 % Eosinophils (%) (Auto) 6.0 % Basophils (%) (Auto) 1.1 % Neutrophils # (Auto) 6.4 TH/MM3 Lymphocytes # (Auto) 1.5 TH/MM3 Monocytes # (Auto) 0.7 TH/MM3 Eosinophils # (Auto) 0.6 TH/MM3 Basophils # (Auto) 0.1 TH/MM3 CBC Comment DIFF FINAL Differential Comment Blood Urea Nitrogen 21 MG/DL Creatinine 1.26 MG/DL Random Glucose 317 MG/DL Calcium Level 8.7 MG/DL Sodium Level 135 MEQ/L Potassium Level 4.1 MEQ/L Chloride Level 100 MEQ/L Carbon Dioxide Level 25.7 MEQ/L Anion Gap 9 MEQ/L Estimat Glomerular Filtration Rate 57 ML/MIN [facility] Medical Decision Making Medical Screen Exam Complete: Yes Emergency Medical Condition: Yes Medical Record Reviewed: Yes (pmh confirmed) Interpretation(s) CBC & BMP Diagram 03/03/17 03:[address] head no acute Differential Diagnosis Hypertensive urgency, intracranial, tension, migraine Narrative Course Will check blood work, CT brain and dose with Compazine and Benadryl and reevaluate ed workup no acute, Patient denies any new complaints and states that they are feeling better. Patient happy with care, all questions answered. Patient knows that follow up is incumbent on them and to return to the emergency room immediately if new or worsening symptoms develop. Patient given strict return precautions, vitals reviewed and are normal, agrees to further workup as an outpatient. Diagnosis Primary Impression: Cephalalgia Qualified Codes: R51 - Headache Additional Impression: Hypertension Qualified Codes: I10 - Essential (primary) hypertension Patient Instructions: General Instructions Additional Instructions: return as needed, follow with primary tomorrow, keep blood pressure log, tylenol as needed Med/Other Pt SpecificInfo: No Change to Meds Disposition: 01 DISCHARGE HOME Condition: Stable Kate Olvera MD Mar 03, 2017 03:16
[2017-03-03 03:26] LABS: AUTOMATED NEUTROPHIL # 6.4 TH/MM3 (1.8-7.7); BASOPHIL # 0.1 TH/MM3 (0-0.2); BASOPHIL % 1.1 % (0.0-2.0); EOSINOPHIL # 0.6 TH/MM3 (0-0.4); HEMATOCRIT 39.2 % (39.0-51.0); HEMO FLAGS DIFF FINAL; LYMPH % 16.5 % (9.0-44.0); LYMPHOCYTE # 1.5 TH/MM3 (1.0-4.8); MEAN CELL VOLUME 81.3 FL (80.0-100.0); MEAN CORPUSCULAR HEMOGLOBIN 27.8 PG (27.0-34.0); MEAN CORPUSCULAR HGB CONC 34.2 % (32.0-36.0); MONO % 7.9 % (0.0-8.0); NEUT % 68.5 % (16.0-70.0); PLATELET COUNT 225 TH/MM3 (150-450); RED BLOOD COUNT 4.82 MIL/MM3 (4.50-5.90); RED CELL DISTRIBUTION WIDTH 14.7 % (11.6-17.2); WHITE BLOOD COUNT 9.4 TH/MM3 (4.0-11.0)
--- NOTE | 2017-03-03 03:36 | RADRPT ---
EXAM DATE/TIME: 03/03/2017 02:49 [facility] COMPARISON: CT BRAIN W/O CONTRAST, October 11, 2016, 15:05. INDICATIONS : Cephalgia. RADIATION DOSE: 56.35 CTDIvol (mGy) MEDICAL HISTORY : Hypertension. Carcinoma, prostate. Congestive heart failure.Diabetes. SURGICAL HISTORY : None. ENCOUNTER: Initial ACUITY: 1 day PAIN SCALE: 4/10 LOCATION: cranial TECHNIQUE: Multiple contiguous axial images were obtained of the head. Using automated exposure control and adj ustment of the mA and/or kV according to patient size, radiation dose was kept as low as reasonably a chievable to obtain optimal diagnostic quality images. DICOM format image data is available electro nically for review and comparison. FINDINGS: CEREBRUM: The ventricles are normal. There is mild generalized atrophy. There is stable CSF density anterior to the right temporal lobe. No evidence of midline shift, mass lesion, hemorrhage or acute infarction. No extra-axial fluid collections are seen. POSTERIOR FOSSA: The cerebellum and brainstem are intact. The 4th ventricle is midline. The cerebellopontine angle i s unremarkable. EXTRACRANIAL: Visualized sinuses are clear. SKULL: The calvaria is intact. No evidence of skull fracture. CONCLUSION: Stable noncontrast head CT. No acute intracranial abnormality is identified. Neeraj Alcantara MD on March 03, 2017 at 3:33 Board Certified Radiologist. This report was verified electronically.
[2017-03-03 03:57] LABS: BICARBONATE 25.7 MEQ/L (21.0-32.0); POTASSIUM 4.1 MEQ/L (3.5-5.1)
== END 2017-03-03 04:30 | disposition home or self-care (01) ==
LOC: NEPE 02:19
DX: R51 Headache (principal); E78.00 Pure hypercholesterolemia, unspecified; I11.0 Hypertensive heart disease with heart failure; I50.9 Heart failure, unspecified; E11.9 Type 2 diabetes mellitus without complications; J44.9 Chronic obstructive pulmonary disease, unspecified; Z79.82 Long term (current) use of aspirin; Z79.899 Other long term (current) drug therapy
CPT/HCPCS: 70450; 80048; 85025; 96374; 96375; 99285; J0780; J1200

== ENCOUNTER 2017-03-12 22:16 | Emergency (ER) | payer OTHER ==
[~2017-03-12] VITALS: Ht 185.4 cm; Wt 130.0 kg
[~2017-03-12 22:16] MED LIST changes: -CEFU1TAB20 PO; -CLON.1 PO; +CLON0.1T PO
[2017-03-12 22:19] VITALS: BP 138/106; PULSE 86; RESP 20; TEMP 97.9; O2SAT 100
[2017-03-13 00:14] VITALS: BP 166/89; PULSE 75; RESP 16; O2SAT 97
[2017-03-13] MEDS ORDERED: LORazepam 2 MG/ML VIAL IM ONE (01:00)
--- NOTE | 2017-03-13 01:34 | PD ---
HPI . Shortness of breath Chief Complaint: Respiratory Symptoms Time Seen by Provider: 00:52 Travel History International Travel<30 days: No Contact w/Intl Traveler<30days: No Traveled to known affect area: No History of Present Illness HPI This patient presents with the chief complaint of shortness of breath. He states that he has had some symptoms compatible with a cold. However, his shortness of breath is getting worse causing him to be concerned also been pneumonia. He has not been running a fever. He has not had a productive cough. He does not have any chest pain. The shortness of breath has no exacerbating or relieving factors. PFSH Past Medical History Hx Anticoagulant Therapy: Yes (ASA) Arthritis: No Asthma: No Autoimmune Disease: No Blood Disorders: No Anxiety: No Depression: No Heart Rhythm Problems: No Cancer: Yes (prostate CA) Cardiac Catheterization: No Cardiovascular Problems: Yes (HTN) High Cholesterol: Yes Chemotherapy: No Chest Pain: Yes Congestive Heart Failure: Yes COPD: Yes Cerebrovascular Accident: No Coronary Artery Disease: No Diabetes: Yes (insulin ) Patient Takes Glucophage: No Diminished Hearing: No Endocrine: No Gastrointestinal Disorders: Yes (PYLIDINOL CYST X2) GERD: No Glaucoma: No Genitourinary: No Headaches: Yes Hepatitis: No Heparin Induced Thrombocytopen: No Hypertension: Yes Immune Disorder: No Implanted Vascular Access Dvce: No Kidney Stones: No Musculoskeletal: No Neurologic: No Psychiatric: No Reproductive: No Respiratory: Yes (COPD, PNA) Immunizations Current: Yes Migraines: No Myocardial Infarction: No Radiation Therapy: No Renal Failure: No Seizures: No Sickle Cell Disease: No Sleep Apnea: Yes (DOES NOT WEAR A CPAP) Thyroid Disease: No ?: Not Past Surgical History Abdominal Surgery: Yes (APPENDECTOMY) AICD: No Appendectomy: Yes Arteriovenous Shunt: No Cardiac Surgery: No Cholecystectomy: No Coronary Artery Bypass Graft: No Ear Surgery: No Endocrine Surgery: No Eye Surgery: No Genitourinary Surgery: No Gynecologic Surgery: No Insulin Pump: No Joint Replacement: No Neurologic Surgery: No Oral Surgery: No Pacemaker: No Thoracic Surgery: No Other Surgery: Yes ( CYST REMOVAL) Social History Alcohol Use: Yes (RARE) Tobacco Use: No (quit 30 years ago) Substance Use: No Allergies-Medications (Allergen,Severity, Reaction): Coded Allergies: *MDRO Multi-Drug Resistant Organism (Verified Adverse Reaction, Unknown, ) MRSA (back wound/chest abscess) - 04/24/2015 MRSA PCR screen positive 10/12/16 methylprednisolone (Unverified Adverse Reaction, Unknown, 11/15/16) severe bowel pain Reported Meds & Prescriptions Reported Meds & Active Scripts Active Coreg (Carvedilol) 3.125 Mg Tab 3.125 Mg PO Q12HR Hydralazine HCl 25 Mg Tablet 25 Mg PO Q8HR Hydrochlorothiazide 25 Mg Tab 25 Mg PO DAILY Potassium Chloride ER (Potassium Chloride) 10 Meq Cap 10 Meq PO BID Amlodipine (Amlodipine Besylate) 10 Mg Tab 10 Mg PO DAILY Reported Clonidine (Clonidine HCl) 0.1 Mg Tab 0.1 Mg PO DAILY Novolin 70-30 Inj (Insulin Human Isoph/Insulin Regular) 1,000 Unit/10 Ml Vial 37 Units SQ BID Atorvastatin (Atorvastatin Calcium) 20 Mg Tab 20 Mg PO HS Lisinopril 40 Mg Tab 40 Mg PO DAILY Aspirin 325 Mg Tab 325 Mg PO DAILY Multiple Vitamin 1 Tab 1 Tab PO DAILY Review of Systems Except as stated in HPI: all other systems reviewed are Neg General / Constitutional: No: Fever, Chills Respiratory: Positive: Cough, Shortness of Breath Genitourinary: Positive: Other (currently being treated for prostate cancer) Physical Exam Narrative GENERAL: Awake and alert and in no acute distress. SKIN: warm/dry. Good color and turgor. HEAD: Normocephalic. Atraumatic. EYES: Pupils equal and round. No scleral icterus. No injection or drainage. ENT: No nasal bleeding or discharge. Mucous membranes pink and moist. NECK: Trachea midline. Full range of motion without pain.. CARDIOVASCULAR: Regular rate and rhythm. Heart sounds normal. RESPIRATORY: No accessory muscle use. Clear to auscultation. Breath sounds equal bilaterally. Respiratory rate is 16. Oxygen saturation on room air is 97 %. GASTROINTESTINAL: Abdomen soft. Nontender. Bowel sounds present. Nondistended. MUSCULOSKELETAL: No obvious deformities. NEUROLOGICAL: Awake and alert. No obvious cranial nerve deficits. Motor grossly within normal limits. Normal speech. PSYCHIATRIC: Appropriate mood and affect; insight and judgment normal. Data Data Last Documented VS Vital Signs Date Time Temp Pulse Resp B/P (MAP) Pulse Ox O2 Delivery O2 Flow Rate FiO2 03/13/17 00:14 75 16 166/89 (114) 97 03/12/17 22:19 97.9 Room Air Orders Orders Chest, Pa & Lat (03/13/17 00:52) Lorazepam Inj (Ativan Inj) (03/13/17 01:00) [facility] Medical Decision Making Medical Screen Exam Complete: Yes Emergency Medical Condition: Yes Differential Diagnosis Differential diagnosis of dyspnea includes but is not limited to congestive heart failure, pneumonia, wheezing, pneumothorax, pulmonary embolism Narrative Course This patient presents with a chief complaint of dyspnea. He is concerned that he has pneumonia. He is not in respiratory distress. His respiratory rate is 16 with oxygen saturation of 97% on room air. His lungs are clear. Chest x- ray is pending. CXR>>The lungs are clear The history, exam, diagnostic testing, and current condition do not suggest any significant pathology to warrant further testing, continued ED treatment, admission, or surgical evaluation at this point. No EMC was found. The patient 's condition is stable and appropriate for discharge. Diagnosis Primary Impression: Dyspnea Qualified Codes: R06.00 - Dyspnea, unspecified Patient Instructions: Dyspnea (DC), General Instructions Disposition: 01 DISCHARGE HOME Condition: Stable Geri Foley MD Mar 13, 2017 01:34
--- NOTE | 2017-03-13 02:15 | RADRPT ---
EXAM DATE/TIME: 03/13/2017 01:28 [facility] COMPARISON: CHEST PA & LAT, August 26, 2014, 21:35. INDICATIONS : Shortness of breath. MEDICAL HISTORY : Hypertension. Carcinoma, prostatic. Congestive heart failure. Diabetes SURGICAL HISTORY : None. ENCOUNTER: Initial ACUITY: 1 day PAIN SCORE: 0/10 LOCATION: Bilateral chest FINDINGS: PA and lateral views of the chest demonstrate the lungs to be symmetrically aerated without evidence of mass, infiltrate or effusion. The heart is normal size. Mild tortuosity descending thoracic aort a. Osseous structures are intact. CONCLUSION: The lungs are clear Ari Henry MD on March 13, 2017 at 2:14 Board Certified Radiologist. This report was verified electronically.
== END 2017-03-13 03:05 | disposition home or self-care (01) ==
LOC: NEPE 22:16
DX: R06.00 Dyspnea, unspecified (principal); R05 Cough; R06.02 Shortness of breath; E78.00 Pure hypercholesterolemia, unspecified; I11.0 Hypertensive heart disease with heart failure; I50.9 Heart failure, unspecified; E11.9 Type 2 diabetes mellitus without complications; J44.9 Chronic obstructive pulmonary disease, unspecified; Z85.46 Personal history of malignant neoplasm of prostate
CPT/HCPCS: 71020; 96372; 99284; J2060

== ENCOUNTER 2017-03-15 07:32 | Emergency (ER) | payer OTHER ==
[2017-03-15] MEDS ORDERED: IOHEXOL 350 MG/ML 10 ML VIAL (for RAD DIAG) IVCONTRAST ONE (07:33)
[2017-03-15 07:34] VITALS: BP 140/77; PULSE 85; RESP 18; TEMP 98.3; O2SAT 95
[2017-03-15 07:43] VITALS: BP 137/80; PULSE 88; RESP 20; O2SAT 98
--- NOTE | 2017-03-15 08:01 | PD ---
HPI Chief Complaint: sob Time Seen by Provider: 07:46 Travel History International Travel<30 days: No Contact w/Intl Traveler<30days: No Traveled to known affect area: No History of Present Illness HPI 67yo M with PMH of COPD, prostate CA on radiation therapy, HTN, DM here with c/ o sob for 1 hour. Said he felt like he was wheezing. Also with rhinorrhea and cough. Denies any fever, chest pain, n/v, abdominal pain, history of PE, DVT, focal weakness or numbness. Pt was just seen here 03/13/17 for sob and had negative CXR and discharge. PFSH Past Medical History Hx Anticoagulant Therapy: Yes (ASA) Arthritis: No Asthma: No Autoimmune Disease: No Blood Disorders: No Anxiety: No Depression: No Heart Rhythm Problems: No Cancer: Yes (prostate CA) Cardiac Catheterization: No Cardiovascular Problems: Yes (HTN) High Cholesterol: Yes Chemotherapy: No Chest Pain: Yes Congestive Heart Failure: Yes COPD: Yes Cerebrovascular Accident: No Coronary Artery Disease: No Diabetes: Yes (insulin ) Patient Takes Glucophage: No Diminished Hearing: No Endocrine: No Gastrointestinal Disorders: Yes (PYLIDINOL CYST X2) GERD: No Glaucoma: No Genitourinary: No Headaches: Yes Hepatitis: No Heparin Induced Thrombocytopen: No Hypertension: Yes Immune Disorder: No Implanted Vascular Access Dvce: No Kidney Stones: No Musculoskeletal: No Neurologic: No Psychiatric: No Reproductive: No Respiratory: Yes (COPD, PNA) Immunizations Current: Yes Migraines: No Myocardial Infarction: No Radiation Therapy: No Renal Failure: No Seizures: No Sickle Cell Disease: No Sleep Apnea: Yes (DOES NOT WEAR A CPAP) Thyroid Disease: No ?: Not Past Surgical History Abdominal Surgery: Yes (APPENDECTOMY) AICD: No Appendectomy: Yes Arteriovenous Shunt: No Cardiac Surgery: No Cholecystectomy: No Coronary Artery Bypass Graft: No Ear Surgery: No Endocrine Surgery: No Eye Surgery: No Genitourinary Surgery: No Gynecologic Surgery: No Insulin Pump: No Joint Replacement: No Neurologic Surgery: No Oral Surgery: No Pacemaker: No Thoracic Surgery: No Other Surgery: Yes ( CYST REMOVAL) Family History Family Myocardial Infarction: No Social History Alcohol Use: Yes (RARE) Tobacco Use: No (quit 30 years ago) Substance Use: No Allergies-Medications (Allergen,Severity, Reaction): Coded Allergies: *MDRO Multi-Drug Resistant Organism (Verified Adverse Reaction, Unknown, 03/15/17) MRSA (back wound/chest abscess) - 04/24/2015 MRSA PCR screen positive 10/12/16 methylprednisolone (Unverified Adverse Reaction, Unknown, 03/15/17) severe bowel pain Reported Meds & Prescriptions Reported Meds & Active Scripts Active Coreg (Carvedilol) 3.125 Mg Tab 3.125 Mg PO Q12HR Hydralazine HCl 25 Mg Tablet 25 Mg PO Q8HR Hydrochlorothiazide 25 Mg Tab 25 Mg PO DAILY Potassium Chloride ER (Potassium Chloride) 10 Meq Cap 10 Meq PO BID Amlodipine (Amlodipine Besylate) 10 Mg Tab 10 Mg PO DAILY Reported Clonidine (Clonidine HCl) 0.1 Mg Tab 0.1 Mg PO DAILY Novolin 70-30 Inj (Insulin Human Isoph/Insulin Regular) 1,000 Unit/10 Ml Vial 37 Units SQ BID Atorvastatin (Atorvastatin Calcium) 20 Mg Tab 20 Mg PO HS Lisinopril 40 Mg Tab 40 Mg PO DAILY Aspirin 325 Mg Tab 325 Mg PO DAILY Multiple Vitamin 1 Tab 1 Tab PO DAILY Review of Systems Except as stated in HPI: all other systems reviewed are Neg Physical Exam Narrative GENERAL: 67yo M in mild distress. SKIN: Focused skin assessment warm/dry. HEAD: Atraumatic. Normocephalic. EYES: Pupils equal and round. No scleral icterus. No injection or drainage. ENT: No nasal bleeding or discharge. Mucous membranes pink and moist. NECK: Trachea midline. No JVD. CARDIOVASCULAR: Regular rate and rhythm. No murmur appreciated. RESPIRATORY: No accessory muscle use. Clear to auscultation. Breath sounds equal bilaterally. O2 sat 98% on RA. GASTROINTESTINAL: Abdomen soft, non-tender, nondistended. MUSCULOSKELETAL: No obvious deformities. No clubbing. No cyanosis. +Trace bilateral lower extremity edema. NEUROLOGICAL: Awake and alert. No obvious cranial nerve deficits. Motor grossly within normal limits. Normal speech. PSYCHIATRIC: Appropriate mood and affect; insight and judgment normal. Data Data Last Documented VS Vital Signs Date Time Temp Pulse Resp B/P (MAP) Pulse Ox O2 Delivery O2 Flow Rate FiO2 03/15/17 09:15 82 18 158/67 (97) 97 Room Air 03/15/17 07:34 98.3 Orders Orders Complete Blood Count With Diff (03/15/17 07:54) Basic Metabolic Panel (Bmp) (03/15/17 07:54) B-Type Natriuretic Peptide (03/15/17 07:54) Act Partial Throm Time (Ptt) (03/15/17 07:54) Prothrombin Time / Inr (Pt) (03/15/17 07:54) Magnesium (Mg) (03/15/17 07:54) Troponin I (03/15/17 07:54) Chest, Single Ap (03/15/17 07:54) Ct Pulmonary Angiogram (03/15/17 07:54) Albuterol-Ipratropium Neb (Duoneb Neb) (03/15/17 08:00) Iohexol 350 Inj (Omnipaque 350 Inj) (03/15/17 07:33) Labs Laboratory Tests Test 03/15/17 08:00 White Blood Count 9.2 TH/MM3 Red Blood Count 4.84 MIL/MM3 Hemoglobin 13.7 GM/DL Hematocrit 40.1 % Mean Corpuscular Volume 82.8 FL Mean Corpuscular Hemoglobin 28.2 PG Mean Corpuscular Hemoglobin Concent 34.1 % Red Cell Distribution Width 14.6 % Platelet Count 232 TH/MM3 Mean Platelet Volume 8.5 FL Neutrophils (%) (Auto) 69.2 % Lymphocytes (%) (Auto) 11.7 % Monocytes (%) (Auto) 11.0 % Eosinophils (%) (Auto) 7.2 % Basophils (%) (Auto) 0.9 % Neutrophils # (Auto) 6.3 TH/MM3 Lymphocytes # (Auto) 1.1 TH/MM3 Monocytes # (Auto) 1.0 TH/MM3 Eosinophils # (Auto) 0.7 TH/MM3 Basophils # (Auto) 0.1 TH/MM3 CBC Comment DIFF FINAL Differential Comment Prothrombin Time 10.3 SEC Prothromb Time International Ratio 1.0 RATIO Activated Partial Thromboplast Time 23.3 SEC Blood Urea Nitrogen 21 MG/DL Creatinine 1.46 MG/DL Random Glucose 285 MG/DL Calcium Level 8.9 MG/DL Magnesium Level 1.7 MG/DL Sodium Level 136 MEQ/L Potassium Level 4.3 MEQ/L Chloride Level 101 MEQ/L Carbon Dioxide Level 28.0 MEQ/L Anion Gap 7 MEQ/L Estimat Glomerular Filtration Rate 48 ML/MIN Troponin I LESS THAN 0.02 NG/ML B-Type Natriuretic Peptide 28 PG/ML MDM Medical Decision Making Medical Screen Exam Complete: Yes Emergency Medical Condition: Yes Interpretation(s) EKG: NSR 85bpm. LAD. PVC. No ST segment elevation or depression. Differential Diagnosis URI vs. bronchitis vs. COPD exacerbation vs. PE vs. metastatic disease Narrative Course 67yo well appearing male here with sob for 1 hour. Pt is saturating well but this is his second ED visit this week. He has not followed up with PMD yet. He does have a history of prostate CA so will r/o PE with CT angio since he presents with sudden onset of sob for 1 hour. Pt is not wheezing on exam but said he was told he had COPD and was a smoker and treatments have helped in the past. Duonebs x3 ordered. Pt is allergic to methylprednisolone so not given. Labs reviewed, no leukocytosis. Troponin negative. Pt has no chest pain. BNP 28. Creatinine mildly elevated at 1.46. Instructed pt to follow up with PMD. Glucose elevated at 285. No increased anion gap. CXR negative. Mild cardiomegaly. CT angio showed no evidence of pulmonary embolism. No infiltrate or mass. Pt given duonebs x3 and said he feels much better. He is still saturating at 96% on RA. Pt is allergic to steroids so will prescribe ventolin. Return precautions given. Diagnosis Primary Impression: COPD exacerbation Patient Instructions: General Instructions Departure Forms: Tests/Procedures Additional Instructions: Please follow up with your primary care physician regarding mildly elevated creatinine of 1.46 today as well as your COPD. Return to the ED if symptoms worsen. Med/Other Pt SpecificInfo: Prescription(s) given Scripts Albuterol 18 GM Inh (Ventolin Hfa 18 GM Inh) 90 Mcg/Act Aer 2 PUFF INH Q4H Y for SHORTNESS OF BREATH, #1 INHALER 0 Refills Prov: VerdinAi 03/15/17 Disposition: 01 DISCHARGE HOME Condition: Stable VerdinMonalisa codyjose LOPEZ Mar 15, 2017 08:01
[2017-03-15] MEDS: RESP: ALBUTEROL 2.5 MG/IPRATROPIUM 0.5 MG NEB (SCH) INH ×2 (08:06→08:15)
--- NOTE | 2017-03-15 08:26 | RADRPT ---
EXAM DATE/TIME: 03/15/2017 08:14 [facility] COMPARISON: CHEST PA & LAT, March 13, 2017, 1:28. CHEST SINGLE AP, October 11, 2016, 15:16. INDICATIONS : Short of breath. MEDICAL HISTORY : Chronic obstructive pulmonary disease. Carcinoma, prostatic. SURGICAL HISTORY : None. ENCOUNTER: Initial ACUITY: 3 days PAIN SCORE: 0/10 LOCATION: Bilateral chest FINDINGS: A single view of the chest demonstrates the lungs to be symmetrically aerated without evidence of mas s, infiltrate or effusion. Mild cardiomegaly. Pulmonary vascularity normal. The cardiomediastinal co ntours are unremarkable. Osseous structures are intact. CONCLUSION: No acute disease. Mild cardiomegaly. Jaspreet Dahl MD on March 15, 2017 at 8:24 Board Certified Radiologist. This report was verified electronically.
[2017-03-15 08:29] LABS: AUTOMATED NEUTROPHIL # 6.3 TH/MM3 (1.8-7.7); BASOPHIL # 0.1 TH/MM3 (0-0.2); BASOPHIL % 0.9 % (0.0-2.0); EOSINOPHIL # 0.7 TH/MM3 (0-0.4); EOSINOPHIL % 7.2 % (0.0-4.0); HEMATOCRIT 40.1 % (39.0-51.0); HEMOGLOBIN 13.7 GM/DL (13.0-17.0); LYMPH % 11.7 % (9.0-44.0); LYMPHOCYTE # 1.1 TH/MM3 (1.0-4.8); MEAN CELL VOLUME 82.8 FL (80.0-100.0); MEAN CORPUSCULAR HEMOGLOBIN 28.2 PG (27.0-34.0); MEAN CORPUSCULAR HGB CONC 34.1 % (32.0-36.0); MEAN PLATELET VOLUME 8.5 FL (7.0-11.0); NEUT % 69.2 % (16.0-70.0); PLATELET COUNT 232 TH/MM3 (150-450); RED BLOOD COUNT 4.84 MIL/MM3 (4.50-5.90); RED CELL DISTRIBUTION WIDTH 14.6 % (11.6-17.2); WHITE BLOOD COUNT 9.2 TH/MM3 (4.0-11.0)
[2017-03-15 08:39] LABS: PROTHROMBIN TIME - PATIENT 10.3 SEC (9.8-11.6)
[2017-03-15 08:48] LABS: BLOOD UREA NITROGEN 21 MG/DL (7-18); CALCIUM 8.9 MG/DL (8.5-10.1); CHLORIDE 101 MEQ/L (98-107); CREATININE 1.46 MG/DL (0.60-1.30); GLOMERULAR FILTRATION RATE 48 ML/MIN (>89); GLUCOSE,RANDOM 285 MG/DL (74-106); MAGNESIUM 1.7 MG/DL (1.5-2.5); SODIUM (NA) 136 MEQ/L (136-145)
[2017-03-15 08:51] LABS: TROPONIN I LESS THAN 0.02 NG/ML (0.02-0.05)
[2017-03-15 09:15] VITALS: BP 158/67; PULSE 82; RESP 18; O2SAT 97
--- NOTE | 2017-03-15 09:25 | RADRPT ---
EXAM DATE/TIME: 03/15/2017 08:56 [facility] COMPARISON: CT PULMONARY ANGIOGRAM, June 21, 2016, 6:29. INDICATIONS : Shortness of breath. IV CONTRAST: 74 cc Omnipaque 350 (iohexol) IV RADIATION DOSE: 26.08 CTDIvol (mGy) ; Patient body habitus MEDICAL HISTORY : Chronic obstructive pulmonary disease. Deep venous thrombosis. Hypertension.Pulmonary embolism, prost ate cancer, diabetes. SURGICAL HISTORY : None. ENCOUNTER: Initial ACUITY: 1 day PAIN SCALE: 0/10 LOCATION: chest TECHNIQUE: Volumetric scanning of the chest was performed using a pulmonary embolism protocol MIP images were re constructed. Using automated exposure control and adjustment of the mA and/or kV according to patien t size, radiation dose was kept as low as reasonably achievable to obtain optimal diagnostic quality images. DICOM format image data is available electronically for review and comparison. Follow-up recommendations for detected pulmonary nodules are based at a minimum on nodule size and pa tient risk factors according to Fleischner Society Guidelines. FINDINGS: PULMONARY ARTERIES: No filling defects are seen in the pulmonary arteries through the segmental level. LUNGS: There is no consolidation or pneumothorax . No concerning pulmonary nodule is visualized. PLEURAE: There is no pleural thickening or pleural effusion. MEDIASTINUM: There is good visualization of the great vessels of the middle mediastinum. No evidence of mediastin al or hilar adenopathy/mass. Coronary artery calcifications. MUSCULOSKELETAL: Within normal limits for patient age. MISCELLANEOUS: The visualized upper abdominal organs demonstrate fatty liver. CONCLUSION: 1. No evidence for pulmonary embolism. 2. Coronary artery calcifications. 3. No infiltrate or mass. Jaspreet Dahl MD on March 15, 2017 at 9:22 Board Certified Radiologist. This report was verified electronically.
[2017-03-15] MEDS ORDERED: VENTAER INH (10:00)
[2017-03-15 11:20] VITALS: BP 142/79
--- NOTE | 2017-03-15 14:57 | EKG ---
Date Performed: 03/15/2017 Time Performed: 07:48:36 PTAGE: 67 years EKG: Sinus rhythm WITH FIRST DEGREE AV BLOCK WITH OCCASIONAL VENTRICULAR PREMATURE COMPLEXES BORDERLINE LEFT AXIS ROGELIO ATION MODERATE INTRAVENTRICULAR CONDUCTION DELAY NONSPECIFIC T-WAVE ABNORMALITY ABNORMAL ECG PREVIOUS TRACING : 10/11/2016 14.14 DOCTOR: Shakeel Jaime Interpretating Date/Time 03/15/2017 14:56:43
== END 2017-03-15 11:42 | disposition home or self-care (01) ==
LOC: NEPE 07:32
DX: J44.1 Chronic obstructive pulmonary disease with (acute) exacerbation (principal); I44.0 Atrioventricular block, first degree; R94.31 Abnormal electrocardiogram [ECG] [EKG]; I51.7 Cardiomegaly; E11.9 Type 2 diabetes mellitus without complications; E78.00 Pure hypercholesterolemia, unspecified; I11.0 Hypertensive heart disease with heart failure; I50.9 Heart failure, unspecified; Z79.4 Long term (current) use of insulin
CPT/HCPCS: 71010; 71275; 80048; 83735; 83880; 84484; 85025; 85610; 85730; 93005; 94640; 94664; 99285; Q9967

== ENCOUNTER 2017-03-22 05:16 | Emergency (ER) | payer OTHER ==
[~2017-03-22] VITALS: Ht 185.4 cm; Wt 130.0 kg
[~2017-03-22 05:16] MED LIST changes: +VENTAER INH
[2017-03-22 05:20] VITALS: BP 193/83; PULSE 82; RESP 28; TEMP 98; O2SAT 94
[2017-03-22] MEDS ORDERED: RESP: ALBUTEROL 2.5 MG/IPRATROPIUM 0.5 MG NEB (SCH) INH ONE (06:00)
[2017-03-22] MEDS ORDERED: SODIUM CHLORIDE 0.9% FLUSH 10 ML FLUSH IVF PRN (06:00)
[2017-03-22 06:13] VITALS: O2SAT 98
--- NOTE | 2017-03-22 06:14 | RADRPT ---
EXAM DATE/TIME: 03/22/2017 06:01 [facility] COMPARISON: CHEST SINGLE AP, March 15, 2017, 8:14. INDICATIONS : Short of breath. MEDICAL HISTORY : None. SURGICAL HISTORY : None. ENCOUNTER: Initial ACUITY: 1 day PAIN SCORE: 0/10 LOCATION: Left chest FINDINGS: The heart size is borderline enlarged. The lungs are clear. Significant effusions are not seen. CONCLUSION: No acute disease. Neeraj Toscano MD on March 22, 2017 at 6:11 Board Certified Radiologist. This report was verified electronically.
[2017-03-22 06:16] VITALS: BP_SYST 134; BP_SYST 140; BP_DIAS 72; BP_DIAS 73; PULSE 79; RESP 30; O2SAT 98
--- NOTE | 2017-03-22 06:22 | PD ---
HPI Chief Complaint: Respiratory Symptoms Time Seen by Provider: 05:50 Travel History International Travel<30 days: No Contact w/Intl Traveler<30days: No Traveled to known affect area: No History of Present Illness HPI This is a 67-year-old male with a history of COPD, diabetes mellitus, prostate cancer, hypertension, who presents here for the third time in 2 weeks for shortness of breath and chest pain. Patient states that last night he started experiencing shortness of breath and chest tightness. He states when he laid flat, he felt his lungs gurgling. He also reports tightness across left side of his chest pain patient also reports a headache. He states when he checked his blood pressure at home it was elevated. There is no numbness tingling to his extremities. There is no reported fevers, chills. He denies any productive cough. He states the last 2 times she was here he was given steroids and sent home however his symptoms became worse. There are no other complaints time of my examination. PFSH Past Medical History Hx Anticoagulant Therapy: Yes (ASA) Arthritis: No Asthma: No Autoimmune Disease: No Blood Disorders: No Anxiety: No Depression: No Heart Rhythm Problems: No Cancer: Yes (prostate CA) Cardiac Catheterization: No Cardiovascular Problems: Yes (HTN) High Cholesterol: Yes Chemotherapy: No Chest Pain: Yes Congestive Heart Failure: Yes COPD: Yes Cerebrovascular Accident: No Coronary Artery Disease: No Diabetes: Yes (insulin ) Patient Takes Glucophage: No Diminished Hearing: No Endocrine: No Gastrointestinal Disorders: Yes (PYLIDINOL CYST X2) GERD: No Glaucoma: No Genitourinary: No Headaches: Yes Hepatitis: No Heparin Induced Thrombocytopen: No Hypertension: Yes Immune Disorder: No Implanted Vascular Access Dvce: No Kidney Stones: No Musculoskeletal: No Neurologic: No Psychiatric: No Reproductive: No Respiratory: Yes (COPD, PNA) Immunizations Current: Yes Migraines: No Myocardial Infarction: No Radiation Therapy: Yes (TREATMENT COMPLETED ON 03/21/17) Renal Failure: No Seizures: No Sickle Cell Disease: No Sleep Apnea: Yes (DOES NOT WEAR A CPAP) Thyroid Disease: No Past Surgical History Abdominal Surgery: Yes (APPENDECTOMY) AICD: No Appendectomy: Yes Arteriovenous Shunt: No Cardiac Surgery: No Cholecystectomy: No Coronary Artery Bypass Graft: No Ear Surgery: No Endocrine Surgery: No Eye Surgery: No Genitourinary Surgery: No Gynecologic Surgery: No Insulin Pump: No Joint Replacement: No Neurologic Surgery: No Oral Surgery: No Pacemaker: No Thoracic Surgery: No Other Surgery: Yes ( CYST REMOVAL) Social History Alcohol Use: Yes (RARE) Tobacco Use: No (quit 30 years ago) Substance Use: No Allergies-Medications (Allergen,Severity, Reaction): Coded Allergies: *MDRO Multi-Drug Resistant Organism (Verified Adverse Reaction, Unknown, 03/22/17) MRSA (back wound/chest abscess) - 04/24/2015 MRSA PCR screen positive 10/12/16 methylprednisolone (Unverified Adverse Reaction, Unknown, 03/22/17) severe bowel pain Reported Meds & Prescriptions Reported Meds & Active Scripts Active Ventolin Hfa 18 GM Inh (Albuterol Sulfate) 90 Mcg/Act Aer 2 Puff INH Q4H PRN Coreg (Carvedilol) 3.125 Mg Tab 3.125 Mg PO Q12HR Hydralazine HCl 25 Mg Tablet 25 Mg PO Q8HR Hydrochlorothiazide 25 Mg Tab 25 Mg PO DAILY Potassium Chloride ER (Potassium Chloride) 10 Meq Cap 10 Meq PO BID Amlodipine (Amlodipine Besylate) 10 Mg Tab 10 Mg PO DAILY Reported Clonidine (Clonidine HCl) 0.1 Mg Tab 0.1 Mg PO DAILY Novolin 70-30 Inj (Insulin Human Isoph/Insulin Regular) 1,000 Unit/10 Ml Vial 37 Units SQ BID Atorvastatin (Atorvastatin Calcium) 20 Mg Tab 20 Mg PO HS Lisinopril 40 Mg Tab 40 Mg PO DAILY Aspirin 325 Mg Tab 325 Mg PO DAILY Multiple Vitamin 1 Tab 1 Tab PO DAILY Review of Systems Except as stated in HPI: all other systems reviewed are Neg General / Constitutional: No: Fever, Chills HENT: Positive: Headaches, No: Neck Stiffness, Neck Pain Cardiovascular: Positive: Chest Pain or Discomfort, No: Palpitations, Irregular Rhythm (left sided) Respiratory: Positive: Shortness of Breath, No: Cough, Wheezing Gastrointestinal: No: Nausea, Vomiting, Abdominal Pain Genitourinary: No: Frequency, Dysuria Musculoskeletal: Positive: Edema (bilateral lower extremities), No: Weakness, Pain Neurologic: Positive: Headache, No: Weakness, Dizziness, Change in Mentation Physical Exam Narrative GENERAL: Well developed well-nourished male in no acute rest her distress. SKIN: Focused skin assessment warm/dry. HEAD: Atraumatic. Normocephalic. EYES: Pupils equal and round. No scleral icterus. No injection or drainage. ENT: No nasal bleeding or discharge. Mucous membranes pink and moist. NECK: Trachea midline. No JVD. CARDIOVASCULAR: Regular rate and rhythm. No murmur appreciated. RESPIRATORY: No accessory muscle use. Decreased sounds in the bilateral bases. No Rales appreciated. No wheezes appreciated. GASTROINTESTINAL: Abdomen soft, non-tender, nondistended. Hepatic and splenic margins not palpable. MUSCULOSKELETAL: No obvious deformities. No clubbing. No cyanosis. 1+ pitting edema bilateral pretibial area NEUROLOGICAL: Awake and alert. No obvious cranial nerve deficits. Motor grossly within normal limits. Normal speech. PSYCHIATRIC: Appropriate mood and affect; insight and judgment normal. Data Data Last Documented VS Vital Signs Date Time Temp Pulse Resp B/P (MAP) Pulse Ox O2 Delivery O2 Flow Rate FiO2 03/22/17 06:16 79 30 134/73 (93) 98 Room Air 140/72 (94) 03/22/17 05:20 98.0 Orders Orders Electrocardiogram (03/22/17 ) Electrocardiogram (03/22/17 05:50) Basic Metabolic Panel (Bmp) (03/22/17 05:50) Ckmb (Isoenzyme) Profile (03/22/17 05:50) Complete Blood Count With Diff (03/22/17 05:50) Magnesium (Mg) (03/22/17 05:50) Prothrombin Time / Inr (Pt) (03/22/17 05:50) Act Partial Throm Time (Ptt) (03/22/17 05:50) Troponin I (03/22/17 05:50) Chest, Single Ap (03/22/17 05:50) Ecg Monitoring (03/22/17 05:50) Bilateral Bp Monitoring (03/22/17 05:50) Iv Access Insert/Monitor (03/22/17 05:50) Oximetry (03/22/17 05:50) Oxygen Administration (03/22/17 05:50) Sodium Chloride 0.9% Flush (Ns Flush) (03/22/17 06:00) Albuterol-Ipratropium Neb (Duoneb Neb) (03/22/17 06:00) Albuterol Neb (Albuterol Neb) (03/22/17 06:00) Ct Brain W/O Iv Contrast(Rout) (03/22/17 06:47) CKMB (03/22/17 05:58) CKMB% (03/22/17 05:58) Labs Laboratory Tests Test 03/22/17 05:58 White Blood Count 9.6 TH/MM3 Red Blood Count 4.73 MIL/MM3 Hemoglobin 13.2 GM/DL Hematocrit 39.1 % Mean Corpuscular Volume 82.7 FL Mean Corpuscular Hemoglobin 28.0 PG Mean Corpuscular Hemoglobin Concent 33.9 % Red Cell Distribution Width 14.4 % Platelet Count 242 TH/MM3 Mean Platelet Volume 8.4 FL Neutrophils (%) (Auto) 58.8 % Lymphocytes (%) (Auto) 22.1 % Monocytes (%) (Auto) 9.5 % Eosinophils (%) (Auto) 8.4 % Basophils (%) (Auto) 1.2 % Neutrophils # (Auto) 5.6 TH/MM3 Lymphocytes # (Auto) 2.1 TH/MM3 Monocytes # (Auto) 0.9 TH/MM3 Eosinophils # (Auto) 0.8 TH/MM3 Basophils # (Auto) 0.1 TH/MM3 CBC Comment DIFF FINAL Differential Comment Prothrombin Time 10.5 SEC Prothromb Time International Ratio 1.0 RATIO Activated Partial Thromboplast Time 24.0 SEC Blood Urea Nitrogen 18 MG/DL Creatinine 1.37 MG/DL Random Glucose 205 MG/DL Calcium Level 8.5 MG/DL Magnesium Level 1.6 MG/DL Sodium Level 136 MEQ/L Potassium Level 3.8 MEQ/L Chloride Level 100 MEQ/L Carbon Dioxide Level 26.1 MEQ/L Anion Gap 10 MEQ/L Estimat Glomerular Filtration Rate 52 ML/MIN Total Creatine Kinase 368 U/L Creatine Kinase MB 6.5 NG/ML Creatine Kinase MB % 1.8 % Troponin I LESS THAN 0.02 NG/ML MDM Medical Decision Making Medical Screen Exam Complete: Yes Emergency Medical Condition: Yes Differential Diagnosis COPD exacerbation versus CHF versus ACS Narrative Course 67-year-old male with a history of COPD, hypertension, diabetes mellitus, presents here for the third time in 2 weeks for shortness of breath. Patient also noted that he had elevated blood pressure at home and was having a headache. He has diminished breath sounds as bilateral bases. Labs are pending at this time. CT of the brain is pending at this time. He'll be signed out to Dr. Looney, physician replacing me at change of shift. Disposition will be per her. Diagnosis Primary Impression: Dyspnea Additional Impressions: Hypertension Diabetes mellitus type 2 with hyperosmolarity, uncontrolled Headache Cory Pond MD Mar 22, 2017 06:22
[2017-03-22 06:23] LABS: AUTOMATED NEUTROPHIL # 5.6 TH/MM3 (1.8-7.7); BASOPHIL # 0.1 TH/MM3 (0-0.2); BASOPHIL % 1.2 % (0.0-2.0); EOSINOPHIL # 0.8 TH/MM3 (0-0.4); EOSINOPHIL % 8.4 % (0.0-4.0); HEMATOCRIT 39.1 % (39.0-51.0); HEMOGLOBIN 13.2 GM/DL (13.0-17.0); LYMPH % 22.1 % (9.0-44.0); LYMPHOCYTE # 2.1 TH/MM3 (1.0-4.8); MEAN CELL VOLUME 82.7 FL (80.0-100.0); MEAN CORPUSCULAR HGB CONC 33.9 % (32.0-36.0); MEAN PLATELET VOLUME 8.4 FL (7.0-11.0); MONO % 9.5 % (0.0-8.0); MONOCYTE # 0.9 TH/MM3 (0-0.9); NEUT % 58.8 % (16.0-70.0); PLATELET COUNT 242 TH/MM3 (150-450); RED BLOOD COUNT 4.73 MIL/MM3 (4.50-5.90); RED CELL DISTRIBUTION WIDTH 14.4 % (11.6-17.2); WHITE BLOOD COUNT 9.6 TH/MM3 (4.0-11.0)
[2017-03-22 06:35] LABS: PROTHROMBIN TIME - PATIENT 10.5 SEC (9.8-11.6)
[2017-03-22 06:44] LABS: BICARBONATE 26.1 MEQ/L (21.0-32.0); BLOOD UREA NITROGEN 18 MG/DL (7-18); CALCIUM 8.5 MG/DL (8.5-10.1); CHLORIDE 100 MEQ/L (98-107); CREATININE 1.37 MG/DL (0.60-1.30); GLOMERULAR FILTRATION RATE 52 ML/MIN (>89); GLUCOSE,RANDOM 205 MG/DL (74-106); MAGNESIUM 1.6 MG/DL (1.5-2.5); SODIUM (NA) 136 MEQ/L (136-145)
[2017-03-22 06:48] LABS: TROPONIN I LESS THAN 0.02 NG/ML (0.02-0.05)
[2017-03-22] MEDS: RESP: ALBUTEROL 2.5 MG/3 ML NEB (SCH) INH (06:52)
--- NOTE | 2017-03-22 08:46 | EKG ---
Date Performed: 03/22/2017 Time Performed: 05:30:32 PTAGE: 67 years EKG: Sinus rhythm WITH FIRST DEGREE AV BLOCK WITH OCCASIONAL VENTRICULAR PREMATURE COMPLEXES BORDERLINE LEFT AXIS ROGELIO ATION INTRAVENTRICULAR CONDUCTION DELAY ABNORMAL ECG No significant change from prior electrocardiogr am. PREVIOUS TRACING : 03/15/2017 07.48 DOCTOR: Ulysses Alonzo Interpretating Date/Time 03/22/2017 08:45:08
--- NOTE | 2017-03-22 08:51 | RADRPT ---
EXAM DATE/TIME: 03/22/2017 08:11 [facility] COMPARISON: CT BRAIN W/O CONTRAST, October 11, 2016, 15:05. CT BRAIN W/O CONTRAST, September 08, 2016, 0:45. CT BRAIN W /O CONTRAST, March 03, 2017, 2:49. INDICATIONS : Cephalgia since this morning. RADIATION DOSE: 41.98 CTDIvol (mGy) MEDICAL HISTORY : Hypertension. Chronic obstructive pulmonary disease. Carcinoma, prostate. SURGICAL HISTORY : None. ENCOUNTER: Initial ACUITY: 1 day PAIN SCALE: 5/10 LOCATION: cranial TECHNIQUE: Multiple contiguous axial images were obtained of the head. Using automated exposure control and adj ustment of the mA and/or kV according to patient size, radiation dose was kept as low as reasonably a chievable to obtain optimal diagnostic quality images. DICOM format image data is available electro nically for review and comparison. FINDINGS: CEREBRUM: The ventricles are normal for age. Mild symmetric cortical atrophy. Focal area of diminished attenua tion in the right occiput was present previously and is unchanged. This may represent a small area of encephalomalacia. Prominent, probable arachnoid cyst in the anterior aspect of the right middle cran ial fossa. No evidence of midline shift, mass lesion, hemorrhage or acute infarction POSTERIOR FOSSA: The cerebellum and brainstem are intact. The 4th ventricle is midline. The cerebellopontine angle i s unremarkable. EXTRACRANIAL: The visualized portion of the orbits is intact. Mucoperiosteal thickening within the ethmoid air cell s bilaterally, right and left as well as the right sphenoid SKULL: The calvaria is intact. No evidence of skull fracture. CONCLUSION: 1. Prominent but stable probable arachnoid cyst in the anterior aspect of the right middle cranial fo ssa. 2. Mild, symmetric cortical atrophic changes. Possible old parenchymal area of encephalomalacia versu s prominent sulci in the right occiput. This is unchanged. 3. Chronic sinusitis, right greater than left. 4. Otherwise, no acute intracranial process. Daniel Ojeda MD on March 22, 2017 at 8:44 Board Certified Radiologist. This report was verified electronically.
[2017-03-22] MEDS ORDERED: PRED20 PO (09:28)
[2017-03-22] MEDS ORDERED: INSPIREASE DRUG1 EA INH (09:28)
--- NOTE | 2017-03-22 09:28 | PD ---
Data Data Last Documented VS Vital Signs Date Time Temp Pulse Resp B/P (MAP) Pulse Ox O2 Delivery O2 Flow Rate FiO2 03/22/17 06:16 79 30 134/73 (93) 98 Room Air 140/72 (94) 03/22/17 05:20 98.0 Orders Orders Electrocardiogram (03/22/17 05:50) Basic Metabolic Panel (Bmp) (03/22/17 05:50) Ckmb (Isoenzyme) Profile (03/22/17 05:50) Complete Blood Count With Diff (03/22/17 05:50) Magnesium (Mg) (03/22/17 05:50) Prothrombin Time / Inr (Pt) (03/22/17 05:50) Act Partial Throm Time (Ptt) (03/22/17 05:50) Troponin I (03/22/17 05:50) Chest, Single Ap (03/22/17 05:50) Ecg Monitoring (03/22/17 05:50) Bilateral Bp Monitoring (03/22/17 05:50) Iv Access Insert/Monitor (03/22/17 05:50) Oximetry (03/22/17 05:50) Oxygen Administration (03/22/17 05:50) Sodium Chloride 0.9% Flush (Ns Flush) (03/22/17 06:00) Albuterol-Ipratropium Neb (Duoneb Neb) (03/22/17 06:00) Albuterol Neb (Albuterol Neb) (03/22/17 06:00) Ct Brain W/O Iv Contrast(Rout) (03/22/17 06:47) CKMB (03/22/17 05:58) CKMB% (03/22/17 05:58) Labs Laboratory Tests Test 03/22/17 05:58 White Blood Count 9.6 TH/MM3 Red Blood Count 4.73 MIL/MM3 Hemoglobin 13.2 GM/DL Hematocrit 39.1 % Mean Corpuscular Volume 82.7 FL Mean Corpuscular Hemoglobin 28.0 PG Mean Corpuscular Hemoglobin Concent 33.9 % Red Cell Distribution Width 14.4 % Platelet Count 242 TH/MM3 Mean Platelet Volume 8.4 FL Neutrophils (%) (Auto) 58.8 % Lymphocytes (%) (Auto) 22.1 % Monocytes (%) (Auto) 9.5 % Eosinophils (%) (Auto) 8.4 % Basophils (%) (Auto) 1.2 % Neutrophils # (Auto) 5.6 TH/MM3 Lymphocytes # (Auto) 2.1 TH/MM3 Monocytes # (Auto) 0.9 TH/MM3 Eosinophils # (Auto) 0.8 TH/MM3 Basophils # (Auto) 0.1 TH/MM3 CBC Comment DIFF FINAL Differential Comment Prothrombin Time 10.5 SEC Prothromb Time International Ratio 1.0 RATIO Activated Partial Thromboplast Time 24.0 SEC Blood Urea Nitrogen 18 MG/DL Creatinine 1.37 MG/DL Random Glucose 205 MG/DL Calcium Level 8.5 MG/DL Magnesium Level 1.6 MG/DL Sodium Level 136 MEQ/L Potassium Level 3.8 MEQ/L Chloride Level 100 MEQ/L Carbon Dioxide Level 26.1 MEQ/L Anion Gap 10 MEQ/L Estimat Glomerular Filtration Rate 52 ML/MIN Total Creatine Kinase 368 U/L Creatine Kinase MB 6.5 NG/ML Creatine Kinase MB % 1.8 % Troponin I LESS THAN 0.02 NG/ML [facility] Supervised Visit with ALAINA: No Interpretation(s) EKG: Normal sinus rhythm, first-degree heart block, PVCs, left axis deviation, QRS is 140 ms No leukocytosis Mild renal insufficiency CK is 368 CK-MB ratio was normal Troponin is normal Chest x-rays reassuring Differential Diagnosis COPD exacerbation, congestive heart failure, pulmonary embolism, pneumonia Narrative Course This is a 67-year-old male who presents to the emergency department with increasing shortness of breath it's been present for almost a month. He has been told he has COPD in the past. He was diffusely wheezing on exam initially. He's been given serial bronchodilator treatments. His symptoms significantly improved. Labs are reassuring. He had a BNP checked a week ago which was normal. Chest x-ray demonstrates no infiltrate. He has a documented allergy to methylprednisolone. He says that when he received methylprednisolone injection during surgery once he had some chest burning. I reviewed the patient's medical records and the patient has been on prednisone in the past without adverse reaction. I don't think this is a true drug allergy. I think the patient would very much benefit from a course of prednisone. I also will write him for a spacer for his albuterol. Patient is 98% on room air on reassessment. I don't think he requires admission and I don' t think this qualifies as failed outpatient therapy because he's been inadequately treated thus far for COPD. He expressed understanding when I advised him to return to the emergency department if he feels that all worse. Diagnosis Primary Impression: COPD exacerbation Patient Instructions: General Instructions Additional Instruction: If you develop severe shortness of breath, chest pain, or difficulty breathing return to the emergency department. Use albuterol every 4 hours for the next 2 days. Then use as needed for wheezing. Complete your course of steroids. Follow up with your primary care physician in 2-3 days if your symptoms have not improved. Med/Other Pt SpecificInfo: Prescription(s) given Scripts Spacer/Device For Mdi (Inspirease Drug Delivery) 1 Ea Mis EA INH DIRECTED, #1 0 Refills Prov: Corrie Randolph MD 03/22/17 Prednisone (Prednisone) 20 Mg Tab 40 MG PO DAILY, #8 TAB 0 Refills Take 40 mg (2 tablets) daily for 5 days Prov: Corrie Randolph MD 03/22/17 Disposition: 01 DISCHARGE HOME Condition: Stable Corrie Randolph MD Mar 22, 2017 09:28
[2017-03-22] MEDS ORDERED: predniSONE 50 MG TAB PO ONE (10:00)
[2017-03-22 11:34] VITALS: BP 161/79
== END 2017-03-22 11:36 | disposition home or self-care (01) ==
LOC: NEPC 05:16
DX: J44.1 Chronic obstructive pulmonary disease with (acute) exacerbation (principal); I44.0 Atrioventricular block, first degree; R94.31 Abnormal electrocardiogram [ECG] [EKG]; J32.9 Chronic sinusitis, unspecified; E11.00 Type 2 diabetes mellitus with hyperosmolarity without nonketotic hyperglycemic-hyperosmolar coma (NKHHC); R51 Headache; I11.0 Hypertensive heart disease with heart failure; I50.9 Heart failure, unspecified; E78.00 Pure hypercholesterolemia, unspecified
CPT/HCPCS: 70450; 71010; 80048; 82550; 82552; 83735; 84484; 85025; 85610; 85730; 93005; 94640; 94664; 99285; J7512; J7613

== ENCOUNTER 2017-04-21 01:30 | Inpatient (IN) | payer OTHER, MEDICAID, MEDICARE ==
[2017-04-21 03:54] LABS: ANION GAP 11 MEQ/L (5-15); BICARBONATE 26.4 MEQ/L (21.0-32.0); BLOOD UREA NITROGEN 20 MG/DL (7-18); CALCIUM 8.8 MG/DL (8.5-10.1); CHLORIDE 98 MEQ/L (98-107); CREATININE 1.28 MG/DL (0.60-1.30); GLOMERULAR FILTRATION RATE 56 ML/MIN (>89); GLUCOSE,RANDOM 265 MG/DL (74-106); POTASSIUM 3.8 MEQ/L (3.5-5.1); SODIUM (NA) 135 MEQ/L (136-145)
[2017-04-21 03:58] LABS: TROPONIN I LESS THAN 0.02 NG/ML (0.02-0.05)
[2017-04-21 04:08] LABS: AUTOMATED NEUTROPHIL # 14.5 TH/MM3 (1.8-7.7); BASOPHIL # 0.2 TH/MM3 (0-0.2); BASOPHIL % 1.1 % (0.0-2.0); EOSINOPHIL # 0.3 TH/MM3 (0-0.4); EOSINOPHIL % 1.6 % (0.0-4.0); HEMO FLAGS DIFF FINAL; HEMOGLOBIN 14.6 GM/DL (13.0-17.0); LYMPH % 11.9 % (9.0-44.0); LYMPHOCYTE # 2.3 TH/MM3 (1.0-4.8); MEAN CELL VOLUME 82.8 FL (80.0-100.0); MEAN CORPUSCULAR HEMOGLOBIN 28.8 PG (27.0-34.0); MEAN CORPUSCULAR HGB CONC 34.8 % (32.0-36.0); MEAN PLATELET VOLUME 8.5 FL (7.0-11.0); MONO % 9.3 % (0.0-8.0); MONOCYTE # 1.8 TH/MM3 (0-0.9); NEUT % 76.1 % (16.0-70.0); PLATELET COUNT 298 TH/MM3 (150-450); RED BLOOD COUNT 5.08 MIL/MM3 (4.50-5.90); RED CELL DISTRIBUTION WIDTH 14.6 % (11.6-17.2)
[2017-04-21 04:18] LABS: APTT (PATIENT) 24.2 SEC (24.3-30.1); PROTHROMBIN TIME - PATIENT 10.4 SEC (9.8-11.6)
[2017-04-21] MEDS ORDERED: SODIUM CHLORIDE 0.9% FLUSH 10 ML FLUSH IV FLUSH (05:00)
[2017-04-21] MEDS ORDERED: NALOXONE HCL 0.4 MG/ML AMP IV PUSH (05:00)
[2017-04-21 05:02] LABS: LACTIC ACID SEPSIS PROTOCOL 2.1 mmol/L (0.4-2.0)
[2017-04-21] MEDS: CLINDAMYCIN 600 MG/NS PREMIX 50 ML IV (05:48)
[2017-04-21] MEDS: KETOROLAC TROMETHAMINE 30 MG/ML (IVP) VIAL IV PUSH (05:56)
[2017-04-21 06:39] LABS: LACTIC ACID GHOST NOT REPORTABLE
[2017-04-21 08:19] LABS: LACTIC ACID SEPSIS REPEAT 2.3 mmol/L (0.4-2.0)
[2017-04-21] MEDS ORDERED: DEXTROSE 50% IN WATER 50 ML VIAL(D50) IV PUSH (09:15)
[2017-04-21] MEDS ORDERED: GLUCAGON 1 MG/ML VIAL OTHER (09:15)
[2017-04-21] MEDS: HYDROCHLOROTHIAZIDE 25 MG TAB PO (10:16)
[2017-04-21] MEDS: CARVEDILOL 3.125 MG TAB PO ×2 (10:17→20:30)
[2017-04-21] MEDS: cloNIDine HCL 0.1 MG TAB PO (10:18)
[2017-04-21] MEDS: LISINOPRIL 20 MG TAB PO (10:18)
[2017-04-21] MEDS: MULTIVITAMIN TAB PO (10:18)
[2017-04-21] MEDS: ASPIRIN 325 MG TAB PO (10:19)
[2017-04-21] MEDS ORDERED: RESP: ALBUTEROL 2.5 MG/IPRATROPIUM 0.5 MG NEB (PRN) NEB (10:30)
[2017-04-21] MEDS ORDERED: cloNIDine HCL 0.1 MG TAB PO (10:30)
[2017-04-21] MEDS: hydrALAZINE HCL 25 MG TAB PO ×3 (10:39→20:30)
[2017-04-21] MEDS: POTASSIUM CHLORIDE 10 MEQ CAP PO ×2 (10:39→20:30)
[2017-04-21] MEDS: LACTOBACILLUS ACIDOPHILUS TAB PO ×3 (10:39→16:42)
[2017-04-21] MEDS: SODIUM CHLOR 0.9% 1000 ML INJ 1,000 ML IV ×2 (11:07→22:35)
[2017-04-21 11:25] LABS: CREATINE KINASE 246 U/L (39-308)
[2017-04-21 11:25] LABS: TROPONIN I 0.02 NG/ML (0.02-0.05)
[2017-04-21] MEDS: CLINDAMYCIN 900 MG/NS PREMIX 50 ML IV ×2 (11:29→20:31)
[2017-04-21] MEDS: SODIUM CHLORIDE 0.9% FLUSH 10 ML FLUSH IV FLUSH ×2 (11:29→20:31)
[2017-04-21] MEDS: INSULIN ASPART SUPPLEMENTAL SCALE SQ ×3 (13:28→20:32)
[2017-04-21] MEDS: INSULIN HUMAN NPH/R 70/30 1,000 UNITS/10 ML VIAL SQ ×2 (13:29→17:00)
[2017-04-21] MEDS: HEPARIN SODIUM - SQ 10,000 UNITS/ML VIAL SQ ×2 (14:29→20:30)
[2017-04-21 17:44] LABS: LACTIC ACID 3.1 mmol/L (0.4-2.0)
[2017-04-21] MEDS: ATORVASTATIN 20 MG TAB PO (20:30)
[2017-04-21 21:00] LABS: CREATINE KINASE 343 U/L (39-308)
[2017-04-21 21:00] LABS: TROPONIN I LESS THAN 0.02 NG/ML (0.02-0.05)
[2017-04-21 21:12] LABS: CKMB 3.8 NG/ML (0.5-3.6); CKMB % 1.1 % (0.0-4.0)
[2017-04-22] MEDS: hydrALAZINE HCL 25 MG TAB PO ×3 (05:05→22:58)
[2017-04-22] MEDS: HEPARIN SODIUM - SQ 10,000 UNITS/ML VIAL SQ ×3 (05:06→22:58)
[2017-04-22] MEDS: CLINDAMYCIN 900 MG/NS PREMIX 50 ML IV ×2 (05:08→12:58)
[2017-04-22 06:49] LABS: BASOPHIL # 0.1 TH/MM3 (0-0.2); EOSINOPHIL # 0.5 TH/MM3 (0-0.4); EOSINOPHIL % 3.3 % (0.0-4.0); HEMO FLAGS DIFF FINAL; HEMOGLOBIN 13.8 GM/DL (13.0-17.0); LYMPH % 16.5 % (9.0-44.0); LYMPHOCYTE # 2.4 TH/MM3 (1.0-4.8); MEAN CELL VOLUME 84.2 FL (80.0-100.0); MEAN CORPUSCULAR HGB CONC 34.5 % (32.0-36.0); MEAN PLATELET VOLUME 8.5 FL (7.0-11.0); MONO % 11.2 % (0.0-8.0); MONOCYTE # 1.7 TH/MM3 (0-0.9); PLATELET COUNT 279 TH/MM3 (150-450); RED BLOOD COUNT 4.75 MIL/MM3 (4.50-5.90); RED CELL DISTRIBUTION WIDTH 14.6 % (11.6-17.2); WHITE BLOOD COUNT 14.7 TH/MM3 (4.0-11.0)
[2017-04-22 07:01] LABS: ANION GAP 11 MEQ/L (5-15); BLOOD UREA NITROGEN 19 MG/DL (7-18); CALCIUM 8.8 MG/DL (8.5-10.1); CHLORIDE 97 MEQ/L (98-107); CREATININE 1.24 MG/DL (0.60-1.30); GLOMERULAR FILTRATION RATE 58 ML/MIN (>89); GLUCOSE,RANDOM 230 MG/DL (74-106); SODIUM (NA) 133 MEQ/L (136-145)
[2017-04-22] MEDS: SODIUM CHLORIDE 0.9% FLUSH 10 ML FLUSH IV FLUSH ×2 (09:00→20:47)
[2017-04-22] MEDS: ASPIRIN 325 MG TAB PO (09:06)
[2017-04-22] MEDS: cloNIDine HCL 0.1 MG TAB PO (09:06)
[2017-04-22] MEDS: LISINOPRIL 20 MG TAB PO (09:06)
[2017-04-22] MEDS: HYDROCHLOROTHIAZIDE 25 MG TAB PO (09:06)
[2017-04-22] MEDS: POTASSIUM CHLORIDE 10 MEQ CAP PO ×2 (09:07→20:45)
[2017-04-22] MEDS: MULTIVITAMIN TAB PO (09:07)
[2017-04-22] MEDS: LACTOBACILLUS ACIDOPHILUS TAB PO ×3 (09:07→16:09)
[2017-04-22] MEDS: CARVEDILOL 3.125 MG TAB PO ×2 (09:07→20:45)
[2017-04-22] MEDS: INSULIN ASPART SUPPLEMENTAL SCALE SQ ×4 (09:15→20:47)
[2017-04-22] MEDS: INSULIN HUMAN NPH/R 70/30 1,000 UNITS/10 ML VIAL SQ ×2 (09:15→16:53)
[2017-04-22] MEDS: SODIUM CHLOR 0.9% 1000 ML INJ 1,000 ML IV ×2 (12:58→22:58)
[2017-04-22] MEDS: LEVOFLOXACIN 750 MG TAB PO (16:09)
[2017-04-22] MEDS: ATORVASTATIN 20 MG TAB PO (20:46)
[2017-04-22] MEDS: BUDESONIDE-FORMOTEROL 160/4.5 MCG INHALER INH (21:29)
[2017-04-23 01:47] LABS: AMORPHOUS SEDIMENT, URINE RARE; BILIRUBIN, URINE NEG (NEG); BLOOD, URINE NEG (NEG); COMMENT (UR) CULT NOT INDICATED; CULTURE IF INDICATED CULT NOT INDICATED; GLUCOSE,URINE NEG (NEG); HYALINE CAST, URINE 1 /lpf (RARE); KETONE, URINE NEG (NEG); NITRITE,URINE NEG (NEG); SQUAMOUS EPITHELIAL CELL URINE <1 /hpf (0-5); URINE COLOR LIGHT-YELLOW (YELLW/STRAW); URINE LEUKOCYTE ESTERASE NEG (NEG)
[2017-04-23] MEDS: HEPARIN SODIUM - SQ 10,000 UNITS/ML VIAL SQ ×3 (04:52→21:29)
[2017-04-23] MEDS: hydrALAZINE HCL 25 MG TAB PO ×3 (04:52→21:12)
[2017-04-23] MEDS: ASPIRIN 325 MG TAB PO (08:36)
[2017-04-23] MEDS: POTASSIUM CHLORIDE 10 MEQ CAP PO ×2 (08:36→21:12)
[2017-04-23] MEDS: CARVEDILOL 3.125 MG TAB PO ×2 (08:36→21:12)
[2017-04-23] MEDS: HYDROCHLOROTHIAZIDE 25 MG TAB PO (08:36)
[2017-04-23] MEDS: MULTIVITAMIN TAB PO (08:36)
[2017-04-23] MEDS: LISINOPRIL 20 MG TAB PO (08:36)
[2017-04-23] MEDS: cloNIDine HCL 0.1 MG TAB PO (08:36)
[2017-04-23] MEDS: LACTOBACILLUS ACIDOPHILUS TAB PO ×3 (08:36→16:42)
[2017-04-23] MEDS: INSULIN HUMAN NPH/R 70/30 1,000 UNITS/10 ML VIAL SQ (08:37)
[2017-04-23] MEDS: BUDESONIDE-FORMOTEROL 160/4.5 MCG INHALER INH ×2 (08:39→21:00)
[2017-04-23] MEDS: INSULIN ASPART SUPPLEMENTAL SCALE SQ ×4 (08:39→21:00)
[2017-04-23] MEDS: SODIUM CHLORIDE 0.9% FLUSH 10 ML FLUSH IV FLUSH ×2 (08:40→21:00)
[2017-04-23] MEDS: AMPICILLIN-SULBACTAM INJ 3 GM in SODIUM CHLORIDE 0.9% INJ 100 ML IV ×2 (12:18→15:35)
[2017-04-23] MEDS: INSULIN ASPART 1,000 UNITS/10 ML VIAL SQ ×2 (12:26→16:43)
[2017-04-23] MEDS: FLUTICASONE PROPIONATE 220 MCG/ACT 12 GM INHALER INH ×2 (14:30→21:00)
[2017-04-23] MEDS: SODIUM CHLOR 0.9% 1000 ML INJ 1,000 ML IV (14:35)
[2017-04-23] MEDS ORDERED: LEVOFLOXACIN 750 MG TAB PO (15:00)
[2017-04-23] MEDS: DEXAMETHASONE SOD PHOS 4 MG/ML VIAL IV PUSH ×2 (15:34→21:12)
[2017-04-23] MEDS ORDERED: INSULIN DETEMIR 100 UNITS/ML VIAL SQ (21:00)
[2017-04-23] MEDS: INSULIN DETEMIR 100 UNITS/ML VIAL SQ (21:00)
[2017-04-23] MEDS: ATORVASTATIN 20 MG TAB PO (21:12)
[2017-04-24] MEDS: SODIUM CHLOR 0.9% 1000 ML INJ 1,000 ML IV ×2 (00:29→17:05)
[2017-04-24] MEDS: AMPICILLIN-SULBACTAM INJ 3 GM in SODIUM CHLORIDE 0.9% INJ 100 ML IV (00:29)
[2017-04-24] MEDS ORDERED: Vancomycin Consult Pharmacy 1 EA OTHER (00:45)
[2017-04-24] MEDS ORDERED: VANCOMYCIN 0 MG/NS 500 ML IV (02:00)
[2017-04-24] MEDS: VANCOMYCIN IV (03:02)
[2017-04-24] MEDS: NS IV (03:02)
[2017-04-24] MEDS: hydrALAZINE HCL 25 MG TAB PO ×3 (04:58→21:51)
[2017-04-24] MEDS: HEPARIN SODIUM - SQ 10,000 UNITS/ML VIAL SQ ×3 (04:58→21:52)
[2017-04-24] MEDS: DEXAMETHASONE SOD PHOS 4 MG/ML VIAL IV PUSH ×2 (04:58→13:51)
[2017-04-24] MEDS: INSULIN ASPART 1,000 UNITS/10 ML VIAL SQ ×3 (09:11→17:04)
[2017-04-24] MEDS: INSULIN ASPART SUPPLEMENTAL SCALE SQ ×4 (09:11→23:17)
[2017-04-24] MEDS: MULTIVITAMIN TAB PO (09:13)
[2017-04-24] MEDS: LACTOBACILLUS ACIDOPHILUS TAB PO ×3 (09:13→17:05)
[2017-04-24] MEDS: LISINOPRIL 20 MG TAB PO (09:13)
[2017-04-24] MEDS: POTASSIUM CHLORIDE 10 MEQ CAP PO ×2 (09:13→21:51)
[2017-04-24] MEDS: HYDROCHLOROTHIAZIDE 25 MG TAB PO (09:13)
[2017-04-24] MEDS: cloNIDine HCL 0.1 MG TAB PO (09:13)
[2017-04-24] MEDS: ASPIRIN EC 81 MG TABEC PO (09:13)
[2017-04-24] MEDS: CARVEDILOL 3.125 MG TAB PO ×2 (09:13→21:55)
[2017-04-24] MEDS: SODIUM CHLORIDE 0.9% FLUSH 10 ML FLUSH IV FLUSH ×2 (09:14→21:50)
[2017-04-24] MEDS: BUDESONIDE-FORMOTEROL 160/4.5 MCG INHALER INH ×2 (09:14→21:57)
[2017-04-24] MEDS: FLUTICASONE PROPIONATE 220 MCG/ACT 12 GM INHALER INH ×2 (09:14→21:57)
[2017-04-24] MEDS: AZITHROMYCIN 250 MG TAB PO (13:50)
[2017-04-24] MEDS ORDERED: INSULIN ASPART SUPPLEMENTAL SCALE SQ (17:00)
[2017-04-24] MEDS ORDERED: INSULIN ASPART 1,000 UNITS/10 ML VIAL SQ (17:00)
[2017-04-24] MEDS: VANCOMYCIN INJ 2,000 MG in SODIUM CHLORID 0.9% 500 ML INJ 500 ML IV (21:50)
[2017-04-24] MEDS: ATORVASTATIN 20 MG TAB PO (21:51)
[2017-04-24] MEDS: INSULIN DETEMIR 100 UNITS/ML VIAL SQ (23:16)
[2017-04-25] MEDS: hydrALAZINE HCL 25 MG TAB PO ×3 (04:39→21:50)
[2017-04-25] MEDS: HEPARIN SODIUM - SQ 10,000 UNITS/ML VIAL SQ (04:40)
[2017-04-25] MEDS: SODIUM CHLOR 0.9% 1000 ML INJ 1,000 ML IV (04:49)
[2017-04-25 07:37] LABS: AUTOMATED NEUTROPHIL # 18.2 TH/MM3 (1.8-7.7); BASOPHIL # 0.1 TH/MM3 (0-0.2); BASOPHIL % 0.4 % (0.0-2.0); HEMATOCRIT 36.1 % (39.0-51.0); HEMOGLOBIN 12.2 GM/DL (13.0-17.0); LYMPH % 7.4 % (9.0-44.0); LYMPHOCYTE # 1.6 TH/MM3 (1.0-4.8); MEAN CELL VOLUME 82.8 FL (80.0-100.0); MEAN CORPUSCULAR HGB CONC 33.8 % (32.0-36.0); MEAN PLATELET VOLUME 8.9 FL (7.0-11.0); MONO % 5.6 % (0.0-8.0); MONOCYTE # 1.2 TH/MM3 (0-0.9); NEUT % 86.6 % (16.0-70.0); PLATELET COUNT 275 TH/MM3 (150-450); RED BLOOD COUNT 4.36 MIL/MM3 (4.50-5.90); RED CELL DISTRIBUTION WIDTH 14.4 % (11.6-17.2)
[2017-04-25 07:40] LABS: ANION GAP 9 MEQ/L (5-15); BICARBONATE 22.1 MEQ/L (21.0-32.0); BLOOD UREA NITROGEN 34 MG/DL (7-18); CALCIUM 8.4 MG/DL (8.5-10.1); CHLORIDE 99 MEQ/L (98-107); CREATININE 1.32 MG/DL (0.60-1.30); GLOMERULAR FILTRATION RATE 54 ML/MIN (>89); GLUCOSE,RANDOM 291 MG/DL (74-106); POTASSIUM 4.7 MEQ/L (3.5-5.1); SODIUM (NA) 130 MEQ/L (136-145)
[2017-04-25 08:19] LABS: HEMO FLAGS AUTO DIFF
[2017-04-25 08:20] LABS: PLATELET ESTIMATE SMEAR NORMAL (NORMAL); PLATELET MORPHOLOGY NORMAL (NORMAL)
[2017-04-25 08:21] LABS: SCAN/DIFF AUTO DIFF CONFIRMED
[2017-04-25] MEDS: CARVEDILOL 3.125 MG TAB PO ×2 (08:33→20:44)
[2017-04-25] MEDS: ENOXAPARIN SODIUM 40 MG/0.4 ML SYRINGE SQ (08:33)
[2017-04-25] MEDS: LACTOBACILLUS ACIDOPHILUS TAB PO ×3 (08:33→17:15)
[2017-04-25] MEDS: POTASSIUM CHLORIDE 10 MEQ CAP PO ×2 (08:33→20:45)
[2017-04-25] MEDS: LISINOPRIL 20 MG TAB PO (08:34)
[2017-04-25] MEDS: HYDROCHLOROTHIAZIDE 25 MG TAB PO (08:34)
[2017-04-25] MEDS: AZITHROMYCIN 250 MG TAB PO (08:34)
[2017-04-25] MEDS: cloNIDine HCL 0.1 MG TAB PO (08:34)
[2017-04-25] MEDS: MULTIVITAMIN TAB PO (08:34)
[2017-04-25] MEDS: ASPIRIN EC 81 MG TABEC PO (08:34)
[2017-04-25] MEDS: INSULIN ASPART 1,000 UNITS/10 ML VIAL SQ ×3 (08:35→17:16)
[2017-04-25] MEDS: INSULIN ASPART SUPPLEMENTAL SCALE SQ ×4 (08:35→21:49)
[2017-04-25] MEDS: FLUTICASONE PROPIONATE 220 MCG/ACT 12 GM INHALER INH ×2 (08:36→20:43)
[2017-04-25] MEDS: SODIUM CHLORIDE 0.9% FLUSH 10 ML FLUSH IV FLUSH ×2 (08:36→20:43)
[2017-04-25] MEDS: BUDESONIDE-FORMOTEROL 160/4.5 MCG INHALER INH ×2 (08:36→20:43)
[2017-04-25] MEDS: VANCOMYCIN INJ 2,000 MG in SODIUM CHLORID 0.9% 500 ML INJ 500 ML IV (15:15)
[2017-04-25] MEDS: ATORVASTATIN 20 MG TAB PO (20:45)
[2017-04-25] MEDS: INSULIN DETEMIR 100 UNITS/ML VIAL SQ (21:49)
[2017-04-26] MEDS: hydrALAZINE HCL 25 MG TAB PO (05:15)
[2017-04-26] MEDS: PHARMACY ORDERED LAB (08:45)
[2017-04-26 09:00] LABS: AUTOMATED NEUTROPHIL # 8.7 TH/MM3 (1.8-7.7); BASOPHIL % 0.3 % (0.0-2.0); EOSINOPHIL # 0.1 TH/MM3 (0-0.4); EOSINOPHIL % 0.5 % (0.0-4.0); HEMO FLAGS DIFF FINAL; HEMOGLOBIN 13.9 GM/DL (13.0-17.0); LYMPH % 18.6 % (9.0-44.0); LYMPHOCYTE # 2.2 TH/MM3 (1.0-4.8); MEAN CELL VOLUME 83.7 FL (80.0-100.0); MEAN CORPUSCULAR HEMOGLOBIN 28.4 PG (27.0-34.0); MEAN CORPUSCULAR HGB CONC 33.9 % (32.0-36.0); MEAN PLATELET VOLUME 8.6 FL (7.0-11.0); MONO % 8.2 % (0.0-8.0); NEUT % 72.4 % (16.0-70.0); PLATELET COUNT 293 TH/MM3 (150-450); RED BLOOD COUNT 4.89 MIL/MM3 (4.50-5.90); RED CELL DISTRIBUTION WIDTH 14.2 % (11.6-17.2)
[2017-04-26 09:11] LABS: CREATININE 1.25 MG/DL (0.60-1.30); GLOMERULAR FILTRATION RATE 58 ML/MIN (>89)
[2017-04-26 09:15] LABS: RANDOM VANCOMYCIN 17.7 COMMENT
[2017-04-26] MEDS: INSULIN ASPART SUPPLEMENTAL SCALE SQ (09:15)
[2017-04-26] MEDS: VANCOMYCIN INJ 2,000 MG in SODIUM CHLORID 0.9% 500 ML INJ 500 ML IV (09:15)
[2017-04-26] MEDS: ENOXAPARIN SODIUM 40 MG/0.4 ML SYRINGE SQ (09:16)
[2017-04-26] MEDS: INSULIN ASPART 1,000 UNITS/10 ML VIAL SQ (09:16)
[2017-04-26] MEDS: AZITHROMYCIN 250 MG TAB PO (09:17)
[2017-04-26] MEDS: LISINOPRIL 20 MG TAB PO (09:18)
[2017-04-26] MEDS: MULTIVITAMIN TAB PO (09:18)
[2017-04-26] MEDS: CARVEDILOL 3.125 MG TAB PO (09:18)
[2017-04-26] MEDS: LACTOBACILLUS ACIDOPHILUS TAB PO (09:18)
[2017-04-26] MEDS: cloNIDine HCL 0.1 MG TAB PO (09:18)
[2017-04-26] MEDS: ASPIRIN EC 81 MG TABEC PO (09:18)
[2017-04-26] MEDS: SODIUM CHLORIDE 0.9% FLUSH 10 ML FLUSH IV FLUSH (09:18)
[2017-04-26] MEDS: BUDESONIDE-FORMOTEROL 160/4.5 MCG INHALER INH (09:19)
[2017-04-26] MEDS: FLUTICASONE PROPIONATE 220 MCG/ACT 12 GM INHALER INH (09:19)
[2017-04-26] MEDS: POTASSIUM CHLORIDE 10 MEQ CAP PO (09:19)
== END 2017-04-26 12:17 | disposition home or self-care (01) | DRG 872 ==
LOC: NEPC 01:30 → NEDA 05:28 → N07B 14:06
DX: A41.9 Sepsis, unspecified organism (principal); I13.0 Hypertensive heart and chronic kidney disease with heart failure and stage 1 through stage 4 chronic kidney disease, or unspecified chronic kidney disease; E11.22 Type 2 diabetes mellitus with diabetic chronic kidney disease; I50.22 Chronic systolic (congestive) heart failure; J44.0 Chronic obstructive pulmonary disease with (acute) lower respiratory infection; L03.211 Cellulitis of face; N18.9 Chronic kidney disease, unspecified; J01.90 Acute sinusitis, unspecified; J20.9 Acute bronchitis, unspecified; J34.0 Abscess, furuncle and carbuncle of nose; E78.5 Hyperlipidemia, unspecified; R51 Headache; R00.0 Tachycardia, unspecified; G47.30 Sleep apnea, unspecified; Z92.3 Personal history of irradiation; Z79.4 Long term (current) use of insulin; Z85.46 Personal history of malignant neoplasm of prostate; Z79.82 Long term (current) use of aspirin; Z87.891 Personal history of nicotine dependence; Z86.14 Personal history of Methicillin resistant Staphylococcus aureus infection
CPT/HCPCS: 70450; 70486; 71045; 80048; 80202; 81001; 82550; 82552; 82565; 82948; 83605; 84484; 85025; 85610; 85730; 87040; 87804; 87804-59; 93005; 94150; 97161-GP; 99285-25

== ENCOUNTER 2017-06-18 10:02 | Observation (INO) | payer OTHER, MEDICAID ==
[~2017-06-18] VITALS: Ht 185.4 cm; Wt 131.0 kg
[2017-06-18] VITALS (8 sets, daily range): BP systolic 144–194; BP diastolic 76–92; PULSE 63–79; RESP 14–20; TEMP 97.3–97.8; O2SAT 95–100
[~2017-06-18 10:02] MED LIST changes: -ASPI-183 PO; +AZIT250T3 PO; +BACTOIN EACH NARE; +Budeson-Formot 160-4.5 Mcg Inh INH; +DOXY100C PO; +ECASA81 PO; +FLUTI220I INH; +HYDR-3288 PO; -HYDR25TA5 PO; +INSPIREASE DRUG1 EA INH; +METF500T PO; -POTA10CA PO
[2017-06-18] MEDS ORDERED: SYMB160A INH (10:36)
[2017-06-18] MEDS ORDERED: CARV12.5 PO (10:36)
[2017-06-18] MEDS ORDERED: ASPI-183 PO (10:36)
[2017-06-18] MEDS ORDERED: HYDR-3798 PO (10:36)
[2017-06-18] MEDS ORDERED: HYDR25TA5 PO (10:39)
[2017-06-18] MEDS ORDERED: ACETAMINOPHEN 325 MG TAB PO ONE (10:45)
[2017-06-18] MEDS ORDERED: SODIUM CHLORIDE 0.9% FLUSH 10 ML FLUSH IVF PRN (10:45)
[2017-06-18] MEDS ORDERED: MORPHINE SULFATE 4 MG/ML INJ IV PUSH ONE (10:45)
[2017-06-18] MEDS ORDERED: NITROGLYCERIN 2% OINT 1 GM PACKET TOP ONE (10:45)
--- NOTE | 2017-06-18 10:45 | PD ---
HPI Chief Complaint: Chest Pain Time Seen by Provider: 10:38 Travel History International Travel<30 days: No Contact w/Intl Traveler<30days: No Traveled to known affect area: No History of Present Illness HPI This is a 67-year-old male with history of diabetes mellitus, hyperlipidemia, hypertension, COPD, presents today with complaints of chest pain this morning. Patient states it was present about 20 minutes ago. He reports it as a pressure -like that progressed to a achy pain. He reported as a 9 out of 10 on the pain scale. He states it is now about a 1 out of 10. He reported mild shortness of breath associated with it. There was no nausea or diaphoresis. The patient reports that he has never had chest pain, on like this previously. There was no exertional component. The patient was admitted in April to the hospital for cellulitis. PFSH Past Medical History Hx Anticoagulant Therapy: Yes (asa) Arthritis: No Asthma: No Autoimmune Disease: No Blood Disorders: No Anxiety: No Depression: No Heart Rhythm Problems: No Cancer: Yes (prostate CA) Cardiac Catheterization: No Cardiovascular Problems: Yes High Cholesterol: Yes Chemotherapy: No Chest Pain: Yes Congestive Heart Failure: Yes COPD: Yes Cerebrovascular Accident: No Coronary Artery Disease: No Diabetes: Yes Patient Takes Glucophage: No Diminished Hearing: No Endocrine: No Gastrointestinal Disorders: Yes (PYLIDINOL CYST X2) GERD: No Glaucoma: No Genitourinary: No Headaches: Yes Hepatitis: No Heparin Induced Thrombocytopen: No Hypertension: Yes Immune Disorder: No Implanted Vascular Access Dvce: No Kidney Stones: No Musculoskeletal: No Neurologic: No Psychiatric: No Reproductive: No Respiratory: Yes (COPD, PNA) Immunizations Current: Yes Migraines: No Myocardial Infarction: No Radiation Therapy: Yes (TREATMENT COMPLETED ON 03/21/17) Renal Failure: No Seizures: No Sickle Cell Disease: No Sleep Apnea: Yes (DOES NOT WEAR A CPAP) Thyroid Disease: No Past Surgical History Abdominal Surgery: Yes (APPENDECTOMY) AICD: No Appendectomy: Yes Arteriovenous Shunt: No Cardiac Surgery: No Cholecystectomy: No Coronary Artery Bypass Graft: No Ear Surgery: No Endocrine Surgery: No Eye Surgery: No Genitourinary Surgery: No Gynecologic Surgery: No Insulin Pump: No Joint Replacement: No Neurologic Surgery: No Oral Surgery: No Pacemaker: No Thoracic Surgery: No Other Surgery: Yes ( CYST REMOVAL) Family History Family Myocardial Infarction: No Social History Alcohol Use: Yes (RARE) Tobacco Use: No (quit 30 years ago) Substance Use: No Allergies-Medications (Allergen,Severity, Reaction): Coded Allergies: *MDRO Multi-Drug Resistant Organism (Verified Adverse Reaction, Unknown, ) MRSA (back wound/chest abscess) - 04/24/2015 MRSA PCR screen positive 10/12/16 methylprednisolone (Unverified Adverse Reaction, Unknown, 06/18/17) severe bowel pain Reported Meds & Prescriptions Reported Meds & Active Scripts Active Flovent Hfa 12 GM Inh (Fluticasone Propionate) 220 Mcg/Act Inh 1 Puff INH BID 30 Days Use daily at the same time. Amlodipine (Amlodipine Besylate) 10 Mg Tab 10 Mg PO DAILY Reported Hydrochlorothiazide 25 Mg Tab 25 Mg PO DAILY Coreg (Carvedilol) 12.5 Mg Tab 25 Mg PO BID Hydralazine HCl 10 Mg Tablet 10 Mg PO QID Aspirin 325 Mg Tab 325 Mg PO DAILY Symbicort Inh (Budesonide/Formoterol Fumarate) 160-4.5 Mcg/Act Aero 1 Puff INH Q12HR Clonidine (Clonidine HCl) 0.1 Mg Tab 0.1 Mg PO DAILY Novolin 70-30 Inj (Insulin Human Isoph/Insulin Regular) 1,000 Unit/10 Ml Vial 35 Units SQ BID Atorvastatin (Atorvastatin Calcium) 20 Mg Tab 20 Mg PO HS Lisinopril 40 Mg Tab 40 Mg PO DAILY Multiple Vitamin 1 Tab 1 Tab PO DAILY Review of Systems Except as stated in HPI: all other systems reviewed are Neg General / Constitutional: No: Fever HENT: Positive: Neck Pain (Left lateral neck strain), No: Headaches, Lightheadedness Cardiovascular: Positive: Chest Pain or Discomfort, No: Palpitations Respiratory: Positive: Shortness of Breath (With the pain, none now), No: Cough Gastrointestinal: No: Nausea, Vomiting, Abdominal Pain Genitourinary: No: Frequency, Dysuria Musculoskeletal: Positive: Pain (Strain in his left lateral neck), No: Weakness Neurologic: No: Weakness, Dizziness, Headache Physical Exam Narrative GENERAL: Well-developed well-nourished male in no acute respiratory distress. SKIN: Focused skin assessment warm/dry. HEAD: Atraumatic. Normocephalic. EYES: No scleral icterus. No injection or drainage. ENT: No nasal bleeding or discharge. Mucous membranes pink and moist. NECK: Trachea midline. Supple. Patient had left lateral neck "strain". This was along the lateral trapezius muscle. CARDIOVASCULAR: Regular rate and rhythm. No murmur appreciated. RESPIRATORY: No accessory muscle use. Clear to auscultation. Breath sounds equal bilaterally. GASTROINTESTINAL: Abdomen soft, obese, non-tender, nondistended. MUSCULOSKELETAL: No obvious deformities. No clubbing. No cyanosis. No edema. NEUROLOGICAL: Awake and alert. No obvious cranial nerve deficits. Motor grossly within normal limits. Normal speech. PSYCHIATRIC: Appropriate mood and affect; insight and judgment normal. Data Data Last Documented VS Vital Signs Date Time Temp Pulse Resp B/P (MAP) Pulse Ox O2 Delivery O2 Flow Rate FiO2 06/18/17 11:23 69 186/92 (123) 175/90 (118) 06/18/17 10:54 98 Room Air 06/18/17 10:54 18 2.00 06/18/17 10:05 97.3 Orders Orders Basic Metabolic Panel (Bmp) (06/18/17 10:38) Ckmb (Isoenzyme) Profile (06/18/17 10:38) Complete Blood Count With Diff (06/18/17 10:38) Magnesium (Mg) (06/18/17 10:38) Prothrombin Time / Inr (Pt) (06/18/17 10:38) Act Partial Throm Time (Ptt) (06/18/17 10:38) Troponin I (06/18/17 10:38) Ecg Monitoring (06/18/17 10:38) Bilateral Bp Monitoring (06/18/17 10:38) Iv Access Insert/Monitor (06/18/17 10:38) Oximetry (06/18/17 10:38) Oxygen Administration (06/18/17 10:38) Morphine Inj (Morphine Inj) (06/18/17 10:45) Nitroglycerin 2% Oint (Nitroglycerin 2% (06/18/17 10:45) Sodium Chloride 0.9% Flush (Ns Flush) (06/18/17 10:45) Chest, Pa & Lat (06/18/17 10:38) Acetaminophen (Tylenol) (06/18/17 10:45) CKMB (06/18/17 10:43) CKMB% (06/18/17 10:43) Sodium Chlorid 0.9% 500 Ml Inj (Ns 500 M (06/18/17 11:45) Potassium Chloride (Kcl) (06/18/17 11:45) Admit Order (Ed Use Only) (06/18/17 12:52) Labs Laboratory Tests Test 06/18/17 10:43 White Blood Count 9.2 TH/MM3 Red Blood Count 4.96 MIL/MM3 Hemoglobin 14.1 GM/DL Hematocrit 40.9 % Mean Corpuscular Volume 82.4 FL Mean Corpuscular Hemoglobin 28.4 PG Mean Corpuscular Hemoglobin Concent 34.5 % Red Cell Distribution Width 14.3 % Platelet Count 244 TH/MM3 Mean Platelet Volume 8.8 FL Neutrophils (%) (Auto) 56.5 % Lymphocytes (%) (Auto) 25.3 % Monocytes (%) (Auto) 10.3 % Eosinophils (%) (Auto) 6.6 % Basophils (%) (Auto) 1.3 % Neutrophils # (Auto) 5.2 TH/MM3 Lymphocytes # (Auto) 2.3 TH/MM3 Monocytes # (Auto) 1.0 TH/MM3 Eosinophils # (Auto) 0.6 TH/MM3 Basophils # (Auto) 0.1 TH/MM3 CBC Comment DIFF FINAL Differential Comment Prothrombin Time 10.1 SEC Prothromb Time International Ratio 1.0 RATIO Activated Partial Thromboplast Time 22.7 SEC Blood Urea Nitrogen 28 MG/DL Creatinine 1.30 MG/DL Random Glucose 200 MG/DL Calcium Level 9.0 MG/DL Magnesium Level 1.9 MG/DL Sodium Level 135 MEQ/L Potassium Level 3.3 MEQ/L Chloride Level 99 MEQ/L Carbon Dioxide Level 27.6 MEQ/L Anion Gap 8 MEQ/L Estimat Glomerular Filtration Rate 55 ML/MIN Total Creatine Kinase 246 U/L Creatine Kinase MB 5.9 NG/ML Troponin I LESS THAN 0.02 NG/ML MDM Medical Decision Making Medical Screen Exam Complete: Yes Emergency Medical Condition: Yes Differential Diagnosis ACS versus musculoskeletal pain versus GERD versus pneumonia Narrative Course 67-year-old male with history of hypertension, hyperlipidemia, diabetes mellitus , presents today with complaints of chest pain roughly 20 minutes prior to arrival. Patient reported as a squeezing tightness that progressed to a achy pain. He reports it as a 9 out of 10 on the pain scale earlier. He reports it is now about a 1 out of 10. EKG shows no evidence of acute ST elevation or depression. Troponin is within normal limits. Patient's potassium was low at 3.2. He is given 20 mEq of potassium. He states that his primary care doctor recently took him off his potassium supplement. Given his past history and comorbid conditions, patient will be admitted to the chest pain center for rule out therapy. I discussed with the patient and he is amenable to this. Diagnosis Primary Impression: Chest pain Additional Impressions: Hypertension DM (diabetes mellitus) Chronic kidney disease Obesity Cardiomyopathy History of COPD Admitting Information Admitting Physician Requests: Observation Cory Pond MD Jun 18, 2017 10:45
[2017-06-18 11:09] LABS: AUTOMATED NEUTROPHIL # 5.2 TH/MM3 (1.8-7.7); BASOPHIL # 0.1 TH/MM3 (0-0.2); BASOPHIL % 1.3 % (0.0-2.0); EOSINOPHIL # 0.6 TH/MM3 (0-0.4); EOSINOPHIL % 6.6 % (0.0-4.0); HEMATOCRIT 40.9 % (39.0-51.0); HEMOGLOBIN 14.1 GM/DL (13.0-17.0); LYMPH % 25.3 % (9.0-44.0); LYMPHOCYTE # 2.3 TH/MM3 (1.0-4.8); MEAN CELL VOLUME 82.4 FL (80.0-100.0); MEAN CORPUSCULAR HEMOGLOBIN 28.4 PG (27.0-34.0); MEAN CORPUSCULAR HGB CONC 34.5 % (32.0-36.0); MEAN PLATELET VOLUME 8.8 FL (7.0-11.0); MONO % 10.3 % (0.0-8.0); NEUT % 56.5 % (16.0-70.0); PLATELET COUNT 244 TH/MM3 (150-450); RED BLOOD COUNT 4.96 MIL/MM3 (4.50-5.90); RED CELL DISTRIBUTION WIDTH 14.3 % (11.6-17.2); WHITE BLOOD COUNT 9.2 TH/MM3 (4.0-11.0)
[2017-06-18 11:10] LABS: PROTHROMBIN TIME - PATIENT 10.1 SEC (9.8-11.6)
[2017-06-18 11:20] LABS: TROPONIN I LESS THAN 0.02 NG/ML (0.02-0.05)
--- NOTE | 2017-06-18 11:30 | RADRPT ---
EXAM DATE/TIME: 06/18/2017 10:51 [facility] COMPARISON: CHEST PA & LAT, March 13, 2017, 1:28. INDICATIONS : Chest pain MEDICAL HISTORY : Carcinoma, prostatic. Cardiovascular disease. Congestive heart failure. Hypertension.Diabetes SURGICAL HISTORY : Appendectomy. ENCOUNTER: Initial ACUITY: 1 day PAIN SCORE: 110 LOCATION: chest FINDINGS: PA and lateral views of the chest demonstrate the lungs to be symmetrically aerated without evidence of mass, infiltrate or effusion. Stable mild cardiomegaly. No significant enlargement of the pulmonar y vessels. Osseous structures are intact. CONCLUSION: Stable mild cardiomegaly. No current evidence of congestive heart failure or other ac germaine abnormality. Vangie Sandra MD on June 18, 2017 at 11:27 Board Certified Radiologist. This report was verified electronically.
[2017-06-18 11:34] LABS: BICARBONATE 27.6 MEQ/L (21.0-32.0); BLOOD UREA NITROGEN 28 MG/DL (7-18); CHLORIDE 99 MEQ/L (98-107); GLOMERULAR FILTRATION RATE 55 ML/MIN (>89); GLUCOSE,RANDOM 200 MG/DL (74-106); MAGNESIUM 1.9 MG/DL (1.5-2.5); SODIUM (NA) 135 MEQ/L (136-145)
[2017-06-18] MEDS ORDERED: POTASSIUM CHLORIDE 20 MEQ CONTROLLED RELEASE TAB PO ONE (11:45)
[2017-06-18] MEDS ORDERED: SODIUM CHLORID 0.9% 500 ML INJ 500 ML IV ONE (11:45)
[2017-06-18] MEDS ORDERED: RESP: ALBUTEROL 2.5 MG/IPRATROPIUM 0.5 MG NEB (PRN) INH (14:00)
[2017-06-18] MEDS ORDERED: GLUCAGON 1 MG/ML VIAL OTHER PRN (14:00)
[2017-06-18] MEDS ORDERED: DEXTROSE 50% IN WATER 50 ML VIAL(D50) IV PUSH PRN (14:00)
[2017-06-18] MEDS ORDERED: ONDANSETRON HCL 4 MG/2 ML VIAL IV PUSH PRN (14:00)
[2017-06-18] MEDS ORDERED: cloNIDine HCL 0.1 MG TAB PO PRN (14:00)
[2017-06-18] MEDS ORDERED: ALPRAZolam 0.25 MG TAB PO PRN (14:00)
[2017-06-18] MEDS ORDERED: ACETAMINOPHEN 500 MG CPLT PO PRN (14:00)
--- NOTE | 2017-06-18 14:13 | HHI.HP ---
[facility] Primary Care Physician Catherine Mcgill MD Chief Complaint Chest pain History of Present Illness This is a 67-year-old male with history of hypertension, hyperlipidemia, and diabetes that presents to ED via private vehicle with a complaint of developing a chest discomfort this morning while he was home. Left-sided discomfort. Describes as a sudden pressure-like discomfort return to an achy pain lasting approximately 30 seconds. Mild short of breath. Mild diaphoresis. No nausea. Denies known coronary disease but follows Dr. Jason Nunez for a nonischemic cardiomyopathy. Last saw him last week. Last stress test was January 2016 upon reviewing records. He was nonischemic with EF of 25%. He states that more recent study in the office showing an EF of 35%. Denies recent illness. Denies fevers or chills. Voices compliance with all his medications. Review of Systems General: Patient denies fevers, chills, and recent travel. HEENT: Patient denies headache, sore throat, difficulty swallowing. Cardiovascular: Has the chest discomfort as mentioned above. Denies sensation of heart beating rapidly or irregularly. No syncope. Mild diaphoresis. Respiratory: Mild shortness of breath. Denies inspirational chest discomfort. Denies coughing wheezing or hemoptysis. GI: Patient denies nausea, vomiting, diarrhea, abdominal pain, bloody stools. Musculoskeletal: Patient denies joint pain or edema. Denies calf pain or edema. Neurovascular: Patient denies numbness, tingling, weakness in extremities. Denies headache. Endocrine: Denies polyuria and polydipsia. Hematologic: Denies easy bruising. Skin: Denies rash or itching. Past Family Social History Allergies: Coded Allergies: *MDRO Multi-Drug Resistant Organism (Verified Adverse Reaction, Unknown, ) MRSA (back wound/chest abscess) - 04/24/2015 MRSA PCR screen positive 10/12/16 methylprednisolone (Unverified Adverse Reaction, Unknown, 06/18/17) severe bowel pain Past Medical History Hypertension, hyperlipidemia, diabetes, nonischemic cardiomyopathy, prostate cancer and finished therapy March 2017. Denies CAD. Upon reviewing records he had a heart catheterization in 2003 revealing normal coronaries. Past Surgical History Heart catheterization without intervention. Appendectomy. Reported Medications Reported Meds & Active Scripts Active Flovent Hfa 12 GM Inh (Fluticasone Propionate) 220 Mcg/Act Inh 1 Puff INH BID 30 Days Use daily at the same time. Amlodipine (Amlodipine Besylate) 10 Mg Tab 10 Mg PO DAILY Reported Hydrochlorothiazide 25 Mg Tab 25 Mg PO DAILY Coreg (Carvedilol) 12.5 Mg Tab 25 Mg PO BID Hydralazine HCl 10 Mg Tablet 10 Mg PO QID Aspirin 325 Mg Tab 325 Mg PO DAILY Symbicort Inh (Budesonide/Formoterol Fumarate) 160-4.5 Mcg/Act Aero 1 Puff INH Q12HR Clonidine (Clonidine HCl) 0.1 Mg Tab 0.1 Mg PO DAILY Novolin 70-30 Inj (Insulin Human Isoph/Insulin Regular) 1,000 Unit/10 Ml Vial 35 Units SQ BID Atorvastatin (Atorvastatin Calcium) 20 Mg Tab 20 Mg PO HS Lisinopril 40 Mg Tab 40 Mg PO DAILY Multiple Vitamin 1 Tab 1 Tab PO DAILY Active Ordered Medications Current Medications Medications (Trade) Dose Ordered Sig/Ly Route Start Time Stop Time Status Last Admin (NS Flush) 2 ml UNSCH PRN IVF 06/18/17 10:45 (NovoLOG SUPPLEMENTAL SCALE) 1 ACHS SLIDING SCALE SQ 06/18/17 17:00 (D50w (Vial) Inj) 50 ml UNSCH PRN IV PUSH 06/18/17 14:00 (Glucagon Inj) 1 mg UNSCH PRN OTHER 06/18/17 14:00 (Tylenol) 500 mg Q4H PRN PO 06/18/17 14:00 (Stanley 7.5-325 Mg) 1 tab Q4H PRN PO 06/18/17 14:00 (Zofran Inj) 4 mg Q6H PRN IV PUSH 06/18/17 14:00 (Aspirin) 325 mg DAILY PO 06/19/17 09:00 (Xanax) 0.25 mg Q8H PRN PO 06/18/17 14:00 (Norvasc) 10 mg DAILY PO 06/19/17 09:00 (Lipitor) 20 mg HS PO 06/18/17 21:00 (Symbicort 160-4.5 Mcg Inh) 1 puff Q12HR INH 06/18/17 21:00 (Coreg) 25 mg BID PO 06/18/17 21:00 (Catapres) 0.1 mg DAILY PO 06/19/17 09:00 (Apresoline) 10 mg QID PO 06/18/17 18:00 (Hydrodiuril) 25 mg DAILY PO 06/19/17 09:00 UNV Non-Formulary Medication 40 mg DAILY PO 06/19/17 09:00 UNV Non-Formulary Medication 1 tab DAILY PO 06/19/17 09:00 UNV (Duoneb Neb) 1 ampule Q4HR NEB PRN INH 06/18/17 14:00 UNV (Catapres) 0.1 mg Q4H PRN PO 06/18/17 14:00 UNV Family History Denies family history of CAD. Social History Quit smoking 30 years ago. Denies alcohol or illicit drugs. Physical Exam Vital Signs Vital Signs Date Time Temp Pulse Resp B/P (MAP) Pulse Ox O2 Delivery O2 Flow Rate FiO2 06/18/17 13:11 63 18 194/92 (126) 98 Nasal Cannula 2.00 06/18/17 11:23 69 186/92 (123) 175/90 (118) 06/18/17 10:54 98 Room Air 06/18/17 10:54 18 100 Nasal Cannula 2.00 06/18/17 10:15 74 18 99 Nasal Cannula 2.00 06/18/17 10:15 79 18 181/86 (117) 100 Nasal Cannula 2.00 06/18/17 10:05 97.3 79 20 173/87 (115) 99 Physical Exam GENERAL: This is a well-nourished, well-developed patient, in no apparent distress. Patient speaks in clear complete sentences. Patient is pleasant. HEENT: Head is atraumatic and normocephalic. Neck is supple without lymphadenopathy and trachea is midline. No JVD or carotid bruits. CARDIOVASCULAR: Regular rate and rhythm without murmurs, gallops, or rubs. RESPIRATORY: Clear to auscultation. Breath sounds equal bilaterally. No wheezes , rales, or rhonchi. Chest wall is nontender. No use of accessory muscles. GASTROINTESTINAL: Abdomen is nontender, nondistended. Abdomen soft. No obvious pulsatile mass or bruit. No CVA tenderness. Strong femoral pulses bilaterally. Normal bowel sounds in all quadrants. MUSCULOSKELETAL: Patient is moving upper and lower extremities freely. No calf tenderness or edema, no Homans sign. Strong pulses in upper and lower extremities. NEUROLOGICAL: Patient is alert and oriented. Cranial nerves 2-12 are grossly intact. No focal deficits and speech is clear. SKIN: No rash and turgor is normal. Laboratory Laboratory Tests Test 06/18/17 10:43 White Blood Count 9.2 Red Blood Count 4.96 Hemoglobin 14.1 Hematocrit 40.9 Mean Corpuscular Volume 82.4 Mean Corpuscular Hemoglobin 28.4 Mean Corpuscular Hemoglobin Concent 34.5 Red Cell Distribution Width 14.3 Platelet Count 244 Mean Platelet Volume 8.8 Neutrophils (%) (Auto) 56.5 Lymphocytes (%) (Auto) 25.3 Monocytes (%) (Auto) 10.3 Eosinophils (%) (Auto) 6.6 Basophils (%) (Auto) 1.3 Neutrophils # (Auto) 5.2 Lymphocytes # (Auto) 2.3 Monocytes # (Auto) 1.0 Eosinophils # (Auto) 0.6 Basophils # (Auto) 0.1 CBC Comment DIFF FINAL Differential Comment Prothrombin Time 10.1 Prothromb Time International Ratio 1.0 Activated Partial Thromboplast Time 22.7 Blood Urea Nitrogen 28 Creatinine 1.30 Random Glucose 200 Calcium Level 9.0 Magnesium Level 1.9 Sodium Level 135 Potassium Level 3.3 Chloride Level 99 Carbon Dioxide Level 27.6 Anion Gap 8 Estimat Glomerular Filtration Rate 55 Total Creatine Kinase 246 Creatine Kinase MB 5.9 Troponin I LESS THAN 0.02 Result Diagram: 06/18/17 1043 06/18/17 1043 Imaging Chest x-ray reveals nothing acute. Course Initial EKG is sinus rhythm without significant ST segment depressions or elevations. Caprini VTE Risk Assessment Caprini VTE Risk Assessment: Mod/High Risk (score >= 2) Caprini Risk Assessment Model Point Value = 1 Point Value = 2 Point Value = 3 Point Value = 5 Age 41-60 Minor surgery BMI > 25 kg/m2 Swollen legs Varicose veins or History of unexplained or recurrent spontaneous Oral contraceptives or hormone replacement Sepsis (< 1 month) Serious lung disease, including pneumonia (< 1 month) Abnormal pulmonary function Acute myocardial infarction Congestive heart failure (< 1 month) History of inflammatory bowel disease Medical patient at bed rest Age 61-74 Arthroscopic surgery Major open surgery (> 45 min) Laparoscopic surgery (> 45 min) Malignancy Confined to bed (> 72 hours) Immobilizing plaster cast Central venous access Age >= 75 History of VTE Family history of VTE Factor V Leiden Prothrombin [id number] Lupus anticoagulant Anticardiolipin antibodies Elevated serum homocysteine Heparin-induced thrombocytopenia Other congenital or acquired thrombophilia Stroke (< 1 month) Elective arthroplasty Hip, pelvis, or leg fracture Acute spinal cord injury (< 1 month) Prophylaxis Regimen Total Risk Factor Score Risk Level Prophylaxis Regimen 0-1 Low Early ambulation 2 Moderate Order ONE of the following: *Sequential Compression Device (SCD) *Heparin 5000 units SQ BID 3-4 Higher Order ONE of the following medications: *Heparin 5000 units SQ TID *Enoxaparin/Lovenox 40 mg SQ daily (WT < 150 kg, CrCl > 30 mL/min) *Enoxaparin/Lovenox 30 mg SQ daily (WT < 150 kg, CrCl > 10-29 mL/min) *Enoxaparin/Lovenox 30 mg SQ BID (WT < 150 kg, CrCl > 30 mL/min) AND/OR *Sequential Compression Device (SCD) 5 or more Highest Order ONE of the following medications: *Heparin 5000 units SQ TID (Preferred with Epidurals) *Enoxaparin/Lovenox 40 mg SQ daily (WT < 150 kg, CrCl > 30 mL/min) *Enoxaparin/Lovenox 30 mg SQ daily (WT < 150 kg, CrCl > 10-29 mL/min) *Enoxaparin/Lovenox 30 mg SQ BID (WT < 150 kg, CrCl > 30 mL/min) AND *Sequential Compression Device (SCD) Assessment and Plan Assessment and Plan * Chest pain: Patient will continue to have serial cardiac enzymes and EKGs for ruling out purposes. He was seen by Dr. Contreras of cardiology and the chest pain center. I discussed this patient with his assistant cook also Dr. Jason Nunez. States he can either have a stress test while in the chest pain center or he will follow-up in the office without. The patient i would rather stay overnight and have ruled out follow-up with a chemical stress test while in the hospital. So this will be ordered in the morning if he rules out and if nonischemic will be discharged home with instructions to follow-up with PCP and his assistant cook. Return to ED for interval issues. * Diabetes: Hold his insulin. Have sliding scale insulin coverage. Diabetic diet. * Hypertension: Continues medications. * Hyperlipidemia: Continue medications. * Obesity: Patient counseled on the importance of diet, exercise, and weight loss. Patient is stable at this time. He is agreeable to this plan. Tien Parmar Jun 18, 2017 14:13
[2017-06-18 15:49] LABS: TROPONIN I LESS THAN 0.02 NG/ML (0.02-0.05)
[2017-06-18] MEDS ORDERED: INSULIN ASPART SUPPLEMENTAL SCALE SQ SCH (17:00)
[2017-06-18] MEDS: hydrALAZINE HCL 10 MG TAB PO SCH ×2 (17:12→21:00)
[2017-06-18] MEDS: ACETAMINOPHEN/HYDROcodone 325 MG/7.5 MG TAB PO PRN ×2 (17:12→21:00)
[2017-06-18] MEDS: INSULIN ASPART SUPPLEMENTAL SCALE SQ SCH ×2 (18:26→21:00)
[2017-06-18] MEDS: BUDESONIDE-FORMOTEROL 160/4.5 MCG INHALER INH SCH (21:00)
[2017-06-18] MEDS ORDERED: ATORVASTATIN 20 MG TAB PO SCH (21:00)
[2017-06-18] MEDS: CARVEDILOL 12.5 MG TAB PO SCH (21:00)
[2017-06-18 21:18] LABS: TROPONIN I LESS THAN 0.02 NG/ML (0.02-0.05)
[2017-06-19] MEDS: ACETAMINOPHEN/HYDROcodone 325 MG/7.5 MG TAB PO PRN ×2 (00:50→04:48)
[2017-06-19] MEDS: INSULIN ASPART SUPPLEMENTAL SCALE SQ SCH ×2 (08:00→14:02)
[2017-06-19] MEDS: hydrALAZINE HCL 10 MG TAB PO SCH ×2 (08:47→14:00)
[2017-06-19] MEDS: CARVEDILOL 12.5 MG TAB PO SCH (08:47)
[2017-06-19 08:52] VITALS: BP 142/73; PULSE 60; RESP 18; TEMP 98.1; O2SAT 96
--- NOTE | 2017-06-19 08:54 | PD.CARD.PN ---
Subjective Subjective Remarks No complaints overnight. Objective Medications Current Medications Medications (Trade) Dose Ordered Sig/Ly Route Start Time Stop Time Status Last Admin (NS Flush) 2 ml UNSCH PRN IVF 06/18/17 10:45 (NovoLOG SUPPLEMENTAL SCALE) 1 ACHS SLIDING SCALE SQ 06/18/17 17:00 06/18/17 18:26 (D50w (Vial) Inj) 50 ml UNSCH PRN IV PUSH 06/18/17 14:00 (Glucagon Inj) 1 mg UNSCH PRN OTHER 06/18/17 14:00 (Tylenol) 500 mg Q4H PRN PO 06/18/17 14:00 (Alden 7.5-325 Mg) 1 tab Q4H PRN PO 06/18/17 14:00 06/19/17 04:48 (Zofran Inj) 4 mg Q6H PRN IV PUSH 06/18/17 14:00 (Aspirin) 325 mg DAILY PO 06/19/17 09:00 06/19/17 08:48 (Xanax) 0.25 mg Q8H PRN PO 06/18/17 14:00 (Norvasc) 10 mg DAILY PO 06/19/17 09:00 06/19/17 08:49 (Lipitor) 20 mg HS PO 06/18/17 21:00 06/18/17 21:00 (Symbicort 160-4.5 Mcg Inh) 1 puff Q12HR INH 06/18/17 21:00 06/18/17 21:00 (Coreg) 25 mg BID PO 06/18/17 21:00 06/19/17 08:47 (Catapres) 0.1 mg DAILY PO 06/19/17 09:00 06/19/17 08:48 (Apresoline) 10 mg QID PO 06/18/17 18:00 06/19/17 08:47 (Hydrodiuril) 25 mg DAILY PO 06/19/17 09:00 06/19/17 08:48 (Prinivil) 40 mg DAILY PO 06/19/17 09:00 06/19/17 08:47 (Theragran) 1 tab DAILY PO 06/19/17 09:00 06/19/17 08:48 (Duoneb Neb) 1 ampule Q4HR NEB PRN INH 06/18/17 14:00 (Catapres) 0.1 mg Q4H PRN PO 06/18/17 14:00 Vital Signs / I&O Vital Signs Date Time Temp Pulse Resp B/P (MAP) Pulse Ox O2 Delivery O2 Flow Rate FiO2 06/19/17 08:52 98.1 60 18 142/73 (96) 96 06/19/17 05:48 18 06/18/17 19:57 Nasal Cannula 2.00 06/18/17 19:47 97.8 74 18 149/76 (100) 95 06/18/17 17:19 97.8 64 14 169/85 (113) 96 06/18/17 15:27 97.7 67 16 144/78 (100) 98 06/18/17 13:11 63 18 194/92 (126) 98 Nasal Cannula 2.00 06/18/17 11:23 69 186/92 (123) 175/90 (118) 06/18/17 10:54 98 Room Air 06/18/17 10:54 18 100 Nasal Cannula 2.00 06/18/17 10:15 74 18 99 Nasal Cannula 2.00 06/18/17 10:15 79 18 181/86 (117) 100 Nasal Cannula 2.00 06/18/17 10:05 97.3 79 20 173/87 (115) 99 Physical Exam GENERAL: Alert WN, WD, NAD, pleasant, obese, male HEAD: NC, AT CV: RRR, without murmur, rub, gallop, no JVD, S1-S2 no S3-S4. RESP: Clear lungs throughout bilateral, no crackles, wheeze, rhonchi, symmetrical chest rise, nonlabored, able to speak in full sentences MS: Normal tone 4 extremities, nontender, no obvious deformities, full range of motion NEURO: CN II through CN XII grossly intact, motor strength 5/5 PSYCH: A+O 3, pleasant affect, appropriate speech, mood, insight and judgment SKIN: Normal turgor, normal texture Laboratory Laboratory Tests Test 06/18/17 10:43 06/18/17 14:30 06/18/17 19:37 White Blood Count 9.2 TH/MM3 Red Blood Count 4.96 MIL/MM3 Hemoglobin 14.1 GM/DL Hematocrit 40.9 % Mean Corpuscular Volume 82.4 FL Mean Corpuscular Hemoglobin 28.4 PG Mean Corpuscular Hemoglobin Concent 34.5 % Red Cell Distribution Width 14.3 % Platelet Count 244 TH/MM3 Mean Platelet Volume 8.8 FL Neutrophils (%) (Auto) 56.5 % Lymphocytes (%) (Auto) 25.3 % Monocytes (%) (Auto) 10.3 % Eosinophils (%) (Auto) 6.6 % Basophils (%) (Auto) 1.3 % Neutrophils # (Auto) 5.2 TH/MM3 Lymphocytes # (Auto) 2.3 TH/MM3 Monocytes # (Auto) 1.0 TH/MM3 Eosinophils # (Auto) 0.6 TH/MM3 Basophils # (Auto) 0.1 TH/MM3 CBC Comment DIFF FINAL Differential Comment Prothrombin Time 10.1 SEC Prothromb Time International Ratio 1.0 RATIO Activated Partial Thromboplast Time 22.7 SEC Blood Urea Nitrogen 28 MG/DL Creatinine 1.30 MG/DL Random Glucose 200 MG/DL Calcium Level 9.0 MG/DL Magnesium Level 1.9 MG/DL Sodium Level 135 MEQ/L Potassium Level 3.3 MEQ/L Chloride Level 99 MEQ/L Carbon Dioxide Level 27.6 MEQ/L Anion Gap 8 MEQ/L Estimat Glomerular Filtration Rate 55 ML/MIN Total Creatine Kinase 246 U/L 223 U/L 183 U/L Creatine Kinase MB 5.9 NG/ML 5.4 NG/ML 4.4 NG/ML Troponin I LESS THAN 0.02 NG/ML LESS THAN 0.02 NG/ML LESS THAN 0.02 NG/ML Imaging Last 24 hours Impressions Chest X-Ray 06/18/17 1038 Signed Impressions: Service Date/Time: Sunday, June 18, 2017 10:51 - CONCLUSION: Stable mild cardiomegaly. No current evidence of congestive heart failure or other acute abnormality. Vangie Sandra MD Assessment and Plan Assessment and Plan #1 Chest pain-ruled out with 3 sets of EKGs and cardiac enzymes. Proceed with plan on completing chemical stress test this morning. If unremarkable, plan to discharge home with follow up with PCP and Dr. Jason Nunez. Reshma Aparicio Jun 19, 2017 08:54
[2017-06-19] MEDS ORDERED: HYDROCHLOROTHIAZIDE 25 MG TAB PO SCH (09:00)
[2017-06-19] MEDS ORDERED: cloNIDine HCL 0.1 MG TAB PO SCH (09:00)
[2017-06-19] MEDS ORDERED: MULTIVITAMIN TAB PO SCH (09:00)
[2017-06-19] MEDS ORDERED: ASPIRIN 325 MG TAB PO SCH (09:00)
[2017-06-19] MEDS ORDERED: LISINOPRIL 20 MG TAB PO SCH (09:00)
[2017-06-19] MEDS ORDERED: REGADENOSON INJ 0.4 MG/5 ML SYR ONE (09:41)
--- NOTE | 2017-06-19 11:32 | RADRPT ---
EXAM DATE/TIME: 06/19/2017 09:34 [facility] COMPARISON: MYOCARDIAL PERF PHARM SPECT, GATED W/EF, January 17, 2016, 12:13. INDICATIONS : Left sided chest pain with shortness of breath for one day. Angina. DOSE: 35 mCi Tc99m Myoview at stress. 11 mCi Tc99m Myoview at rest. 0.4 mg Lexiscan STRESS SYMPTOMS: Dyspnea. EJECTION FRACTION: 36% MEDICAL HISTORY : Hypertension. Diabetes mellitus type 2. Carcinoma, prostate. SURGICAL HISTORY : Appendectomy. ENCOUNTER: Initial ACUITY: 1 day PAIN SCALE: 5/10 LOCATION: Left chest TECHNIQUE: The patient underwent pharmacologic stress with infusion of prescribed dose. Continuous ECG tracing was monitored during stress. Gated SPECT imaging was performed after stress and conventional SPECT i maging was performed at rest. The examination was performed on a SPECT/CT scanner, both attenuation and non-corrected datasets were reviewed. FINDINGS: DISTRIBUTION: The maximum perfused segment at stress is in the septal wall. PERFUSION STUDY: The pattern of perfusion at stress is within normal limits. GATED STUDY: The gated portion of the examination demonstrates a mild global hypokinesis. Ejection fraction is est imated at 36%. CONCLUSION: 1. No reversible perfusion defect to indicate stress-induced myocardial ischemia is identified. 2. The ventricular cavity appears mildly dilated. The ejection fraction is somewhat low at 36%. RISK CATEGORY: Intermediate (1-3% Annual Mortality Rate) Tae Woody MD on June 19, 2017 at 11:28 Board Certified Radiologist. This report was verified electronically.
--- NOTE | 2017-06-19 11:39 | HHI.DCPOC ---
Discharge Care Plan Diagnosis: (1) Decreased cardiac ejection fraction (2) Atypical chest pain Goals to Promote Your Health * To prevent worsening of your condition and complications * To maintain your health at the optimal level Directions to Meet Your Goals Take your medications as prescribed Follow your dietary instruction Follow activity as directed Keep your appointments as scheduled Take your immunizations and boosters as scheduled If your symptoms worsen call your PCP, if no PCP go to Urgent Care Center or Emergency Room Smoking is Dangerous to Your Health. Avoid second hand smoke Call the 24-hour hour crisis hotline for domestic abuse at Reshma Aparicio Jun 19, 2017 11:39
--- NOTE | 2017-06-19 11:40 | HHI.DS ---
Discharge Summary Admission Date Jun 18, 2017 at 12:53 Discharge Date: Jun 19, 2017 Admitting Diagnosis chest pain, DM, HTN, hyperlipidemia (1) Atypical chest pain Diagnosis: Principal ICD Codes: R07.89 - Other chest pain Status: Resolved (2) Decreased cardiac ejection fraction Diagnosis: Principal ICD Codes: R93.1 - Abnormal findings on diagnostic imaging of heart and coronary circulation Status: Chronic Procedures Last 48 hours Impressions Myocardial Perfusion Scan Nuc Med 06/19/17 0000 Signed Impressions: Service Date/Time: Monday, June 19, 2017 09:34 - CONCLUSION: 1. No reversible perfusion defect to indicate stress-induced myocardial ischemia is identified. 2. The ventricular cavity appears mildly dilated. The ejection fraction is somewhat low at 36%%. RISK CATEGORY: Intermediate (1-3%% Annual Mortality Rate) Tae Woody MD Chest X-Ray 06/18/17 1038 Signed Impressions: Service Date/Time: Sunday, June 18, 2017 10:51 - CONCLUSION: Stable mild cardiomegaly. No current evidence of congestive heart failure or other acute abnormality. Vangie Sandra MD Brief History 67-year-old male with history of type 2 diabetes, hypertension, hyperlipidemia, nonischemic ischemic cardiomyopathy with known EF 35% percent emergency room for further evaluation of chest pain. Admitted to chest pain center. Ruled out with 3 sets of EKGs, cardiac enzymes, and seen and evaluated by Dr. Albert Contreras. Proceed with chemical stress test in am. Conclusions unremarkable for stress induced ischemia and EF 36%. CBC/BMP: 06/18/17 1043 06/18/17 1043 Significant Findings Laboratory Tests Test 06/18/17 10:43 06/18/17 14:30 06/18/17 19:37 Monocytes (%) (Auto) 10.3 % (0.0-8.0) Eosinophils (%) (Auto) 6.6 % (0.0-4.0) Monocytes # (Auto) 1.0 TH/MM3 (0-0.9) Eosinophils # (Auto) 0.6 TH/MM3 (0-0.4) Activated Partial Thromboplast Time 22.7 SEC (24.3-30.1) Blood Urea Nitrogen 28 MG/DL (7-18) Random Glucose 200 MG/DL (74-106) Sodium Level 135 MEQ/L (136-145) Potassium Level 3.3 MEQ/L (3.5-5.1) Estimat Glomerular Filtration Rate 55 ML/MIN (>89) Creatine Kinase MB 5.9 NG/ML (0.5-3.6) 5.4 NG/ML (0.5-3.6) 4.4 NG/ML (0.5-3.6) Troponin I LESS THAN 0.02 NG/ML LESS THAN 0.02 NG/ML LESS THAN 0.02 NG/ML PE at Discharge GENERAL: Alert WN, WD, NAD, pleasant, obese, male HEAD: NC, AT CV: RRR, without murmur, rub, gallop, no JVD, S1-S2 no S3-S4. RESP: Clear lungs throughout bilateral, no crackles, wheeze, rhonchi, symmetrical chest rise, nonlabored, able to speak in full sentences EXT: Pulses +24, trace dependent edema MS: Normal tone 4 extremities, no obvious deformities, full range of motion NEURO: CN II through CN XII grossly intact, motor strength 5/5 PSYCH: A+O 3, pleasant affect, speech, mood, insight and judgment SKIN: Normal turgor, normal texture Pt Condition on Discharge: Good Discharge Disposition: Discharge Home Discharge Instructions DIET: Follow Instructions for: Heart Healthy Diet, Diabetic Diet Activities you can perform: Regular-No Restrictions Reshma Aparicio Jun 19, 2017 11:40
[2017-06-19 13:54] VITALS: BP 123/83; PULSE 53; RESP 18; TEMP 97.7; O2SAT 97
[2017-06-19] MEDS: BUDESONIDE-FORMOTEROL 160/4.5 MCG INHALER INH SCH (14:00)
--- NOTE | 2017-06-19 17:12 | EKG ---
Date Performed: 06/18/2017 Time Performed: 17:06:02 PTAGE: 67 years EKG: Sinus rhythm WITH FIRST DEGREE AV BLOCK ABNORMAL ECG PREVIOUS TRACING : 06/18/2017 14.30 Since previous tracing, no significant change noted DOCTOR: Nick Salinas Interpretating Date/Time 06/19/2017 17:11:29
--- NOTE | 2017-06-19 17:13 | EKG ---
Date Performed: 06/18/2017 Time Performed: 14:30:18 PTAGE: 67 years EKG: NORMAL Sinus rhythm MARKED LEFT AXIS DEVIATION PATTERN CONSISTENT WITH PULMONARY DISEASE MODERATE INTRAVENTRICULAR CONDU CTION DELAY ABNORMAL ECG PREVIOUS TRACING : 06/18/2017 10.15 Since previous tracing, no significant change noted DOCTOR: Nick Salinas Interpretating Date/Time 06/19/2017 17:12:52
--- NOTE | 2017-06-19 17:14 | EKG ---
Date Performed: 06/18/2017 Time Performed: 10:15:07 PTAGE: 67 years EKG: Sinus rhythm WITH FIRST DEGREE AV BLOCK MARKED LEFT AXIS DEVIATION MODERATE INTRAVENTRICULAR CONDUCTION DELAY ABN ORMAL ECG NO PREVIOUS TRACING DOCTOR: Nick Salinas Interpretating Date/Time 06/19/2017 17:13:26
--- NOTE | 2017-06-19 17:16 | TR ---
Date Performed: 06/19/2017 Time Performed: 09:55:23 DOCTOR: Nick Salinas DRUG LIST: CLINICAL HISTORY: ANGINA REASON FOR TEST: REASON FOR ENDING: OBSERVATION: CONCLUSION: Lexiscan stress test was performed under standard four minute protocol. Radionuclid e was injected one minute prior to ending the test. No electrocardiographic abormalities were present to suggest ischemia. Nuclear imaging and interpretation are pending. COMMENTS:
== END 2017-06-19 15:28 | disposition home or self-care (01) ==
LOC: NEPE 10:02 → NEDA 12:53 → NEPFCDU 14:38
DX: R07.89 Other chest pain (principal); E11.9 Type 2 diabetes mellitus without complications; E78.5 Hyperlipidemia, unspecified; E78.00 Pure hypercholesterolemia, unspecified; I13.0 Hypertensive heart and chronic kidney disease with heart failure and stage 1 through stage 4 chronic kidney disease, or unspecified chronic kidney disease; I50.9 Heart failure, unspecified; I25.5 Ischemic cardiomyopathy; J44.9 Chronic obstructive pulmonary disease, unspecified; R51 Headache; G47.30 Sleep apnea, unspecified; R06.02 Shortness of breath; Z85.46 Personal history of malignant neoplasm of prostate; Z79.01 Long term (current) use of anticoagulants
CPT/HCPCS: 71046; 78452; 80048; 82550; 82552; 82948; 83735; 84484; 85025; 85610; 85730; 93005; 93017; 96372; 96374; 99285; A9502; G0378; J1815; J2270; J2785; J7040

== ENCOUNTER 2017-07-24 20:32 | Emergency (ER) | payer OTHER, MEDICAID ==
[~2017-07-24] VITALS: Ht 185.4 cm; Wt 131.8 kg
[~2017-07-24 20:32] MED LIST changes: +ASPI-183 PO; -AZIT250T3 PO; -BACTOIN EACH NARE; -Budeson-Formot 160-4.5 Mcg Inh INH; +CARV12.5 PO; -CARV3.125 PO; -DOXY100C PO; -ECASA81 PO; -HYDR-3288 PO; +HYDR-3798 PO; -HYDR-3799 PO; +HYDR25TA5 PO; -INSPIREASE DRUG1 EA INH; -METF500T PO; +SYMB160A INH; -VENTAER INH
[2017-07-24 20:37] VITALS: BP 137/72; PULSE 69; RESP 20; TEMP 98.3; O2SAT 96
--- NOTE | 2017-07-24 20:56 | PD ---
HPI Chief Complaint: Chest Pain Time Seen by Provider: 20:46 Travel History International Travel<30 days: No Contact w/Intl Traveler<30days: No Traveled to known affect area: No History of Present Illness HPI 67 years old male complains of chest pain. Patient states that the pain started about an hour prior to arrival. Patient states that pain pressure pain and sharp pain across anterior chest wall. Patient states that the pain radiates to the left-sided neck. Patient states that the chest pain is not worse with deep breathing. Patient denies palpitation nausea diaphoresis. Patient denies any coughing congestion fever chills. Patient has history of hypertension, diabetes, lymphedema. Patient has history nonischemic cardiomyopathy with ejection fraction 35%. Patient was admitted to the chest pain center on June 18, 2017 and had a nuclear stress test which was negative for reversible perfusion defect. Ejection fraction was about 36%. Patient states that he took aspirin 325 mg this evening prior to arrival. On a scale of 1-10 the chest pain is a 5. PFSH Past Medical History Hx Anticoagulant Therapy: Yes (asa) Arthritis: No Asthma: No Autoimmune Disease: No Blood Disorders: No Anxiety: No Depression: No Heart Rhythm Problems: No Cancer: Yes (prostate CA) Cardiac Catheterization: No Cardiovascular Problems: Yes (HTN, CHF) High Cholesterol: Yes Chemotherapy: No Chest Pain: Yes Congestive Heart Failure: Yes COPD: Yes Cerebrovascular Accident: No Coronary Artery Disease: No Diabetes: Yes Patient Takes Glucophage: No Diminished Hearing: No Endocrine: No Gastrointestinal Disorders: Yes (PYLIDINOL CYST X2) GERD: No Glaucoma: No Genitourinary: No Headaches: Yes Hepatitis: No Heparin Induced Thrombocytopen: No Hypertension: Yes Immune Disorder: No Implanted Vascular Access Dvce: No Kidney Stones: No Musculoskeletal: No Neurologic: No Psychiatric: No Reproductive: No Respiratory: Yes (COPD, PNA) Immunizations Current: Yes Migraines: No Myocardial Infarction: No Radiation Therapy: Yes (TREATMENT COMPLETED ON 03/21/17) Renal Failure: No Seizures: No Sickle Cell Disease: No Sleep Apnea: Yes (DOES NOT WEAR A CPAP) Thyroid Disease: No Past Surgical History Abdominal Surgery: Yes (APPENDECTOMY) AICD: No Appendectomy: Yes Arteriovenous Shunt: No Cardiac Surgery: No Cholecystectomy: No Coronary Artery Bypass Graft: No Ear Surgery: No Endocrine Surgery: No Eye Surgery: No Genitourinary Surgery: No Gynecologic Surgery: No Insulin Pump: No Joint Replacement: No Neurologic Surgery: No Oral Surgery: No Pacemaker: No Thoracic Surgery: No Other Surgery: Yes ( CYST REMOVAL) Social History Alcohol Use: Yes (RARE) Tobacco Use: No (quit 30 years ago) Substance Use: No Allergies-Medications (Allergen,Severity, Reaction): Coded Allergies: *MDRO Multi-Drug Resistant Organism (Verified Adverse Reaction, Unknown, ) MRSA (back wound/chest abscess) - 04/24/2015 MRSA PCR screen positive 10/12/16 methylprednisolone (Verified Adverse Reaction, Unknown, 07/24/17) severe bowel pain Reported Meds & Prescriptions Reported Meds & Active Scripts Active Flovent Hfa 12 GM Inh (Fluticasone Propionate) 220 Mcg/Act Inh 1 Puff INH BID 30 Days Use daily at the same time. Amlodipine (Amlodipine Besylate) 10 Mg Tab 10 Mg PO DAILY Reported Hydrochlorothiazide 25 Mg Tab 25 Mg PO DAILY Coreg (Carvedilol) 12.5 Mg Tab 25 Mg PO BID Hydralazine HCl 10 Mg Tablet 10 Mg PO QID Aspirin 325 Mg Tab 325 Mg PO DAILY Symbicort Inh (Budesonide/Formoterol Fumarate) 160-4.5 Mcg/Act Aero 1 Puff INH Q12HR Clonidine (Clonidine HCl) 0.1 Mg Tab 0.1 Mg PO DAILY Novolin 70-30 Inj (Insulin Human Isoph/Insulin Regular) 1,000 Unit/10 Ml Vial 35 Units SQ BID Atorvastatin (Atorvastatin Calcium) 20 Mg Tab 20 Mg PO HS Lisinopril 40 Mg Tab 40 Mg PO DAILY Multiple Vitamin 1 Tab 1 Tab PO DAILY Review of Systems General / Constitutional: No: Fever Eyes: No: Visual changes HENT: No: Headaches Cardiovascular: Positive: Chest Pain or Discomfort Respiratory: No: Shortness of Breath Gastrointestinal: No: Abdominal Pain Genitourinary: No: Dysuria Musculoskeletal: No: Pain Skin: No Rash Neurologic: No: Weakness Psychiatric: No: Depression Endocrine: No: Polydipsia Hematologic/Lymphatic: No: Easy Bruising Physical Exam Narrative GENERAL: Well-nourished, well-developed patient. SKIN: Focused skin assessment warm/dry. HEAD: Normocephalic. EYES: No scleral icterus. No injection or drainage. NECK: Supple, trachea midline. No JVD or lymphadenopathy. CARDIOVASCULAR: Regular rate and rhythm without murmurs, gallops, or rubs. RESPIRATORY: Breath sounds equal bilaterally. No accessory muscle use. GASTROINTESTINAL: Abdomen soft, non-tender, nondistended. MUSCULOSKELETAL: No cyanosis, or edema. BACK: Nontender without obvious deformity. No CVA tenderness. Neurologic exam normal. Data Data Last Documented VS Vital Signs Date Time Temp Pulse Resp B/P (MAP) Pulse Ox O2 Delivery O2 Flow Rate FiO2 07/24/17 22:25 98 Room Air 07/24/17 20:37 98.3 69 20 137/72 (93) Orders Orders Electrocardiogram (07/24/17 20:46) Complete Blood Count With Diff (07/24/17 20:46) Comprehensive Metabolic Panel (07/24/17 20:46) Creatine Kinase (Cpk) (07/24/17 20:46) Troponin I (07/24/17 20:46) Prothrombin Time / Inr (Pt) (07/24/17 20:46) Act Partial Throm Time (Ptt) (07/24/17 20:46) Chest, Single Ap (07/24/17 20:46) Iv Access Insert/Monitor (07/24/17 20:46) Ecg Monitoring (07/24/17 20:46) Oximetry (07/24/17 20:46) Creatine Kinase (Cpk) (07/24/17 22:22) Troponin I (07/24/17 22:22) Labs Laboratory Tests Test 07/24/17 20:58 07/24/17 23:53 White Blood Count 10.3 TH/MM3 Red Blood Count 5.01 MIL/MM3 Hemoglobin 13.8 GM/DL Hematocrit 40.6 % Mean Corpuscular Volume 81.1 FL Mean Corpuscular Hemoglobin 27.6 PG Mean Corpuscular Hemoglobin Concent 34.0 % Red Cell Distribution Width 14.4 % Platelet Count 266 TH/MM3 Mean Platelet Volume 9.0 FL Neutrophils (%) (Auto) 57.9 % Lymphocytes (%) (Auto) 25.1 % Monocytes (%) (Auto) 9.3 % Eosinophils (%) (Auto) 6.3 % Basophils (%) (Auto) 1.4 % Neutrophils # (Auto) 6.0 TH/MM3 Lymphocytes # (Auto) 2.6 TH/MM3 Monocytes # (Auto) 1.0 TH/MM3 Eosinophils # (Auto) 0.6 TH/MM3 Basophils # (Auto) 0.1 TH/MM3 CBC Comment DIFF FINAL Differential Comment Prothrombin Time 10.0 SEC Prothromb Time International Ratio 1.0 RATIO Activated Partial Thromboplast Time 23.1 SEC Blood Urea Nitrogen 20 MG/DL Creatinine 1.33 MG/DL Random Glucose 162 MG/DL Total Protein 7.8 GM/DL Albumin 3.8 GM/DL Calcium Level 9.3 MG/DL Alkaline Phosphatase 100 U/L Aspartate Amino Transf (AST/SGOT) 25 U/L Alanine Aminotransferase (ALT/SGPT) 43 U/L Total Bilirubin 0.4 MG/DL Sodium Level 134 MEQ/L Potassium Level 3.7 MEQ/L Chloride Level 102 MEQ/L Carbon Dioxide Level 20.7 MEQ/L Anion Gap 11 MEQ/L Estimat Glomerular Filtration Rate 54 ML/MIN Total Creatine Kinase 252 U/L 224 U/L Troponin I LESS THAN 0.02 NG/ML LESS THAN 0.02 NG/ML MDM Medical Decision Making Medical Screen Exam Complete: Yes Emergency Medical Condition: Yes Interpretation(s) EKG shows sinus rhythm first-degree AV block, nonspecific ST-T wave change. Unchanged from previous EKG. Last Impressions Chest X-Ray 07/24/172045 Signed Impressions: Service Date/Time: Monday, July 24, 2017 20:51 - CONCLUSION: No evidence of acute cardiopulmonary disease. Neeraj Liang MD 21:53 PM. CBC within normal limits. Sodium 134. Bicarb 20.7. BUN 20. Creatinine 1.33. GFR 54. Cardiac enzymes are normal. Differential Diagnosis Differential diagnosis including chest wall pain, angina, CT, PE, pneumothorax. Narrative Course 67 years old male with chest pain. Patient had a nuclear stress test done about 5 weeks ago was negative for ischemic changes. Cardiac enzymes 2 normal. Diagnosis Primary Impression: Chest pain Qualified Codes: R07.9 - Chest pain, unspecified Patient Instructions: General Instructions Additional Instructions: Continue with all medications. Follow-up with germ drier. Return if increasing chest pain shortness of breath. Med/Other Pt SpecificInfo: No Change to Meds Disposition: 01 DISCHARGE HOME Condition: Stable Joby Hernandez MD Jul 24, 2017 20:56
--- NOTE | 2017-07-24 21:06 | RADRPT ---
EXAM DATE/TIME: 07/24/2017 20:51 [facility] COMPARISON: No previous studies available for comparison. INDICATIONS : Short of breath MEDICAL HISTORY : Hypertension. Diabetes mellitus type 2. Carcinoma, prostate SURGICAL HISTORY : Appendectomy. ENCOUNTER: Initial ACUITY: 1 day PAIN SCORE: 0/10 LOCATION: chest FINDINGS: A single view of the chest demonstrates the lungs to be symmetrically aerated without evidence of mas s, infiltrate or effusion. The cardiomediastinal contours are unremarkable. Osseous structures are intact. CONCLUSION: No evidence of acute cardiopulmonary disease. Neeraj Liang MD on July 24, 2017 at 21:03 Board Certified Radiologist. This report was verified electronically.
[2017-07-24 21:22] LABS: BASOPHIL # 0.1 TH/MM3 (0-0.2); BASOPHIL % 1.4 % (0.0-2.0); EOSINOPHIL # 0.6 TH/MM3 (0-0.4); EOSINOPHIL % 6.3 % (0.0-4.0); HEMATOCRIT 40.6 % (39.0-51.0); HEMOGLOBIN 13.8 GM/DL (13.0-17.0); LYMPH % 25.1 % (9.0-44.0); LYMPHOCYTE # 2.6 TH/MM3 (1.0-4.8); MEAN CELL VOLUME 81.1 FL (80.0-100.0); MEAN CORPUSCULAR HEMOGLOBIN 27.6 PG (27.0-34.0); MONO % 9.3 % (0.0-8.0); NEUT % 57.9 % (16.0-70.0); PLATELET COUNT 266 TH/MM3 (150-450); RED BLOOD COUNT 5.01 MIL/MM3 (4.50-5.90); RED CELL DISTRIBUTION WIDTH 14.4 % (11.6-17.2); WHITE BLOOD COUNT 10.3 TH/MM3 (4.0-11.0)
[2017-07-24 21:34] LABS: ALBUMIN 3.8 GM/DL (3.4-5.0); ALT (GPT) 43 U/L (12-78); AST (GOT) 25 U/L (15-37); BICARBONATE 20.7 MEQ/L (21.0-32.0); BLOOD UREA NITROGEN 20 MG/DL (7-18); CALCIUM 9.3 MG/DL (8.5-10.1); CHLORIDE 102 MEQ/L (98-107); CREATININE 1.33 MG/DL (0.60-1.30); GLOMERULAR FILTRATION RATE 54 ML/MIN (>89); GLUCOSE,RANDOM 162 MG/DL (74-106); SODIUM (NA) 134 MEQ/L (136-145)
[2017-07-24 21:38] LABS: ALKALINE PHOSPHATASE 100 U/L (45-117); TOTAL BILIRUBIN ADULT 0.4 MG/DL (0.2-1.0); TOTAL PROTEIN 7.8 GM/DL (6.4-8.2); TROPONIN I LESS THAN 0.02 NG/ML (0.02-0.05)
--- NOTE | 2017-07-24 21:51 | EKG ---
Date Performed: 07/24/2017 Time Performed: 20:43:52 PTAGE: 67 years EKG: Sinus rhythm WITH FIRST DEGREE AV BLOCK WITH OCCASIONAL VENTRICULAR PREMATURE COMPLEXES WITH OCCASIONAL SUPRAVENT RICULAR PREMATURE COMPLEXES LEFT AXIS DEVIATION NONSPECIFIC INTRAVENTRICULAR CONDUCTION DELAY ABNORMA L ECG PREVIOUS TRACING : 06/18/2017 17.06 Compared to previous tracing, PACs and PVCs are now present . DOCTOR: Ector Serna Interpretating Date/Time 07/24/2017 21:50:02
[2017-07-24 22:25] VITALS: O2SAT 98
[2017-07-25 00:21] LABS: TROPONIN I LESS THAN 0.02 NG/ML (0.02-0.05)
== END 2017-07-25 01:02 | disposition home or self-care (01) ==
LOC: NEPC 20:32
DX: R07.9 Chest pain, unspecified (principal); I44.0 Atrioventricular block, first degree; I11.0 Hypertensive heart disease with heart failure; I50.9 Heart failure, unspecified; E11.9 Type 2 diabetes mellitus without complications; E78.00 Pure hypercholesterolemia, unspecified; J44.9 Chronic obstructive pulmonary disease, unspecified; I89.0 Lymphedema, not elsewhere classified; Z85.46 Personal history of malignant neoplasm of prostate; Z87.891 Personal history of nicotine dependence; Z88.8 Allergy status to other drugs, medicaments and biological substances; Z79.4 Long term (current) use of insulin; Z79.82 Long term (current) use of aspirin; Z79.899 Other long term (current) drug therapy
CPT/HCPCS: 71045; 80053; 82550; 84484; 85025; 85610; 85730; 93005

== ENCOUNTER 2017-07-27 12:31 | Inpatient (IN) | payer OTHER, MEDICAID, MEDICARE ==
[~2017-07-27] VITALS: Ht 185.4 cm; Wt 132.0 kg
[2017-07-27] VITALS (7 sets, daily range): BP systolic 151–195; BP diastolic 76–93; PULSE 65–72; RESP 15–20; TEMP 97.8–98.7; O2SAT 97–100
[2017-07-27] MEDS ORDERED: SODIUM CHLOR 0.9% 1000 ML INJ 1,000 ML IV ONE (13:33)
[2017-07-27 13:43] LABS: AUTOMATED NEUTROPHIL # 8.7 TH/MM3 (1.8-7.7); BASOPHIL # 0.1 TH/MM3 (0-0.2); BASOPHIL % 1.1 % (0.0-2.0); EOSINOPHIL % 6.8 % (0.0-4.0); HEMATOCRIT 42.9 % (39.0-51.0); HEMOGLOBIN 14.7 GM/DL (13.0-17.0); LYMPH % 21.7 % (9.0-44.0); LYMPHOCYTE # 3.1 TH/MM3 (1.0-4.8); MEAN CELL VOLUME 81.5 FL (80.0-100.0); MEAN CORPUSCULAR HGB CONC 34.3 % (32.0-36.0); MEAN PLATELET VOLUME 9.1 FL (7.0-11.0); MONO % 8.5 % (0.0-8.0); MONOCYTE # 1.2 TH/MM3 (0-0.9); NEUT % 61.9 % (16.0-70.0); PLATELET COUNT 211 TH/MM3 (150-450); RED BLOOD COUNT 5.26 MIL/MM3 (4.50-5.90); RED CELL DISTRIBUTION WIDTH 14.2 % (11.6-17.2); WHITE BLOOD COUNT 14.1 TH/MM3 (4.0-11.0)
--- NOTE | 2017-07-27 13:43 | RADRPT ---
EXAM DATE/TIME: 07/27/2017 13:31 [facility] COMPARISON: No previous studies available for comparison. INDICATIONS : Stroke alert, right upper extremity weakness. RADIATION DOSE: 46.88 CTDIvol (mGy) This report was called by Dr. Cardoza to <Dr. Hernandez> at <1340hrs> MEDICAL HISTORY : Non-responsive. SURGICAL HISTORY : Non-responsive. ENCOUNTER: Initial ACUITY: 1 day PAIN SCALE: 0/10 LOCATION: cranial TECHNIQUE: Multiple contiguous axial images were obtained of the head. Using automated exposure control and adj ustment of the mA and/or kV according to patient size, radiation dose was kept as low as reasonably a chievable to obtain optimal diagnostic quality images. DICOM format image data is available electro nically for review and comparison. FINDINGS: CEREBRUM: The patient has a right temporal tip arachnoid cyst is similar to the previous study. The ventricle s are normal for age. No evidence of midline shift, mass lesion, hemorrhage or acute infarction. No extra-axial fluid collections are seen. POSTERIOR FOSSA: The cerebellum and brainstem are intact. The 4th ventricle is midline. The cerebellopontine angle i s unremarkable. EXTRACRANIAL: The visualized portion of the orbits is intact. SKULL: The calvaria is intact. No evidence of skull fracture. CONCLUSION: Right temporal tip arachnoid cyst similar to the previous study. Otherwise normal exam. Shakeel Cardoza MD on July 27, 2017 at 13:38 Board Certified Radiologist. This report was verified electronically.
--- NOTE | 2017-07-27 13:49 | PD ---
HPI Chief Complaint: Chest Pain Time Seen by Provider: 13:25 Travel History International Travel<30 days: No Contact w/Intl Traveler<30days: No Traveled to known affect area: No History of Present Illness HPI 67 years old male complaints of chest pain. Patient has recurrent chest pain and has been seen at the emergency room several times including 2 days ago for chest pain. Patient started having chest pain again this morning. Family members accompany patient to the emergency room for chest pain. Upon arrival to the parking lot of the emergency room, patient started having problems speaking and was walking leaning to left side. The time was 12:20 PM. Patient was brought to the examining room immediately for evaluation. Patient is unable to provide any information. Information provided by family members. No reported headache. Patient was complained of chest pain with radiation the left side of the neck and the right arm. No recent injury. No report of loss of consciousness. No report of fever chills. No history of CVA in the past. Patient on aspirin 325 mg daily. Patient took aspirin this morning. Patient has history hypertension, diabetes, hyperlipidemia. 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 PFSH Past Medical History Hx Anticoagulant Therapy: Yes (asa) Arthritis: No Asthma: No Autoimmune Disease: No Blood Disorders: No Anxiety: No Depression: No Heart Rhythm Problems: No Cancer: Yes (prostate CA) Cardiac Catheterization: No Cardiovascular Problems: Yes (HTN, CHF) High Cholesterol: Yes Chemotherapy: No Chest Pain: Yes Congestive Heart Failure: Yes COPD: Yes Cerebrovascular Accident: No Coronary Artery Disease: No Diabetes: Yes Diminished Hearing: No Endocrine: No Gastrointestinal Disorders: Yes (PYLIDINOL CYST X2) GERD: No Glaucoma: No Genitourinary: No Headaches: Yes Hepatitis: No Heparin Induced Thrombocytopen: No Hypertension: Yes Immune Disorder: No Implanted Vascular Access Dvce: No Kidney Stones: No Musculoskeletal: No Neurologic: No Psychiatric: No Reproductive: No Respiratory: Yes (COPD, PNA) Immunizations Current: Yes Migraines: No Myocardial Infarction: No Radiation Therapy: Yes (TREATMENT COMPLETED ON 03/21/17) Renal Failure: No Seizures: No Sickle Cell Disease: No Sleep Apnea: Yes (DOES NOT WEAR A CPAP) Thyroid Disease: No Past Surgical History Abdominal Surgery: Yes (APPENDECTOMY) AICD: No Appendectomy: Yes Arteriovenous Shunt: No Cardiac Surgery: No Cholecystectomy: No Coronary Artery Bypass Graft: No Ear Surgery: No Endocrine Surgery: No Eye Surgery: No Genitourinary Surgery: No Gynecologic Surgery: No Insulin Pump: No Joint Replacement: No Neurologic Surgery: No Oral Surgery: No Pacemaker: No Thoracic Surgery: No Other Surgery: Yes ( CYST REMOVAL) Social History Alcohol Use: Yes (RARE) Tobacco Use: No (quit 30 years ago) Substance Use: No Allergies-Medications (Allergen,Severity, Reaction): Coded Allergies: methylprednisolone (Verified Adverse Reaction, Intermediate, 07/27/17) severe bowel pain *MDRO Multi-Drug Resistant Organism (Verified Adverse Reaction, Unknown, ) MRSA (back wound/chest abscess) - 04/24/2015 MRSA PCR screen positive 10/12/16 Reported Meds & Prescriptions Reported Meds & Active Scripts Active Flovent Hfa 12 GM Inh (Fluticasone Propionate) 220 Mcg/Act Inh 1 Puff INH BID 30 Days Use daily at the same time. Amlodipine (Amlodipine Besylate) 10 Mg Tab 10 Mg PO DAILY Reported Hydrochlorothiazide 25 Mg Tab 25 Mg PO DAILY Coreg (Carvedilol) 12.5 Mg Tab 25 Mg PO BID Hydralazine HCl 10 Mg Tablet 10 Mg PO QID Aspirin 325 Mg Tab 325 Mg PO DAILY Symbicort Inh (Budesonide/Formoterol Fumarate) 160-4.5 Mcg/Act Aero 1 Puff INH Q12HR Clonidine (Clonidine HCl) 0.1 Mg Tab 0.1 Mg PO DAILY Novolin 70-30 Inj (Insulin Human Isoph/Insulin Regular) 1,000 Unit/10 Ml Vial 35 Units SQ BID Atorvastatin (Atorvastatin Calcium) 20 Mg Tab 20 Mg PO HS Lisinopril 40 Mg Tab 40 Mg PO DAILY Multiple Vitamin 1 Tab 1 Tab PO DAILY Review of Systems General / Constitutional: No: Fever Eyes: No: Visual changes HENT: No: Headaches Cardiovascular: Positive: Chest Pain or Discomfort Respiratory: No: Shortness of Breath Gastrointestinal: No: Abdominal Pain Genitourinary: No: Dysuria Musculoskeletal: No: Pain Skin: No Rash Neurologic: Positive: Weakness, Change in Mentation, Slurred Speech Psychiatric: No: Depression Endocrine: No: Polydipsia Hematologic/Lymphatic: No: Easy Bruising Physical Exam Narrative GENERAL: Well-nourished, well-developed patient. SKIN: Focused skin assessment warm/dry. HEAD: Normocephalic. EYES: No scleral icterus. No injection or drainage. Pupils 1.5 mm equal reactive. NECK: Supple, trachea midline. No JVD or lymphadenopathy. CARDIOVASCULAR: Regular rate and rhythm without murmurs, gallops, or rubs. RESPIRATORY: Breath sounds equal bilaterally. No accessory muscle use. GASTROINTESTINAL: Abdomen soft, non-tender, nondistended. MUSCULOSKELETAL: No cyanosis, or edema. BACK: Nontender without obvious deformity. No CVA tenderness. Neurologic exam: Patient is lethargic open eyes on command. Patient is aphasic. Patient has no obvious facial drooping. Patient with weakness on the left arm, unable to lift the left arm off the bed. Patient weakly squeeze my hand on the left hand. Patient can move the right arm off the bed. Patient unable to move both legs off the bed. Deep tendon reflex 1+ and equal. Negative Babinski. Data Data Last Documented VS Vital Signs Date Time Temp Pulse Resp B/P (MAP) Pulse Ox O2 Delivery O2 Flow Rate FiO2 07/27/17 12:53 98.7 72 20 195/91 (125) Orders Orders Diet Npo (07/27/17 Lunch) Activity Bed Rest (07/27/17 ) Electrocardiogram (07/27/17 ) I-Stat Profile (07/27/17 13:33) Prothrombin Time / Inr (Pt) (07/27/17 13:33) Act Partial Throm Time (Ptt) (07/27/17 13:33) Complete Blood Count With Diff (07/27/17 13:33) Fibrinogen (07/27/17 13:33) Creatine Kinase (Cpk) (07/27/17 13:33) Troponin I (07/27/17 13:33) Ua Includes Microscopic (07/27/17 13:33) Type And Screen (07/27/17 13:33) Ct Brain W/O Iv Contrast(Rout) (07/27/17 ) Chest, Single Ap (07/27/17 ) Cta Brain W Iv Contrast W 3d (07/27/17 13:33) Cta Neck W Iv Contrast W 3d (07/27/17 13:33) Consult Neurology (07/27/17 ) Blood Glucose (07/27/17 13:33) Ecg Monitoring (07/27/17 13:33) Neuro Checks Q2HX12,Q4H (07/27/17 13:33) Nursing Bedside Swallow Assess .ONCE (07/27/17 13:33) Iv Access Insert/Monitor (07/27/17 13:33) NPO (07/27/17 13:33) Oximetry (07/27/17 13:33) Resp Oxygen Nc Stroke (07/27/17 ) Sodium Chlor 0.9% 1000 Ml Inj (Ns 1000 M (07/27/17 13:33) Cath For Specimen (07/27/17 13:33) MDM Medical Decision Making Medical Screen Exam Complete: Yes Emergency Medical Condition: Yes Differential Diagnosis Differential diagnosis including TIA, CVA, neuropathy. Patient also complained chest pain prior to arrival. Differential diagnosis including atypical chest pain, angina, ID, PE, pneumothorax. Narrative Course 67 years old male with aphasia, left-sided weakness. Symptoms started at 12:20 PM. Stroke alert was called. Patient's sister was advised of TPA and side effect. Patient sister agreed to TPA. I spoke with neurologist Dr. Ang. Joby Hernandez MD Jul 27, 2017 13:49
[2017-07-27] MEDS ORDERED: IOHEXOL 350 MG/ML 10 ML VIAL (for RAD DIAG) IVCONTRAST ONE (13:50)
[2017-07-27 14:06] LABS: TROPONIN I LESS THAN 0.02 NG/ML (0.02-0.05)
[2017-07-27] MEDS ORDERED: SODIUM CHLORIDE 0.9% 50 ML BAG IVF ONE (14:15)
[2017-07-27] MEDS ORDERED: ALTEPLASE BOLUS 9 MG/9 ML SYR IV ONE (14:15)
[2017-07-27] MEDS ORDERED: ALTEPLASE DRIP 81 MG in SYRINGE/BAG 1 EA IV ONE (14:15)
[2017-07-27] MEDS ORDERED: NURSING INFORMATION XX PRN (14:15)
--- NOTE | 2017-07-27 14:20 | RADRPT ---
EXAM DATE/TIME: 07/27/2017 13:45 [facility] COMPARISON: CT BRAIN W/O CONTRAST, July 27, 2017, 13:31. INDICATIONS : Stroke alert, right sided upper extremity weakness and aphasia. IV CONTRAST: 73 cc Omnipaque 350 (iohexol) IV ; Cumulative dose for multiple exams. RADIATION DOSE: CTDIvol (mGy) MEDICAL HISTORY : Non-responsive. SURGICAL HISTORY : Non-responsive. ENCOUNTER: Initial ACUITY: 1 day PAIN SCALE: Non-responsive LOCATION: cranial TECHNIQUE: Volumetric scanning was performed using a multi-row detector CT scanner. The data was post processed with a variety of visualization algorithms including full volume maximum intensity pr ojection, multi-planar sliding thin slab reformation, curved planar reformation, and surface renderin g techniques. Using automated exposure control and adjustment of the mA and/or kV according to patie nt size, radiation dose was kept as low as reasonably achievable to obtain optimal diagnostic quality images. DICOM format image data is available electronically for review and comparison. FINDINGS: There is evidence of segmental occlusion/severe stenosis of the proximal portion of the left posterio r cerebral artery. The right posterior cerebral artery is patent. The bilateral anterior and middle c erebral arteries are patent without significant stenosis or occlusion. No aneurysm formation is noted . CONCLUSION: Segmental occlusion/severe stenosis of the proximal portion of the left posterior cer ebral artery. Sina Perla MD on July 27, 2017 at 14:14 Board Certified Radiologist. This report was verified electronically.
[2017-07-27 14:24] LABS: BILIRUBIN, URINE NEG (NEG); BLOOD, URINE NEG (NEG); GLUCOSE,URINE TRACE mg/dL (NEG); KETONE, URINE NEG (NEG); NITRITE,URINE NEG (NEG); PH, URINE 6.5 (5.0-8.5); SQUAMOUS EPITHELIAL CELL URINE <1 /hpf (0-5); URINE COLOR COLORLESS (YELLW/STRAW); URINE LEUKOCYTE ESTERASE NEG (NEG)
[2017-07-27 14:36] LABS: INTERNATIONAL NORMALIZED RATIO 1.1 RATIO; PROTHROMBIN TIME - PATIENT 10.8 SEC (9.8-11.6)
--- NOTE | 2017-07-27 14:36 | RADRPT ---
EXAM DATE/TIME: 07/27/2017 13:45 [facility] COMPARISON: No previous studies available for comparison. INDICATIONS : Stroke alert, right upper extremity weakness and aphasia. IV CONTRAST: 73 cc Omnipaque 350 (iohexol) IV ; Cumulative dose for multiple exams. RADIATION DOSE: 28.78 CTDIvol (mGy) ; Combined studies MEDICAL HISTORY : Non-responsive. SURGICAL HISTORY : Non-responsive. ENCOUNTER: Initial ACUITY: 1 day PAIN SCALE: 0/10 LOCATION: neck Elevated flow velocities and ICA/CCA ratios have been found to correlate with increased degrees of vessel stenosis, calculated as percentage of diameter relative to a normal segment of distal ICA/CCA. TECHNIQUE: Volumetric scanning was performed using a multirow detector CT scanner. The data was post processed with a variety of visualization algorithms including full-volume maximum intensity projection, multip lanar sliding thin-slab reformation, curved-planar reformation, and surface-rendering techniques. Us ing automated exposure control and adjustment of the mA and/or kV according to patient size, radiatio n dose was kept as low as reasonably achievable to obtain optimal diagnostic quality images. DICOM f ormat image data is available electronically for review and comparison. FINDINGS: No abnormality is identified within the lung apices. There is bovine origin of vessels from the arch without evidence of proximal stenosis. Vertebral arteries are codominant. Note is made of a small shemar chnoid cyst in the middle cranial fossa measuring 4 CM by 2 CM. Examination of the right common carotid artery demonstrates the vessel to be widely patent. There is 20-30% stenosis at the origin of the right internal carotid artery with minimal calcific plaque prese nt More distally the cervical internal carotid artery is intact. Examination of the left common carotid artery demonstrates the vessel to be widely patent. There is 2 0-30% stenosis More distally the cervical internal carotid artery is intact. Percent stenosis is calculated using the diameter of the stenotic region over the diameter of the nor mal distal internal carotid artery. CONCLUSION: 1. There is 20-30% stenosis bilaterally. No evidence of hemodynamically significant lesion. 2. Arachnoid cyst right middle cranial fossa. Nick Jansen MD on July 27, 2017 at 14:24 Board Certified Radiologist. This report was verified electronically.
[2017-07-27] MEDS ORDERED: GLUCAGON 1 MG/ML VIAL OTHER PRN (14:45)
[2017-07-27] MEDS ORDERED: RESP: ALBUTEROL 2.5 MG/3 ML NEB (PRN) INH (14:45)
[2017-07-27] MEDS ORDERED: MAGNESIUM HYDROXIDE SUSP 30 ML CUP PO PRN (14:45)
[2017-07-27] MEDS ORDERED: DEXTROSE 50% IN WATER 50 ML VIAL(D50) IV PUSH PRN (14:45)
[2017-07-27] MEDS ORDERED: SODIUM CHLORIDE 0.9% FLUSH 10 ML FLUSH IV FLUSH PRN ×2 (14:45)
[2017-07-27] MEDS ORDERED: ACETAMINOPHEN 325 MG TAB PO PRN (14:45)
[2017-07-27] MEDS ORDERED: NURSING INFORMATION XX SCH (14:45)
[2017-07-27] MEDS ORDERED: LABETALOL HCL 100 MG/20 ML VIAL IV PUSH PRN (14:45)
[2017-07-27] MEDS ORDERED: CHLORHEXIDINE GLUCONATE 2 % 1 PACK (2 CLOTHS) TOP PRN (14:45)
[2017-07-27] MEDS ORDERED: NITROPRUSSIDE INJ 50 MG in DEXTROSE 5% IN WATER INJ 248 ML IV PRN ×2 (14:45)
[2017-07-27] MEDS ORDERED: SENNOSIDES 8.6 MG TAB PO PRN (14:45)
[2017-07-27] MEDS ORDERED: BISACODYL 10 MG SUPP RECTAL PRN (14:45)
[2017-07-27] MEDS ORDERED: ONDANSETRON HCL 4 MG/2 ML VIAL IV PUSH PRN (14:45)
[2017-07-27] MEDS ORDERED: LACTULOSE SYRUP 20 GM/30 ML CUP PO PRN (14:45)
--- NOTE | 2017-07-27 14:47 | HHI.HP ---
HPI Service Critical Care Medicine Primary Care Physician Catherine Mcgill MD Admission Diagnosis Acute CVA. Chest pain. Diagnosis: (1) Left acute arterial ischemic stroke, [employer] (posterior cerebral artery) Diagnosis: Principal (2) BMI 37.0-37.9, adult Diagnosis: Principal (3) Contact lens overwear of left eye Diagnosis: Secondary (4) Colon, diverticulosis Diagnosis: Secondary (5) Obstructive sleep apnea Diagnosis: Secondary (6) History of prostate cancer Diagnosis: Secondary (7) Elevated CPK (8) Hyperglycemia Diagnosis: Principal (9) Hyponatremia Diagnosis: Secondary (10) Hyperlipidemia Diagnosis: Principal (11) COPD (chronic obstructive pulmonary disease) Diagnosis: Secondary (12) DM (diabetes mellitus) Diagnosis: Principal (13) Hypertension Diagnosis: Principal (14) Decreased cardiac ejection fraction Diagnosis: Principal (15) Cardiomyopathy Diagnosis: Principal (16) Leukocytosis Diagnosis: Secondary Chief Complaint: Chest pain/left upper and lower extremity weakness with dysphasia in parking lot at [facility] Travel History International Travel<30 Days: No Contact w/Intl Traveler <30 Da: No Traveled to Known Affected Are: No History of Present Illness 67 years old male. Date of admission 07/27/2017. Past medical history includes diabetes mellitus, hypertension ejection fraction 35%, COPD, obstructive sleep apnea does not wear CPAP, prostate cancer treatment completed March 2017, colonic diverticulosis left eye contact where. He initially presented to [facility] today 07/27 with chief complaints of nonspecific chest pain. Patient has recurrent chest pain and has been seen at the emergency room several times including 2 days ago for chest pain. Patient started having chest pain again this morning. Patient was complained of chest pain with radiation the left side of the neck and the right arm. Family members accompany patient to the emergency room for chest pain. Upon arrival to the parking lot of the emergency room, patient started having problems speaking and was walking leaning to left side. The time was 12:20 PM. No recent injury. No report of loss of consciousness. No report of fever chills. No history of CVA in the past. Patient on aspirin 325 mg daily. Stroke alert was called. NIH score was 11 with loss of motor right upper, left upper and lower. Loss of sensation. And dysarthria. CT brain revealed a right temporal arachnoid cyst otherwise unremarkable. Discussed with neurology Dr. Ang. Patient received alteplase 9 mg bolus followed by 81 mg over the preceding hour. NIH score was for dysarthria and left upper lower motor weakness. CTA brain revealed left [employer] occlusion/stenosis. Review of Systems ROS Limitations: Clinical Condition, Altered Mental Status Past Family Social History Allergies: Coded Allergies: methylprednisolone (Verified Adverse Reaction, Intermediate, 07/27/17) severe bowel pain *MDRO Multi-Drug Resistant Organism (Verified Adverse Reaction, Unknown, ) MRSA (back wound/chest abscess) - 04/24/2015 MRSA PCR screen positive 10/12/16 Past Medical History Left eye contact Hypertension/essential Hyperlipidemia Nonischemic cardiopathy ejection fraction 35% COPD History of prostate cancer Colonic diverticulosis Diabetes mellitus type 1 Elevated BMI Past Surgical History Appendectomy Cardiac catheterization 2003 with normal coronaries Reported Medications Atorvastatin 20 mg p.o. daily Clonidine 0.1 mg p.o. daily Hydralazine 10 mg p.o. 4 times daily Carvedilol 25 mg p.o. twice daily Amlodipine 10 mg p.o. daily Aspirin 325 mg p.o. daily Lisinopril 40 mg p.o. daily Fluticasone 12 g inhalation twice daily Budesonide/formoterol 160/4.5 1 puff twice daily Novolin 70/30 35 units twice daily Multi-vitamin tablet 1 daily Active Ordered Medications Reviewed in EMR Family History Father with lung cancer and leukemia disease. Mother with hypertension, diabetes and dyslipidemia Social History Quit tobacco 27 years ago. Rare social alcohol use. Denies illicit drug use. Physical Exam Vital Signs Vital Signs Date Time Temp Pulse Resp B/P (MAP) Pulse Ox O2 Delivery O2 Flow Rate FiO2 07/27/17 13:35 18 99 Room Air 07/27/17 13:35 99 Nasal Cannula 2.00 07/27/17 12:53 98.7 72 20 195/91 (125) Physical Exam GENERAL: 67-year-old male currently resting in bed lying flat on nasal cannula SKIN: Warm and dry. HEAD: Atraumatic. Normocephalic. EYES: Pupils equal and round about 3 mm bilaterally and reactive. No scleral icterus. No injection or drainage. ENT: No nasal bleeding or discharge. Mucous membranes pink and moist. NECK: Trachea midline. No JVD. CARDIOVASCULAR: Regular rate and rhythm. S1, S2 predose for without murmur RESPIRATORY: No accessory muscle use. Clear to auscultation. Breath sounds equal bilaterally. GASTROINTESTINAL: Abdomen soft, non-tender, nondistended. Hepatic and splenic margins not palpable. MUSCULOSKELETAL: Extremities without clubbing, cyanosis, or edema. No obvious deformities. NEUROLOGICAL: Awake and alert. Aphasia. Subjective left upper and lower extremity weakness. Normal DTRs bilateral upper lower extremity. Normal sensation. Laboratory Laboratory Tests Test 07/27/17 13:25 07/27/17 14:00 07/27/17 14:05 White Blood Count 14.1 Red Blood Count 5.26 Hemoglobin 14.7 Bedside Hemoglobin 13.9 Hematocrit 42.9 Bedside Hematocrit 41.0 Mean Corpuscular Volume 81.5 Mean Corpuscular Hemoglobin 28.0 Mean Corpuscular Hemoglobin Concent 34.3 Red Cell Distribution Width 14.2 Platelet Count 211 Mean Platelet Volume 9.1 Neutrophils (%) (Auto) 61.9 Lymphocytes (%) (Auto) 21.7 Monocytes (%) (Auto) 8.5 Eosinophils (%) (Auto) 6.8 Basophils (%) (Auto) 1.1 Neutrophils # (Auto) 8.7 Lymphocytes # (Auto) 3.1 Monocytes # (Auto) 1.2 Eosinophils # (Auto) 1.0 Basophils # (Auto) 0.1 CBC Comment AUTO DIFF Differential Comment AUTO DIFF CONFIRMED Bedside Sodium 134 Bedside Potassium 4.2 Bedside Chloride 100 Bedside Blood Urea Nitrogen 22 Bedside Creatinine 1.0 Bedside Glucose 227 Total Creatine Kinase 315 Creatine Kinase MB 6.0 Creatine Kinase MB % 1.9 Troponin I LESS THAN 0.02 Urine Color COLORLESS Urine Turbidity CLEAR Urine pH 6.5 Urine Specific [place] 1.009 Urine Protein NEG Urine Glucose (UA) TRACE Urine Ketones NEG Urine Occult Blood NEG Urine Nitrite NEG Urine Bilirubin NEG Urine Urobilinogen LESS THAN 2.0 Urine Leukocyte Esterase NEG Urine RBC 1 Urine WBC LESS THAN 1 Urine Squamous Epithelial Cells <1 Prothrombin Time 10.8 Prothromb Time International Ratio 1.1 Activated Partial Thromboplast Time 24.3 Fibrinogen 341 Result Diagram: 07/27/17 1325 Imaging Last Impressions Head CTA 07/27/17 1333 Signed Impressions: Service Date/Time: July 13:45 - CONCLUSION: Segmental occlusion/severe stenosis of the proximal portion of the left posterior cerebral artery. Sina Perla MD Head CT 07/27/17 0000 Signed Impressions: Service Date/Time: July 13:31 - CONCLUSION: Right temporal tip arachnoid cyst similar to the previous study. Otherwise normal exam. Shakeel Cardoza MD Septic Shock Reassessment Septic shock perfusion: reassessment completed Caprini VTE Risk Assessment Caprini VTE Risk Assessment: Mod/High Risk (score >= 2) VTE Pharm Contraindication: Documented Caprini Risk Assessment Model Point Value = 1 Point Value = 2 Point Value = 3 Point Value = 5 Age 41-60 Minor surgery BMI > 25 kg/m2 Swollen legs Varicose veins or History of unexplained or recurrent spontaneous Oral contraceptives or hormone replacement Sepsis (< 1 month) Serious lung disease, including pneumonia (< 1 month) Abnormal pulmonary function Acute myocardial infarction Congestive heart failure (< 1 month) History of inflammatory bowel disease Medical patient at bed rest Age 61-74 Arthroscopic surgery Major open surgery (> 45 min) Laparoscopic surgery (> 45 min) Malignancy Confined to bed (> 72 hours) Immobilizing plaster cast Central venous access Age >= 75 History of VTE Family history of VTE Factor V Leiden Prothrombin 11844C Lupus anticoagulant Anticardiolipin antibodies Elevated serum homocysteine Heparin-induced thrombocytopenia Other congenital or acquired thrombophilia Stroke (< 1 month) Elective arthroplasty Hip, pelvis, or leg fracture Acute spinal cord injury (< 1 month) Prophylaxis Regimen Total Risk Factor Score Risk Level Prophylaxis Regimen 0-1 Low Early ambulation 2 Moderate Order ONE of the following: *Sequential Compression Device (SCD) *Heparin 5000 units SQ BID 3-4 Higher Order ONE of the following medications: *Heparin 5000 units SQ TID *Enoxaparin/Lovenox 40 mg SQ daily (WT < 150 kg, CrCl > 30 mL/min) *Enoxaparin/Lovenox 30 mg SQ daily (WT < 150 kg, CrCl > 10-29 mL/min) *Enoxaparin/Lovenox 30 mg SQ BID (WT < 150 kg, CrCl > 30 mL/min) AND/OR *Sequential Compression Device (SCD) 5 or more Highest Order ONE of the following medications: *Heparin 5000 units SQ TID (Preferred with Epidurals) *Enoxaparin/Lovenox 40 mg SQ daily (WT < 150 kg, CrCl > 30 mL/min) *Enoxaparin/Lovenox 30 mg SQ daily (WT < 150 kg, CrCl > 10-29 mL/min) *Enoxaparin/Lovenox 30 mg SQ BID (WT < 150 kg, CrCl > 30 mL/min) AND *Sequential Compression Device (SCD) Assessment and Plan Assessment and Plan Neuro/Psych: Left [employer] CVA Right temporal arachnoid cyst Left eye contact CT brain revealed left temporal arachnoid cyst CTA brain revealed left [employer] occlusion/stenosis Dr. Ang/neurology consult Received alteplase 9 mg followed by 81 mg Blood pressure goal less than 180/105 2D echocardiogram ordered. Follow-up on CTA neck. Neurochecks Hemoglobin A1c/lipid panel ordered Repeat brain CT 24 hours post alteplase infusion CV: Essential hypertension Dyslipidemia Nonischemic cardiopathy ejection fraction 35% Lexiscan 06/18 revealed no reversible ischemic changes. Global hypokinesis. Ejection fraction around 36%. Intermediate risk factor I-III percent Home medications include clonidine 0.1 mg p.o. daily, hydralazine 10 mg p.o. 4 times daily, carvedilol 25 mg p.o. twice daily, amlodipine 10 mg daily lisinopril 40 mg daily for hypertension along with hydrochlorthiazide 25 mg p.o. daily Home medications include aspirin 320 mg p.o. daily. He took this this morning. Home medications include atorvastatin 20 mg p.o. daily for dyslipidemia. Labetalol/nicardipine drip to maintain systolic blood pressure less than 180/ diastolic blood pressure less than 105 2D echocardiogram ordered Initial troponin 0.02. EKG revealed first-degree AV block. Left axis deviation Resp: COPD CHARITY noncompliant with CPAP Nasal cannula to maintain saturations greater than equal to 92% Incentive spirometry while awake Continue Budesonide/formoterol 160/4.5 1 puff twice daily and fluticasone 1 puff twice daily Albuterol/ipratropium aerosols every 6 hours with albuterol aerosols every 2 hours as needed dyspnea GI: Colonic diverticulosis Patient is currently n.p.o. Pantoprazole for GI prophylaxis Docusate sodium/senna 1 tablet twice daily for bowel regimen : History of prostate cancer Completed chemotherapy March 2017 Avelar catheter if indicated Endo: Diabetes mellitus type 1 uncontrolled Hyperglycemia Sliding scale insulin Accu-Cheks every 6 hours with Novulin N to maintain euglycemia/medium regimen Patient is on Novulin 70/30 35 units twice daily at home Hemoglobin A1c and a Renal: Creatinine currently within normal limits Monitor urine output Accurate I's and O's Heme: Leukocytosis Likely stress leukemoid type reaction Follow-up CBC in a.m. Coags currently pending ID: Monitor for signs and symptomatology of infection FEN: Hyponatremia Currently normal saline at 84 cc an hour Replace electrolytes as clinically indicated MSK: PT/OT evaluate and treat Access -Utilize peripheral IV. Central line if indicated Prophylaxis -GI -pantoprazole -DVT -SCD/holding pharmacological prophylaxis first 24 hours post alteplase Level 3 admission Code Status Full code Discussed Condition With Dr. Hernandez ED physician. Patient. Care plan discussed and all questions answered. Problem Qualifiers (1) Hyperlipidemia: Qualified Codes: E78.5 - Hyperlipidemia, unspecified (2) COPD (chronic obstructive pulmonary disease): Qualified Codes: J41.0 - Simple chronic bronchitis (3) DM (diabetes mellitus): Qualified Codes: E10.8 - Type 1 diabetes mellitus with unspecified complications (4) Hypertension: Qualified Codes: I10 - Essential (primary) hypertension (5) Cardiomyopathy: Qualified Codes: I42.9 - Cardiomyopathy, unspecified (6) Leukocytosis: Qualified Codes: D72.829 - Elevated white blood cell count, unspecified Jesse Antunez MD Jul 27, 2017 14:46
[2017-07-27] MEDS: SODIUM CHLOR 0.9% 1000 ML INJ 1,000 ML IV SCH (15:02)
--- NOTE | 2017-07-27 15:06 | RADRPT ---
EXAM DATE/TIME: 07/27/2017 14:01 [facility] COMPARISON: CHEST SINGLE AP, July 24, 2017, 20:51. INDICATIONS : Stroke alert. MEDICAL HISTORY : Unobtainable. SURGICAL HISTORY : Unobtainable. ENCOUNTER: Initial ACUITY: 1 day PAIN SCORE: Non-responsive. LOCATION: Bilateral chest FINDINGS: The heart remains enlarged. The pulmonary vascular pattern is normal. The lungs are clear. CONCLUSION: Cardiomegaly. No focal infiltrate or pulmonary vascular congestion. Sina Perla MD on July 27, 2017 at 14:59 Board Certified Radiologist. This report was verified electronically.
[2017-07-27] MEDS: MORPHINE SULFATE 4 MG/ML INJ IV PUSH PRN (15:17)
[2017-07-27] MEDS: RESP: ALBUTEROL 2.5 MG/IPRATROPIUM 0.5 MG NEB (SCH) INH ×2 (15:42→19:37)
--- NOTE | 2017-07-27 16:39 | MB ---
cc: Daysi Ang MD DATE: 07/27/2017 DATE OF : 01/31/1954 AGE: 67. REASON FOR CONSULTATION: Stroke Alert. HISTORY OF PRESENT ILLNESS: This is a pleasant 67-year-old gentleman with a history of diabetes, hypertension, coronary artery disease, EF of 35%, COPD, sleep apnea without CPAP - does not wear it, prostate cancer - completed treatment 03/2017, diverticulosis, cataract of the left eye. He came in today with nonspecific chest pain, seen in the emergency room several times over the last couple of days. Workup had been negative. He had chest pain again in the morning, radiating to the left neck, right arm. In the parking lot of the ER, he started having problems speaking, leaning to the left. Time of onset was 12:20. He came in as a Stroke Alert. He had a CT done and CTA. He was not improving, tPA was infused. At 30-45 minutes into tPA, per nursing, I am told that his speech had normalized and he is back to baseline. He came in with a NIH of 11, currently 0. He was weak in the right upper, left upper and left lower extremities. Speech: He does not have any aphasia nor any dysarthria. ALLERGIES TO MEDICINE: METHYLPREDNISOLONE. ____ MDRO, MRSA. PAST MEDICAL HISTORY: As stated. PAST SURGICAL HISTORY: Cardiac catheterization in 2003 and appendectomy. HOME MEDICINES: 1. Atorvastatin. 2. Clonidine. 3. Hydralazine. 4. Carvedilol. 5. Amlodipine. 6. Full dose aspirin. 7. Lisinopril. 8. Fluticasone. 9. Budesonide. 10. Novolin. 11. Multivitamins. FAMILY HISTORY: Lung cancer, leukemia in the father. Mother with hypertension, diabetes and hyperlipidemia. SOCIAL HISTORY: Retired. Social drinker. No illicit drugs. Quit smoking 27 years ago. PHYSICAL EXAMINATION: VITAL SIGNS: Temperature is 98.7, pulse 72, respiratory rate 18, blood pressure at 12:53 was 195/91. NECK: Supple. I do not appreciate any bruits. HEART: Regular. NEUROLOGIC: He is awake, alert. He is oriented, and fluent. No dysarthria, no aphasia. He has minimal decreased light touch over V2, V3 on the left. Visual aburto are full. Otherwise, face symmetrical. Tongue midline. Motor: There is no drift, no leg lag, symmetrical otherwise. Strength: No drift or leg lag, as stated. DTRs are trace to 1+. He is diabetic. Toes: He is very sensitive, so Babinski cannot be elicited. Cerebellar is normal. Gait is withheld. He is at strict bedrest at this point. LABORATORY DATA: Reviewed. His white count is 14.1. Coag panel was normal. Chemistries: Glucose 227, CK 315. Sodium 134. Urine was unremarkable. IMAGING STUDIES: CT head was unremarkable except for right temporal tip arachnoid cyst that has been seen in the past. Chest x-ray: Cardiomegaly. Neck CTA shows 20-30% stenosis bilaterally. Head CTA: Segmental occlusion versus severe stenosis proximal portion of the left posterior cerebral artery. IMPRESSION: A 67-year-old man with stroke-like symptoms, status post tissue plasminogen activator, now at baseline. Symptoms resolved. He has what looks like either a severe stenosis or segmental occlusion of left posterior cerebral artery. RECOMMENDATIONS: Recommend at this point strict post tPA orders. We will get an echocardiogram. No aspirin, no antiplatelets for [address] of the brain in 24 hours. I would also get an MRI as well just to make sure that there is no residual findings. Permissible hypertension. Watch him for any dysrhythmia. Question will be with low ejection fraction of 36% on his Lexiscan on 06/18/2017, would he benefit from anticoagulation? SCDs for DVT prevention. We can start Lovenox in 24 hours. PT, OT, speech therapy assessment, fluids and further recommendations will be made as needed. Daysi Ang MD DF/SB/ , 03:32 PM , 04:15 PM
[2017-07-27] MEDS ORDERED: hydrALAZINE HCL 20 MG/ML VIAL IV PUSH PRN (18:00)
[2017-07-27] MEDS ORDERED: cloNIDine HCL 0.1 MG TAB PO PRN (18:00)
[2017-07-27] MEDS ORDERED: ENALAPRILAT 2.5 MG/2 ML VIAL IV PUSH PRN (18:00)
[2017-07-27] MEDS ORDERED: hydrALAZINE HCL 20 MG/ML VIAL IV PUSH ONE (18:00)
[2017-07-27] MEDS ORDERED: niCARdipine INJ 25 MG in SODIUM CHLOR 0.9% 250 ML INJ 240 ML IV PRN (18:00)
[2017-07-27] MEDS: INSULIN NovoLIN REGULAR SUPPLEMENTAL SCALE SQ SCH (18:02)
[2017-07-27] MEDS: ACETAMINOPHEN/HYDROcodone 325 MG/5 MG TAB PO PRN ×2 (18:03→22:10)
[2017-07-27] MEDS ORDERED: SODIUM CHLORIDE 0.9% FLUSH 10 ML FLUSH IV FLUSH SCH (21:00)
[2017-07-27] MEDS: BUDESONIDE-FORMOTEROL 160/4.5 MCG INHALER INH SCH (21:00)
[2017-07-27] MEDS: FLUTICASONE PROPIONATE 220 MCG/ACT 12 GM INHALER INH SCH (21:00)
[2017-07-27] MEDS ORDERED: CARVEDILOL 6.25 MG TAB PO SCH (21:00)
[2017-07-27] MEDS ORDERED: CARVEDILOL 12.5 MG TAB PO SCH (21:00)
[2017-07-27] MEDS: ATORVASTATIN 20 MG TAB PO SCH (22:10)
[2017-07-27] MEDS: CARVEDILOL 12.5 MG TAB PO SCH (22:10)
[2017-07-27] MEDS: DOCUSATE SODIUM 50 MG/SENNA 8.6 MG TAB PO SCH (22:10)
[2017-07-27] MEDS: LISINOPRIL 5 MG TAB PO SCH (22:10)
[2017-07-27] MEDS: SODIUM CHLORIDE 0.9% FLUSH 10 ML FLUSH IV FLUSH SCH (22:11)
[2017-07-28] VITALS (13 sets, daily range): BP systolic 125–169; BP diastolic 60–94; PULSE 63–86; RESP 11–20; TEMP 97.9–98.6; O2SAT 94–98
[2017-07-28] MEDS: INSULIN NovoLIN REGULAR SUPPLEMENTAL SCALE SQ SCH ×5 (01:01→21:30)
[2017-07-28] MEDS: SODIUM CHLOR 0.9% 1000 ML INJ 1,000 ML IV SCH ×2 (02:29→14:24)
[2017-07-28] MEDS: RESP: ALBUTEROL 2.5 MG/IPRATROPIUM 0.5 MG NEB (SCH) INH ×4 (03:14→21:05)
[2017-07-28] MEDS: CHLORHEXIDINE GLUCONATE 2 % 1 PACK (2 CLOTHS) TOP SCH (04:00)
[2017-07-28] MEDS: ACETAMINOPHEN/HYDROcodone 325 MG/5 MG TAB PO PRN (04:09)
--- NOTE | 2017-07-28 08:11 | HHI.CCPN ---
Subjective Remarks/Hospital Course 67 years old male. Date of admission 07/27/2017. Past medical history includes diabetes mellitus, hypertension ejection fraction 35%, COPD, obstructive sleep apnea does not wear CPAP, prostate cancer treatment completed March 2017, colonic diverticulosis left eye contact where. He initially presented to [facility] [address] today 07/27 with chief complaints of nonspecific chest pain. Patient has recurrent chest pain and has been seen at the emergency room several times including 2 days ago for chest pain. Patient started having chest pain again this morning. Patient was complained of chest pain with radiation the left side of the neck and the right arm. Family members accompany patient to the emergency room for chest pain. Upon arrival to the parking lot of the emergency room, patient started having problems speaking and was walking leaning to left side. The time was 12:20 PM. No recent injury. No report of loss of consciousness. No report of fever chills. No history of CVA in the past. Patient on aspirin 325 mg daily. Stroke alert was called. NIH score was 11 with loss of motor right upper, left upper and lower. Loss of sensation. And dysarthria. CT brain revealed a right temporal arachnoid cyst otherwise unremarkable. Discussed with neurology Dr. Ang. Patient received alteplase 9 mg bolus followed by 81 mg over the preceding hour. NIH score was for dysarthria and left upper lower motor weakness. CTA brain revealed left [employer] occlusion/stenosis. Subjective 07/28: Afebrile. Dysarthria and motor symptoms have essentially resolved. Complaining of flatulence. Repeat CT brain pending. Objective Vital Signs Date Time Temp Pulse Resp B/P (MAP) Pulse Ox O2 Delivery O2 Flow Rate FiO2 07/28/17 07:15 98 Nasal Cannula 2.00 07/28/17 06:00 77 07/28/17 04:00 98.0 15 148/73 (98) Intake and Output 07/28/17 07/28/17 07/29/17 08:00 16:00 00:00 Output Total 1400 ml Balance -1400 ml Result Diagram: 07/27/17 1325 Imaging Last Impressions Neck CTA 07/27/17 1333 Signed Impressions: Service Date/Time: July 13:45 - CONCLUSION: 1. There is 20-30%% stenosis bilaterally. No evidence of hemodynamically significant lesion. 2. Arachnoid cyst right middle cranial fossa. Nick Jansen MD Head CTA 07/27/17 1333 Signed Impressions: Service Date/Time: July 13:45 - CONCLUSION: Segmental occlusion/severe stenosis of the proximal portion of the left posterior cerebral artery. Sina Perla MD Head CT 07/27/17 0000 Signed Impressions: Service Date/Time: July 13:31 - CONCLUSION: Right temporal tip arachnoid cyst similar to the previous study. Otherwise normal exam. Shakeel Cardoza MD Chest X-Ray 07/27/17 0000 Signed Impressions: Service Date/Time: July 14:01 - CONCLUSION: Cardiomegaly. No focal infiltrate or pulmonary vascular congestion. Sina Perla MD Objective Remarks GENERAL: 67-year-old male currently resting in bed lying flat on nasal cannula SKIN: Warm and dry. HEAD: Atraumatic. Normocephalic. EYES: Pupils equal and round about 3 mm bilaterally and reactive. No scleral icterus. No injection or drainage. ENT: No nasal bleeding or discharge. Mucous membranes pink and moist. NECK: Trachea midline. No JVD. CARDIOVASCULAR: Regular rate and rhythm. S1, S2 predose for without murmur RESPIRATORY: No accessory muscle use. Clear to auscultation. Breath sounds equal bilaterally. GASTROINTESTINAL: Abdomen soft, non-tender, nondistended. Hepatic and splenic margins not palpable. MUSCULOSKELETAL: Extremities without clubbing, cyanosis, or edema. No obvious deformities. NEUROLOGICAL: Awake and alert. Cranial nerves II through XII appear to be grossly intact. Strength is equal and symmetric bilaterally. Normal sensation. DTRs equal symmetric. Normal cerebellar examination. Gait was not assessed. Urinary Catheter: No Assessment to: Continue Vascular Central Line Catheter: No Assessment to: Continue A/P Assessment and Plan Neuro/Psych: Left [employer] CVA Right temporal arachnoid cyst Bilateral eye cataract CT brain revealed left temporal arachnoid cyst CTA brain revealed left [employer] occlusion/stenosis Dr. Ang/neurology consult Received alteplase 9 mg followed by 81 mg Blood pressure goal less than 180/105 2D echocardiogram ordered. Results pending Follow-up on CTA neck revealed 20-30 percent stenosis bilaterally not hemodynamically significant. Neurochecks Hemoglobin A1c/lipid panel ordered with results pending Acetaminophen 650 mg every 6 hours as needed fever Hydrocodone/acetaminophen 5/325 1 tab every 4 hours as needed pain 1 through 5 Morphine sulfate 2 mg as needed pain 6 -[address] 24 hours post alteplase infusion at 1500 hrs. 07/28 CV: Essential hypertension Dyslipidemia Nonischemic cardiopathy ejection fraction 35% Lexiscan 06/18 revealed no reversible ischemic changes. Global hypokinesis. Ejection fraction around 36%. Intermediate risk factor I-III percent Home medications include clonidine 0.1 mg p.o. daily, hydralazine 10 mg p.o. 4 times daily, carvedilol 25 mg p.o. twice daily, amlodipine 10 mg daily lisinopril 40 mg daily for hypertension along with hydrochlorthiazide 25 mg p.o. daily Home medications include aspirin 325 mg p.o. daily. He took this 07/27 morning. Home medications include atorvastatin 20 mg p.o. daily for dyslipidemia. Labetalol/nicardipine drip to maintain systolic blood pressure less than 180/ diastolic blood pressure less than 105 Restarted carvedilol 12.5 twice daily, lisinopril 2.5 milligrams twice daily and hydrochlorthiazide 25 mg daily 2D echocardiogram ordered with results pending Initial troponin 0.02. EKG revealed first-degree AV block. Left axis deviation Resp: COPD CHARITY noncompliant with CPAP Nasal cannula to maintain saturations greater than equal to 92% Incentive spirometry while awake Continue Budesonide/formoterol 160/4.5 1 puff twice daily and fluticasone 1 puff twice daily Albuterol/ipratropium aerosols every 6 hours with albuterol aerosols every 2 hours as needed dyspnea GI: Colonic diverticulosis Patient is currently n.p.o.. Advance diet per speech therapy Pantoprazole for GI prophylaxis Docusate sodium/senna 1 tablet twice daily for bowel regimen : History of prostate cancer Completed chemotherapy March 2017 Avelar catheter if indicated Endo: Diabetes mellitus type 1 uncontrolled Hyperglycemia Sliding scale insulin Accu-Cheks every 6 hours with Novulin N to maintain euglycemia/medium regimen Patient is on Novulin 70/30 35 units twice daily at home. Likely will resume it half the dose was diet clear Hemoglobin A1c pending Renal: Creatinine currently within normal limits Monitor urine output Accurate I's and O's Heme: Leukocytosis Likely stress leukemoid type reaction Follow-up CBC in a.. Coags currently pending ID: Monitor for signs and symptomatology of infection FEN: Hyponatremia Currently normal saline at 84 cc an hour Replace electrolytes as clinically indicated MSK: PT/OT evaluate and treat Access -Utilize peripheral IV. Central line if indicated Prophylaxis -GI -pantoprazole -DVT -SCD/holding pharmacological prophylaxis first 24 hours post alteplase Level 2 follow-up CT brain 07/28 without any significant bleeding. Stable arachnoid cyst. We will assign care to hospitalist in a. 07/29 and sign off and transfer to neuro floor. Jesse Antunez MD Jul 28, 2017 08:11
[2017-07-28] MEDS: SODIUM CHLORIDE 0.9% FLUSH 10 ML FLUSH IV FLUSH SCH ×2 (08:17→20:21)
[2017-07-28] MEDS: MULTIVITAMIN TAB PO SCH (08:25)
[2017-07-28] MEDS: LISINOPRIL 5 MG TAB PO SCH ×2 (08:25→20:22)
[2017-07-28] MEDS: DOCUSATE SODIUM 50 MG/SENNA 8.6 MG TAB PO SCH ×2 (08:26→20:22)
[2017-07-28] MEDS: CARVEDILOL 12.5 MG TAB PO SCH ×2 (08:26→20:22)
[2017-07-28] MEDS: HYDROCHLOROTHIAZIDE 25 MG TAB PO SCH (08:26)
[2017-07-28] MEDS: cloNIDine HCL 0.1 MG TAB PO SCH (08:26)
[2017-07-28] MEDS: PANTOPRAZOLE SOD 40 MG DELAYED RELEASE TAB PO SCH (08:26)
[2017-07-28] MEDS: FLUTICASONE PROPIONATE 220 MCG/ACT 12 GM INHALER INH SCH ×2 (09:00→20:21)
[2017-07-28] MEDS: BUDESONIDE-FORMOTEROL 160/4.5 MCG INHALER INH SCH ×2 (09:00→20:21)
[2017-07-28] MEDS: MORPHINE SULFATE 4 MG/ML INJ IV PUSH PRN (09:08)
[2017-07-28] MEDS ORDERED: INFLUENZA VIRUS VACCINE (QUADRIVALENT) 0.5 ML SYR IM ONE (10:00)
--- NOTE | 2017-07-28 13:52 | EKG ---
Date Performed: 07/27/2017 Time Performed: 13:12:37 PTAGE: 67 years EKG: Sinus rhythm WITH FIRST DEGREE AV BLOCK WITH OCCASIONAL VENTRICULAR PREMATURE COMPLEXES BORDERLINE LEFT AXIS ROGELIO ATION MODERATE INTRAVENTRICULAR CONDUCTION DELAY ABNORMAL ECG PREVIOUS TRACING 07/24/17 Since the previous tracing, no significant change noted DOCTOR: Nick Salinas Interpretating Date/Time 07/28/2017 13:48:26
--- NOTE | 2017-07-28 15:28 | RADRPT ---
EXAM DATE/TIME: 07/28/2017 14:34 [facility] COMPARISON: CT BRAIN W/O CONTRAST, July 27, 2017, 13:31. INDICATIONS : Follow up stroke, 24 hours post TPA RADIATION DOSE: 56.35 CTDIvol (mGy) MEDICAL HISTORY : Stroke. Hypertension. Carcinoma, prostate. SURGICAL HISTORY : None. ENCOUNTER: Subsequent ACUITY: 2 days PAIN SCALE: 0/10 LOCATION: cranial TECHNIQUE: Multiple contiguous axial images were obtained of the head. Using automated exposure control and adj ustment of the mA and/or kV according to patient size, radiation dose was kept as low as reasonably a chievable to obtain optimal diagnostic quality images. DICOM format image data is available electro nically for review and comparison. FINDINGS: CEREBRUM: The ventricles are normal for age. No evidence of midline shift, mass lesion, hemorrhage or acute in farction. No extra-axial fluid collections are seen. POSTERIOR FOSSA: The cerebellum and brainstem are intact. The 4th ventricle is midline. The cerebellopontine angle i s unremarkable. EXTRACRANIAL: The visualized portion of the orbits is intact. SKULL: The calvaria is intact. No evidence of skull fracture. CONCLUSION: Stable right temporal arachnoid cyst otherwise unremarkable noncontrast head CT. Shakeel Cardoza MD on July 28, 2017 at 15:26 Board Certified Radiologist. This report was verified electronically.
--- NOTE | 2017-07-28 18:36 | ECHRPT ---
Indication: CVA/TIA CONCLUSIONS Technically difficult study. Mildly dilated left ventricle. The left ventricular systolic function is severely reduced with an estimated ejection fraction in th e range of 35-40%. Mildly dilated left ventricle. There is trace tricuspid valve regurgitation. BP: / HR: Rhythm: MEASUREMENTS (Male / Female) Normal Values Technical Quality:Technically difficult study 2D ECHO LV Diastolic Diameter PLAX 5.5 cm 4.2 - 5.9 / 3.9 - 5.3 cm LV Systolic Diameter PLAX 4.7 cm IVS Diastolic Thickness 1.2 cm 0.6 - 1.0 / 0.6 - 0.9 cm LVPW Diastolic Thickness 0.8 cm 0.6 - 1.0 / 0.6 - 0.9 cm LV Relative Wall Thickness 0.4 RV Internal Dim ED PLAX 2.2 cm M-MODE Aortic Root Diameter MM 4.1 cm AV Cusp Separation MM 2.4 cm DOPPLER Mitral E Point Velocity 61.2 cm/s Mitral A Point Velocity 61.2 cm/s Mitral E to A Ratio 1.0 TR Peak Velocity 172.0 cm/s TR Peak Gradient 11.8 mmHg FINDINGS LEFT VENTRICLE Mildly dilated left ventricle. Wall thickness is measured at the upper limits of normal. The left ventricular systolic function is severely reduced with an estimated ejection fraction in th e range of 35-40% RIGHT VENTRICLE The right ventricular size is normal. The right ventricular systoilc function is moderately decreased. LEFT ATRIUM The left atrial size is normal. RIGHT ATRIUM The right atrium is not well visualized. ATRIAL SEPTUM Normal atrial septal thickness is most likely normail AORTA The aortic root and proximal ascending aorta are not well visualized. MITRAL VALVE Grossly normal mitral valve. No mitral valve stenosis or regurgitation. AORTIC VALVE Grossly normal aortic valve. No aortic valve stenosis or regurgitation. TRICUSPID VALVE Structurally normal tricuspid valve. No tricuspid valve stenosis. There is trace tricuspid valve regurgitation. PULMONARY VALVE The pulmonary valve is not well visualized. Dennis Soria DO (Electronically Signed) Final Date:28 July 2017 18:35
[2017-07-28] MEDS: ATORVASTATIN 20 MG TAB PO SCH (20:22)
[2017-07-28 22:33] LABS: AUTOMATED NEUTROPHIL # 8.5 TH/MM3 (1.8-7.7); BASOPHIL # 0.2 TH/MM3 (0-0.2); BASOPHIL % 1.7 % (0.0-2.0); EOSINOPHIL # 0.6 TH/MM3 (0-0.4); EOSINOPHIL % 5.3 % (0.0-4.0); HEMATOCRIT 40.9 % (39.0-51.0); HEMOGLOBIN 14.1 GM/DL (13.0-17.0); LYMPHOCYTE # 1.6 TH/MM3 (1.0-4.8); MEAN CELL VOLUME 81.2 FL (80.0-100.0); MEAN CORPUSCULAR HGB CONC 34.4 % (32.0-36.0); MONO % 5.7 % (0.0-8.0); MONOCYTE # 0.7 TH/MM3 (0-0.9); NEUT % 73.3 % (16.0-70.0); PLATELET COUNT 235 TH/MM3 (150-450); RED BLOOD COUNT 5.03 MIL/MM3 (4.50-5.90); RED CELL DISTRIBUTION WIDTH 14.3 % (11.6-17.2); WHITE BLOOD COUNT 11.6 TH/MM3 (4.0-11.0)
[2017-07-28 22:54] LABS: ALBUMIN 3.7 GM/DL (3.4-5.0); AST (GOT) 22 U/L (15-37); BICARBONATE 22.8 MEQ/L (21.0-32.0); BLOOD UREA NITROGEN 16 MG/DL (7-18); CALCIUM 9.1 MG/DL (8.5-10.1); CHLORIDE 99 MEQ/L (98-107); GLOMERULAR FILTRATION RATE 51 ML/MIN (>89); GLUCOSE,RANDOM 265 MG/DL (74-106); MAGNESIUM 1.5 MG/DL (1.5-2.5); SODIUM (NA) 137 MEQ/L (136-145)
[2017-07-28 22:55] LABS: ALT (GPT) 38 U/L (12-78); PHOSPHORUS 3.5 MG/DL (2.5-4.9)
[2017-07-28 22:57] LABS: ALKALINE PHOSPHATASE 97 U/L (45-117); TOTAL BILIRUBIN ADULT 0.5 MG/DL (0.2-1.0); TOTAL PROTEIN 7.3 GM/DL (6.4-8.2)
[2017-07-29] VITALS (10 sets, daily range): BP systolic 103–168; BP diastolic 51–89; PULSE 62–80; RESP 18–22; TEMP 97.5–98.7; O2SAT 90–96
[2017-07-29] MEDS: CHLORHEXIDINE GLUCONATE 2 % 1 PACK (2 CLOTHS) TOP SCH (00:44)
[2017-07-29] MEDS: SODIUM CHLOR 0.9% 1000 ML INJ 1,000 ML IV SCH ×2 (01:08→14:14)
[2017-07-29] MEDS: RESP: ALBUTEROL 2.5 MG/IPRATROPIUM 0.5 MG NEB (SCH) INH ×4 (04:23→21:22)
[2017-07-29 07:19] LABS: AUTOMATED NEUTROPHIL # 7.7 TH/MM3 (1.8-7.7); BASOPHIL # 0.1 TH/MM3 (0-0.2); BASOPHIL % 0.8 % (0.0-2.0); EOSINOPHIL # 0.6 TH/MM3 (0-0.4); EOSINOPHIL % 5.7 % (0.0-4.0); HEMATOCRIT 37.9 % (39.0-51.0); LYMPHOCYTE # 1.8 TH/MM3 (1.0-4.8); MEAN CELL VOLUME 81.2 FL (80.0-100.0); MEAN CORPUSCULAR HEMOGLOBIN 27.8 PG (27.0-34.0); MEAN CORPUSCULAR HGB CONC 34.2 % (32.0-36.0); MEAN PLATELET VOLUME 8.9 FL (7.0-11.0); MONO % 9.1 % (0.0-8.0); NEUT % 68.4 % (16.0-70.0); PLATELET COUNT 217 TH/MM3 (150-450); RED BLOOD COUNT 4.67 MIL/MM3 (4.50-5.90); RED CELL DISTRIBUTION WIDTH 14.2 % (11.6-17.2); WHITE BLOOD COUNT 11.3 TH/MM3 (4.0-11.0)
[2017-07-29 07:45] LABS: ALBUMIN 3.5 GM/DL (3.4-5.0); AST (GOT) 25 U/L (15-37); BICARBONATE 25.7 MEQ/L (21.0-32.0); BLOOD UREA NITROGEN 17 MG/DL (7-18); CALCIUM 8.7 MG/DL (8.5-10.1); CHLORIDE 100 MEQ/L (98-107); CHOLESTEROL 91 MG/DL (120-200); CREATININE 1.37 MG/DL (0.60-1.30); GLOMERULAR FILTRATION RATE 52 ML/MIN (>89); GLUCOSE,RANDOM 166 MG/DL (74-106); MAGNESIUM 1.7 MG/DL (1.5-2.5); SODIUM (NA) 137 MEQ/L (136-145)
[2017-07-29 07:55] LABS: ALKALINE PHOSPHATASE 88 U/L (45-117); ALT (GPT) 32 U/L (12-78); CHOLESTEROL/ HDL RATIO 3.14 RATIO; FREE T4 1.05 NG/DL (0.76-1.46); HDL CHOLESTEROL 28.9 MG/DL (40.0-60.0); LDL CHOLESTEROL 21 MG/DL (0-99); PHOSPHORUS 3.6 MG/DL (2.5-4.9); TOTAL BILIRUBIN ADULT 0.6 MG/DL (0.2-1.0); TOTAL PROTEIN 6.9 GM/DL (6.4-8.2); TRIGLYCERIDES 208 MG/DL (42-150)
[2017-07-29] MEDS: INSULIN ASPAR PROT 70/30 1,000 UNITS/10 ML VIAL SQ SCH ×2 (08:00→17:55)
--- NOTE | 2017-07-29 08:13 | HHI.PR ---
Subjective Remarks In the chair. Says he did experience some headache in the morning, but feels better now. No n/v/d/c. Objective Vitals Vital Signs Date Time Temp Pulse Resp B/P (MAP) Pulse Ox O2 Delivery O2 Flow Rate FiO2 07/29/17 08:00 98.6 75 21 168/80 (109) 93 07/29/17 04:00 98.2 75 18 142/64 (90) 07/29/17 00:18 97.6 76 18 156/89 (111) 95 07/28/17 21:05 96 Nasal Cannula 2.00 07/28/17 20:00 86 07/28/17 20:00 98.4 86 17 166/89 (114) 94 07/28/17 19:00 97 Nasal Cannula 2.00 07/28/17 18:00 76 07/28/17 16:00 78 07/28/17 16:00 98.6 80 18 169/94 (119) 96 07/28/17 14:00 78 07/28/17 12:00 63 07/28/17 12:00 98.4 65 20 137/65 (89) 95 07/28/17 10:00 76 07/28/17 09:13 13 I/O 07/28/17 07/28/17 07/28/17 07/29/17 07/29/17 07/29/17 07:00 15:00 23:00 07:00 15:00 23:00 Intake Total 240 ml Output Total 1400 ml 325 ml Balance -1400 ml -85 ml Intake Oral 240 ml Output Urine Total 1400 ml 325 ml Stool Total 0 ml # Voids 5 1 # Bowel Movements 1 Result Diagram: 07/29/17 0515 07/29/17 0515 Imaging Last Impressions Head CT 07/28/17 1300 Signed Impressions: Service Date/Time: Friday, July 28, 2017 14:34 - CONCLUSION: Stable right temporal arachnoid cyst otherwise unremarkable noncontrast head CT. Shakeel Cardoza MD Neck CTA 07/27/17 1333 Signed Impressions: Service Date/Time: July 13:45 - CONCLUSION: 1. There is 20-30%% stenosis bilaterally. No evidence of hemodynamically significant lesion. 2. Arachnoid cyst right middle cranial fossa. Nick Jansen MD Head CTA 07/27/17 1333 Signed Impressions: Service Date/Time: July 13:45 - CONCLUSION: Segmental occlusion/severe stenosis of the proximal portion of the left posterior cerebral artery. Sina Perla MD Chest X-Ray 07/27/17 0000 Signed Impressions: Service Date/Time: July 14:01 - CONCLUSION: Cardiomegaly. No focal infiltrate or pulmonary vascular congestion. Sina Perla MD Objective Remarks GENERAL: 67-year-old male currently resting in bed lying flat on nasal cannula CARDIOVASCULAR: Regular rate and rhythm. S1, S2 predose for without murmur RESPIRATORY: No accessory muscle use. Clear to auscultation. Breath sounds equal bilaterally. GASTROINTESTINAL: Abdomen soft, non-tender, nondistended. Hepatic and splenic margins not palpable. MUSCULOSKELETAL: Extremities without clubbing, cyanosis, or edema. No obvious deformities. NEUROLOGICAL: Awake and alert. Cranial nerves II through XII appear to be grossly intact. Strength is equal and symmetric bilaterally. Normal sensation. DTRs equal symmetric. Normal cerebellar examination. Gait was not assessed. A/P Problem List: (1) Left acute arterial ischemic stroke, [employer] (posterior cerebral artery) ICD Code: I63.532 - Cerebral infarction due to unspecified occlusion or stenosis of left posterior cerebral artery (2) BMI 37.0-37.9, adult ICD Code: Z68.37 - Body mass index (BMI) 37.0-37.9, adult (3) Contact lens overwear of left eye ICD Code: H18.822 - Corneal disorder due to contact lens, left eye (4) Colon, diverticulosis ICD Code: K57.30 - Diverticulosis of large intestine without perforation or abscess without bleeding (5) Obstructive sleep apnea ICD Code: G47.33 - Obstructive sleep apnea (adult) (pediatric) (6) History of prostate cancer ICD Code: Z85.46 - Personal history of malignant neoplasm of prostate (7) Elevated CPK ICD Code: R74.8 - Abnormal levels of other serum enzymes (8) Hyperglycemia ICD Code: R73.9 - Hyperglycemia, unspecified (9) Hyponatremia ICD Code: E87.1 - Hypo-osmolality and hyponatremia (10) Hyperlipidemia ICD Code: E78.5 - Hyperlipidemia, unspecified Status: Chronic (11) COPD (chronic obstructive pulmonary disease) ICD Code: J44.9 - Chronic obstructive pulmonary disease, unspecified Status: Chronic (12) DM (diabetes mellitus) ICD Code: E11.9 - Type 2 diabetes mellitus without complications Status: Chronic (13) Hypertension ICD Code: I10 - Essential (primary) hypertension Status: Acute (14) Decreased cardiac ejection fraction ICD Code: R93.1 - Abnormal findings on diagnostic imaging of heart and coronary circulation Status: Chronic (15) Cardiomyopathy ICD Code: I42.9 - Cardiomyopathy, unspecified Status: Chronic (16) Leukocytosis ICD Code: D72.829 - Elevated white blood cell count, unspecified Status: Acute Assessment and Plan Neuro/Psych: Left [employer] CVA Right temporal arachnoid cyst Bilateral eye cataract CT brain revealed left temporal arachnoid cyst CTA brain revealed left [employer] occlusion/stenosis Repeat CT brain 07/28 without any significant bleeding. Stable arachnoid cyst. Dr. Ang/neurology consult Received alteplase 9 mg followed by 81 mg Blood pressure goal less than 180/105 2D echocardiogram reviewed with low EF of 35 % . Consult cardiology Follow-up on CTA neck revealed 20-30 percent stenosis bilaterally not hemodynamically significant. Neurochecks Hemoglobin A1c/lipid panel ordered with results pending Acetaminophen 650 mg every 6 hours as needed fever Hydrocodone/acetaminophen 5/325 1 tab every 4 hours as needed pain 1 through 5 Morphine sulfate 2 mg as needed pain 6 -[address] 24 hours post alteplase infusion at 1500 hrs. 07/28 CV: Essential hypertension Dyslipidemia Nonischemic cardiopathy ejection fraction 35% Lexiscan 06/18 revealed no reversible ischemic changes. Global hypokinesis. Ejection fraction around 36%. Intermediate risk factor I-III percent Home medications include clonidine 0.1 mg p.o. daily, hydralazine 10 mg p.o. 4 times daily, carvedilol 25 mg p.o. twice daily, amlodipine 10 mg daily lisinopril 40 mg daily for hypertension along with hydrochlorthiazide 25 mg p.o. daily Home medications include aspirin 325 mg p.o. daily. He took this 07/27 morning. Home medications include atorvastatin 20 mg p.o. daily for dyslipidemia. Labetalol/nicardipine drip to maintain systolic blood pressure less than 180/ diastolic blood pressure less than 105 Restarted carvedilol 12.5 twice daily, lisinopril 2.5 milligrams twice daily and hydrochlorthiazide 25 mg daily 2D echocardiogram ordered with results pending Initial troponin 0.02. EKG revealed first-degree AV block. Left axis deviation Resp: COPD CHARITY noncompliant with CPAP Nasal cannula to maintain saturations greater than equal to 92% Incentive spirometry while awake Continue Budesonide/formoterol 160/4.5 1 puff twice daily and fluticasone 1 puff twice daily Albuterol/ipratropium aerosols every 6 hours with albuterol aerosols every 2 hours as needed dyspnea GI: Colonic diverticulosis Patient is currently n.p.o.. Advance diet per speech therapy Pantoprazole for GI prophylaxis Docusate sodium/senna 1 tablet twice daily for bowel regimen : History of prostate cancer Completed chemotherapy March 2017 Avelar catheter if indicated Endo: Diabetes mellitus type 1 uncontrolled Hyperglycemia Sliding scale insulin Accu-Cheks every 6 hours with Novulin N to maintain euglycemia/medium regimen Patient is on Novulin 70/30 35 units twice daily at home. Likely will resume it half the dose was diet clear Hemoglobin A1c pending Renal: Creatinine currently within normal limits Monitor urine output Accurate I's and O's Heme: Leukocytosis Likely stress leukemoid type reaction Follow-up CBC in a.m. Coags currently pending ID: Monitor for signs and symptomatology of infection FEN: Hyponatremia Currently normal saline at 84 cc an hour Replace electrolytes as clinically indicated MSK: PT/OT evaluate and treat Access -Utilize peripheral IV. Central line if indicated Prophylaxis -GI -pantoprazole -DVT -SCD/holding pharmacological prophylaxis first 24 hours post alteplase Discussed with the patient, nurse DC plan pending improvement Problem Qualifiers (1) Hyperlipidemia: Qualified Codes: E78.5 - Hyperlipidemia, unspecified (2) COPD (chronic obstructive pulmonary disease): Qualified Codes: J41.0 - Simple chronic bronchitis (3) DM (diabetes mellitus): Qualified Codes: E10.8 - Type 1 diabetes mellitus with unspecified complications (4) Hypertension: Qualified Codes: I10 - Essential (primary) hypertension (5) Cardiomyopathy: Qualified Codes: I42.9 - Cardiomyopathy, unspecified (6) Leukocytosis: Qualified Codes: D72.829 - Elevated white blood cell count, unspecified Zeny Little MD Jul 29, 2017 08:13
[2017-07-29] MEDS: INSULIN NovoLIN REGULAR SUPPLEMENTAL SCALE SQ SCH ×4 (08:53→20:46)
[2017-07-29] MEDS: FLUTICASONE PROPIONATE 220 MCG/ACT 12 GM INHALER INH SCH ×2 (08:54→20:43)
[2017-07-29] MEDS: MULTIVITAMIN TAB PO SCH (08:54)
[2017-07-29] MEDS: cloNIDine HCL 0.1 MG TAB PO SCH (08:54)
[2017-07-29] MEDS: SODIUM CHLORIDE 0.9% FLUSH 10 ML FLUSH IV FLUSH SCH ×2 (08:55→20:42)
[2017-07-29] MEDS: CARVEDILOL 12.5 MG TAB PO SCH ×2 (08:55→20:42)
[2017-07-29] MEDS: DOCUSATE SODIUM 50 MG/SENNA 8.6 MG TAB PO SCH ×2 (08:55→20:42)
[2017-07-29] MEDS: BUDESONIDE-FORMOTEROL 160/4.5 MCG INHALER INH SCH ×2 (08:55→20:44)
[2017-07-29] MEDS: HYDROCHLOROTHIAZIDE 25 MG TAB PO SCH (08:55)
[2017-07-29] MEDS: LISINOPRIL 5 MG TAB PO SCH ×2 (08:55→20:42)
[2017-07-29] MEDS: PANTOPRAZOLE SOD 40 MG DELAYED RELEASE TAB PO SCH (08:55)
[2017-07-29 10:37] LABS: HEMOGLOBIN A1C 10.8 % (4.3-6.0)
[2017-07-29 10:55] LABS: HEMOGLOBIN A1C 10.5 % (4.3-6.0)
--- NOTE | 2017-07-29 14:51 | MB ---
cc: Dennis Soria DO DATE: 07/29/2017 REASON FOR CONSULTATION: Cardiomyopathy. HISTORY OF PRESENT ILLNESS: Nick Leyva is a pleasant 67-year-old male who sees my partner Dr. Nunez in the office and presented to [facility] Emergency Room on 07/27/2017 due to nonspecific chest pain. Apparently, the patient states that he just felt somewhat weird and having some chest pains. He has been seen multiple times for this and recently had stress testing. Upon arrival to the parking lot of the emergency room, the patient was having trouble speaking and was walking leaning to his left side. He was seen in the emergency room and a stroke alert was called. The patient was given TPA for his presumed acute stroke. Since that time, he has been doing overall well with no complaints. PAST MEDICAL HISTORY: 1. Acute cerebrovascular accident. 2. Bilateral cataracts with his right being worse than the left (the patient wears a patch to help with vision). 3. Hypertension. 4. Hyperlipidemia. 5. Nonischemic cardiomyopathy with an ejection fraction of 35% to 40%. 6. COPD. 7. History of prostate cancer. 8. Colonic diverticulosis. 9. Diabetes mellitus type 1. 10. Obesity. PAST SURGICAL HISTORY: 1. Appendectomy. 2. Cardiac catheterization (2003) with normal coronary arteries. ALLERGIES: 1. METHYLPREDNISOLONE. 2. PREDNISOLONE. MEDICATIONS: 1. Lipitor 20 mg every night. 2. Hydralazine 10 mg 4 times daily. 3. Norvasc 10 mg daily. 4. Lisinopril 40 mg daily. 5. Aspirin 325 mg daily. 6. Hydrochlorothiazide 25 mg daily. 7. Symbicort 160/4.5 one puff every 12 hours. 8. Flovent 1 puff b.i.d. 9. Novolin 35 units b.i.d. FAMILY HISTORY: Father had lung cancer and leukemia. Mother had hypertension, diabetes, and dyslipidemia. SOCIAL HISTORY: The patient previously smoked but quit 27 years ago. He rarely drinks alcohol. Denies drug abuse. REVIEW OF SYSTEMS: Fourteen systems were reviewed including osteopathic with pertinent positives and negatives above, otherwise negative. PHYSICAL EXAMINATION: VITAL SIGNS: Temperature 97.5, heart rate 67, blood pressure 103/51, respirations 22, pulse oximetry 90% on 2 liters. GENERAL: The patient appears well in no acute distress, alert, awake and oriented x 3. HEENT: Extraocular muscles intact. Mucous membranes moist. NECK: Supple. No JVD at 45 degrees. No carotid bruits heard bilaterally. Carotid upstroke is brisk in nature. HEART: Regular rate and rhythm. Positive for and second heart sounds with a I/ crescendo decrescendo murmur to the right sternal border. LUNGS: Clear to auscultation bilaterally. No wheezes, rales, or rhonchi. ABDOMEN: Soft, nontender, and nondistended. No organomegaly noted. EXTREMITIES: Show no clubbing, cyanosis or edema. Femoral and distal pulses are intact bilaterally. NEUROLOGIC: No focal deficits. SKIN: Warm, dry, and intact. OSTEOPATHIC: No kyphoscoliosis, lordosis or paraspinal tender points. LABORATORY DATA: Hemoglobin 13.0, hematocrit 37.9, platelets 217. Potassium 3.6, BUN 17, creatinine 1.37. Troponin negative x 3. Electrocardiogram (07/27/2017 at 1312) sinus rhythm with first degree AV block, rare PVC, borderline left axis. ASSESSMENT AND PLAN: 1. Acute left posterior cerebral, status post transient ischemic attack. 2. Hypertension. 3. Known nonischemic cardiomyopathy with an ejection fraction of 35% to 40%. 4. Dyslipidemia. 5. Obesity. 6. History of obstructive sleep apnea, noncompliant with CPAP. 7. Chronic obstructive pulmonary disease. RECOMMENDATIONS: 1. Mr. Leyva appears to have presented with an acute CVA to the posterior cerebral artery and this was treated with TPA. Further recommendations will be made by neurology. 2. Neurology questioned consideration of anticoagulation with his cardiomyopathy, but at this time he has a moderate cardiomyopathy and no indication for anticoagulation. Would consider further rhythm analysis with either an event monitor or a loop recorder to determine if he does in fact have any episodes of atrial fibrillation which would make us further consider anticoagulation from a cardiology standpoint. If Neurology feels that there is a neurological indication for anticoagulation, would leave that up to them. 3. Repeat echo was done showing once again ejection fraction of 35% to 40% and this is most likely nonischemic in nature as he has had a recent stress test which showed no ischemia. This could be multifactorial including hypertension, obesity, or possible obstructive sleep apnea. He will continue on carvedilol and lisinopril for his cardiomyopathy. 4. I spoke to him about the necessity of CPAP with obstructive sleep apnea. It is not that he is noncompliant, he has just never gotten results from his previous testing and followed up with it. I discussed with him the increased risk of myocardial infarction, CVA, accelerated hypertension, atrial fibrillation, etc. with untreated obstructive sleep apnea. 5. As far as his chest pain goes, it is difficult to say what exactly caused it at this time. His troponins have been negative. He previously had a stress test in 06/2017, which was negative. For now, we will continue to treat this medically. Overall, even if there was concern for a true cardiac cause, he would not be a candidate for invasive workup with his acute cerebrovascular accident. 6. Further recommendations will be made based on the hospital course. Thank you for allowing me to see Nick Leyva. If there are any questions, please do not hesitate to call. Dennis Soria DO VGP/KD , 02:06 PM , 02:50 PM
[2017-07-29] MEDS: ACETAMINOPHEN/HYDROcodone 325 MG/5 MG TAB PO PRN ×2 (15:18→21:31)
[2017-07-29] MEDS: ATORVASTATIN 20 MG TAB PO SCH (20:42)
[2017-07-30] VITALS: BP 119/59; PULSE 69; RESP 18; TEMP 98.5; O2SAT 94
[2017-07-30 00:39] VITALS: PULSE 69
[2017-07-30] MEDS: SODIUM CHLOR 0.9% 1000 ML INJ 1,000 ML IV SCH (02:09)
[2017-07-30] MEDS: CHLORHEXIDINE GLUCONATE 2 % 1 PACK (2 CLOTHS) TOP SCH (02:28)
[2017-07-30] MEDS: RESP: ALBUTEROL 2.5 MG/IPRATROPIUM 0.5 MG NEB (SCH) INH ×2 (03:22→09:03)
[2017-07-30] MEDS: ACETAMINOPHEN/HYDROcodone 325 MG/5 MG TAB PO PRN (03:24)
[2017-07-30 04:00] VITALS: BP 143/76; PULSE 62; RESP 18; TEMP 97.3; O2SAT 94
[2017-07-30 08:00] VITALS: BP 140/81; PULSE 63; PULSE 65; RESP 16; TEMP 98.8; O2SAT 94
--- NOTE | 2017-07-30 08:31 | HHI.PR ---
Review/Management Diagnosis cva---suspect left CABLE PULLER territory given left CABLE PULLER thrombosis on CTA. His sx resolved after iv tpa mild cardiomyopathy--Dr Payne consult appreciated Plan start plavix 75 mg daily and aspirin 325 mg daily and stop aspirin after 3 days. 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 Please have patient follow up with Dr Ang as outpatient in 2-3 weeks Diagnosis/Plan: Subjective Subjective Comments No acute events reported Patient feels back to his baseline He states on presentation he had difficulty getting words out and felt right sided weakness and was leaning to the left Active Medications Current Medications Medications (Trade) Dose Ordered Sig/Ly Route Start Time Stop Time Status Last Admin (Lipitor) 20 mg HS PO 07/27/17 21:00 07/29/17 20:42 (Symbicort 160-4.5 Mcg Inh) 1 puff Q12HR INH 07/27/17 21:00 07/29/17 20:44 (Catapres) 0.1 mg DAILY PO 07/28/17 09:00 07/29/17 08:54 (Flovent Hfa 220 Mcg Inh) 1 puff BID INH 07/27/17 21:00 07/29/17 20:43 (Hydrodiuril) 25 mg DAILY PO 07/28/17 09:00 07/29/17 08:55 (Theragran) 1 tab DAILY PO 07/28/17 09:00 07/29/17 08:54 Sodium Chloride 1,000 ml @ 84 mls/hr [id number] IV 07/27/17 14:34 07/28/17 02:29 (Tylenol) 650 mg Q6H PRN PO 07/27/17 14:45 07/28/17 16:43 ([place] 5-325 Mg) 1 tab Q4H PRN PO 07/27/17 14:45 07/30/17 03:24 (Morphine Inj) 2 mg Q2H PRN IV PUSH 07/27/17 14:45 07/28/17 09:08 (Protonix) 40 mg DAILY PO 07/28/17 09:00 07/29/17 08:55 (Zofran Inj) 4 mg Q6H PRN IV PUSH 07/27/17 14:45 (Duoneb Neb) 1 ampule Q6HR NEB INH 07/27/17 16:00 07/29/17 21:22 (Albuterol Neb) 2.5 mg Q2HR NEB PRN INH 07/27/17 14:45 Miscellaneous Information 1 Q361D XX 07/27/17 14:45 07/27/17 14:45 (Chlorhexidine 2% Cloth) 3 pack Taper DAILY@04 TOP 07/28/17 04:00 07/24/18 03:59 07/28/17 04:00 (Chlorhexidine 2% Cloth) 3 pack UNSCH PRN TOP 07/27/17 14:45 (Agatha-Colace) 1 tab BID PO 07/27/17 21:00 07/29/17 20:42 (Milk Of Magnesia Liq) 30 ml Q12H PRN PO 07/27/17 14:45 (Senokot) 17.2 mg Q12H PRN PO 07/27/17 14:45 (Dulcolax Supp) 10 mg DAILY PRN RECTAL 07/27/17 14:45 (Lactulose Liq) 30 ml DAILY PRN PO 07/27/17 14:45 (D50w (Vial) Inj) 50 ml UNSCH PRN IV PUSH 07/27/17 14:45 (Glucagon Inj) 1 mg UNSCH PRN OTHER 07/27/17 14:45 (NS Flush) 2 ml BID IV FLUSH 07/27/17 21:00 07/29/17 20:42 (NS Flush) 2 ml UNSCH PRN IV FLUSH 07/27/17 14:45 (Trandate Inj) 10 mg Q1HR PRN IV PUSH 07/27/17 14:45 07/27/17 17:59 (Vasotec Inj) 2.5 mg Q6H PRN IV PUSH 07/27/17 18:00 (Apresoline Inj) 10 mg Q1HR PRN IV PUSH 07/27/17 18:00 (Catapres) 0.1 mg Q6H PRN PO 07/27/17 18:00 Nicardipine HCl 25 mg/Sodium Chloride 250 ml @ 50 mls/hr TITRATE PRN IV 07/27/17 18:00 (NovoLIN R SUPPLEMENTAL SCALE) 1 ACHS SQ 07/28/17 21:00 4/28/18 20:46 (NovoLOG MIX 70/ 30 INJ) 15 units BID@08,17 SQ 07/29/17 08:00 07/29/17 17:55 (Prinivil) 5 mg BID PO 07/28/17 21:00 07/29/17 20:42 (Coreg) 25 mg BID PO 07/28/17 21:00 07/29/17 20:42 Allergies Allergies Coded Allergies methylprednisolone (Verified Adverse Reaction, Intermediate, 07/27/17) *MDRO Multi-Drug Resistant Organism (Verified Adverse Reaction, Unknown, ) Exam I&O / VS Vital Signs Date Time Temp Pulse Resp B/P (MAP) Pulse Ox O2 Delivery O2 Flow Rate FiO2 07/30/17 08:00 98.8 63 16 140/81 (100) 94 07/30/17 04:00 97.3 62 18 143/76 (98) 94 07/30/17 00:39 69 07/30/17 00:00 98.5 69 18 119/59 (79) 94 07/29/17 21:22 94 Nasal Cannula 2.00 07/29/17 20:48 98 Nasal Cannula 2.00 07/29/17 20:00 98.3 73 18 117/56 (76) 94 07/29/17 16:47 96 Nasal Cannula 2.00 07/29/17 15:41 98.7 74 22 130/64 (86) 96 07/29/17 13:36 62 07/29/17 11:26 97.5 67 22 103/51 (68) 90 07/29/17 10:12 80 Exam Comments alert, oriented times three Speech is normal CN 2-12 normal MOTOR 5/5 BUE and BLE, No drift Objective Radiology Results CT brain 24 hr post TPA negative Andrea Sanchez MD PhD Jul 30, 2017 08:31
[2017-07-30] MEDS: INSULIN NovoLIN REGULAR SUPPLEMENTAL SCALE SQ SCH (08:42)
[2017-07-30] MEDS ORDERED: CARV12.5 PO (08:43)
[2017-07-30] MEDS: INSULIN ASPAR PROT 70/30 1,000 UNITS/10 ML VIAL SQ SCH (08:43)
[2017-07-30] MEDS ORDERED: PLAV75TA29 PO (08:43)
[2017-07-30] MEDS ORDERED: ASPI-183 PO (08:43)
[2017-07-30] MEDS: BUDESONIDE-FORMOTEROL 160/4.5 MCG INHALER INH SCH (08:43)
[2017-07-30] MEDS: FLUTICASONE PROPIONATE 220 MCG/ACT 12 GM INHALER INH SCH (08:43)
--- NOTE | 2017-07-30 08:43 | HHI.DS ---
Discharge Summary Admission Date Jul 27, 2017 at 14:30 Discharge Date: Jul 30, 2017 Admitting Diagnosis Acute CVA. Chest pain. (1) Left acute arterial ischemic stroke, ELEMENTARY ART TEACHER (posterior cerebral artery) ICD Code: I63.532 - Cerebral infarction due to unspecified occlusion or stenosis of left posterior cerebral artery Diagnosis: Principal (2) BMI 37.0-37.9, adult ICD Code: Z68.37 - Body mass index (BMI) 37.0-37.9, adult Diagnosis: Principal (3) Contact lens overwear of left eye ICD Code: H18.822 - Corneal disorder due to contact lens, left eye Diagnosis: Secondary (4) Colon, diverticulosis ICD Code: K57.30 - Diverticulosis of large intestine without perforation or abscess without bleeding Diagnosis: Secondary (5) Obstructive sleep apnea ICD Code: G47.33 - Obstructive sleep apnea (adult) (pediatric) Diagnosis: Secondary (6) History of prostate cancer ICD Code: Z85.46 - Personal history of malignant neoplasm of prostate Diagnosis: Secondary (7) Elevated CPK ICD Code: R74.8 - Abnormal levels of other serum enzymes (8) Hyperglycemia ICD Code: R73.9 - Hyperglycemia, unspecified Diagnosis: Principal (9) Hyponatremia ICD Code: E87.1 - Hypo-osmolality and hyponatremia Diagnosis: Secondary (10) Hyperlipidemia ICD Code: E78.5 - Hyperlipidemia, unspecified Diagnosis: Principal Status: Chronic (11) COPD (chronic obstructive pulmonary disease) ICD Code: J44.9 - Chronic obstructive pulmonary disease, unspecified Diagnosis: Secondary Status: Chronic (12) DM (diabetes mellitus) ICD Code: E11.9 - Type 2 diabetes mellitus without complications Diagnosis: Principal Status: Chronic (13) Hypertension ICD Code: I10 - Essential (primary) hypertension Diagnosis: Principal Status: Acute (14) Decreased cardiac ejection fraction ICD Code: R93.1 - Abnormal findings on diagnostic imaging of heart and coronary circulation Diagnosis: Principal Status: Chronic (15) Cardiomyopathy ICD Code: I42.9 - Cardiomyopathy, unspecified Diagnosis: Principal Status: Chronic (16) Leukocytosis ICD Code: D72.829 - Elevated white blood cell count, unspecified Diagnosis: Secondary Status: Acute Procedures none Brief History - From Admission 67 years old male. Date of admission 07/27/2017. Past medical history includes diabetes mellitus, hypertension ejection fraction 35%, COPD, obstructive sleep apnea does not wear CPAP, prostate cancer treatment completed March 2017, colonic diverticulosis left eye contact where. He initially presented to [facility] today 07/27 with chief complaints of nonspecific chest pain. Patient has recurrent chest pain and has been seen at the emergency room several times including 2 days ago for chest pain. Patient started having chest pain again this morning. Patient was complained of chest pain with radiation the left side of the neck and the right arm. Family members accompany patient to the emergency room for chest pain. Upon arrival to the parking lot of the emergency room, patient started having problems speaking and was walking leaning to left side. The time was 12:20 PM. No recent injury. No report of loss of consciousness. No report of fever chills. No history of CVA in the past. Patient on aspirin 325 mg daily. Stroke alert was called. NIH score was 11 with loss of motor right upper, left upper and lower. Loss of sensation. And dysarthria. CT brain revealed a right temporal arachnoid cyst otherwise unremarkable. Discussed with neurology Dr. Ang. Patient received alteplase 9 mg bolus followed by 81 mg over the preceding hour. NIH score was for dysarthria and left upper lower motor weakness. CTA brain revealed left ELEMENTARY ART TEACHER occlusion/stenosis. CBC/BMP: 07/29/17 0515 07/29/17 0515 Significant Findings Laboratory Tests Test 07/27/17 13:25 07/27/17 14:00 07/27/17 14:05 07/27/17 17:30 White Blood Count 14.1 TH/MM3 (4.0-11.0) Monocytes (%) (Auto) 8.5 % (0.0-8.0) Eosinophils (%) (Auto) 6.8 % (0.0-4.0) Neutrophils # (Auto) 8.7 TH/MM3 (1.8-7.7) Monocytes # (Auto) 1.2 TH/MM3 (0-0.9) Eosinophils # (Auto) 1.0 TH/MM3 (0-0.4) Bedside Sodium 134 MMOL/L (137-144) Bedside Chloride 100 MMOL/L (102-111) Bedside Blood Urea Nitrogen 22 MG/DL (5-21) Bedside Glucose 227 MG/DL (68-110) Total Creatine Kinase 315 U/L (39-308) Creatine Kinase MB 6.0 NG/ML (0.5-3.6) Troponin I LESS THAN 0.02 NG/ML Test 07/28/17 21:24 07/29/17 05:15 White Blood Count 11.6 TH/MM3 (4.0-11.0) 11.3 TH/MM3 (4.0-11.0) Neutrophils (%) (Auto) 73.3 % (16.0-70.0) Eosinophils (%) (Auto) 5.3 % (0.0-4.0) 5.7 % (0.0-4.0) Neutrophils # (Auto) 8.5 TH/MM3 (1.8-7.7) Eosinophils # (Auto) 0.6 TH/MM3 (0-0.4) 0.6 TH/MM3 (0-0.4) Creatinine 1.40 MG/DL (0.60-1.30) 1.37 MG/DL (0.60-1.30) Random Glucose 265 MG/DL (74-106) 166 MG/DL (74-106) Estimat Glomerular Filtration Rate 51 ML/MIN (>89) 52 ML/MIN (>89) Hemoglobin A1c 10.8 % (4.3-6.0) 10.5 % (4.3-6.0) Hematocrit 37.9 % (39.0-51.0) Monocytes (%) (Auto) 9.1 % (0.0-8.0) Monocytes # (Auto) 1.0 TH/MM3 (0-0.9) Triglycerides Level 208 MG/DL (42-150) Cholesterol Level 91 MG/DL (120-200) HDL Cholesterol 28.9 MG/DL (40.0-60.0) Imaging Last Impressions Head CT 07/28/17 1300 Signed Impressions: Service Date/Time: Friday, July 28, 2017 14:34 - CONCLUSION: Stable right temporal arachnoid cyst otherwise unremarkable noncontrast head CT. Shakeel Cardoza MD Neck CTA 07/27/17 1333 Signed Impressions: Service Date/Time: July 13:45 - CONCLUSION: 1. There is 20-30%% stenosis bilaterally. No evidence of hemodynamically significant lesion. 2. Arachnoid cyst right middle cranial fossa. Nick Jansen MD Head CTA 07/27/17 1333 Signed Impressions: Service Date/Time: July 13:45 - CONCLUSION: Segmental occlusion/severe stenosis of the proximal portion of the left posterior cerebral artery. Sina Perla MD Chest X-Ray 07/27/17 0000 Signed Impressions: Service Date/Time: July 14:01 - CONCLUSION: Cardiomegaly. No focal infiltrate or pulmonary vascular congestion. Sina Perla MD PE at Discharge GENERAL: 67-year-old male currently resting in bed lying flat on nasal cannula CARDIOVASCULAR: Regular rate and rhythm. S1, S2 predose for without murmur RESPIRATORY: No accessory muscle use. Clear to auscultation. Breath sounds equal bilaterally. GASTROINTESTINAL: Abdomen soft, non-tender, nondistended. Hepatic and splenic margins not palpable. MUSCULOSKELETAL: Extremities without clubbing, cyanosis, or edema. No obvious deformities. NEUROLOGICAL: Awake and alert. Cranial nerves II through XII appear to be grossly intact. Strength is equal and symmetric bilaterally. Normal sensation. DTRs equal symmetric. Normal cerebellar examination. Gait was not assessed. Pt update on day of discharge He is in the chair says he is is walking without difficulty. Physical therapy recommends going home without PT. Patient wants to go home if he feels comfortable. No motor deficit. No change in vision. Has an appointment with his ophthalmology as outpatient. No new motor deficit or sensory deficit. Denies chest pain or shortness of breath. No seizures. Feels comfortable to go home. Advised patient not to drive he expressed understanding. Hospital Course Neuro/Psych: Left ELEMENTARY ART TEACHER CVA Right temporal arachnoid cyst Bilateral eye cataract CT brain revealed left temporal arachnoid cyst CTA brain revealed left ELEMENTARY ART TEACHER occlusion/stenosis Repeat CT brain 07/28 without any significant bleeding. Stable arachnoid cyst. Dr. Ang/neurology consult Received alteplase 9 mg followed by 81 mg Blood pressure goal less than 180/105 2D echocardiogram reviewed with low EF of 35 % . Consult cardiology Follow-up on CTA neck revealed 20-30 percent stenosis bilaterally not hemodynamically significant. Neurochecks Hemoglobin A1c/lipid panel ordered with results pending Acetaminophen 650 mg every 6 hours as needed fever pain meds as need Repeat brain CT 24 hours post alteplase infusion at 1500 hrs. 07/28 stable CV: Essential hypertension Dyslipidemia Nonischemic cardiopathy ejection fraction 35% Lexiscan 06/18 revealed no reversible ischemic changes. Global hypokinesis. Ejection fraction around 36%. Intermediate risk factor I-III percent Home medications include clonidine 0.1 mg p.o. daily, hydralazine 10 mg p.o. 4 times daily, carvedilol 25 mg p.o. twice daily, amlodipine 10 mg daily lisinopril 40 mg daily for hypertension along with hydrochlorthiazide 25 mg p.o. daily Home medications include aspirin 325 mg p.o. daily. He took this 07/27 morning. Home medications include atorvastatin 20 mg p.o. daily for dyslipidemia. Labetalol/nicardipine drip to maintain systolic blood pressure less than 180/ diastolic blood pressure less than 105 Restarted carvedilol 12.5 twice daily, lisinopril 2.5 milligrams twice daily and hydrochlorthiazide 25 mg daily 2D echocardiogram ordered with results pending Initial troponin 0.02. EKG revealed first-degree AV block. Left axis deviation Resp: COPD CHARITY noncompliant with CPAP Nasal cannula to maintain saturations greater than equal to 92% Incentive spirometry while awake Continue Budesonide/formoterol 160/4.5 1 puff twice daily and fluticasone 1 puff twice daily Albuterol/ipratropium aerosols every 6 hours with albuterol aerosols every 2 hours as needed dyspnea GI: Colonic diverticulosis Patient is currently n.p.o.. Advance diet per speech therapy Pantoprazole for GI prophylaxis Docusate sodium/senna 1 tablet twice daily for bowel regimen : History of prostate cancer Completed chemotherapy March 2017 Avelar catheter if indicated Endo: Diabetes mellitus type 1 uncontrolled Hyperglycemia Sliding scale insulin Accu-Cheks every 6 hours with Novulin N to maintain euglycemia/medium regimen Patient is on Novulin 70/30 35 units twice daily at home. Likely will resume it half the dose was diet clear Hemoglobin A1c pending Renal: Creatinine currently within normal limits Monitor urine output Accurate I's and O's Heme: Leukocytosis Likely stress leukemoid type reaction Follow-up CBC in a.m. Coags currently pending ID: Monitor for signs and symptomatology of infection FEN: Hyponatremia Currently normal saline at 84 cc an hour Replace electrolytes as clinically indicated MSK: PT/OT evaluate and treat Access -Utilize peripheral IV. Central line if indicated Prophylaxis -GI -pantoprazole -DVT -SCD/holding pharmacological prophylaxis first 24 hours post alteplase Patient improved significantly. He is ambulating without any problems. PT recommends home without PT. Discharge home in stable condition to follow-up with PCP and consultants as outpatient. Also cleared by neurology for discharge to follow-up with Dr. Ang neurology as outpatient. The patient was instructed not to drive, he expressed understanding. Pt Condition on Discharge: Stable Discharge Disposition: Discharge Home Discharge Time: > 30 minutes Discharge Instructions DIET: Follow Instructions for: Heart Healthy Diet Activities you can perform: Regular-No Restrictions Activities to Avoid: Driving Other Activity Instructions: do not drive until clered by neuro and opthalmo Follow up Referrals: Neurology - 2 Weeks with Daysi Ang MD PCP Follow-up - 2-3 Days New Medications: Carvedilol (Coreg) 12.5 Mg Tab 25 MG PO BID for Blood Pressure Management, #60 TAB Clopidogrel (Plavix) 75 Mg Tab 75 MG PO DAILY for Blood Clot Prevention, #30 TAB Lisinopril (Lisinopril) 5 Mg Tab 5 MG PO BID for Blood Pressure Management, #60 TAB Changed Medications: Aspirin (Aspirin) 325 Mg Tab 325 MG PO DAILY for Blood Clot Prevention, #3 TAB 0 Refills (Changed from: 30) take only for 3 days then stop. Continue plavix Continued Medications: Amlodipine (Amlodipine) 10 Mg Tab 10 MG PO DAILY for Blood Pressure Management, #30 TAB 0 Refills Atorvastatin (Atorvastatin) 20 Mg Tab 20 MG PO HS for Cholesterol Management, #30 TAB 0 Refills Budesonide-Formoterol Inh (Symbicort Inh) 160-4.5 Mcg/Act Aero 1 PUFF INH Q12HR, #1 INHALER 0 Refills Fluticasone 12 GM Inh (Flovent Hfa 12 GM Inh) 220 Mcg/Act Inh 1 PUFF INH BID for breathing for 30 Days, INHALER Use daily at the same time. Hydrochlorothiazide (Hydrochlorothiazide) 25 Mg Tab 25 MG PO DAILY, #30 TAB 0 Refills Insulin Human Isophane-Regular 70-30 Inj (Novolin 70-30 Inj) 1,000 Unit/10 Ml Vial 35 UNITS SQ BID for Blood Sugar Management, ML 0 Refills Multiple Vitamin (Multiple Vitamin) 1 Tab 1 TAB PO DAILY for Nutritional Supplement, TAB 0 Refills Discontinued Medications: Hydralazine HCl (Hydralazine HCl) 10 Mg Tablet 10 MG PO QID for Blood Pressure Management Lisinopril (Lisinopril) 40 Mg Tab 40 MG PO DAILY for Blood Pressure Management, #30 TAB 0 Refills Zeny Little MD Jul 30, 2017 08:43
[2017-07-30] MEDS: PANTOPRAZOLE SOD 40 MG DELAYED RELEASE TAB PO SCH (08:44)
[2017-07-30] MEDS: LISINOPRIL 5 MG TAB PO SCH (08:44)
[2017-07-30] MEDS: HYDROCHLOROTHIAZIDE 25 MG TAB PO SCH (08:44)
[2017-07-30] MEDS: DOCUSATE SODIUM 50 MG/SENNA 8.6 MG TAB PO SCH (08:44)
[2017-07-30] MEDS: MULTIVITAMIN TAB PO SCH (08:44)
[2017-07-30] MEDS: cloNIDine HCL 0.1 MG TAB PO SCH (08:45)
[2017-07-30] MEDS: SODIUM CHLORIDE 0.9% FLUSH 10 ML FLUSH IV FLUSH SCH (08:45)
[2017-07-30] MEDS: CARVEDILOL 12.5 MG TAB PO SCH (08:45)
[2017-07-30] MEDS ORDERED: LISI-519 PO (08:49)
[2017-07-30] MEDS ORDERED: CLOPIDOGREL 75 MG TAB PO SCH (09:00)
[2017-07-30] MEDS ORDERED: ASPIRIN 325 MG TAB PO SCH (09:00)
== END 2017-07-30 10:32 | disposition home or self-care (01) | DRG 62 ==
LOC: NEPC 12:31 → NEDA 14:30 → N03A 17:45 → N05B 07-28 22:41
PROVIDERS: ADMIT Hospitalist; ATTEND Hospitalist
DX: I63.532 Cerebral infarction due to unspecified occlusion or stenosis of left posterior cerebral artery (principal); G81.94 Hemiplegia, unspecified affecting left nondominant side; I11.0 Hypertensive heart disease with heart failure; I50.9 Heart failure, unspecified; I42.9 Cardiomyopathy, unspecified; E87.1 Hypo-osmolality and hyponatremia; J44.9 Chronic obstructive pulmonary disease, unspecified; E78.5 Hyperlipidemia, unspecified; E10.65 Type 1 diabetes mellitus with hyperglycemia; E78.00 Pure hypercholesterolemia, unspecified; G47.33 Obstructive sleep apnea (adult) (pediatric); D72.829 Elevated white blood cell count, unspecified; R29.711 NIHSS score 11; G93.0 Cerebral cysts; R47.1 Dysarthria and anarthria; I44.0 Atrioventricular block, first degree; K57.30 Diverticulosis of large intestine without perforation or abscess without bleeding; E66.9 Obesity, unspecified; R07.9 Chest pain, unspecified; I25.10 Atherosclerotic heart disease of native coronary artery without angina pectoris; E10.36 Type 1 diabetes mellitus with diabetic cataract; H18.822 Corneal disorder due to contact lens, left eye; R74.8 Abnormal levels of other serum enzymes; Z23 Encounter for immunization; Z68.38 Body mass index [BMI] 38.0-38.9, adult; Z79.4 Long term (current) use of insulin; Z82.49 Family history of ischemic heart disease and other diseases of the circulatory system; Z83.3 Family history of diabetes mellitus; Z85.46 Personal history of malignant neoplasm of prostate; Z86.14 Personal history of Methicillin resistant Staphylococcus aureus infection; Z87.891 Personal history of nicotine dependence; Z91.19 Patient's noncompliance with other medical treatment and regimen; Z92.3 Personal history of irradiation; I89.0 Lymphedema, not elsewhere classified; Z88.8 Allergy status to other drugs, medicaments and biological substances; Z79.82 Long term (current) use of aspirin; Z79.899 Other long term (current) drug therapy
CPT/HCPCS: 70450; 70496; 70498; 71045; 80048; 80053; 80061; 81001; 82550; 82552; 82948; 83036; 83735; 84100; 84439; 84443; 84484; 85025; 85384; 85610; 85730; 86850; 86900; 86901; 87641; 90686; 93005; 93306; 94150; 94640; 94664; 96374; 96375; J0360; J1815; J2270; J2997; J7030; P9612; Q2038; Q9967

== ENCOUNTER 2017-07-31 00:36 | Observation (INO) | payer OTHER, MEDICAID ==
[~2017-07-31] VITALS: Ht 185.4 cm; Wt 135.0 kg
[2017-07-31] VITALS (18 sets, daily range): BP systolic 113–210; BP diastolic 57–97; PULSE 60–76; RESP 16–22; TEMP 97.9–98.6; O2SAT 92–98
[~2017-07-31 00:36] MED LIST changes: -CLON0.1T PO; -HYDR-3798 PO; +LISI-519 PO; -LISI40TA PO; +PLAV75TA29 PO
--- NOTE | 2017-07-31 01:37 | RADRPT ---
EXAM DATE/TIME: 07/31/2017 01:13 [facility] COMPARISON: CHEST SINGLE AP, July 27, 2017, 14:01. INDICATIONS : Neck pain. MEDICAL HISTORY : Stroke. Hypertension Carcinoma, prostatic. SURGICAL HISTORY : None. ENCOUNTER: Initial ACUITY: 1 day PAIN SCORE: 0/10 LOCATION: Bilateral chest FINDINGS: A single view of the chest demonstrates the lungs to be symmetrically aerated without evidence of mas s, infiltrate or effusion. The cardiomediastinal contours are unremarkable. Osseous structures are intact with some degenerative spurring of the dorsal spine. CONCLUSION: No acute cardiopulmonary process. Daniel Ojeda MD on July 31, 2017 at 1:34 Board Certified Radiologist. This report was verified electronically.
--- NOTE | 2017-07-31 02:05 | PD ---
HPI Chief Complaint: Hypertension Time Seen by Provider: 01:03 Travel History International Travel<30 days: No Contact w/Intl Traveler<30days: No Traveled to known affect area: No History of Present Illness HPI The patient is a 67 year old male who presents to the [facility] emergency department with a history of neck pain that began at 10:30PM. The patient reports that he took his blood pressure and it was 191/101. He then developed a headache over his forehead and started having chest pain. The patient reports concern as he was just discharged from the hospital yesterday morning after being diagnosed with a stroke. The patient had TPA administered. The patient reports that he had chest pain during that admission as well. The chest pain is located in the center of his chest at the lower sternum. The patient reports having associated shortness of breath. He reports that the pain has waxed and waned in severity in his chest. He denies having any diaphoresis. He reports that he was discharged home on aspirin to be continued for 3 days and then was also given a new prescription for Plavix. The patient reports that he was on aspirin prior to having the stroke. The patient reports having a history of congestive heart failure. He denies any prior history of myocardial infarction. He lives with multiple family members. He reports that there were some changes made to his blood pressure medication regimen. He reports that he has gotten the new prescriptions filled. He reports that he has been taking the medications as prescribed. He denies having any known recent fevers, cough or congestion, nasal discharge, or sore throat. He denies having any neck stiffness, however he reports having bilateral neck pain. He denies any known injuries. He reports a sensation that his vessels in his neck "are moving". The patient denies having any abdominal pain, vomiting, diarrhea , urinary symptoms, or neurologic symptoms. FORMERLY [facility] Past Medical History Narrative Medical The patient's past medical history is significant for congestive heart failure, copd, hypertension, diagnosis of stroke on July 27, 2017 status post TPA administration, history of left eye cataract, hypertension, hyperlipidemia, nonischemic cardiomyopathy with an ejection fraction of 35%, history of prostate cancer currently in remission, history of diverticulosis, diabetes mellitus. Hx Anticoagulant Therapy: Yes (asa) Arthritis: No Asthma: No Autoimmune Disease: No Blood Disorders: No Anxiety: No Depression: No Heart Rhythm Problems: No Cancer: Yes (Prostate ) Cardiac Catheterization: No Cardiovascular Problems: Yes High Cholesterol: Yes Chemotherapy: No Chest Pain: Yes Congestive Heart Failure: Yes COPD: Yes Cerebrovascular Accident: Yes Coronary Artery Disease: No Diabetes: Yes Patient Takes Glucophage: No Diminished Hearing: No Endocrine: Yes Gastrointestinal Disorders: Yes (PYLIDINOL CYST X2) GERD: No Glaucoma: No Genitourinary: No Headaches: Yes Hepatitis: No Heparin Induced Thrombocytopen: No Hypertension: Yes Immune Disorder: No Implanted Vascular Access Dvce: No Kidney Stones: No Musculoskeletal: No Neurologic: Yes Psychiatric: No Reproductive: No Respiratory: Yes Immunizations Current: Yes Migraines: No Myocardial Infarction: No Renal Failure: No Seizures: No Sickle Cell Disease: No Sleep Apnea: Yes Thyroid Disease: No Tetanus Vaccination: Unknown Influenza Vaccination: Yes Past Surgical History Narrative Surgical The patient's past surgical history is significant for an appendectomy, cardiac catheterization in 2003 Abdominal Surgery: Yes (appendectomy) AICD: No Appendectomy: Yes Arteriovenous Shunt: No Cardiac Surgery: No Cholecystectomy: No Coronary Artery Bypass Graft: No Ear Surgery: No Endocrine Surgery: No Eye Surgery: No Genitourinary Surgery: No Gynecologic Surgery: No Insulin Pump: No Joint Replacement: No Neurologic Surgery: No Oral Surgery: No Pacemaker: No Thoracic Surgery: No Other Surgery: Yes ( CYST REMOVAL) Social History Alcohol Use: Yes (RARE) Tobacco Use: No (quit in 1989) Substance Use: No Allergies-Medications (Allergen,Severity, Reaction): Coded Allergies: methylprednisolone (Verified Adverse Reaction, Intermediate, 07/31/17) severe bowel pain *MDRO Multi-Drug Resistant Organism (Verified Adverse Reaction, Unknown, ) MRSA (back wound/chest abscess) - 04/24/2015 MRSA PCR screen positive 10/12/16 Reported Meds & Prescriptions Reported Meds & Active Scripts Active Lisinopril 5 Mg Tab 5 Mg PO BID Coreg (Carvedilol) 12.5 Mg Tab 25 Mg PO BID Plavix (Clopidogrel Bisulfate) 75 Mg Tab 75 Mg PO DAILY Aspirin 325 Mg Tab 325 Mg PO DAILY take only for 3 days then stop. Continue plavix Flovent Hfa 12 GM Inh (Fluticasone Propionate) 220 Mcg/Act Inh 1 Puff INH BID 30 Days Use daily at the same time. Amlodipine (Amlodipine Besylate) 10 Mg Tab 10 Mg PO DAILY Reported Hydrochlorothiazide 25 Mg Tab 25 Mg PO DAILY Symbicort Inh (Budesonide/Formoterol Fumarate) 160-4.5 Mcg/Act Aero 1 Puff INH Q12HR Novolin 70-30 Inj (Insulin Human Isoph/Insulin Regular) 1,000 Unit/10 Ml Vial 35 Units SQ BID Atorvastatin (Atorvastatin Calcium) 20 Mg Tab 20 Mg PO HS Multiple Vitamin 1 Tab 1 Tab PO DAILY Review of Systems Except as stated in HPI: all other systems reviewed are Neg General / Constitutional: No: Fever Eyes: No: Visual changes HENT: Positive: Headaches, Neck Pain, No: Rhinorrhea, Congestion, Neck Stiffness Cardiovascular: Positive: Chest Pain or Discomfort, Dyspnea on exertion Respiratory: Positive: Shortness of Breath Gastrointestinal: No: Vomiting, Diarrhea, Abdominal Pain Genitourinary: No: Dysuria Musculoskeletal: No: Pain Skin: No Rash Neurologic: Positive: Headache, No: Weakness, Focal Abnormalities, Change in Mentation, Slurred Speech, Sensory Disturbance Psychiatric: No: Depression Endocrine: No: Polydipsia Hematologic/Lymphatic: No: Easy Bruising Physical Exam Narrative General: The patient is a well-developed well-nourished male in no acute distress. Head and Neck exam: Head is normocephalic atraumatic. Eyes: EOMI, pupils are equal round and reactive to light. Nose: Midline septum with pink mucous membranes Mouth: Dentition unremarkable. Moist mucus membranes. Posterior oropharynx is not erythematous. No tonsillar hypertrophy. Uvula midline. Airway patent. Neck: No palpable lymphadenopathy. No nuchal rigidity. No thyromegaly. Cardiovascular: Regular rate and rhythm without murmurs, gallops, or rubs. No pulse deficit to the extremities. Lungs: Clear to auscultation bilaterally. No wheezes, rhonchi, or rales. Abdomen: Soft, without tenderness to palpation in all 4 quadrants of the abdomen. No guarding, rebound, or rigidity. Normal bowel sounds are audible. No tenderness on palpation of McBurney's point. Negative Sheehan sign. Extremities: No clubbing or cyanosis, the patient has trace pedal edema bilateral lower extremities. 2+ pulses in all 4 extremities. No calf tenderness on palpation. Back: No spinous process tenderness to palpation. No costovertebral angle tenderness to palpation. Neurologic Exam: Cranial nerves 2 through 12 are intact, strength is 5/5 in all 4 extremities, intact sensation over all dermatomes. Skin Exam: No rash noted. Intact skin that is warm and dry. Data Data Last Documented VS Vital Signs Date Time Temp Pulse Resp B/P (MAP) Pulse Ox O2 Delivery O2 Flow Rate FiO2 07/31/17 05:00 66 18 182/92 (122) 95 Room Air 07/31/17 00:38 97.9 Orders Orders Electrocardiogram (07/31/17 01:06) Complete Blood Count With Diff (07/31/17 01:06) Comprehensive Metabolic Panel (07/31/17 01:06) Creatine Kinase (Cpk) (07/31/17 01:06) Ckmb (Isoenzyme) Profile (07/31/17 01:06) Troponin I (07/31/17 01:06) B-Type Natriuretic Peptide (07/31/17 01:06) Prothrombin Time / Inr (Pt) (07/31/17 01:06) Act Partial Throm Time (Ptt) (07/31/17 01:06) Magnesium (Mg) (07/31/17 01:06) Chest, Single Ap (07/31/17 01:06) Ct Brain W/O Iv Contrast(Rout) (07/31/17 01:06) Iv Access Insert/Monitor (07/31/17 01:06) Ecg Monitoring (07/31/17 01:06) Oximetry (07/31/17 01:06) CKMB (07/31/17 03:02) CKMB% (07/31/17 03:02) Morphine Inj (Morphine Inj) (07/31/17 04:30) Ondansetron Inj (Zofran Inj) (07/31/17 04:30) Nitroglycerin 2% Oint (Nitroglycerin 2% (07/31/17 04:30) Aspirin Chew (Aspirin Chew) (07/31/17 04:30) Sodium Chlor 0.9% 250 Ml Inj (Ns 250 Ml (07/31/17 05:45) Admit Order (Ed Use Only) (07/31/17 05:38) Labs Laboratory Tests Test 07/31/17 02:19 07/31/17 03:02 B-Type Natriuretic Peptide 29 PG/ML Blood Urea Nitrogen 23 MG/DL Creatinine 1.48 MG/DL Random Glucose 210 MG/DL Total Protein 8.0 GM/DL Albumin 3.7 GM/DL Calcium Level 8.7 MG/DL Magnesium Level 1.9 MG/DL Alkaline Phosphatase 110 U/L Aspartate Amino Transf (AST/SGOT) 52 U/L Alanine Aminotransferase (ALT/SGPT) 42 U/L Total Bilirubin 0.7 MG/DL Sodium Level 134 MEQ/L Potassium Level 4.5 MEQ/L Chloride Level 99 MEQ/L Carbon Dioxide Level 23.3 MEQ/L Anion Gap 12 MEQ/L Estimat Glomerular Filtration Rate 48 ML/MIN Total Creatine Kinase 909 U/L Creatine Kinase MB 4.0 NG/ML Creatine Kinase MB % 0.4 % Troponin I LESS THAN 0.02 NG/ML MDM Medical Decision Making Medical Screen Exam Complete: Yes Emergency Medical Condition: Yes Medical Record Reviewed: Yes Interpretation(s) Last Impressions Head CT 07/31/17105 Signed Impressions: Service Date/Time: Monday, July 31, 2017 01:43 - CONCLUSION: 1. Probable 3 cm x 2 cm arachnoid cyst in the anterior right middle cranial fossa, unchanged. 2. Otherwise, no acute intracranial process to explain current clinical symptoms. Daniel Ojeda MD Chest X-Ray 07/31/17105 Signed Impressions: Service Date/Time: Monday, July 31, 2017 01:13 - CONCLUSION: No acute cardiopulmonary process. Daniel Ojeda MD Differential Diagnosis Intracranial hemorrhage, versus acute coronary syndrome, versus tension headache , versus sinus related headache, versus occipital neuralgia Narrative Course During the course of the patient's emergency department visit, the patient's history, examination, and differential diagnosis were reviewed with the patient. The patient was placed on a rn cardiac rehab with oximetry and frequent blood pressure monitoring. The patient had IV access obtained and blood work sent for analysis. The patient had an EKG done on arrival. The patient's EKG shows a sinus rhythm with a heart rate of 68, QRS duration is 125 ms with a moderate intraventricular conduction delay, QTC [address] segment elevation. T waves are inverted in V1. The patient was initially provided aspirin 324 mg p.o. 1 as his last dose of aspirin was administered yesterday, nitroglycerin 1 inch the chest wall, morphine for pain, Zofran for nausea. The patient's laboratory studies were reviewed and remarkable for a CMP that shows a sodium of 134, BUN 23, creatinine 1.48, glucose 210, AST 52, CPK is elevated at 909 with a normal MB percent of 0.4. The patient was given gentle rehydration with normal saline at 250 mL bolus 1. Troponin I less than 0.02, BNP 29, a CBC that shows a white count of 11.9, hemoglobin 13.1, platelets 203 with 9 monocytes, PT 9.9, PTT 19.1. Radiology studies were reviewed and remarkable for a chest x-ray that shows no acute cardiopulmonary disease, CT scan of the brain shows a probable 3 x 2 cm arachnoid cyst in the anterior right middle cranial fossa, unchanged, otherwise no acute abnormality. The patient has no evidence of intracranial hemorrhage. The patient's prior imaging was reviewed and the patient had no aneurysm noted on CTA of the brain, therefore a subarachnoid hemorrhage is also of low likelihood in this patient with an atypical headache for subarachnoid hemorrhage , and no nuchal rigidity. Given the patient's multiple risk factors for cardiac disease, the patient will be admitted to the chest pain center for rule out serial cardiac enzyme protocol. The patient last had a stress test according to the record in June which was negative, however he has not had a cardiac catheterization since 2003. The patient's results were discussed with the patient, including the plan of care. I explained that further testing and/ or monitoring is indicated based on the patient's history, examination, and/ or laboratory findings. Therefore, I recommended admission for additional evaluation. The patient expressed understanding and was agreeable with this plan. The patient was admitted to the hospital in stable condition and sent to a bed under the care of the chest pain center. Diagnosis Primary Impression: Chest pain, rule out acute myocardial infarction Additional Impressions: Headache Qualified Codes: R51 - Headache Neck pain Admitting Information Admitting Physician Requests: Rosy Levy MD Jul 31, 2017 02:05
--- NOTE | 2017-07-31 02:05 | RADRPT ---
EXAM DATE/TIME: 07/31/2017 01:43 [facility] COMPARISON: CT BRAIN W/O CONTRAST, July 28, 2017, 14:34. INDICATIONS : Headache. RADIATION DOSE: 56.35 CTDIvol (mGy) MEDICAL HISTORY : Chronic obstructive pulmonary disease. Diabetes mellitus type 2. Cardiovascular diseaseHypertension SURGICAL HISTORY : None. ENCOUNTER: Initial ACUITY: 1 day PAIN SCALE: 6/10 LOCATION: cranial TECHNIQUE: Multiple contiguous axial images were obtained of the head. Using automated exposure control and adj ustment of the mA and/or kV according to patient size, radiation dose was kept as low as reasonably a chievable to obtain optimal diagnostic quality images. DICOM format image data is available electro nically for review and comparison. FINDINGS: CEREBRUM: The ventricles are normal for age. No evidence of midline shift, mass lesion, hemorrhage or acute in farction. 2.0 x 3.0 cm probable arachnoid cyst in the anterior right middle cranial fossa, unchanged. POSTERIOR FOSSA: The cerebellum and brainstem are intact. The 4th ventricle is midline. The cerebellopontine angle i s unremarkable. EXTRACRANIAL: The visualized portion of the orbits is intact. SKULL: The calvaria is intact. No evidence of skull fracture. CONCLUSION: 1. Probable 3 cm x 2 cm arachnoid cyst in the anterior right middle cranial fossa, unchanged. 2. Otherwise, no acute intracranial process to explain current clinical symptoms. Daniel Ojeda MD on July 31, 2017 at 2:01 Board Certified Radiologist. This report was verified electronically.
[2017-07-31 03:52] LABS: ALBUMIN 3.7 GM/DL (3.4-5.0); ALKALINE PHOSPHATASE 110 U/L (45-117); ALT (GPT) 42 U/L (12-78); AST (GOT) 52 U/L (15-37); BICARBONATE 23.3 MEQ/L (21.0-32.0); BLOOD UREA NITROGEN 23 MG/DL (7-18); CALCIUM 8.7 MG/DL (8.5-10.1); CHLORIDE 99 MEQ/L (98-107); CREATININE 1.48 MG/DL (0.60-1.30); GLOMERULAR FILTRATION RATE 48 ML/MIN (>89); GLUCOSE,RANDOM 210 MG/DL (74-106); MAGNESIUM 1.9 MG/DL (1.5-2.5); SODIUM (NA) 134 MEQ/L (136-145); TOTAL BILIRUBIN ADULT 0.7 MG/DL (0.2-1.0); TROPONIN I LESS THAN 0.02 NG/ML (0.02-0.05)
[2017-07-31] MEDS ORDERED: MORPHINE SULFATE 4 MG/ML INJ IV PUSH ONE ×2 (04:30→09:45)
[2017-07-31] MEDS ORDERED: NITROGLYCERIN 2% OINT 1 GM PACKET TOPICAL ONE (04:30)
[2017-07-31] MEDS ORDERED: ASPIRIN 81 MG CHEW TAB CHEW ONE (04:30)
[2017-07-31] MEDS ORDERED: ONDANSETRON HCL 4 MG/2 ML VIAL IV PUSH ONE (04:30)
[2017-07-31] MEDS ORDERED: SODIUM CHLOR 0.9% 250 ML INJ 250 ML IV ONE (05:45)
[2017-07-31 05:58] LABS: AUTOMATED NEUTROPHIL # 8.1 TH/MM3 (1.8-7.7); BASOPHIL # 0.1 TH/MM3 (0-0.2); BASOPHIL % 0.9 % (0.0-2.0); EOSINOPHIL # 0.8 TH/MM3 (0-0.4); HEMATOCRIT 37.9 % (39.0-51.0); HEMOGLOBIN 13.1 GM/DL (13.0-17.0); LYMPH % 14.8 % (9.0-44.0); LYMPHOCYTE # 1.8 TH/MM3 (1.0-4.8); MEAN CORPUSCULAR HEMOGLOBIN 28.1 PG (27.0-34.0); MEAN CORPUSCULAR HGB CONC 34.7 % (32.0-36.0); MEAN PLATELET VOLUME 8.5 FL (7.0-11.0); MONOCYTE # 1.1 TH/MM3 (0-0.9); NEUT % 68.3 % (16.0-70.0); PLATELET COUNT 203 TH/MM3 (150-450); RED BLOOD COUNT 4.68 MIL/MM3 (4.50-5.90); WHITE BLOOD COUNT 11.9 TH/MM3 (4.0-11.0)
[2017-07-31 06:19] LABS: PROTHROMBIN TIME - PATIENT 9.9 SEC (9.8-11.6)
[2017-07-31] MEDS ORDERED: SODIUM CHLORIDE 0.9% FLUSH 10 ML FLUSH IV FLUSH PRN (08:30)
[2017-07-31] MEDS ORDERED: NITROGLYCERIN 0.4 MG SL 25 TABS/BTL SL PRN (09:00)
[2017-07-31] MEDS ORDERED: ONDANSETRON HCL 4 MG/2 ML VIAL IV PUSH PRN (09:00)
--- NOTE | 2017-07-31 09:29 | HHI.HP ---
HPI Primary Care Physician Catherine Mcgill MD Chief Complaint Neck pain and headache History of Present Illness 67-year-old male with history of recent CVA, hypertension, hyperlipidemia, nonischemic cardiomyopathy, and diabetes presents emergency room for further evaluation of neck pain and headache. Discharged yesterday approximately 11 AM [facility]. States feeling well upon discharge. Around 8 PM developed left-sided neck pain and frontal headache. Denies headache being worse headache he ever had. Blood pressure reported to be 191/101. He took an additional dose of Plavix and a full strength aspirin. Denies any focal weakness or vision changes. Duration continued for a few hours, therefore called sister drive him to ER for further evaluation. Reports "mild, slight" substernal chest tightness with radiation to right shoulder. Duration seconds. No associated symptoms of nausea, vomiting, dyspnea, or diaphoresis currently he is chest pain-free. Continues to have left-sided neck pain rated 8/10. Headache resolved. Review of Systems General: No fatigue,weakness, fever, chills. Discharged 07/30/17 s/p left posterior cerebral CVA, denies any deficits. HEENT: SOUSA resolved. No vision changes, no dysphasia CV: As stated above. No current chest pain, tightness, or pressure. No palpitations or dizziness. RESP: No SOB, cough, or wheeze GI: No nausea, vomiting, or bowel changes : No dysuria, urgency, frequency EXT: No deficits from recent CVA, ambulated independently. MS: Current left side neck pain, made worse with any type of movements. Reported relief with morphine ivp given in ER. Requesting an additional dose. No recent injury. NEURO: Recent CVA left posterior cerebral (07/27/17). No difficulty with balance , LOC, motor/sensory deficits PSYCH: No anxiety, depression, suicidal ideation SKIN: No rashes, no concerning lesions Past Family Social History Allergies: Coded Allergies: methylprednisolone (Verified Adverse Reaction, Intermediate, 07/31/17) severe bowel pain *MDRO Multi-Drug Resistant Organism (Verified Adverse Reaction, Unknown, ) MRSA (back wound/chest abscess) - 04/24/2015 MRSA PCR screen positive 10/12/16 Past Medical History Diabetes insulin-dependent, hypertension, hyperlipidemia, COPD, sleep apnea (non -complaint with CPAP) CVA, nonischemic cardiomyopathy, prostate cancer Past Surgical History Appendectomy Reported Medications Reported Meds & Active Scripts Active Lisinopril 5 Mg Tab 5 Mg PO BID Coreg (Carvedilol) 12.5 Mg PO BID Plavix (Clopidogrel Bisulfate) 75 Mg Tab 75 Mg PO DAILY Aspirin 325 Mg Tab 325 Mg PO DAILY take only for 3 days then stop. Continue plavix Flovent Hfa 12 GM Inh (Fluticasone Propionate) 220 Mcg/Act Inh 1 Puff INH BID 30 Days Use daily at the same time. Amlodipine (Amlodipine Besylate) 10 Mg Tab 10 Mg PO DAILY Hydrochlorothiazide 25 Mg Tab 25 Mg PO DAILY Symbicort Inh (Budesonide/Formoterol Fumarate) 160-4.5 Mcg/Act Aero 1 Puff INH Q12HR Novolin 70-30 Inj (Insulin Human Isoph/Insulin Regular) 1,000 Unit/10 Ml Vial 35 Units SQ BID Atorvastatin (Atorvastatin Calcium) 20 Mg Tab 20 Mg PO HS Multiple Vitamin 1 Tab 1 Tab PO DAILY Active Ordered Medications Current Medications Medications (Trade) Dose Ordered Sig/Ly Route Start Time Stop Time Status Last Admin (NS Flush) 2 ml UNSCH PRN IV FLUSH 07/31/17 08:30 (NS Flush) 2 ml BID IV FLUSH 07/31/17 09:00 (Tylenol) 500 mg Q4H PRN PO 07/31/17 09:00 (Zofran Inj) 4 mg Q6H PRN IV PUSH 07/31/17 09:00 (Nitrostat Sl) 0.4 mg Q5M PRN SL 07/31/17 09:00 (Aspirin) 325 mg DAILY PO 07/31/17 09:00 Family History Noncontributory for early onset cardiovascular disease. Social History No known coronary artery disease. Known hypertension, hyperlipidemia, and diabetes. Former smoker quitting over 30 years ago. Denies any alcohol or illegal drug use. Past cardiac testing 07/28/2017 Echocardiogram-left ventricular systolic function is severely reduced with estimated ejection fraction of 35-40%. Mildly dilated left ventricle. Trace tricuspid valve regurgitation. 06/19/2017 Lexiscan-no reversible perfusion defects to indicate stress-induced myocardial ischemia. Ventricle appears to be mildly dilated. EF 36%. 09/12/2003 Cardiac catheterization (Dr. Nunez) Findings I. Hemodynamics: Left ventricular pressure was 163/11 with an end-diastolic pressure of 16. Aortic pressure was 159/82 with a mean of 110. There was no gradient during pullback from left ventricle to aorta. II. Left ventriculography: Left ventriculography revealed global hypokinesis with an ejection fraction of about 35% and no mitral regurgitation. III. Coronary angiography: Coronary circulation is right dominant all 3 coronary arteries appear normal. Patient's wheel truer is Dr. Jason Nunez. Physical Exam Vital Signs Vital Signs Date Time Temp Pulse Resp B/P (MAP) Pulse Ox O2 Delivery O2 Flow Rate FiO2 07/31/17 08:36 98.2 69 18 149/77 (101) 93 07/31/17 05:57 65 18 166/83 (110) 95 Room Air 07/31/17 05:00 66 18 182/92 (122) 95 Room Air 07/31/17 04:45 16 07/31/17 04:05 69 18 179/97 (124) 98 Room Air 07/31/17 03:00 72 20 166/85 (112) 98 Room Air 07/31/17 02:00 67 18 164/77 (106) 97 Room Air 07/31/17 01:39 70 20 97 Room Air 07/31/17 00:58 73 22 168/83 (111) 97 Room Air 171/82 (111) 07/31/17 00:38 97.9 69 18 210/97 (134) 98 Physical Exam GENERAL: Alert WN, WD, NAD, pleasant, obese elderly male HEAD: NC, AT CV: RRR, without murmur, rub, gallop, no JVD, S1-S2 no S3-S4. RESP: Clear lungs throughout bilateral, no crackles, wheeze, rhonchi, symmetrical chest rise, nonlabored, able to speak in full sentences MS: Normal tone x4 extremities, no obvious deformities, full range of motion NEURO: CN II through CN XII grossly intact PSYCH: A+O x3, pleasant affect, appropriate speech, mood, insight and judgment SKIN: Normal turgor, normal texture Laboratory Laboratory Tests Test 07/31/17 02:19 07/31/17 03:02 07/31/17 05:42 B-Type Natriuretic Peptide 29 Blood Urea Nitrogen 23 Creatinine 1.48 Random Glucose 210 Total Protein 8.0 Albumin 3.7 Calcium Level 8.7 Magnesium Level 1.9 Alkaline Phosphatase 110 Aspartate Amino Transf (AST/SGOT) 52 Alanine Aminotransferase (ALT/SGPT) 42 Total Bilirubin 0.7 Sodium Level 134 Potassium Level 4.5 Chloride Level 99 Carbon Dioxide Level 23.3 Anion Gap 12 Estimat Glomerular Filtration Rate 48 Total Creatine Kinase 909 Creatine Kinase MB 4.0 Creatine Kinase MB % 0.4 Troponin I LESS THAN 0.02 White Blood Count 11.9 Red Blood Count 4.68 Hemoglobin 13.1 Hematocrit 37.9 Mean Corpuscular Volume 81.0 Mean Corpuscular Hemoglobin 28.1 Mean Corpuscular Hemoglobin Concent 34.7 Red Cell Distribution Width 14.0 Platelet Count 203 Mean Platelet Volume 8.5 Neutrophils (%) (Auto) 68.3 Lymphocytes (%) (Auto) 14.8 Monocytes (%) (Auto) 9.0 Eosinophils (%) (Auto) 7.0 Basophils (%) (Auto) 0.9 Neutrophils # (Auto) 8.1 Lymphocytes # (Auto) 1.8 Monocytes # (Auto) 1.1 Eosinophils # (Auto) 0.8 Basophils # (Auto) 0.1 CBC Comment DIFF FINAL Differential Comment Prothrombin Time 9.9 Prothromb Time International Ratio 1.0 Activated Partial Thromboplast Time 19.1 Result Diagram: 07/31/17 0542 07/31/17 030 Imaging Last [address] 07/31/17105 Signed Impressions: Service Date/Time: Monday, July 31, 2017 01:43 - CONCLUSION: 1. Probable 3 cm x 2 cm arachnoid cyst in the anterior right middle cranial fossa, unchanged. 2. Otherwise, no acute intracranial process to explain current clinical symptoms. Daniel Ojeda MD Chest X-Ray 07/31/17105 Signed Impressions: Service Date/Time: Monday, July 31, 2017 01:13 - CONCLUSION: No acute cardiopulmonary process. Daniel Ojeda MD Course EKG 1st AVB, no st t segment changes Caprini VTE Risk Assessment Caprini VTE Risk Assessment: Mod/High Risk (score >= 2) Caprini Risk Assessment Model Point Value = 1 Point Value = 2 Point Value = 3 Point Value = 5 Age 41-60 Minor surgery BMI > 25 kg/m2 Swollen legs Varicose veins or History of unexplained or recurrent spontaneous Oral contraceptives or hormone replacement Sepsis (< 1 month) Serious lung disease, including pneumonia (< 1 month) Abnormal pulmonary function Acute myocardial infarction Congestive heart failure (< 1 month) History of inflammatory bowel disease Medical patient at bed rest Age 61-74 Arthroscopic surgery Major open surgery (> 45 min) Laparoscopic surgery (> 45 min) Malignancy Confined to bed (> 72 hours) Immobilizing plaster cast Central venous access Age >= 75 History of VTE Family history of VTE Factor V Leiden Prothrombin [id number] Lupus anticoagulant Anticardiolipin antibodies Elevated serum homocysteine Heparin-induced thrombocytopenia Other congenital or acquired thrombophilia Stroke (< 1 month) Elective arthroplasty Hip, pelvis, or leg fracture Acute spinal cord injury (< 1 month) Prophylaxis Regimen Total Risk Factor Score Risk Level Prophylaxis Regimen 0-1 Low Early ambulation 2 Moderate Order ONE of the following: *Sequential Compression Device (SCD) *Heparin 5000 units SQ BID 3-4 Higher Order ONE of the following medications: *Heparin 5000 units SQ TID *Enoxaparin/Lovenox 40 mg SQ daily (WT < 150 kg, CrCl > 30 mL/min) *Enoxaparin/Lovenox 30 mg SQ daily (WT < 150 kg, CrCl > 10-29 mL/min) *Enoxaparin/Lovenox 30 mg SQ BID (WT < 150 kg, CrCl > 30 mL/min) AND/OR *Sequential Compression Device (SCD) 5 or more Highest Order ONE of the following medications: *Heparin 5000 units SQ TID (Preferred with Epidurals) *Enoxaparin/Lovenox 40 mg SQ daily (WT < 150 kg, CrCl > 30 mL/min) *Enoxaparin/Lovenox 30 mg SQ daily (WT < 150 kg, CrCl > 10-29 mL/min) *Enoxaparin/Lovenox 30 mg SQ BID (WT < 150 kg, CrCl > 30 mL/min) AND *Sequential Compression Device (SCD) Assessment and Plan Assessment and Plan Admitted to chest pain center. Discussed case with Dr. Contreras. Patient. Patient discharged from [facility] yesterday s/p CVA and recently completed chemical cardiac testing which did not suggest ischemia. Patient would benefit from hospitalist team to assess patient's complaints of cephalgia and neck pain. Discussed with RN plan of care, which includes a diet order and addition Morphine 4mg IVPx1 dose for cervical pain. Resume all home medications. [address] Sayees, agrees to take patient on their service. Patient made aware of change in medical team. Reshma Aparicio Jul 31, 2017 09:29
[2017-07-31] MEDS ORDERED: DEXTROSE 50% IN WATER 50 ML VIAL(D50) IV PUSH PRN (09:30)
[2017-07-31] MEDS ORDERED: RESP: ALBUTEROL 2.5 MG/3 ML NEB (PRN) NEB (09:30)
[2017-07-31] MEDS ORDERED: GLUCAGON 1 MG/ML VIAL OTHER PRN (09:30)
[2017-07-31] MEDS: HYDROCHLOROTHIAZIDE 25 MG TAB PO SCH (10:04)
[2017-07-31] MEDS: MULTIVITAMIN TAB PO SCH (10:04)
[2017-07-31] MEDS: ASPIRIN 325 MG TAB PO SCH (10:04)
[2017-07-31] MEDS: CLOPIDOGREL 75 MG TAB PO SCH (10:04)
[2017-07-31] MEDS: SODIUM CHLORIDE 0.9% FLUSH 10 ML FLUSH IV FLUSH SCH ×2 (10:05→20:24)
[2017-07-31] MEDS: LISINOPRIL 5 MG TAB PO SCH ×2 (10:05→21:48)
[2017-07-31] MEDS: CARVEDILOL 12.5 MG TAB PO SCH ×2 (10:05→21:49)
[2017-07-31] MEDS: BUDESONIDE-FORMOTEROL 160/4.5 MCG INHALER INH SCH ×2 (10:57→20:23)
[2017-07-31 12:48] LABS: TROPONIN I LESS THAN 0.02 NG/ML (0.02-0.05)
--- NOTE | 2017-07-31 12:54 | RADRPT ---
EXAM DATE/TIME: 07/31/2017 12:34 [facility] COMPARISON: No previous studies available for comparison. INDICATIONS : Left sided neck pain. No prior trauma. MEDICAL HISTORY : Hypertension. Cardiovascular disease. Chronic obstructive pulmonary disease. Diabetes mellitus t ype 2. SURGICAL HISTORY : None. ENCOUNTER: Initial ACUITY: 1 week PAIN SCORE: 5/10 LOCATION: Bilateral neck. FINDINGS: Degenerative changes present at C5-6 and C6-7 levels with disc space narrowing and spurring. There ar e degenerative changes involving uncovertebral joints with encroachment on the right C4-5 neural fora martín. The dens is intact. The prevertebral soft tissues are within normal limits. CONCLUSION: 1. Moderate degenerative change at C5-6 and C6-7. 2. Narrowing of the right C4-5 neural foramina Jossue Cali MD on July 31, 2017 at 12:52 Board Certified Radiologist. This report was verified electronically.
[2017-07-31] MEDS: INSULIN ASPART SUPPLEMENTAL SCALE SQ SCH ×3 (13:46→21:50)
[2017-07-31 14:29] LABS: TROPONIN I LESS THAN 0.02 NG/ML (0.02-0.05)
[2017-07-31] MEDS ORDERED: traMADol HCL 50 MG TAB PO PRN (14:30)
--- NOTE | 2017-07-31 15:30 | HHI.PR ---
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 from [facility] exam now caro since tpa and neck pain see what mri shows echo showed 35%-40% la nl do holter consder loop with all the old cardiac hx sees dr alston i examined pt and reviewed reinoso and formulated care plan Objective Vital Signs Date Time Temp Pulse Resp B/P (MAP) Pulse Ox O2 Delivery O2 Flow Rate FiO2 07/31/17 11:35 98.0 74 16 143/73 (96) 93 07/31/17 10:03 92 21 07/31/17 09:10 69 07/31/17 09:00 07/31/17 08:36 98.2 69 18 149/77 (101) 93 07/31/17 05:57 65 18 166/83 (110) 95 Room Air 07/31/17 05:00 66 18 182/92 (122) 95 Room Air 07/31/17 04:45 16 07/31/17 04:05 69 18 179/97 (124) 98 Room Air 07/31/17 03:00 72 20 166/85 (112) 98 Room Air 07/31/17 02:00 67 18 164/77 (106) 97 Room Air 07/31/17 01:39 70 20 97 Room Air 07/31/17 00:58 73 22 168/83 (111) 97 Room Air 171/82 (111) 07/31/17 00:38 97.9 69 18 210/97 (134) 98 Result Diagram: 07/31/17 0542 07/31/17 0302 Nick Colvin MD Jul 31, 2017 15:29
--- NOTE | 2017-07-31 17:26 | EKG ---
Date Performed: 07/31/2017 Time Performed: 13:02:52 PTAGE: 67 years EKG: Sinus rhythm WITH FIRST DEGREE AV BLOCK MARKED LEFT AXIS DEVIATION MODERATE INTRAVENTRICULAR CONDUCTION DELAY ABN ORMAL ECG INTERPRETATION BASED ON A DEFAULT AGE OF 40 YEARS Since PREVIOUS TRACING , no significant change noted DOCTOR: Albert Contreras Interpretating Date/Time 07/31/2017 17:25:49
--- NOTE | 2017-07-31 17:29 | EKG ---
Date Performed: 07/31/2017 Time Performed: 08:55:13 PTAGE: 67 years EKG: Sinus rhythm WITH FIRST DEGREE AV BLOCK MODERATE INTRAVENTRICULAR CONDUCTION DELAY ABNORMAL ECG PREVIOUS TRACING : 07/31/2017 01.22 Since previous tracing, no significant change noted DOCTOR: Albert Contreras Interpretating Date/Time 07/31/2017 17:28:23
--- NOTE | 2017-07-31 17:31 | EKG ---
Date Performed: 07/31/2017 Time Performed: 01:22:44 PTAGE: 67 years EKG: Sinus rhythm WITH FIRST DEGREE AV BLOCK BORDERLINE LEFT AXIS DEVIATION MODERATE INTRAVENTRICULAR CONDUCTION DELAY ABNORMAL ECG PREVIOUS TRACING : 07/27/2017 13.12 Since previous tracing, no significant change noted DOCTOR: Albert Contreras Interpretating Date/Time 07/31/2017 17:29:54
[2017-07-31 19:03] LABS: C-REACTIVE PROTEIN 6.2 MG/DL (0.00-0.30)
[2017-07-31 19:16] LABS: RHEUMATOID FACTOR SCREEN NEGATIVE (NEGATIVE)
[2017-07-31] MEDS ORDERED: LORazepam 2 MG/ML VIAL IV SCH (20:15)
[2017-07-31] MEDS: ATORVASTATIN 20 MG TAB PO SCH (21:48)
[2017-07-31] MEDS: INSULIN HUMAN NPH/R 70/30 1,000 UNITS/10 ML VIAL SQ SCH (21:48)
[2017-07-31] MEDS: ACETAMINOPHEN 500 MG CPLT PO PRN (21:49)
--- NOTE | 2017-07-31 21:55 | RADRPT ---
EXAM DATE/TIME: 07/31/2017 20:54 [facility] COMPARISON: No previous studies available for comparison. INDICATIONS : CVA. MEDICAL HISTORY : Hypercholesterolemia. Hypertension. Carcinoma, prostate. DM, CAD. SURGICAL HISTORY : Appendectomy. Cyst removed. ENCOUNTER: Initial ACUITY: 1 day PAIN SCORE: 3/10 LOCATION: Bilateral cranial TECHNIQUE: Multiplanar, multisequence MRI of the brain was performed without contrast. FINDINGS: CEREBRUM: The ventricles are normal for age. Presumed arachnoid cyst right middle cranial fossa measuring up to 3.7 x 2.4 cm. The pituitary gland and suprasellar cistern are normal in configuration. WHITE MATTER: No significant signal abnormalities are seen in the white matter. POSTERIOR FOSSA: The cerebellum and brainstem are intact. The 4th ventricle is midline. The cerebellopontine angle is unremarkable. The cerebellar tonsils are normal in position. DIFFUSION IMAGING: No focal areas of restricted diffusion are seen. No evidence of acute infarction. EXTRACRANIAL: The visualized portions of the orbits and paranasal sinuses are unremarkable. CONCLUSION: 1. No acute findings. No recent infarct. Arachnoid cyst right middle cranial fossa. Gilberto Coles MD on July 31, 2017 at 21:51 Board Certified Radiologist. This report was verified electronically.
[2017-08-01] VITALS (11 sets, daily range): BP systolic 130–175; BP diastolic 60–81; PULSE 51–64; RESP 16–20; TEMP 98–98.3; O2SAT 94–100
[2017-08-01] MEDS: ACETAMINOPHEN 500 MG CPLT PO PRN (05:14)
[2017-08-01] MEDS ORDERED: LORazepam 2 MG/ML VIAL IV PUSH SCH (07:00)
--- NOTE | 2017-08-01 07:01 | HHI.PR ---
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 from [facility] exam now caro since tpa and neck pain see what mri shows echo showed 35%-40% la nl do holter consder loop with all the old cardiac hx sees dr alston i examined pt and reviewed reinoso and formulated care plan 08/01/17 still caro and neck pain denies depression bp up Objective Vital Signs Date Time Temp Pulse Resp B/P (MAP) Pulse Ox O2 Delivery O2 Flow Rate FiO2 08/01/17 05:12 60 20 141/76 (97) 97 08/01/17 04:19 98.0 16 175/75 (108) 08/01/17 04:07 51 08/01/17 00:10 64 07/31/17 23:13 94 Nasal Cannula 2.00 07/31/17 22:55 98.1 71 16 145/77 (99) 93 07/31/17 21:51 76 94 07/31/17 20:44 98.6 68 16 179/85 (116) 92 07/31/17 20:06 69 07/31/17 16:19 98.1 60 16 113/57 (75) 95 07/31/17 15:30 63 07/31/17 11:35 98.0 74 16 143/73 (96) 93 07/31/17 10:03 92 21 07/31/17 09:10 69 07/31/17 09:00 07/31/17 08:36 98.2 69 18 149/77 (101) 93 I/O 07/31/17 07/31/17 07/31/17 08/01/17 08/01/17 08/01/17 07:00 15:00 23:00 07:00 15:00 23:00 Intake Total 480 ml 1000 ml Output Total 250 ml Balance 480 ml 750 ml Intake Oral 480 ml 1000 ml Output Urine Total 250 ml # Voids 4 5 Result Diagram: 07/31/17 0542 07/31/17 0302 Objective Remarks sr awake moves all sleepy Assessment and Plan Assessment and Plan imp mri no new nor recent tia odd neck pain after tpa and caro check mra/bv r/o dissection crp up a little try elavil for caro if mra neg could dc if med team thinks no gca fu holter would like to get loop placed here or o/p pallavi ? consult cards now? needs bp to 120/ b4 dc Nick Colvin MD August 01, 2017 07:01
[2017-08-01] MEDS: INSULIN ASPART SUPPLEMENTAL SCALE SQ SCH ×4 (08:00→23:06)
[2017-08-01 08:19] LABS: AUTOMATED NEUTROPHIL # 5.2 TH/MM3 (1.8-7.7); BASOPHIL # 0.1 TH/MM3 (0-0.2); BASOPHIL % 0.8 % (0.0-2.0); EOSINOPHIL # 0.7 TH/MM3 (0-0.4); EOSINOPHIL % 8.4 % (0.0-4.0); HEMATOCRIT 36.3 % (39.0-51.0); HEMOGLOBIN 12.4 GM/DL (13.0-17.0); LYMPH % 20.7 % (9.0-44.0); LYMPHOCYTE # 1.8 TH/MM3 (1.0-4.8); MEAN CELL VOLUME 81.8 FL (80.0-100.0); MEAN CORPUSCULAR HEMOGLOBIN 27.9 PG (27.0-34.0); MEAN CORPUSCULAR HGB CONC 34.1 % (32.0-36.0); MEAN PLATELET VOLUME 8.7 FL (7.0-11.0); MONO % 10.7 % (0.0-8.0); MONOCYTE # 0.9 TH/MM3 (0-0.9); NEUT % 59.4 % (16.0-70.0); PLATELET COUNT 195 TH/MM3 (150-450); RED BLOOD COUNT 4.44 MIL/MM3 (4.50-5.90); RED CELL DISTRIBUTION WIDTH 14.3 % (11.6-17.2); WHITE BLOOD COUNT 8.7 TH/MM3 (4.0-11.0)
--- NOTE | 2017-08-01 08:35 | HHI.PR ---
Subjective Remarks Follow up for headache, left hand numbness. The patient reports improving left hand numbness today, denies any weakness. He reports continued diffuse frontal headache described as 4/10 constant pressure. Denies any lightheadedness or dizziness. He has been able to ambulate without difficulty. Denies any lower extremity numbness or weakness. He has no other medical complaints at this time. He reports compliance with his full strength aspirin and plavix since his last discharge few days ago. Objective Vitals Vital Signs Date Time Temp Pulse Resp B/P (MAP) Pulse Ox O2 Delivery O2 Flow Rate FiO2 08/01/17 07:54 98.3 55 20 141/71 (94) 98 08/01/17 05:12 60 20 141/76 (97) 97 08/01/17 04:19 98.0 16 175/75 (108) 08/01/17 04:07 51 08/01/17 00:10 64 07/31/17 23:13 94 Nasal Cannula 2.00 07/31/17 22:55 98.1 71 16 145/77 (99) 93 07/31/17 21:51 76 94 07/31/17 20:44 98.6 68 16 179/85 (116) 92 07/31/17 20:06 69 07/31/17 16:19 98.1 60 16 113/57 (75) 95 07/31/17 15:30 63 07/31/17 11:35 98.0 74 16 143/73 (96) 93 07/31/17 10:03 92 21 07/31/17 09:10 69 07/31/17 09:00 07/31/17 08:36 98.2 69 18 149/77 (101) 93 I/O 07/31/17 07/31/17 07/31/17 08/01/17 08/01/17 08/01/17 07:00 15:00 23:00 07:00 15:00 23:00 Intake Total 480 ml 1000 ml Output Total 250 ml Balance 480 ml 750 ml Intake Oral 480 ml 1000 ml Output Urine Total 250 ml # Voids 4 5 Result Diagram: 08/01/17 0741 07/31/17 0302 Imaging Last Impressions Head CT 07/31/17 0106 Signed Impressions: Service Date/Time: Monday, July 31, 2017 01:43 - CONCLUSION: 1. Probable 3 cm x 2 cm arachnoid cyst in the anterior right middle cranial fossa, unchanged. 2. Otherwise, no acute intracranial process to explain current clinical symptoms. Daniel Ojeda MD Chest X-Ray 07/31/17 0106 Signed Impressions: Service Date/Time: Monday, July 31, 2017 01:13 - CONCLUSION: No acute cardiopulmonary process. Daniel Ojeda MD Cervical Spine X-Ray 07/31/17 0000 Signed Impressions: Service Date/Time: Monday, July 31, 2017 12:34 - CONCLUSION: 1. Moderate degenerative change at C5-6 and C6-7. 2. Narrowing of the right C4-5 neural foramina Jossue Cali MD Brain MRI 07/31/17 0000 Signed Impressions: Service Date/Time: Monday, July 31, 2017 20:54 - CONCLUSION: 1. No acute findings. No recent infarct. Arachnoid cyst right middle cranial fossa. Gilberto Coles MD Objective Remarks GENERAL: Well-nourished, well-developed middle aged male patient in [facility]. Sleeping upon my arrival. SKIN: Warm and dry. No rash. HEENT: Normocephalic. Atraumatic.Pupils equal and round. Mucous membranes pink and moist. NECK: Supple. Trachea midline. CARDIOVASCULAR: Regular rate and rhythm. No murmur appreciated. RESPIRATORY: No accessory muscle use. Clear to auscultation. Breath sounds equal bilaterally. GASTROINTESTINAL: Abdomen soft, non-tender, nondistended. Normoactive bowel sounds x4. MUSCULOSKELETAL: No obvious deformities. Extremities without clubbing, cyanosis , or edema. NEUROLOGICAL: Awake and alert. No obvious cranial nerve deficits. Motor grossly within normal limits. 5/5 muscle strength in bilateral upper and lower extremities. Normal speech. No facial droop/lid lag/tongue deviation. PSYCHIATRIC: Appropriate mood and affect; insight and judgment normal. Medications and IVs Current Medications Medications (Trade) Dose Ordered Sig/Ly Route Start Time Stop Time Status Last Admin (NS Flush) 2 ml UNSCH PRN IV FLUSH 07/31/17 08:30 (NS Flush) 2 ml BID IV FLUSH 07/31/17 09:00 07/31/17 20:24 (Tylenol) 500 mg Q4H PRN PO 07/31/17 09:00 08/01/17 05:14 (Zofran Inj) 4 mg Q6H PRN IV PUSH 07/31/17 09:00 (Nitrostat Sl) 0.4 mg Q5M PRN SL 07/31/17 09:00 (Aspirin) 325 mg DAILY PO 07/31/17 09:00 07/31/17 10:04 (D50w (Vial) Inj) 50 ml UNSCH PRN IV PUSH 07/31/17 09:30 (Glucagon Inj) 1 mg UNSCH PRN OTHER 07/31/17 09:30 (NovoLOG SUPPLEMENTAL SCALE) 1 ACHS SLIDING SCALE SQ 07/31/17 12:00 07/31/17 21:50 (Albuterol Neb) 2.5 mg Q2HR NEB PRN NEB 07/31/17 09:30 (Norvasc) 10 mg DAILY PO 07/31/17 09:45 07/31/17 10:04 (Lipitor) 20 mg HS PO 07/31/17 21:00 07/31/17 21:48 (Symbicort 160-4.5 Mcg Inh) 1 puff Q12HR INH 07/31/17 10:00 07/31/17 20:23 (Coreg) 25 mg BID PO 07/31/17 09:45 07/31/17 21:49 (Plavix) 75 mg DAILY PO 07/31/17 09:45 07/31/17 10:04 (Hydrodiuril) 25 mg DAILY PO 07/31/17 09:45 07/31/17 10:04 (Prinivil) 5 mg BID PO 07/31/17 09:45 07/31/17 21:48 (Theragran) 1 tab DAILY PO 07/31/17 09:45 07/31/17 10:04 (NovoLIN 70/30 INJ) 35 units BID SQ 07/31/17 21:00 07/31/17 21:48 (Ativan Inj) 0.5 mg UNSCH X1 IV PUSH 08/01/17 07:00 08/01/17 23:59 08/01/17 09:02 (Elavil) 10 mg HS PO 08/01/17 21:00 A/P Assessment and Plan 67-year-old male with history of recent TIA, HTN, HLD, DM, nonischemic cardiomyopathy, presents to the emergency room for further evaluation of neck pain and headache. Subacute CVA/TIA: complains of LUE numbness, headache, neck pain. Recent admission 07/27 for TIA/CVA s/p TPA, discharged on aspirin 325mg and plavix 75mg (with recommendations from neuro to only take aspirin for 3 days, then stop). EMR reviewed, echo 07/28 with EF 35-40%. Head CTA 07/27 with segmental occlusion/ severe stenosis of proximal left posterior cerebral artery. -Head CT reviewed, shows 3x2cm arachnoid cyst anterior right middle cranial fossa, unchanged; otherwise no acute findings. -Brain MRI reviewed, no acute findings, no recent infarct, arachnoid cyst right middle cranial fossa -Continue aspirin 325mg, plavix 75mg, and statin -Consult neurology, appreciate recommendations -Brain MRA/MRV ordered -Cardiology consulted for loop recorder -Tylenol prn headache Atypical Chest Pain with hx of Chronic Nonischemic Cardiomyopathy: EF 35-40%. Does not appear to be in exacerbation -Nuclear stress test 06/19/17 with no reversible perfusion defect to suggest stress-induced ischemia. -Continue home medications including aspirin, plavix, coreg, lisinopril, statin -Cardiology consulted as above -Chest pain resolved Hypertension/Hyperlipidemia chronic -continue patient's home meds including Coreg 25mg bid, Norvasc 10mg qd, lisinopril 5mg bid, HCTZ 25mg daily, lipitor -monitor BP, adjust antihypertensives as needed Diabetes Mellitus, type 2: chronic -continue patient's home insulin Novolin 70-30 25u sq bid -Monitor accu-checks and cover with SSI COPD: chronic, stable, does not appear to be in exacerbation -continue patient's symbicort bid -nebs prn DVT Prophylaxis: teds/SCDs; on aspirin/plavix Discharge Planning Discharge pending further neurological work up and cardiology evaluation. Sandra Ch PA-C August 01, 2017 8:35 am
[2017-08-01 08:43] LABS: CALCIUM 8.8 MG/DL (8.5-10.1); CREATININE 1.36 MG/DL (0.60-1.30)
--- NOTE | 2017-08-01 09:38 | RADRPT ---
EXAM DATE/TIME: 08/01/2017 09:15 [facility] COMPARISON: MRI BRAIN W/O CONTRAST, July 31, 2017, 20:54. INDICATIONS : Left sided facial droop. MEDICAL HISTORY : Hypercholesterolemia. Hypertension. Diabetes mellitus type 2. Prostate CA, MRSA SURGICAL HISTORY : Appendectomy. ENCOUNTER: Subsequent ACUITY: 2 day PAIN SCORE: 2/10 LOCATION: cranial Please note a normal MRA of the brain does not entirely exclude the possibility of a small aneurysm, nor the possibility of distal intracranial vessel disease. TECHNIQUE: MR venography of the brain was performed without contrast with multiplanar and 3D reconstructions. FINDINGS: There is intact flow in the sagittal sinus and straight sinus. Asymmetric amount of flow the transve rse sinus, greater on the right the left. CONCLUSION: Asymmetric torcula Herophili with a greater degree of flow in the right transverse sinus with compare d to left. Ari Henry MD on August 01, 2017 at 9:31 Board Certified Radiologist. This report was verified electronically.
[2017-08-01] MEDS ORDERED: GADODIAMIDE PF 287 MG/ML 20 ML VIAL (for RAD MRI) IVCONTRAST ONE (09:39)
--- NOTE | 2017-08-01 09:55 | RADRPT ---
EXAM DATE/TIME: 08/01/2017 09:15 [facility] COMPARISON: No previous studies available for comparison. INDICATIONS : Left sided facial droop. MEDICAL HISTORY : Hypercholesterolemia. Hypertension. Diabetes mellitus type 2. Prostate CA, MRSA SURGICAL HISTORY : Appendectomy. ENCOUNTER: Subsequent ACUITY: 2 day PAIN SCORE: 2/10 LOCATION: cranial Please note a normal MRA of the brain does not entirely exclude the possibility of a small aneurysm, nor the possibility of distal intracranial vessel disease. TECHNIQUE: 3D time of flight MRA was performed. Source images, multiplanar STS MIP, and 3D volume MIP reconstru ctions were reviewed. FINDINGS: There is excellent visualization of the major intracranial arteries out to the second-order branch ve ssels. There is no evidence for aneurysm, vessel truncation or stenosis, and no evidence for vascula r malformation. Flow is seen in the anterior communicating artery and the left PCOM. CONCLUSION: No evidence of vessel truncation or aneurysm. Ari Henry MD on August 01, 2017 at 9:51 Board Certified Radiologist. This report was verified electronically.
--- NOTE | 2017-08-01 09:57 | RADRPT ---
EXAM DATE/TIME: 08/01/2017 09:15 [facility] COMPARISON: No previous studies available for comparison. INDICATIONS : Left sided facial droop. CONTRAST: 20 cc Omniscan (gadodiamide) IV MEDICAL HISTORY : Hypercholesterolemia. Hypertension. Diabetes mellitus type 2. Prostate CA, MRSA SURGICAL HISTORY : Appendectomy. ENCOUNTER: Subsequent ACUITY: 2 day PAIN SCORE: 2/10 LOCATION: cranial Percent stenosis is calculated using the diameter of the stenotic region over the diameter of the nor mal distal internal carotid artery. TECHNIQUE: Bolus infused MRA of the extracranial circulation was performed using a neurovascular coil. Post pro cessing was performed including rotating subvolume maximum intensity projections of each carotid anabelle ry, rotating full volume maximum intensity projections of both carotid arteries, sagittal and coronal sliding thin slab reformations of each carotid artery, and left oblique sliding thin slab reformatio n through the aortic arch to include the origin of the arch branch vessels. FINDINGS: AORTIC ARCH: There is a three vessel origin of the great vessels from the aorta. No evidence of ostial narrowing. RIGHT CAROTID: The common carotid artery is intact. The carotid bulb has a normal configuration without ulceration or narrowing. The internal carotid artery lumen is smooth without stenosis. The external carotid ar santa is intact. LEFT CAROTID: The common carotid artery is intact. The carotid bulb has a normal configuration without ulceration or narrowing. The internal carotid artery lumen is smooth without stenosis. The external carotid ar santa is intact. VERTEBRALS: The vertebral arteries have a symmetric diameter. No stenotic lesions are seen. CONCLUSION: Negative MRA of the carotids. Ari Henry MD on August 01, 2017 at 9:54 Board Certified Radiologist. This report was verified electronically.
[2017-08-01] MEDS: ASPIRIN 325 MG TAB PO SCH (10:49)
[2017-08-01] MEDS: BUDESONIDE-FORMOTEROL 160/4.5 MCG INHALER INH SCH ×2 (10:49→23:07)
[2017-08-01] MEDS: SODIUM CHLORIDE 0.9% FLUSH 10 ML FLUSH IV FLUSH SCH ×2 (10:49→23:06)
[2017-08-01] MEDS: LISINOPRIL 5 MG TAB PO SCH ×2 (10:50→23:07)
[2017-08-01] MEDS: CLOPIDOGREL 75 MG TAB PO SCH (10:50)
[2017-08-01] MEDS: CARVEDILOL 12.5 MG TAB PO SCH ×2 (10:51→23:07)
[2017-08-01] MEDS: HYDROCHLOROTHIAZIDE 25 MG TAB PO SCH (10:51)
[2017-08-01] MEDS: INSULIN HUMAN NPH/R 70/30 1,000 UNITS/10 ML VIAL SQ SCH ×2 (10:55→23:05)
[2017-08-01] MEDS: MULTIVITAMIN TAB PO SCH (10:56)
[2017-08-01] MEDS ORDERED: AMITRIPTYLINE HCL 10 MG TAB PO SCH (21:00)
[2017-08-01] MEDS: ATORVASTATIN 20 MG TAB PO SCH (23:06)
[2017-08-02 00:15] VITALS: PULSE 65
[2017-08-02] MEDS: ACETAMINOPHEN 500 MG CPLT PO PRN ×2 (01:39→15:03)
[2017-08-02 05:27] LABS: BICARBONATE 27.1 MEQ/L (21.0-32.0); CALCIUM 9.1 MG/DL (8.5-10.1); CREATININE 1.45 MG/DL (0.60-1.30)
--- NOTE | 2017-08-02 07:00 | HHI.PR ---
Subjective Remarks recent tia left tie hacker poor flow ct neg acute old r temp cyst now r arm numb yest for 20 min only on plavix asa cpk inc ? from statin nl exam now caro since tpa and neck pain see what mri shows echo showed 35%-40% la nl do holter consder loop with all the old cardiac hx sees dr alston i examined pt and reviewed reinoso and formulated care plan 08/01/17 still caro and neck pain denies depression bp up Objective Vital Signs Date Time Temp Pulse Resp B/P (MAP) Pulse Ox O2 Delivery O2 Flow Rate FiO2 08/02/17 05:09 Nasal Cannula 2.00 08/02/17 02:39 15 08/02/17 00:15 65 08/01/17 21:51 98.2 64 18 168/81 (110) 94 08/01/17 20:10 Room Air 08/01/17 15:54 98.1 55 20 164/70 (101) 98 08/01/17 15:00 60 08/01/17 12:02 98.2 51 20 130/60 (83) 99 08/01/17 07:54 98.3 55 20 141/71 (94) 98 08/01/17 07:41 100 Nasal Cannula 2.00 08/01/17 07:00 Room Air 08/01/17 07:00 54 I/O 08/01/17 08/01/17 08/01/17 08/02/17 08/02/17 08/02/17 07:00 15:00 23:00 07:00 15:00 23:00 Intake Total 1000 ml Output Total 250 ml Balance 750 ml Intake Oral 1000 ml Output Urine Total 250 ml # Voids 5 4 Result Diagram: 08/01/17 0741 08/02/17 0451 Objective Remarks sr awake moves all mild caro Assessment and Plan Assessment and Plan imp mri no new nor recent tia odd neck pain after tpa and caro check mra/bv r/o dissection crp up a little try elavil for caro if mra neg could dc if med team thinks no gca fu holter would like to get loop placed here or o/p pallavi ? consult cards now? needs bp to 120/ b4 dc 08/02/17 mild caro on elavil slept well mra/a/v neg no dissection still needs lower bp await cards for loop fu holter cleared neurowise Nick Colvin MD August 02, 2017 07:00
[2017-08-02] MEDS ORDERED: hydrALAZINE HCL 25 MG TAB PO ONE (07:30)
[2017-08-02 08:04] VITALS: BP 157/74; PULSE 62; RESP 18; TEMP 98; O2SAT 95
--- NOTE | 2017-08-02 08:24 | MB ---
cc: Jason Nunez MD DATE: 08/02/2017 REASON FOR CONSULTATION: Evaluation for loop recorder. HISTORY OF PRESENT ILLNESS: This is a 67-year-old man admitted to the hospital with neurological symptoms and Dr. Colvin has requested that I inserted a loop recorder. The patient is familiar to me. He has had chronic extremely severe hypertension. He has had extensive previous cardiac evaluations. This has included him having a cardiac catheterization by myself on 09/12/2003. This showed an ejection fraction of 35% with normal coronary arteries. Blood pressure has been challenging. He is morbidly obese. In the past, there have been issues about compliance with his medications. He has sleep apnea. He has a history of arthritis. He had about a 20 year smoking history, but quit about 20 years ago. He has had evidence for nonischemic cardiomyopathy. His last echocardiogram I see in the chart from 2003 was an ejection fraction that was around 35%. I think he has come up since then since he has been treated. He was just in the hospital 07/29/2017 and he got TPA for presumed acute stroke. The last echo showed an EF of 35 to 40%. He comes in now with right arm numbness and a suspicion for transient ischemic attack. The patient denies any angina. He seems depressed. He has an extensive medication list, please see chart. PAST MEDICAL HISTORY: Includes prior stroke, cataracts, hypertension, hyperlipidemia, nonischemic cardiomyopathy, COPD, prostate cancer, colonic diverticulosis, diabetes, obesity. PAST SURGICAL HISTORY: Includes appendectomy and previous catheterization. ALLERGIES: INCLUDE METHYLPREDNISOLONE AND PREDNISOLONE. FAMILY HISTORY: Positive for hypertension and diabetes. SOCIAL HISTORY: Notable for previous smoking. REVIEW OF SYSTEMS: Otherwise negative. PHYSICAL EXAMINATION: GENERAL: Reveals an obese, pleasant white male. VITAL SIGNS: Charted. HEENT: Unremarkable. NECK: No JVD. No bruits. CHEST: Clear to auscultation. CARDIOVASCULAR: S1, S2. Regular rate and rhythm, 1/6 systolic ejection murmur. ABDOMEN: Soft, nontender. EXTREMITIES: No clubbing, cyanosis or edema. LABORATORY DATA: Laboratories are charted. Hematocrit is 36.3. Creatinine is 1.4 5. Brain MRI 07/31/2017 showed no acute findings. IMPRESSION: Suspected cardiac arrhythmia, possible paroxysmal atrial fibrillation as a cause for neuro symptoms. Neurology has requested a loop recorder. PLAN: I will arrange to have that put in this morning. Blood pressure remains elevated. I am going to increase lisinopril to 20 b.i.d. MD JAMIL Banegas/DARNELL , 08:05 AM , 08:23 AM
--- NOTE | 2017-08-02 08:27 | HHI.PR ---
Subjective Remarks Follow up for headache, TIA, hypertension. The patient reports overall feeling better today. He reports his headache has improved. Still has some left posterior neck pain that radiates to the left shoulder. He states he's had shoulder problems for years and always has pain when he tries to raise his left arm above his head. He otherwise denies any other medical complaints. Hand numbness resolved. Denies any chest pain, palpitations, shortness of breath, or abdominal complaints. Going for loop recorder today. Objective Vitals Vital Signs Date Time Temp Pulse Resp B/P (MAP) Pulse Ox O2 Delivery O2 Flow Rate FiO2 08/02/17 08:04 98.0 62 18 157/74 (101) 95 08/02/17 05:09 Nasal Cannula 2.00 08/02/17 02:39 15 08/02/17 00:15 65 08/01/17 21:51 98.2 64 18 168/81 (110) 94 08/01/17 20:10 Room Air 08/01/17 15:54 98.1 55 20 164/70 (101) 98 08/01/17 15:00 60 08/01/17 12:02 98.2 51 20 130/60 (83) 99 I/O 08/01/17 08/01/17 08/01/17 08/02/17 08/02/17 08/02/17 06:59 14:59 22:59 06:59 14:59 22:59 Intake Total 1000 ml Output Total 250 ml Balance 750 ml Intake Oral 1000 ml Output Urine Total 250 ml # Voids 5 4 Result Diagram: 08/01/17 0741 08/02/17 0451 Imaging Last Impressions Neck Magnetic Resonance Angiography 08/01/17 0656 Signed Impressions: Service Date/Time: Tuesday, August 01, 2017 09:15 - CONCLUSION: Negative MRA of the carotids. Ari Henry MD Head Magnetic Resonance Angiography 08/01/17 0656 Signed Impressions: Service Date/Time: Tuesday, August 01, 2017 09:15 - CONCLUSION: No evidence of vessel truncation or aneurysm. Ari Henry MD Head/Brain Mag Res Venography 08/01/17 0000 Signed Impressions: Service Date/Time: Tuesday, August 01, 2017 09:15 - CONCLUSION: Asymmetric torcula Herophili with a greater degree of flow in the right transverse sinus with compared to left. Ari Henry MD Head CT 07/31/17105 Signed Impressions: Service Date/Time: Monday, July 31, 2017 01:43 - CONCLUSION: 1. Probable 3 cm x 2 cm arachnoid cyst in the anterior right middle cranial fossa, unchanged. 2. Otherwise, no acute intracranial process to explain current clinical symptoms. Daniel Ojeda MD Chest X-Ray 07/31/17105 Signed Impressions: Service Date/Time: Monday, July 31, 2017 01:13 - CONCLUSION: No acute cardiopulmonary process. Daniel Ojeda MD Cervical Spine X-Ray 07/31/17 0000 Signed Impressions: Service Date/Time: Monday, July 31, 2017 12:34 - CONCLUSION: 1. Moderate degenerative change at C5-6 and C6-7. 2. Narrowing of the right C4-5 neural foramina Jossue Cali MD Brain MRI 07/31/17 0000 Signed Impressions: Service Date/Time: Monday, July 31, 2017 20:54 - CONCLUSION: 1. No acute findings. No recent infarct. Arachnoid cyst right middle cranial fossa. Gilberto Coles MD Objective Remarks GENERAL: Well-nourished, well-developed middle aged male patient in [facility]. SKIN: Warm and dry. No rash. HEENT: Normocephalic. Atraumatic.Pupils equal and round. Mucous membranes pink and moist. NECK: Supple. Trachea midline. CARDIOVASCULAR: Regular rate and rhythm. No murmur appreciated. RESPIRATORY: No accessory muscle use. Clear to auscultation. Breath sounds equal bilaterally. GASTROINTESTINAL: Abdomen soft, non-tender, nondistended. Normoactive bowel sounds x4. MUSCULOSKELETAL: No obvious deformities. Extremities without clubbing, cyanosis , or edema. NEUROLOGICAL: Awake and alert. No obvious cranial nerve deficits. Motor grossly within normal limits. 5/5 muscle strength in bilateral upper and lower extremities. Normal speech. No facial droop/lid lag/tongue deviation. PSYCHIATRIC: Appropriate mood and affect; insight and judgment normal. Medications and IVs Current Medications Medications (Trade) Dose Ordered Sig/Ly Route Start Time Stop Time Status Last Admin (NS Flush) 2 ml UNSCH PRN IV FLUSH 07/31/17 08:30 (NS Flush) 2 ml BID IV FLUSH 07/31/17 09:00 08/02/17 08:43 (Tylenol) 500 mg Q4H PRN PO 07/31/17 09:00 08/02/17 01:39 (Zofran Inj) 4 mg Q6H PRN IV PUSH 07/31/17 09:00 (Nitrostat Sl) 0.4 mg Q5M PRN SL 07/31/17 09:00 (Aspirin) 325 mg DAILY PO 07/31/17 09:00 08/02/17 08:42 (D50w (Vial) Inj) 50 ml UNSCH PRN IV PUSH 07/31/17 09:30 (Glucagon Inj) 1 mg UNSCH PRN OTHER 07/31/17 09:30 (NovoLOG SUPPLEMENTAL SCALE) 1 ACHS SLIDING SCALE SQ 07/31/17 12:00 08/01/17 23:06 (Albuterol Neb) 2.5 mg Q2HR NEB PRN NEB 07/31/17 09:30 (Norvasc) 10 mg DAILY PO 07/31/17 09:45 08/02/17 08:43 (Lipitor) 20 mg HS PO 07/31/17 21:00 08/01/17 23:06 (Symbicort 160-4.5 Mcg Inh) 1 puff Q12HR INH 07/31/17 10:00 08/02/17 08:42 (Coreg) 25 mg BID PO 07/31/17 09:45 08/02/17 08:43 (Plavix) 75 mg DAILY PO 07/31/17 09:45 08/02/17 08:42 (Hydrodiuril) 25 mg DAILY PO 07/31/17 09:45 08/02/17 08:42 (Theragran) 1 tab DAILY PO 07/31/17 09:45 08/02/17 08:43 (NovoLIN 70/30 INJ) 35 units BID SQ 07/31/17 21:00 08/01/17 23:05 (Elavil) 10 mg HS PO 08/01/17 21:00 08/01/17 23:07 (Prinivil) 20 mg BID PO 08/02/17 09:00 08/02/17 08:43 ([facility] NO Heparin, Loven... UNSCH PRN .XX 08/02/17 10:00 08/06/17 09:59 Sodium Chloride 1,000 ml @ 30 mls/hr Q24H IV 08/02/17 10:00 Cefazolin Sodium/ Dextrose 50 ml @ 100 mls/hr [employer] IV 08/02/17 10:00 08/05/17 09:59 (Betadine 5% Antisepsis Kit) 2 applic [employer] EACH NARE 08/02/17 10:00 08/05/17 09:59 (Bactroban Nasal 2% Oint) 1 applic [employer] NASAL 08/02/17 10:00 08/05/17 09:59 (Chlorhexidine 2% Cloth) 3 pack [employer] TOPICAL 08/02/17 10:00 08/05/17 09:59 A/P Assessment and Plan 67-year-old male with history of recent TIA, HTN, HLD, DM, nonischemic cardiomyopathy, presents to the emergency room for further evaluation of neck pain and headache. Subacute CVA/TIA: complains of LUE numbness, headache, neck pain. Recent admission 07/27 for TIA/CVA s/p TPA, discharged on aspirin 325mg and plavix 75mg (with recommendations from neuro to only take aspirin for 3 days, then stop). EMR reviewed, echo 07/28 with EF 35-40%. Head CTA 07/27 with segmental occlusion/ severe stenosis of proximal left posterior cerebral artery. -Head CT reviewed, shows 3x2cm arachnoid cyst anterior right middle cranial fossa, unchanged; otherwise no acute findings. -Brain MRI reviewed, no acute findings, no recent infarct, arachnoid cyst right middle cranial fossa -Continue aspirin 325mg, plavix 75mg, and statin -Consult neurology, appreciate recommendations -Head/Neck MRA reviewed and unremarkable -Brain MRV shows asymmetric torcula Herophili with a greater flow in right transverse sinus compared to the left; (insignificant per neuro) -Cardiology consulted for loop recorder, to be placed 08/02 -Tylenol prn headache -likely discharge after loop recorder placed today Atypical Chest Pain with hx of Chronic Nonischemic Cardiomyopathy: EF 35-40%. Does not appear to be in exacerbation -Nuclear stress test 06/19/17 with no reversible perfusion defect to suggest stress-induced ischemia. -Continue home medications including aspirin, plavix, coreg, lisinopril, statin -Cardiology consulted as above -Chest pain resolved Hypertension/Hyperlipidemia chronic -continue patient's home meds including Coreg 25mg bid, Norvasc 10mg qd, lisinopril 5mg bid, HCTZ 25mg daily, lipitor -monitor BP, adjust antihypertensives as needed -5/2 BP still uncontrolled, cardiology increased lisinopril to 20mg bid Diabetes Mellitus, type 2: chronic -continue patient's home insulin Novolin 70-30 25u sq bid -Monitor accu-checks and cover with SSI COPD: chronic, stable, does not appear to be in exacerbation -continue patient's symbicort bid -nebs prn DVT Prophylaxis: teds/SCDs; on aspirin/plavix Discharge Planning Likely discharge today after loop recorder placed. See discharge summary. Sandra Ch PA-C August 02, 2017 8:27 am
[2017-08-02 08:30] VITALS: PULSE 62
[2017-08-02] MEDS: INSULIN ASPART SUPPLEMENTAL SCALE SQ SCH ×2 (08:40→13:21)
[2017-08-02] MEDS: HYDROCHLOROTHIAZIDE 25 MG TAB PO SCH (08:42)
[2017-08-02] MEDS: ASPIRIN 325 MG TAB PO SCH (08:42)
[2017-08-02] MEDS: CLOPIDOGREL 75 MG TAB PO SCH (08:42)
[2017-08-02] MEDS: BUDESONIDE-FORMOTEROL 160/4.5 MCG INHALER INH SCH (08:42)
[2017-08-02] MEDS: CARVEDILOL 12.5 MG TAB PO SCH (08:43)
[2017-08-02] MEDS: SODIUM CHLORIDE 0.9% FLUSH 10 ML FLUSH IV FLUSH SCH (08:43)
[2017-08-02] MEDS: MULTIVITAMIN TAB PO SCH (08:43)
[2017-08-02] MEDS ORDERED: LISINOPRIL 20 MG TAB PO SCH (09:00)
--- NOTE | 2017-08-02 09:41 | MP ---
cc: Jason Nunez MD DATE OF OPERATION: 08/02/2017 SURGEON: Jason Nunez MD PREOPERATIVE DIAGNOSIS: Cerebrovascular accident, suspected possible atrial fibrillation. POSTOPERATIVE DIAGNOSIS: Cerebrovascular accident, suspected possible atrial fibrillation. PROCEDURE PERFORMED: Insertion of insertable loop recorder. DESCRIPTION OF PROCEDURE: The patient was brought to the DOC Unit. After informed consent was obtained, the patient was prepped and draped in sterile fashion. Using 1% lidocaine for local anesthesia and using the insertion tool, the [employer] loop recorder was inserted without difficulty and with adequate sensing, Steri-Strips being applied. There were no complications and there was no blood loss. The device is a [employer] Reveal LINQ, model LNQ11, serial number [id number]. Sensed amplitude was 0.23 volts. No complications. Jason Nunez MD VEDon/SB , 09:33 AM , 09:40 AM
[2017-08-02] MEDS ORDERED: CHLORHEXIDINE GLUCONATE 2 % 1 PACK (2 CLOTHS) TOPICAL SCH (10:00)
[2017-08-02] MEDS ORDERED: NS 1000 ML IV SCH (10:00)
[2017-08-02] MEDS ORDERED: ceFAZolin 2 GM PREMIX 50 ML IV SCH (10:00)
[2017-08-02] MEDS ORDERED: MUPIROCIN 2% OINT 1 APPLIC/GM SYR NASAL SCH (10:00)
[2017-08-02] MEDS ORDERED: POVIDONE IODINE 5% (ANTISEPSIS KIT) 4 APPLICATIONS EACH NARE SCH (10:00)
[2017-08-02] MEDS ORDERED: NO Heparin, Lovenox, Coumadin at least 12 hours prior to procedure. PRN (10:00)
[2017-08-02] MEDS: INSULIN HUMAN NPH/R 70/30 1,000 UNITS/10 ML VIAL SQ SCH (11:47)
[2017-08-02 13:19] VITALS: BP 139/65; PULSE 56; RESP 20; TEMP 98.7; O2SAT 97
[2017-08-02] MEDS ORDERED: hydrALAZINE HCL 25 MG TAB PO SCH (14:00)
[2017-08-02] MEDS ORDERED: AMIT10TA6 PO (14:55)
[2017-08-02] MEDS ORDERED: LISI-515 PO (14:55)
--- NOTE | 2017-08-02 14:55 | HHI.DCPOC ---
Discharge Care Plan Diagnosis: (1) TIA (transient ischemic attack) (2) Hypertension (3) DM (diabetes mellitus) (4) COPD (chronic obstructive pulmonary disease) (5) Hyperlipidemia (6) Headache (7) Neck pain Goals to Promote Your Health * To prevent worsening of your condition and complications * To maintain your health at the optimal level Directions to Meet Your Goals Take your medications as prescribed Follow your dietary instruction Follow activity as directed Keep your appointments as scheduled Take your immunizations and boosters as scheduled If your symptoms worsen call your PCP, if no PCP go to Urgent Care Center or Emergency Room Smoking is Dangerous to Your Health. Avoid second hand smoke Call the 24-hour hour crisis hotline for domestic abuse at Sandra Ch PA-C August 02, 2017 2:55 pm
--- NOTE | 2017-08-02 14:57 | HHI.DS ---
cc: Nick Colvin MD; Jason Nunez MD; Catherine Mcgill MD Discharge Summary Admission Date Jul 31, 2017 at 5:39 am Discharge Date: August 02, 2017 Admitting Diagnosis cp r/o acs (1) TIA (transient ischemic attack) ICD Code: G45.9 - Transient cerebral ischemic attack, unspecified Diagnosis: Principal (2) Headache ICD Code: R51 - Headache Diagnosis: Principal Status: Acute (3) Neck pain ICD Code: M54.2 - Cervicalgia Diagnosis: Principal Status: Acute (4) Hypertension ICD Code: I10 - Hypertension Diagnosis: Secondary Status: Acute (5) DM (diabetes mellitus) ICD Code: E11.9 - Type 2 diabetes mellitus without complications Diagnosis: Secondary Status: Chronic (6) COPD (chronic obstructive pulmonary disease) ICD Code: J44.9 - Chronic obstructive pulmonary disease, unspecified Diagnosis: Secondary Status: Chronic (7) Hyperlipidemia ICD Code: E78.5 - Hyperlipidemia, unspecified Diagnosis: Secondary Status: Chronic Procedures 08/02/17 - Loop recorder placed by Dr. Nunez Brief History - [facility] Upon Admission: 67-year-old male with history of recent CVA, hypertension, hyperlipidemia, nonischemic cardiomyopathy, and diabetes presents emergency room for further evaluation of neck pain and headache. Discharged yesterday approximately 11 AM [facility]. States feeling well upon discharge. Around 8 PM developed left-sided neck pain and frontal headache. Denies headache being worse headache he ever had. Blood pressure reported to be 191/101. He took an additional dose of Plavix and a full strength aspirin. Denies any focal weakness or vision changes. Duration continued for a few hours, therefore called sister drive him to ER for further evaluation. Reports "mild, slight" substernal chest tightness with radiation to right shoulder. Duration seconds. No associated symptoms of nausea, vomiting, dyspnea, or diaphoresis currently he is chest pain-free. Continues to have left-sided neck pain rated 8/10. Headache resolved. CBC/BMP: 08/01/17 0741 08/02/17 0451 Significant Findings Laboratory Tests Test 07/31/17 02:19 4/30/18 03:02 07/31/17 05:42 07/31/17 12:08 Blood Urea Nitrogen 23 MG/DL (7-18) Creatinine 1.48 MG/DL (0.60-1.30) Random Glucose 210 MG/DL (74-106) Aspartate Amino Transf (AST/SGOT) 52 U/L (15-37) Sodium Level 134 MEQ/L (136-145) Estimat Glomerular Filtration Rate 48 ML/MIN (>89) Total Creatine Kinase 909 U/L (39-308) 639 U/L (39-308) Creatine Kinase MB 4.0 NG/ML (0.5-3.6) Troponin I LESS THAN 0.02 NG/ML LESS THAN 0.02 NG/ML White Blood Count 11.9 TH/MM3 (4.0-11.0) Hematocrit 37.9 % (39.0-51.0) Monocytes (%) (Auto) 9.0 % (0.0-8.0) Eosinophils (%) (Auto) 7.0 % (0.0-4.0) Neutrophils # (Auto) 8.1 TH/MM3 (1.8-7.7) Monocytes # (Auto) 1.1 TH/MM3 (0-0.9) Eosinophils # (Auto) 0.8 TH/MM3 (0-0.4) Activated Partial Thromboplast Time 19.1 SEC (24.3-30.1) Test 07/31/17 13:30 07/31/17 13:34 07/31/17 13:39 07/31/17 17:44 Urine Opiates Screen POS (NEG) Total Creatine Kinase 607 U/L (39-308) Troponin I LESS THAN 0.02 NG/ML C-Reactive Protein 6.20 MG/DL (0.00-0.30) Test 07/31/17 19:37 08/01/17 07:41 08/02/17 04:51 Erythrocyte Sedimentation Rate 31 mm/hr (0-20) Red Blood Count 4.44 MIL/MM3 (4.50-5.90) Hemoglobin 12.4 GM/DL (13.0-17.0) Hematocrit 36.3 % (39.0-51.0) Monocytes (%) (Auto) 10.7 % (0.0-8.0) Eosinophils (%) (Auto) 8.4 % (0.0-4.0) Eosinophils # (Auto) 0.7 TH/MM3 (0-0.4) Blood Urea Nitrogen 24 MG/DL (7-18) 25 MG/DL (7-18) Creatinine 1.36 MG/DL (0.60-1.30) 1.45 MG/DL (0.60-1.30) Random Glucose 116 MG/DL (74-106) 110 MG/DL (74-106) Estimat Glomerular Filtration Rate 52 ML/MIN (>89) 49 ML/MIN (>89) Imaging Last Impressions Neck Magnetic Resonance Angiography 08/01/17655 Signed Impressions: Service Date/Time: Tuesday, August 01, 2017 09:15 - CONCLUSION: Negative MRA of the carotids. Ari Henry MD Head Magnetic Resonance Angiography 08/01/17655 Signed Impressions: Service Date/Time: Tuesday, August 01, 2017 09:15 - CONCLUSION: No evidence of vessel truncation or aneurysm. Ari Henry MD Head/Brain Mag Res Venography 08/01/17 0000 Signed Impressions: Service Date/Time: Tuesday, August 01, 2017 09:15 - CONCLUSION: Asymmetric torcula Herophili with a greater degree of flow in the right transverse sinus with compared to left. Ari Henry MD Head CT 07/31/17105 Signed Impressions: Service Date/Time: Monday, July 31, 2017 01:43 - CONCLUSION: 1. Probable 3 cm x 2 cm arachnoid cyst in the anterior right middle cranial fossa, unchanged. 2. Otherwise, no acute intracranial process to explain current clinical symptoms. Daniel Ojeda MD Chest X-Ray 07/31/17105 Signed Impressions: Service Date/Time: Monday, July 31, 2017 01:13 - CONCLUSION: No acute cardiopulmonary process. Daniel Ojeda MD Cervical Spine X-Ray 07/31/17 0000 Signed Impressions: Service Date/Time: Monday, July 31, 2017 12:34 - CONCLUSION: 1. Moderate degenerative change at C5-6 and C6-7. 2. Narrowing of the right C4-5 neural foramina Jossue Cali MD Brain MRI 07/31/17 0000 Signed Impressions: Service Date/Time: Monday, July 31, 2017 20:54 - CONCLUSION: 1. No acute findings. No recent infarct. Arachnoid cyst right middle cranial fossa. Gilberto Coles MD PE at Discharge GENERAL: Well-nourished, well-developed middle aged male patient in NAD. SKIN: Warm and dry. No rash. HEENT: Normocephalic. Atraumatic.Pupils equal and round. Mucous membranes pink and moist. NECK: Supple. Trachea midline. CARDIOVASCULAR: Regular rate and rhythm. No murmur appreciated. RESPIRATORY: No accessory muscle use. Clear to auscultation. Breath sounds equal bilaterally. GASTROINTESTINAL: Abdomen soft, non-tender, nondistended. Normoactive bowel sounds x4. MUSCULOSKELETAL: No obvious deformities. Extremities without clubbing, cyanosis , or edema. NEUROLOGICAL: Awake and alert. No obvious cranial nerve deficits. Motor grossly within normal limits. 5/5 muscle strength in bilateral upper and lower extremities. Normal speech. No facial droop/lid lag/tongue deviation. PSYCHIATRIC: Appropriate mood and affect; insight and judgment normal. Hospital Course 67-year-old male with history of recent TIA, HTN, HLD, DM, nonischemic cardiomyopathy, presents to the emergency room for further evaluation of neck pain and headache. TIA, Subacute CVA: complains of LUE numbness, headache, neck pain. Recent admission 07/27 for CVA s/p TPA, discharged on aspirin 325mg and plavix 75mg ( with recommendations from neuro to only take aspirin for 3 days, then stop). EMR reviewed, echo 07/28 with EF 35-40%. Head CTA 07/27 with segmental occlusion/ severe stenosis of proximal left posterior cerebral artery. Upon arrival 07/31, Head CT showed 3x2cm arachnoid cyst anterior right middle cranial fossa, unchanged; otherwise no acute findings. Brain MRI reviewed, no acute findings, no recent infarct, arachnoid cyst right middle cranial fossa. Continued aspirin 325mg, plavix 75mg, and statin. Consult neurology, appreciate recommendations. Head/Neck MRA reviewed and unremarkable. Brain MRV shows asymmetric torcula Herophili with a greater flow in right transverse sinus compared to the left; ( insignificant per neuro). Cardiology consulted for loop recorder, placed by Dr. Nunez on 08/02. Started on amitriptyline by neuro. Tylenol prn headache. Symptoms improved. Cleared for discharge by neurology and cardiology with outpatient follow up. Atypical Chest Pain with hx of Chronic Nonischemic Cardiomyopathy: EF 35-40%. Does not appear to be in exacerbation. Nuclear stress test 06/19/17 with no reversible perfusion defect to suggest stress-induced ischemia. Continued home medications including aspirin, plavix, coreg, lisinopril, statin. Cardiology consulted as above. Chest pain resolved Accelerate Hypertension, Hyperlipidemia: Continued patient's home meds including Coreg 25mg bid, Norvasc 10mg qd, lisinopril 5mg bid, HCTZ 25mg daily, lipitor. BP still uncontrolled, cardiology increased lisinopril to 20mg bid. BP much better controlled at discharge with systolic in the 130s. Diabetes Mellitus, type 2: chronic. Continue patient's home insulin Novolin 70- 30 25u sq bid COPD: chronic, stable, does not appear to be in exacerbation. Continue patient' s symbicort bid. Nebs prn Pt Condition on Discharge: Stable Discharge Disposition: Discharge Home Discharge Time: > 30 minutes Discharge Instructions DIET: Follow Instructions for: Heart Healthy Diet, Diabetic Diet Activities you can perform: Regular-No Restrictions Follow up Referrals: Cardiology - 1 Week with Jason Nunez MD Neurology - 1 Week with Nick Colvin MD PCP Follow-up - 2-3 Days with Catherine Mcgill MD New Medications: Amitriptyline (Amitriptyline) 10 Mg Tab 10 MG PO HS for Headaches, #30 TAB Lisinopril (Lisinopril) 20 Mg Tab 20 MG PO BID for Blood Pressure Management for 30 Days, #60 TAB Continued Medications: Amlodipine (Amlodipine) 10 Mg Tab 10 MG PO DAILY for Blood Pressure Management, #30 TAB 0 Refills Aspirin (Aspirin) 325 Mg Tab 325 MG PO DAILY for Blood Clot Prevention, #3 TAB 0 Refills take only for 3 days then stop. Continue plavix Atorvastatin (Atorvastatin) 20 Mg Tab 20 MG PO HS for Cholesterol Management, #30 TAB 0 Refills Budesonide-Formoterol Inh (Symbicort Inh) 160-4.5 Mcg/Act Aero 1 PUFF INH Q12HR, #1 INHALER 0 Refills Carvedilol (Coreg) 12.5 Mg Tab 25 MG PO BID for Blood Pressure Management, #60 TAB Clopidogrel (Plavix) 75 Mg Tab 75 MG PO DAILY for Blood Clot Prevention, #30 TAB Fluticasone 12 GM Inh (Flovent Hfa 12 GM Inh) 220 Mcg/Act Inh 1 PUFF INH BID for breathing for 30 Days, INHALER Use daily at the same time. Hydrochlorothiazide (Hydrochlorothiazide) 25 Mg Tab 25 MG PO DAILY, #30 TAB 0 Refills Insulin Human Isophane-Regular 70-30 Inj (Novolin 70-30 Inj) 1,000 Unit/10 Ml Vial 35 UNITS SQ BID for Blood Sugar Management, ML 0 Refills Multiple Vitamin (Multiple Vitamin) 1 Tab 1 TAB PO DAILY for Nutritional Supplement, TAB 0 Refills Discontinued Medications: Lisinopril (Lisinopril) 5 Mg Tab 5 MG PO BID for Blood Pressure Management, #60 TAB Sandra Ch PA-C August 02, 2017 14:57 Gerard Whatley DO August 06, 2017 23:39
[2017-08-02 15:00] VITALS: PULSE 61
[2017-08-03 11:07] LABS: METHYLMALONIC ACID 0.2 nmol/mL (<=0.40)
== END 2017-08-02 17:23 | disposition home or self-care (01) ==
LOC: NEPC 00:36 → NEDA 05:39 → NEPGCP 07:48 → N07B 08-02 08:58 → NEPGCP 08-02 09:21
PROVIDERS: ADMIT Hospitalist; ATTEND Hospitalist
DX: R07.89 Other chest pain (principal); R51 Headache; M54.2 Cervicalgia; I11.0 Hypertensive heart disease with heart failure; I50.9 Heart failure, unspecified; E78.00 Pure hypercholesterolemia, unspecified; I42.9 Cardiomyopathy, unspecified; E11.9 Type 2 diabetes mellitus without complications; J44.9 Chronic obstructive pulmonary disease, unspecified; G47.30 Sleep apnea, unspecified; I44.0 Atrioventricular block, first degree; R94.31 Abnormal electrocardiogram [ECG] [EKG]; I45.9 Conduction disorder, unspecified; E66.01 Morbid (severe) obesity due to excess calories; Z79.4 Long term (current) use of insulin; Z91.19 Patient's noncompliance with other medical treatment and regimen; Z85.46 Personal history of malignant neoplasm of prostate; Z79.899 Other long term (current) drug therapy; Z79.82 Long term (current) use of aspirin; Z87.891 Personal history of nicotine dependence; Z86.73 Personal history of transient ischemic attack (TIA), and cerebral infarction without residual deficits
CPT/HCPCS: 70450; 70544; 70548; 70551; 71045; 72050; 76937; 80048; 80053; 80307; 82550; 82552; 82607; 82948; 83735; 83880; 83921; 84207; 84425; 84439; 84443; 84484; 85025; 85610; 85652; 85730; 86038; 86140; 86430; 93005; 96361; 96365; 96372; 96375; 96376; 99285; A9579; G0378; J0690; J1815; J2060; J2270; J2405; J7050

== ENCOUNTER 2017-09-05 04:40 | Emergency (ER) | payer OTHER ==
[~2017-09-05 04:40] MED LIST changes: +AMIT10TA6 PO; +LISI-515 PO; -LISI-519 PO
[2017-09-05 04:43] VITALS: BP 132/70; PULSE 79; RESP 18; TEMP 98.9; O2SAT 95
[2017-09-05] MEDS ORDERED: SODIUM CHLORIDE 0.9% FLUSH 10 ML FLUSH IVF PRN (05:15)
[2017-09-05] MEDS ORDERED: RESP: ALBUTEROL 2.5 MG/IPRATROPIUM 0.5 MG NEB (SCH) INH ONE (05:15)
[2017-09-05 05:23] VITALS: RESP 16; O2SAT 97
--- NOTE | 2017-09-05 05:23 | PD ---
HPI Chief Complaint: Respiratory Distress Time Seen by Provider: 04:55 Travel History International Travel<30 days: No Contact w/Intl Traveler<30days: No Traveled to known affect area: No History of Present Illness HPI The patient is a 67-year-old male who presents to the emergency department with dizziness and shortness of breath. The patient states he developed dizziness, which she describes as lightheadedness, earlier tonight. The patient thought he was having another stroke. The patient states he was recently admitted to the hospital within the last 2 months for a CVA, was administered TPA for left-sided weakness, and his symptoms significantly improved. He does note some residual left-sided numbness, but denies any significant weakness. The patient does have an appointment later today with the neurologist, Dr. Solis, in [place], [place]. The patient states he ran out of his Plavix 1 week ago, however, has been taken aspirin. The patient describes the dizziness as lightheadedness, but denies any near syncopal episodes. He also complains of shortness of breath which began after the dizziness. The shortness of breath is worse when he lays on his left side, but is only minimally improved with sitting upright. He does have a history of COPD and CHF per his report. Symptoms are moderate. He denies any focal weakness or numbness of the upper or lower extremities that is new. PFSH Past Medical History Hx Anticoagulant Therapy: Yes (asa) Arthritis: No Asthma: No Autoimmune Disease: No Blood Disorders: No Anxiety: No Depression: No Heart Rhythm Problems: No Cancer: Yes (Prostate ) Cardiac Catheterization: No Cardiovascular Problems: Yes High Cholesterol: Yes Chemotherapy: No Chest Pain: Yes Congestive Heart Failure: Yes COPD: Yes Cerebrovascular Accident: Yes Coronary Artery Disease: No Diabetes: Yes Patient Takes Glucophage: No Diminished Hearing: No Endocrine: Yes Gastrointestinal Disorders: Yes (PYLIDINOL CYST X2) GERD: No Glaucoma: No Genitourinary: No Headaches: Yes Hepatitis: No Heparin Induced Thrombocytopen: No Hypertension: Yes Immune Disorder: No Implanted Vascular Access Dvce: No Kidney Stones: No Musculoskeletal: No Neurologic: Yes Psychiatric: No Reproductive: No Respiratory: Yes (COPD) Immunizations Current: Yes Migraines: No Myocardial Infarction: No Renal Failure: No Seizures: No Sickle Cell Disease: No Sleep Apnea: Yes Thyroid Disease: No Past Surgical History Abdominal Surgery: Yes (appendectomy) AICD: No Appendectomy: Yes Arteriovenous Shunt: No Cardiac Surgery: No Cholecystectomy: No Coronary Artery Bypass Graft: No Ear Surgery: No Endocrine Surgery: No Eye Surgery: No Genitourinary Surgery: No Gynecologic Surgery: No Insulin Pump: No Joint Replacement: No Neurologic Surgery: No Oral Surgery: No Pacemaker: No Thoracic Surgery: No Other Surgery: Yes ( CYST REMOVAL) Social History Alcohol Use: No (RARE) Tobacco Use: No (quit in 1989) Substance Use: No Allergies-Medications (Allergen,Severity, Reaction): Coded Allergies: methylprednisolone (Verified Adverse Reaction, Intermediate, 09/05/17) severe bowel pain *MDRO Multi-Drug Resistant Organism (Verified Adverse Reaction, Unknown, ) MRSA (back wound/chest abscess) - 04/24/2015 MRSA PCR screen positive 10/12/16 Reported Meds & Prescriptions Reported Meds & Active Scripts Active Amitriptyline (Amitriptyline HCl) 10 Mg Tab 10 Mg PO HS Lisinopril 20 Mg Tab 20 Mg PO BID 30 Days Coreg (Carvedilol) 12.5 Mg Tab 25 Mg PO BID Plavix (Clopidogrel Bisulfate) 75 Mg Tab 75 Mg PO DAILY Aspirin 325 Mg Tab 325 Mg PO DAILY take only for 3 days then stop. Continue plavix Flovent Hfa 12 GM Inh (Fluticasone Propionate) 220 Mcg/Act Inh 1 Puff INH BID 30 Days Use daily at the same time. Amlodipine (Amlodipine Besylate) 10 Mg Tab 10 Mg PO DAILY Reported Hydrochlorothiazide 25 Mg Tab 25 Mg PO DAILY Symbicort Inh (Budesonide/Formoterol Fumarate) 160-4.5 Mcg/Act Aero 1 Puff INH Q12HR Novolin 70-30 Inj (Insulin Human Isoph/Insulin Regular) 1,000 Unit/10 Ml Vial 35 Units SQ BID Atorvastatin (Atorvastatin Calcium) 20 Mg Tab 20 Mg PO HS Multiple Vitamin 1 Tab 1 Tab PO DAILY Review of Systems Except as stated in HPI: all other systems reviewed are Neg General / Constitutional: No: Fever HENT: Positive: Lightheadedness, Neck Stiffness, Neck Pain, No: Headaches Cardiovascular: Positive: Dyspnea on exertion, No: Chest Pain or Discomfort Respiratory: Positive: Shortness of Breath, No: Cough, Orthopnea Gastrointestinal: No: Nausea, Vomiting, Abdominal Pain Musculoskeletal: No: Edema Neurologic: Positive: Dizziness Physical Exam Narrative GENERAL: Awake, alert, pleasant 67-year-old male who appears his stated age and is in no acute respiratory distress. The patient initially is wearing sunglasses and a half. SKIN: Focused skin assessment warm/dry. HEAD: Atraumatic. Normocephalic. EYES: Pupils equal and round. Pupils are 3 mm bilateral and reactive. EOMs are intact. The patient is able to see fingers at a distance of 2 feet without difficulty. ENT: No nasal bleeding or discharge. Mucous membranes pink and moist. NECK: Trachea midline. No JVD. CARDIOVASCULAR: Regular rate and rhythm. No murmur appreciated. RESPIRATORY: No accessory muscle use. Clear to auscultation. Breath sounds equal bilaterally. GASTROINTESTINAL: Abdomen soft, obese, no rebound tenderness. MUSCULOSKELETAL: No obvious deformities. No clubbing. No cyanosis. No edema. NEUROLOGICAL: Awake and alert. No obvious cranial nerve deficits. Motor grossly within normal limits. Normal speech. Smile is symmetric. Tongue is midline. EOMs are intact. There is no drift of the upper or lower extremities. Finger to nose is normal. Heel to jordan is normal. Patient is alert and oriented 4. Patient follows commands without difficulty. Slightly decreased sensation to the left side of the face, left arm, and left leg, not new per patient's report. PSYCHIATRIC: Appropriate mood and affect; insight and judgment normal. Data Data Last Documented VS Vital Signs Date Time Temp Pulse Resp B/P (MAP) Pulse Ox O2 Delivery O2 Flow Rate FiO2 09/05/17 05:55 97 21 09/05/17 05:23 16 Room Air 09/05/17 04:43 98.9 79 132/70 (90) Orders Orders Complete Blood Count With Diff (09/05/17 05:11) Comprehensive Metabolic Panel (09/05/17 05:11) B-Type Natriuretic Peptide (09/05/17 05:11) Prothrombin Time / Inr (Pt) (09/05/17 05:11) Magnesium (Mg) (09/05/17 05:11) Ckmb (Isoenzyme) Profile (09/05/17 05:11) Troponin I (09/05/17 05:11) Iv Access Insert/Monitor (09/05/17 05:11) Ecg Monitoring (09/05/17 05:11) Oximetry (09/05/17 05:11) Oxygen Administration (09/05/17 05:11) Chest, Single Ap (09/05/17 05:11) Sodium Chloride 0.9% Flush (Ns Flush) (09/05/17 05:15) Albuterol-Ipratropium Neb (Duoneb Neb) (09/05/17 05:15) Ct Brain W/O Iv Contrast(Rout) (09/05/17 ) CKMB (09/05/17 05:15) CKMB% (09/05/17 05:15) Troponin I (09/05/17 08:15) Labs Laboratory Tests Test 09/05/17 05:15 White Blood Count 10.2 TH/MM3 Red Blood Count 4.75 MIL/MM3 Hemoglobin 13.2 GM/DL Hematocrit 38.7 % Mean Corpuscular Volume 81.5 FL Mean Corpuscular Hemoglobin 27.7 PG Mean Corpuscular Hemoglobin Concent 34.0 % Red Cell Distribution Width 14.4 % Platelet Count 288 TH/MM3 Mean Platelet Volume 8.7 FL Neutrophils (%) (Auto) 65.7 % Lymphocytes (%) (Auto) 20.1 % Monocytes (%) (Auto) 8.2 % Eosinophils (%) (Auto) 4.9 % Basophils (%) (Auto) 1.1 % Neutrophils # (Auto) 6.7 TH/MM3 Lymphocytes # (Auto) 2.0 TH/MM3 Monocytes # (Auto) 0.8 TH/MM3 Eosinophils # (Auto) 0.5 TH/MM3 Basophils # (Auto) 0.1 TH/MM3 CBC Comment DIFF FINAL Differential Comment Prothrombin Time 10.0 SEC Prothromb Time International Ratio 1.0 RATIO Blood Urea Nitrogen 38 MG/DL Creatinine 2.16 MG/DL Random Glucose 293 MG/DL Total Protein 7.5 GM/DL Albumin 3.8 GM/DL Calcium Level 8.8 MG/DL Magnesium Level 1.9 MG/DL Alkaline Phosphatase 90 U/L Aspartate Amino Transf (AST/SGOT) 20 U/L Alanine Aminotransferase (ALT/SGPT) 31 U/L Total Bilirubin 0.3 MG/DL Sodium Level 139 MEQ/L Potassium Level 3.8 MEQ/L Chloride Level 105 MEQ/L Carbon Dioxide Level 20.5 MEQ/L Anion Gap 14 MEQ/L Estimat Glomerular Filtration Rate 31 ML/MIN Total Creatine Kinase 249 U/L Creatine Kinase MB 3.1 NG/ML Troponin I LESS THAN 0.02 NG/ML B-Type Natriuretic Peptide 35 PG/ML MDM Medical Decision Making Medical Screen Exam Complete: Yes Emergency Medical Condition: Yes Medical Record Reviewed: Yes Interpretation(s) EKG reveals normal sinus rhythm with a rate of 76. Borderline first-degree AV block with NE interval of 236 ms. Last Impressions Chest X-Ray 09/05/17 0511 Signed Impressions: CONCLUSION: No acute intrathoracic disease. Stable examination. Head CT 09/05/17 0000 Signed Impressions: CONCLUSION: 1. No acute intracranial hemorrhage. 2. Stable CT scan of the brain compared to the prior study. Laboratory Tests Test 09/05/17 05:15 White Blood Count 10.2 TH/MM3 Red Blood Count 4.75 MIL/MM3 Hemoglobin 13.2 GM/DL Hematocrit 38.7 % Mean Corpuscular Volume 81.5 FL Mean Corpuscular Hemoglobin 27.7 PG Mean Corpuscular Hemoglobin Concent 34.0 % Red Cell Distribution Width 14.4 % Platelet Count 288 TH/MM3 Mean Platelet Volume 8.7 FL Neutrophils (%) (Auto) 65.7 % Lymphocytes (%) (Auto) 20.1 % Monocytes (%) (Auto) 8.2 % Eosinophils (%) (Auto) 4.9 % Basophils (%) (Auto) 1.1 % Neutrophils # (Auto) 6.7 TH/MM3 Lymphocytes # (Auto) 2.0 TH/MM3 Monocytes # (Auto) 0.8 TH/MM3 Eosinophils # (Auto) 0.5 TH/MM3 Basophils # (Auto) 0.1 TH/MM3 CBC Comment DIFF FINAL Differential Comment Prothrombin Time 10.0 SEC Prothromb Time International Ratio 1.0 RATIO Blood Urea Nitrogen 38 MG/DL Creatinine 2.16 MG/DL Random Glucose 293 MG/DL Total Protein 7.5 GM/DL Albumin 3.8 GM/DL Calcium Level 8.8 MG/DL Magnesium Level 1.9 MG/DL Alkaline Phosphatase 90 U/L Aspartate Amino Transf (AST/SGOT) 20 U/L Alanine Aminotransferase (ALT/SGPT) 31 U/L Total Bilirubin 0.3 MG/DL Sodium Level 139 MEQ/L Potassium Level 3.8 MEQ/L Chloride Level 105 MEQ/L Carbon Dioxide Level 20.5 MEQ/L Anion Gap 14 MEQ/L Estimat Glomerular Filtration Rate 31 ML/MIN Total Creatine Kinase 249 U/L Creatine Kinase MB 3.1 NG/ML Troponin I LESS THAN 0.02 NG/ML B-Type Natriuretic Peptide 35 PG/ML Differential Diagnosis Differential diagnosis includes CHF, COPD, bronchitis, pulmonary embolism, CVA, TIA, hyponatremia, carotid dissection. Narrative Course IV was established, labs are drawn and sent, and the patient was placed on cardiac telemetry monitoring and continuous pulse oximetry monitoring. EKG was ordered and interpreted. CT the brain was obtained. Chest x-ray was obtained. The patient was administered 1 DuoNeb. I reviewed the patient's EMR, the patient had a nuclear medicine myocardial perfusion scan performed on June 18, 2017 which revealed intermediate risk with ejection fraction at 36% at that time. The patient's creatinine is slightly elevated at 2.16, previous creatinine on previous admission was 1.45. The chest x-ray is unremarkable. CT the brain is negative. Patient appears very comfortable at rest, vitals are within normal limits. A second 3 hour troponin level was ordered. I did advise the patient that if the second troponin was negative, less than 0.02, the patient would be discharged so he can make his follow-up appointment with his neurologist that is later today at 1 PM. The patient was signed out to the oncoming physician at 7 AM, if troponin is negative, patient can be discharged home with follow-up with his neurologist later today. Diagnosis Primary Impression: Dyspnea Qualified Codes: R06.02 - Shortness of breath Additional Impression: Dizziness Patient Instructions: General Instructions Additional Instructions: Please provide the patient a copy of his CT results, x-ray results, and lab results at discharge. Follow-up with your neurologist today at 1 PM as directed. Return if symptoms worsen or progress. Disposition: 01 DISCHARGE HOME Condition: Stable Noé Gray MD Sep 05, 2017 05:23
[2017-09-05 05:26] LABS: AUTOMATED NEUTROPHIL # 6.7 TH/MM3 (1.8-7.7); BASOPHIL # 0.1 TH/MM3 (0-0.2); BASOPHIL % 1.1 % (0.0-2.0); EOSINOPHIL # 0.5 TH/MM3 (0-0.4); EOSINOPHIL % 4.9 % (0.0-4.0); HEMATOCRIT 38.7 % (39.0-51.0); HEMOGLOBIN 13.2 GM/DL (13.0-17.0); LYMPH % 20.1 % (9.0-44.0); MEAN CELL VOLUME 81.5 FL (80.0-100.0); MEAN CORPUSCULAR HEMOGLOBIN 27.7 PG (27.0-34.0); MEAN PLATELET VOLUME 8.7 FL (7.0-11.0); MONO % 8.2 % (0.0-8.0); MONOCYTE # 0.8 TH/MM3 (0-0.9); NEUT % 65.7 % (16.0-70.0); PLATELET COUNT 288 TH/MM3 (150-450); RED BLOOD COUNT 4.75 MIL/MM3 (4.50-5.90); RED CELL DISTRIBUTION WIDTH 14.4 % (11.6-17.2); WHITE BLOOD COUNT 10.2 TH/MM3 (4.0-11.0)
--- NOTE | 2017-09-05 05:32 | RADRPT ---
EXAM DATE: 09/05/2017 5:25 AM EDT AGE/SEX: 67 years / Male INDICATIONS: SOB CLINICAL DATA: This is the patient's initial encounter. Patient reports that signs and symptoms have been present for 1 day and indicates a pain score of 0/10. MEDICAL/SURGICAL HISTORY: None. None. COMPARISON: [facility] [place], [place]. . FINDINGS: A single AP view of the chest demonstrates the lungs to be symmetrically aerated without evidence of mass, infiltrate or effusion. The cardiomediastinal contours are unremarkable. Osseous structures a re intact. CONCLUSION: No acute intrathoracic disease. Stable examination. Electronically signed by: David Hutton MD 09/05/2017 5:31 AM EDT
[2017-09-05 05:44] LABS: ALT (GPT) 31 U/L (12-78)
[2017-09-05 05:48] LABS: ALKALINE PHOSPHATASE 90 U/L (45-117); TOTAL BILIRUBIN ADULT 0.3 MG/DL (0.2-1.0); TOTAL PROTEIN 7.5 GM/DL (6.4-8.2); TROPONIN I LESS THAN 0.02 NG/ML (0.02-0.05)
[2017-09-05 05:50] LABS: ALBUMIN 3.8 GM/DL (3.4-5.0); AST (GOT) 20 U/L (15-37); BICARBONATE 20.5 MEQ/L (21.0-32.0); BLOOD UREA NITROGEN 38 MG/DL (7-18); CALCIUM 8.8 MG/DL (8.5-10.1); CHLORIDE 105 MEQ/L (98-107); CREATININE 2.16 MG/DL (0.60-1.30); GLOMERULAR FILTRATION RATE 31 ML/MIN (>89); GLUCOSE,RANDOM 293 MG/DL (74-106); MAGNESIUM 1.9 MG/DL (1.5-2.5); SODIUM (NA) 139 MEQ/L (136-145)
[2017-09-05 05:55] VITALS: O2SAT 97
--- NOTE | 2017-09-05 05:58 | RADRPT ---
EXAM DATE: 09/05/2017 5:43 AM EDT AGE/SEX: 67 years / Male INDICATIONS: Dizziness. CLINICAL DATA: This is the patient's initial encounter. Patient reports that signs and symptoms have been present for 1 day and indicates a pain score of 0/10. MEDICAL/SURGICAL HISTORY: Cardiovascular disease. Pacemaker. RADIATION DOSE: 56.35 CTDI (mGy) COMPARISON: [facility] – [place] BRAIN W/O CONTRAST, 07/31/2017. . TECHNIQUE: CT of the head without contrast. Using automated exposure control and adjustment of the mA and/or kV according to patient size, radiation dose was kept as low as reasonably achievable to ob tain optimal diagnostic quality images. FINDINGS: Cerebrum: The ventricles are normal for age. Stable bilateral cortical atrophy and chronic white mat ter changes. No evidence of midline shift, mass lesion, hemorrhage or acute infarction. No extraaxia l fluid collections are seen. Stable right temporal lobe arachnoid cyst. Posterior Fossa: The cerebellum and brainstem are intact. The 4th ventricle is midline. The cerebe llopontine angle is unremarkable. Extracranial: The visualized portion of the orbits is intact. Skull: The calvaria is intact. No evidence of skull fracture. CONCLUSION: 1. No acute intracranial hemorrhage. 2. Stable CT scan of the brain compared to the prior study. Electronically signed by: David Hutton MD 09/05/2017 5:57 AM EDT
[2017-09-05] MEDS ORDERED: CLOPIDOGREL 75 MG TAB PO ONE (06:45)
[2017-09-05 08:10] VITALS: BP 173/81; PULSE 67; RESP 18; O2SAT 100
[2017-09-05 09:17] VITALS: RESP 20; O2SAT 93
--- NOTE | 2017-09-05 09:18 | PD ---
Physical Exam Narrative GENERAL: 67-year-old male in no apparent distress SKIN: Focused skin assessment warm/dry. HEAD: Atraumatic. Normocephalic. EYES: Pupils equal and round. No scleral icterus. No injection or drainage. ENT: No nasal bleeding or discharge. Mucous membranes pink and moist. NECK: Trachea midline. No JVD. CARDIOVASCULAR: Regular rate and rhythm. RESPIRATORY: No accessory muscle use. No increased effort GASTROINTESTINAL: Abdomen soft, non-tender, nondistended. MUSCULOSKELETAL: No obvious deformities. No clubbing. No cyanosis. NEUROLOGICAL: Awake and alert. No obvious cranial nerve deficits. Motor grossly within normal limits. Normal speech. PSYCHIATRIC: Appropriate mood and affect; insight and judgment normal. Data Data Last Documented VS Vital Signs Date Time Temp Pulse Resp B/P (MAP) Pulse Ox O2 Delivery O2 Flow Rate FiO2 09/05/17 08:10 67 18 173/81 (111) 100 2.00 09/05/17 05:55 21 09/05/17 05:23 Room Air 09/05/17 04:43 98.9 Orders Orders Complete Blood Count With Diff (09/05/17 05:11) Comprehensive Metabolic Panel (09/05/17 05:11) B-Type Natriuretic Peptide (09/05/17 05:11) Prothrombin Time / Inr (Pt) (09/05/17 05:11) Magnesium (Mg) (09/05/17 05:11) Ckmb (Isoenzyme) Profile (09/05/17 05:11) Troponin I (09/05/17 05:11) Iv Access Insert/Monitor (09/05/17 05:11) Ecg Monitoring (09/05/17 05:11) Oximetry (09/05/17 05:11) Oxygen Administration (09/05/17 05:11) Chest, Single Ap (09/05/17 05:11) Sodium Chloride 0.9% Flush (Ns Flush) (09/05/17 05:15) Albuterol-Ipratropium Neb (Duoneb Neb) (09/05/17 05:15) Ct Brain W/O Iv Contrast(Rout) (09/05/17 ) CKMB (09/05/17 05:15) CKMB% (09/05/17 05:15) Troponin I (09/05/17 08:15) Clopidogrel (Plavix) (09/05/17 06:45) Electrocardiogram (09/05/17 03:58) Labs Laboratory Tests Test 09/05/17 05:15 09/05/17 08:20 White Blood Count 10.2 TH/MM3 Red Blood Count 4.75 MIL/MM3 Hemoglobin 13.2 GM/DL Hematocrit 38.7 % Mean Corpuscular Volume 81.5 FL Mean Corpuscular Hemoglobin 27.7 PG Mean Corpuscular Hemoglobin Concent 34.0 % Red Cell Distribution Width 14.4 % Platelet Count 288 TH/MM3 Mean Platelet Volume 8.7 FL Neutrophils (%) (Auto) 65.7 % Lymphocytes (%) (Auto) 20.1 % Monocytes (%) (Auto) 8.2 % Eosinophils (%) (Auto) 4.9 % Basophils (%) (Auto) 1.1 % Neutrophils # (Auto) 6.7 TH/MM3 Lymphocytes # (Auto) 2.0 TH/MM3 Monocytes # (Auto) 0.8 TH/MM3 Eosinophils # (Auto) 0.5 TH/MM3 Basophils # (Auto) 0.1 TH/MM3 CBC Comment DIFF FINAL Differential Comment Prothrombin Time 10.0 SEC Prothromb Time International Ratio 1.0 RATIO Blood Urea Nitrogen 38 MG/DL Creatinine 2.16 MG/DL Random Glucose 293 MG/DL Total Protein 7.5 GM/DL Albumin 3.8 GM/DL Calcium Level 8.8 MG/DL Magnesium Level 1.9 MG/DL Alkaline Phosphatase 90 U/L Aspartate Amino Transf (AST/SGOT) 20 U/L Alanine Aminotransferase (ALT/SGPT) 31 U/L Total Bilirubin 0.3 MG/DL Sodium Level 139 MEQ/L Potassium Level 3.8 MEQ/L Chloride Level 105 MEQ/L Carbon Dioxide Level 20.5 MEQ/L Anion Gap 14 MEQ/L Estimat Glomerular Filtration Rate 31 ML/MIN Total Creatine Kinase 249 U/L Creatine Kinase MB 3.1 NG/ML Troponin I LESS THAN 0.02 NG/ML LESS THAN 0.02 NG/ML B-Type Natriuretic Peptide 35 PG/ML [facility] Supervised Visit with [facility]: No Interpretation(s) repeat troponin is normal Narrative Course Signed over to me to follow repeat troponin and if normal discharge. Patient was removed from oxygen and has normal room air saturation. Patient denies any new complaints and states that they are feeling better. Patient happy with care , all questions answered. Patient knows that follow up is incumbent on them and to return to the emergency room immediately if new or worsening symptoms develop. Patient given strict return precautions, vitals reviewed and are normal , agrees to further workup as an outpatient. Diagnosis Primary Impression: Dyspnea Qualified Codes: R06.02 - Shortness of breath Additional Impression: Dizziness Patient Instructions: General Instructions Additional Instruction: Please provide the patient a copy of his CT results, x-ray results, and lab results at discharge. Follow-up with your neurologist today at 1 PM as directed. Return if symptoms worsen or progress. take your medicines as prescribed Med/Other Pt SpecificInfo: No Change to Meds Disposition: 01 DISCHARGE HOME Condition: Stable Kate Olvera MD Sep 05, 2017 09:18
--- NOTE | 2017-09-05 16:14 | EKG ---
Date Performed: 09/05/2017 Time Performed: 03:58:46 PTAGE: 67 years EKG: Sinus rhythm WITH FIRST DEGREE AV BLOCK BORDERLINE LEFT AXIS DEVIATION MODERATE INTRAVENTRICULAR CONDUCTION DELAY ABNORMAL ECG Since the PREVIOUS TRACING , no significant change noted PREVIOUS TRACING;07/31/2017 @1302 DOCTOR: Leslie Bruner Interpretating Date/Time 09/05/2017 16:14:01
== END 2017-09-05 09:42 | disposition home or self-care (01) ==
LOC: NEPE 04:40
DX: R06.00 Dyspnea, unspecified (principal); R42 Dizziness and giddiness; R94.31 Abnormal electrocardiogram [ECG] [EKG]; E78.00 Pure hypercholesterolemia, unspecified; I11.0 Hypertensive heart disease with heart failure; I50.9 Heart failure, unspecified; E11.9 Type 2 diabetes mellitus without complications; J44.9 Chronic obstructive pulmonary disease, unspecified; Z87.891 Personal history of nicotine dependence
CPT/HCPCS: 70450; 71045; 80053; 82550; 82552; 83735; 83880; 84484; 85025; 85610; 93005; 94664